=== PATIENT | female | born 1945 | race Caucasian/White ===

== ENCOUNTER → 2017-04-13 10:43 | Day surgery (SDC) | payer MEDICARE, MEDICAID ==
[~2017-04-13 10:43] MED LIST: Buffered Lidocaine 0.9% SYRIN* 5 ML/SYR SYRINGE ONE; Clindamycin 900 MG IVPREMIX(* 900 MG/50 ML SDV IV ONE
== END | disposition home or self-care (01) ==
LOC: OR 10:43 → SP 10:43
PROVIDERS: ATTEND Podiatrist
DX: M20.40 Other hammer toe(s) (acquired), unspecified foot (principal); Z53.9 Procedure and treatment not carried out, unspecified reason

== ENCOUNTER 2017-05-25 12:13 | Day surgery (SDC) | payer MEDICARE, MEDICAID ==
[2017-05-25 12:34] VITALS: BP 155/74
[2017-05-25] MEDS ORDERED: Dexamethasone IV* 4 MG/ML 1 ML (4 MG) ONE (13:45)
[2017-05-25] MEDS ORDERED: Lidocaine 1% INJ* 10 MG/ML 30 ML SDV ONE (13:45)
[2017-05-25] MEDS ORDERED: Bupivacaine 0.25% SDV* 30 ML ONE (13:45)
[2017-05-25] MEDS ORDERED: Acetaminop/Codeine 30 MG TAB* 1 TAB (300 MG/30 MG) ONE (14:49)
--- NOTE | 2017-05-26 16:06 | OP ---
DATE OF OPERATION: 05/25/17 - [facility] DATE OF : 41 SURGEON: Matthew Rosen DPM. ANESTHESIA: Straight local. PRE-OP DIAGNOSIS: Skin neoplasm with unknown behavior. POST-OP DIAGNOSIS: Skin neoplasm with unknown behavior. OPERATIVE PROCEDURE: Excision of skin lesion at the top of the right foot. ESTIMATED BLOOD LOSS: Less than 25 cc. IV FLUIDS: None. DRAINS: None. SPECIMENS: Elliptical wedge excision of skin. DESCRIPTION OF PROCEDURE: The patient was taken to the operating room, was placed in the supine position. Time-out was called and OR team agreed. The right foot was then blocked with 5 cc of 1% lidocaine plain intralesionally and around the lesion. The foot was then prepped and draped in sterile manner. The right foot was exsanguinated with an Esmarch bandage and the cuff was then inflated to 250 mmHg. Attention was then paid to the right foot. There was a nevus like skin lesion that previously had a punch biopsy. It was being benign by the pathologist. The recommendation is to excise the whole lesion. I then made a semi-elliptical incision of the said lesion with deep margins. Distal apex was tagged with nylon suture. Indicated this part is at the 6 o'clock position pointing towards the toes. Once the excision was completed, wound was irrigated and closed with a simple suture pattern. The cuff was then deflated. The foot was then placed in pressure dressing. The patient tolerated the procedure well and was discharged later in stable condition. [id number] #: [id number] MTDD
== END 2017-05-25 16:43 | disposition home or self-care (01) ==
LOC: OR 12:13
PROVIDERS: ATTEND Podiatrist
DX: D22.71 Melanocytic nevi of right lower limb, including hip (principal); E11.9 Type 2 diabetes mellitus without complications; Z79.4 Long term (current) use of insulin; Z79.84 Long term (current) use of oral hypoglycemic drugs; M06.9 Rheumatoid arthritis, unspecified; I10 Essential (primary) hypertension
CPT/HCPCS: 88305; 88341; 88342; A9270-GY; J1100; J2001

== ENCOUNTER 2017-11-10 21:57 | Inpatient (IN) | payer MEDICARE, MEDICAID ==
[2017-11-10] MEDS ORDERED: NS 0.9% 1000 ML* 2,000 ML IV ONE (22:14)
--- OUTSIDE RECORDS SUMMARY | 2017-11-10 22:17 | XMS REPORT ---
:1945 External Reference #:[id number] [facility] Address [address] [place] [address] Phone [phone] Care Team Providers Name Role Phone Lindsey Larsen M.D. Primary Care Physician Unavailable Payers Type Date Identification Numbers Payment Provider Subscriber Medicare Primary Policy Number: [id number] Medicare - NGS Joyce Cheung PayID: [id number] [address] [facility] [place] [address] Medicaid Policy Number: [id number] Medicaid Joyce Cheung PayID: [id number] [address] [place] [address] Problems Date Description Provider Status Onset: Type 2 diabetes mellitus Active Note: 2001 Onset: Hypercholesterolemia Active Onset: Transient cerebral ischemia Active Onset: 12/24/2015 Ptosis of eyelid Calista Arenas O.D. Active Onset: 12/24/2015 Tear film insufficiency Calista Arenas O.D. Active Onset: 12/24/2015 Blepharitis Calista Arenas O.D. 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 Active macular edema, r eye Onset: 10/02/2016 Type 2 diab with mod nonp rtnop Lai Vtiale M.D. 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 Active with macular edema, bi Onset: 05/29/2017 Squamous blepharitis Ashvin Guillory M.D. Active Social History Type Date Description Comments Marital Status Legal Status: Occupation Unemployed ETOH Use Denies alcohol use Smoking Patient has never smoked Recreational Drug Use Denies Drug Use Daily Caffeine Soda RARE Allergies, Adverse Reactions, Alerts Date Description Reaction Status Severity Comments 01/12/2015 Aspirin active 01/12/2015 Penicillin active Medications Medication Date Status Form Strength Qnty SIG Indications Ordering Provider Bacitracin 11/08 Active Ointment 500Unit/G 7gm place in H01.024 Ashvin (Ophthalmic) /2017 M both eyes at [facility], night before M.D. bed for 4 weeks Artificial 11/07 Active Solution 1-0.3% 4 times a Ashvin Tears /2017 day Leia Guillory Celebrex Active Capsules 200mg Lala, / Anisha Dupree Enbrel Active Soln 50mg/ml Unknown Prefill Syringe Metformin HCL Active Tablets ER 1000mg take 1 Unknown ER /0000 24HR tablet 2 X Day Crestor Active Tablets 40mg Lala, / Anisha Dupree Glipizide Active Tablets 5mg Flora-W / atsCharity bowen [employer] Clopidogrel Active Tablets 75mg Lala, Bisulfate / Anisha Dupree Calcium High Active Tablets 600-200mg take 1 Unknown Potency + /0000 -Unit tablet twice Vitamin D a day (600 MG Plus 400 MG Vit D) Metformin HCL Active Tablets 1000mg Lala, / Anisha Dupree Calcium Active Tablets 600-400mg Unknown Carbonate-Vitam /0000 -Unit in D Zofran Active Tablets 4mg 1 every 6 Unknown /0000 hours as needed Voltaren Active Gel 1% Unknown /0000 Robitussin DM Active Syrup 100-10mg/ Unknown Sugar Free /0000 5ML Miralax Active Packet 3350NF Unknown /0000 Acetaminophen Active Capsules 500mg Unknown /0000 Toujeo Solostar Active Solution 300Unit/M Unknown /0000 Pen-Inject L Clarinex Active Tablets 5mg Unknown /0000 Neomycin/Polymy 05/29 Hx Ointment 3.5-31724 7gm apply a thin H01.021 Ashvin arboleda/Dexamethaso /2016 -0.1 strip to the [facility], [place] - right eye at M.D. 06/12 night for weeks, then discontinue Erythromycin 12/28 Hx Ointment 5mg/GM 1Tube apply thin H10.523 Calista Warren /2016 s strip to all [place], - four eyelid O.D. 05/28 margins every night at bedtime x 2 weeks Erythromycin 06/19 Hx Ointment 5mg/GM 1Tube apply thin H10.523 Gregoria Briones strip to all [facility], - four eyelid O.D. 10/01 margins x every night Maxitrol 01/24 Hx Ointment 3.5-26217 3.500 apply 11/08' H01.001 Calista Warren -0.1 gm to all lids [place], - every night O.D. 03/08 at bedtime x 2 weeks Erythromycin 12/24 Hx Ointment 5mg/GM 1Tube Apply to all H01.001 Calista Warren four lids at [place], - bedtime for O.D. 01/23 3 weeks /2015 Humulin 70/30 00/ Hx Suspension (70-30)10 Unknown /0000 0Unit/ML - 12/23 Ofloxacin Hx Solution 0.3% insert 5 Unknown (Otic) /0000 drops into - right ear 12/23 twice a day /2015 Hydrocodone-Bill 00/00 Hx Tablets 5-325mg Unknown taminophen /0000 - 12/23 Calcium 00/ Hx Tablets 600-400mg Unknown Carbonate-Vitam /0000 -Unit in D - 12/23 Ipratropium Hx Solution 0.06% Lala, [place] /0000 Anisha Fu M.D. 12/23 Lantus Hx Solution 100Unit/M Flora-W /0000 L atson, - Charity 12/23 [employer] Mometasone Hx Solution 0.1% Strominge Furoate /0000 Lai newell M.D. 12/23 Loperamide HCL Hx Capsules 2mg Santos-Berli /0000 Lindsey eller M.D. 12/23 Mapap Hx Tablets 500mg 2 tab by Unknown /0000 mouth twice - a day as 06/18 Nitrofurantoin Hx Capsules 100mg Unknown Monohyd Macro / - 12/23 Desloratadine Hx Tablets 5mg Lala, /0000 Anisha Fu M.D. 06/18 Fluzone Hx Cyndee 0.5ml inject 0.5 Unknown High-Dose /0000 milliliter - intramuscula 12/23 Prevnar 13 Hx Suspension inject 0.5 Unknown /0000 milliliter - intramuscula 12/23 Ondansetron Hx Tablets 4mg Santos-Berli /0000 Dispers Lindsey eller M.D. 12/23 Humalog Kwikpen 00 Hx Solution 100Unit/M Use as Unknown /0000 Pen-Inject L Directed Up - To 20 Units 12/23 Glucagon 00 Hx Kit 1mg use as Unknown Emergency /0000 directed if - needed 06/18 Gavilyte-C Hx Solution 240gm [place], /0000 Andrey Fu M.D. 12/23 Polyethylene Hx Powder 3350NF Lala, Glycol 3350 /0000 Anisha Fu M.D. 06/18 Voltaren Hx Gel 1% Lala, /0000 Anisha Fu M.D. 12/23 Levofloxacin 00/00 Hx Tablets 500mg Unknown /0000 - 06/18 Azithromycin 00/ Hx Tablets 250mg Unknown /0000 - 06/18 Mometasone 00 Hx Solution 0.1% Strominge Furoate /0000 Lai newell M.D. 06/18 Loperamide HCL 00/ Hx Capsules 2mg Santos-Berli /0000 Lindsey eller M.D. 06/19 Nitrofurantoin 00 Hx Capsules 100mg Unknown Monohyd Macro /0000 - 06/18 Prevnar 13 Hx Suspension inject 0.5 Unknown /0000 milliliter - intramuscula 06/18 Fluzone Hx Cyndee 0.5ml inject 0.5 Unknown High-Dose /0000 milliliter - intramuscula 06/18 Ondansetron Hx Tablets 4mg Dissolve 1 Unknown /0000 Dispers Tablet On - Tongue Every 06/18 6 Hours Needed Results Description No Information Procedures Date CPT Code Description Status 05/29/2017 04118 Est Patient Intermediate Exam Completed 10/02/2016 77307 Scanning Computerized Opthalmic Diagnostic Posterior Completed Seg Retina 10/02/2016 05924 Est Patient Comprehensive Exam Completed 06/19/2016 66018 Est Patient Intermediate Exam Completed 03/09/2016 13282 Est Patient Intermediate Exam Completed 03/07/2016 93808 Scanning Computerized Opthalmic Diagnostic Posterior Completed Seg Retina 01/25/2016 27107 Scanning Computerized Opthalmic Diagnostic Posterior Completed Seg Retina 01/25/2016 49133 Est Patient Comprehensive Exam Completed 01/12/2015 69580 Est Patient Comprehensive Exam Completed 05/18/2014 53677 Est Patient Intermediate Exam Completed 04/21/2014 64087 Est Patient Intermediate Exam Completed 04/14/2014 64366 Est Patient Intermediate Exam Completed 04/22/2013 60477 Scanning Computerized Opthalmic Diagnostic Posterior Completed Seg Retina 04/22/2013 72847 Est Patient Intermediate Exam Completed 09/20/2012 30156 Est Patient Comprehensive Exam Completed 08/08/2012 29519 Patient No Show For Appt Completed 04/25/2012 96103 Dilation Og Lacrimal Punctum,W/Wo Completed 08/04/2011 71212 Scanning Computerized Opthalmic Diagnostic Posterior Completed Seg Retina 08/04/2011 54952 Est Patient Comprehensive Exam Completed 08/09/2010 96728 Fundus Photography With Interpretation And Report Completed 08/09/2010 66911 Determination Of Refractive State Completed 08/09/2010 86207 Est Patient Comprehensive Exam Completed 10/15/2009 99694 Est Patient Comprehensive Exam Completed 09/10/2008 78762 Fundus Photography With Interpretation And Report Completed 09/10/2008 89530 Determination Of Refractive State Completed 09/10/2008 30537 Est Patient Comprehensive Exam Completed 01/27/2008 34699 Scanning Laser W/Interp And Report Completed 01/27/2008 80992 Est Patient Comprehensive Exam Completed 01/30/2007 63533 Extracapsular Cataract Extraction W/Intraocular Lens Completed 01/22/2007 34916 Ophthalmic Biometry Completed 01/22/2007 34732 Computerized Corneal Topography Completed 08/30/2005 04310 Patient No Show For Appt Completed Encounters Type Date Location Provider CPT E/M Dx Office Visit 12/28/2016 Lai Vitale MD, Calista Arenas O.D. 63934 H10.523 1:45p pc Office Visit 03/07/2016 Lai Vitale MD, Calista Arenas O.D. 75756 E11.321 10:00a pc H02.403 H01.001 H01.004 Office Visit 12/24/2015 9:00a Lai Vitale MD, Calista Arenas O.D. 87594 H02.403 pc H04.123 H01.001 H01.004 Office Visit 09/04/2013 10:30a Lai Vitale MD, Clifford Larsen M.D. 77680 375.15 pc Office Visit 04/25/2012 1:30p Lai Vitale MD, Clifford Larsen M.D. 96639 250.00 pc 375.22 V43.1 374.30 375.15 Office Visit 11/16/2011 1:00p Lai Vitale MD, Clifford Larsen M.D. 42969 375.15 pc Office Visit 01/08/2007 12:30p Lai Vitale MD, Lai Vitale M.D. 34376 250.00 pc Office Visit 08/25/2004 10:15a Lai Vitale MD, Cole Mckeon M.D. 64888 250.00 pc 366.14 Plan of Care 11/08/2017 - Ashvin Guillory M.D.E11.3313 Type 2 diab with moderate nonp rtnop with macular edema, biComments:Smoking can increase the risk of developing or worsening any eye related disease, as well as affect your overall health. If you are a smoker, we strongly recommend that you quit.If you are not a smoker, we strongly recommend that you do not start. I can detect diabetic changes in your eyes. Proper control of your diabetes is important for the health of your eyes. It is important that you keep all of your follow up appointments.Follow up:6MONTHS, DFE, OCT MACH01.024 Squamous blepharitis left upper eyelidNew Medication:Bacitracin (Ophthalmic) 500 Unit/GMComments:Please follow Dr. Guillory's instructions. CONTINUE TO USE THE ARTIFICIAL TEARS 4-6X/ DAY IN BOTH EYESUSE THE ANTIBIOTIC OINTMENT AT NIGH IN BOTH EYES.USE A WARM, WET , WASH CLOTH TO REST OVER THE EYE FOR 3-5MINUTES BEFORE BED TO HELP CLEAN THE EYE LIDSH04.123 Dry eye syndrome of bilateral lacrimal glandsComments:Both of your eyes appear to be dry. Use artificial tears as directed. You can use the tears more often if you are reading a book or are on the computer, as we tend to blink less, making our eyes dry out more.[facility] offers a few items in our optical department to help alleviate dry eye symptoms.
--- OUTSIDE RECORDS SUMMARY | 2017-11-10 22:17 | XMS REPORT ---
:1945 External Reference #:[id number] Author Organization [facility] Address [address] [facility] [address] [place] [address] Phone [phone] Care Team Providers Name Role Phone Lindsey Bermeo MD Primary Care Physician Unavailable Payers Type Date Identification Numbers Payment Provider Subscriber Medicare Primary Policy Number: [id number] Medicare Joyce Cheung PayID: [id number] [address] [place] [address] [facility] Part B Policy Number: [id number] Medicaid Joyce Cheung PayID: [id number] [address] [place] [address] Problems Description No Information Family History Date Family Member(s) Problem(s) Comments General Heart Disease General Diabetes Social History Type Date Description Comments Lives With Alone ETOH Use Denies alcohol use Smoking Patient has never smoked Exercise Type/Frequency Exercises regularly Allergies, Adverse Reactions, Alerts Date Description Reaction Status Severity Comments 04/23/2014 Penicillins active 04/23/2014 Aspirin active 11/06/2017 Potassium Chloride active Medications Medication Date Status Form Strength Qnty SIG Indications Ordering Provider Enbrel Active Soln 50mg/ml inject the Unknown /0000 Prefill contents of one Syringe syringe (50mg) subcutaneously once a week.single-use syringe. refrigerate. Crestor Active Tablets 40mg 1 by mouth Unknown /0000 every day Metformin HCL Active Tablets 1,000mg 1 by mouth Unknown /0000 twice a day Clopidogrel Active Tablets 75mg 1 by mouth Unknown Bisulfate /0000 every day Polyethylene 00 Active Powder 3350-GRX mix one 17gm Unknown Glycol scoop in 8 oz 3350-GRX water and take by mouth daily as needed Lantus 00 Active Solution 100Unit/M Unknown Solostar 0000 Pen-Injec L t Glipizide ER 00 Active Tablets 5mg 1 by mouth Unknown /0000 ER 24HR every day Celebrex Active Capsules 200mg 1 by mouth Unknown /0000 every day Clarinex-D 12 Active Tablets 2.5-120mg by mouth twice Unknown Hour /0000 ER 12HR a day as needed Zofran Active Tablets 4mg 1 tab by mouth Unknown every 6 hours as needed nausea Tylenol Extra Active Tablets 500mg 2 by mouth as Unknown Strength /0000 needed Calcium 600 + Active Tablets 600-600mg 1 by mouth Unknown D 0000 -Unit twice a day Voltaren Active Gel 1% apply 2 grams Unknown twice daily as needed for pain Flexeril 04/04 Hx Tablets 5mg 30tab 1 tab by mouth s twice a day prn Maria, - M.D. 11/11 Keflex 09/14 Hx Capsules 500mg 21cap one by mouth 3 s times daily for Maria, - 7 days M.D. 10/07 [place] 08/30 Hx Tablets 5-325mg 40tab 1-2 po q4h prn s Tank Sifuentes M.DGregory 04/23 Claritin Hx Unknown / - 11/11 Humalog Hx Unknown /0000 - 11/11 Desloratadine Hx Tablets 5mg 1 by mouth Unknown / every day - 03/16 Celecoxib Hx Capsules 200mg once daily - 03/16 Vital Signs Date Vital Result Comment 11/06/2017 Height 61 inches 5'1" Weight 139.00 lb Heart Rate 80 /min BP Systolic Sitting 140 mmHg BP Diastolic Sitting 80 mmHg Respiratory Rate 16 /min Body Temperature 97.9 F Pain Level 5 BMI (Body Mass Index) 26.3 kg/m2 03/17/2016 Height 61 inches 5'1" Weight 142.00 lb Pain Level 1 "feels heavy" BMI (Body Mass Index) 26.8 kg/m2 08/14/2014 Height 61 inches 5'1" Weight 139.00 lb Heart Rate 67 /min BP Systolic 146 mmHg BP Diastolic 81 mmHg BMI (Body Mass Index) 26.3 kg/m2 05/27/2014 Height 62 inches 5'2" Heart Rate 79 /min BP Systolic 127 mmHg BP Diastolic 89 mmHg 05/07/2014 Height 62 inches 5'2" Weight 134.00 lb Heart Rate 70 /min BP Systolic 129 mmHg BP Diastolic 80 mmHg Pain Level 5 BMI (Body Mass Index) 24.5 kg/m2 04/23/2014 Height 65 inches 5'5" Weight 134.00 lb Heart Rate 76 /min BP Systolic 120 mmHg BP Diastolic 73 mmHg BMI (Body Mass Index) 22.3 kg/m2 07/07/2011 Height 62 inches 5'2" Weight 134.00 lb Heart Rate 71 /min BP Systolic 125 mmHg BP Diastolic 76 mmHg BMI (Body Mass Index) 24.5 kg/m2 Results Description No Information Procedures Date CPT Code Description Status 11/14/2014 23170 EKG, Interpretation Only Completed 05/27/2014 35650 Rad Exam; Wrist, Comp, Min 3 Views Completed 05/27/2014 79142 Rad Exam; Wrist, Comp, Min 3 Views Completed 04/23/2014 27614 CLST TRMT Distal Radial FX Completed 04/04/2012 01911 Rad Exam; Clavicle Comp Completed 03/08/2012 28254 Closed TRTMT Clavicular Fracture Completed 12/22/2011 58252 Rad Exam; Ankle Comp Completed 12/22/2011 99230 Short Leg Cast Completed 12/21/2011 34246 Rad Exam; Ankle Comp Completed 11/30/2011 48398 Rad Exam; Ankle Comp Completed 11/30/2011 17030 Short Leg Cast Completed 11/20/2011 20889 ORIF Open TX Bimalleolar Ankle FX Includes Internal Completed Fixation 11/20/2011 79605 ORIF Open TX Bimalleolar Ankle FX Includes Internal Completed Fixation 11/15/2011 08849 Rad Exam; Ankle Comp Completed 09/27/2011 18138 Walking Cast Completed 09/14/2011 49287 Rad Exam; Ankle Comp Completed 09/04/2011 80611 ORIF Trimalleolar Ankle FX Medial And/Or Lateral Completed Malleolus 09/04/2011 52958 ORIF Trimalleolar Ankle FX Medial And/Or Lateral Completed Malleolus 08/30/2011 95659 Rad Exam; Ankle Comp Completed 08/30/2011 92995 Rad Exam; Wrist, Comp, Min 3 Views Completed 07/07/2011 03257 Rad Exam; Fingers Completed 01/04/2009 54801 ECHO Transthorasic Realtime 2D W Doppler & Color Completed Flow Hosp Encounters Type Date Location Provider CPT E/M Dx Office Visit 03/17/2016 [facility], 17732 M19.072 9:50a Man Dupree Office Visit 11/12/2015 [facility] 19702 M19.072 11:30a Man Dupree Office Visit 11/16/2014 [facility] Raysa Brown, 04753 557.9 7:23a [facility] M.DGregory 250.00 401.9 Office Visit 11/15/2014 7:23a [facility] Raysa Brown, 78966 557.9 Hospitalists M.DGregory 250.00 272.4 401.9 Office Visit 11/14/2014 7:22a [facility], Jourdan Gonzalez, 87139 557.9 Hospitalists N.P. 272.4 401.9 250.00 Office Visit 08/14/2014 2:30p [facility] M.D. 49438 715.97 Of Simran.M.Ting Office Visit 05/23/2012 4:00p [facility] [place] 97023 810.00 Of C.MMarlen Murphy Office Visit 04/18/2012 4:15p [facility] Neal Sifuentes M.D. 90042 810.00 Of C.M.Ting Office Visit 04/04/2012 10:15a [facility] Neal Sifuentes M.D. 30914 810.00 Of C.M.AGregory Office Visit 03/21/2012 4:00p [facility] Neal Sifuentes M.D. 01526 810.00 Of C.M.AGregory Office Visit 03/08/2012 11:45a [facility] [place] 21912 810.00 Of Marlen Demarco Office Visit 08/30/2011 11:00a [facility] PALLAVI Boudreaux 01250 824.8 Of Man 824.6 Office Visit 08/23/2011 10:30a [facility] Sifuentes, 24511 824.6 Man Dupree Office Visit 07/07/2011 11:15a [facility] [place] 29122 715.94 Man Cervantes M.D. Plan of Care 11/06/2017 - [facility] M.D.M19.072 Primary osteoarthritis, left ankle and footFollow up:As needed
[2017-11-10 22:32] LABS: ABS Basophils 0.1 10^3/ul (0-0.2); ABS Eosinophils 0 10^3/ul (0-0.6); ABS Lymphocytes 1.4 10^3/ul (1.0-4.8); ABS Monocytes 0.8 10^3/ul (0-0.8); ABS Neutrophils 10.6 10^3/ul (1.5-7.7); ABS Nucleated RBC 0 10^3/ul; Eosinophil % 0 % (0-6); Hematocrit 39 % (35-47); Hemoglobin 12.9 g/dl (12.0-16.0); Lymphocyte % 10.5 % (25-47); Mean Corpuscular HGB Conc 33 g/dl (31-36); Mean Corpuscular Hemoglobin 27 pg (27-31); Mean Corpuscular Volume 82 fL (80-97); Mean Platelet Volume 10 um3 (7.4-10.4); Nucleated Red Blood Cells % 0; Platelet Count 191 10^3/ul (150-450); Red Blood Count 4.79 10^6/ul (4.0-5.4); Red Cell Distribution Width 14 % (10.5-15)
[2017-11-10 22:42] LABS: INR 0.93 (0.77-1.02)
[2017-11-10 22:44] LABS: EGFR Non-African American 41.6 (>60)
[2017-11-10 23:00] LABS: Urine Appearance Cloudy; Urine Blood 2+ (Negative); Urine Color Yellow; Urine Ketones 1+ (Negative); Urine Protein 3+(>=500 mg/dL) (Negative); Urine Specific Gravity 1.026 (1.010-1.030); Urine Urobilinogen Negative (Negative)
[2017-11-10] MEDS ORDERED: Insulin REGULAR(*) 100 UNITS in NS 0.9% 100 ML* 100 ML IVPB ONE (23:21)
[2017-11-10] MEDS ORDERED: Insulin REGULAR(*) 1 UNITS UNIT IV PUSH ONE (23:21)
[2017-11-11] MEDS ORDERED: cefTRIAXone(*) 1 GM in NS 0.9% 50 ML* 50 ML IVPB ONE (00:35)
--- NOTE | 2017-11-11 00:39 | ED ---
Arpan Linares Tecjoon, scribed for Alec Rain MD on 11/10/17 at 2228 . HPI Diabetic - HPI Summary HPI Summary: This patient is a 71 year old female BIBA to [facility] shaking and comatose. Patient s herbarium curator states that the patient was last seen normal yesterday and was found today in this condition. 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 Hx From Patient Unobtainable Due To: Altered Mental Status Onset/Duration: Still Present Severity Currently: Severe Character: Comatose - Allergies/Home Medications Allergies/Adverse Reactions: Allergies Allergy/AdvReac Type Severity Reaction Status Date / Time Aspirin Allergy Hives Verified 11/10/17 23:10 Penicillins Allergy Hives Verified 11/10/17 23:10 peppers, onions Allergy GI Upset Uncoded 11/10/17 23:10 PMH/Surg Hx/FS Hx/Imm Hx Previously Healthy: No - PMHx Limited due to Level 5 Caveat: Altered Mental Status Endocrine/Hematology History: Reports: Hx Diabetes - TYPE II- ORAL MEDICATION AND INSULIN FOR Denies: Hx Thyroid Disease Cardiovascular History: Reports: Hx Hypercholesterolemia Denies: Hx Congestive Heart Failure, Hx Hypertension, Hx Pacemaker/ICD Respiratory History: Reports: Other Respiratory Problems/Disorders - LOSING VOICE ON AND OFF LAST 2 MONTHS Denies: Hx Asthma, Hx Chronic Obstructive Pulmonary Disease (COPD) GI History: Reports: Hx Gastroesophageal Reflux Disease - OCCASIONALLY Denies: Hx Ulcer History: Denies: Hx Renal Disease Musculoskeletal History: Reports: Hx Arthritis - "ALL OVER", Hx Orthopedic Injury - L jacqui fracture and ORIF; L wrist fracture, Hx Tendonitis - SHOULDERS Sensory History: Reports: Hx Contacts or Glasses - GLASSES, Hx Hearing Aid - LEFT EAR Opthamlomology History: Reports: Hx Contacts or Glasses - GLASSES Neurological History: Reports: Hx Migraine - OCCASIONALLY- TREATS WITH TYLENOL AND REST, Other Neuro Impairments/Disorders - diabetic neuropathy - Cancer History Cancer Type, Location and Year: Family Hx - Surgical History Surgery Procedure, Year, and Place: Left ankle repair X 2. Hysterectomy (>30 yrs ago per daughter). RIGHT EAR SURGERY- 50 YEARS AGO Hx Anesthesia Reactions: No Infectious Disease History: Reports: Hx Shingles Denies: Hx Hepatitis, Hx Human Immunodeficiency Virus (HIV), Traveled Outside the [place] in Last 30 Days - Family History Known Family History: Positive: Other - unable to obtain. Family History: FHx Limited due to Level 5 Caveat: Altered Mental Status - Social History Alcohol Use: None Hx Substance Use: No Substance Use Type: Reports: None Hx Tobacco Use: No Smoking Status (MU): Never Smoked Tobacco Review of Systems Positive: Other - patient is shaking Neurological: Other - comatose All Other Systems Reviewed And Are Negative: No - Comments Additional Review of Systems Comments: ROS Limited due to Level 5 Caveat: Altered Mental Status Physical Exam - Summary Physical Exam Summary: ENT: Oral Mucosa dry Respiratory: CTA, breath sounds present. Lungs clear Cardiovascular: Tachycardic Bowel: Hypoactive Bowel Sounds Neurological: Obtunded OSAL MUCOSA DRY Triage Information Reviewed: No Vital Signs On Initial Exam: Initial Vitals Temp Pulse Resp BP Pulse Ox 100.0 F 97 24 125/88 90 11/10/17 22:09 11/10/17 22:09 11/10/17 22:09 11/10/17 22:09 11/10/17 22:09 Vital Signs Reviewed: No Completion Of Physical Exam Limited Due To: Altered Mental Status, Level 5 Diagnostics - Vital Signs Vital Signs Temp Pulse Resp BP Pulse Ox 11/11/17 00:01 104 17 140/82 91 11/11/17 00:00 104 18 91 11/10/17 23:41 104 16 91 11/10/17 23:40 152/89 11/10/17 23:35 107 18 155/72 94 11/10/17 23:20 93 11/10/17 23:00 112 19 96 11/10/17 22:50 113 19 140/82 89 11/10/17 22:20 116 23 129/88 90 11/10/17 22:09 100.0 F 97 24 125/88 90 - Laboratory Lab Results: Lab Results 11/10/17 11/10/17 11/10/17 Range/Units 22:16 22:16 22:16 WBC 13.0 H (3.5-10.8) 10^3/ul RBC 4.79 (4.0-5.4) 10^6/ul Hgb 12.9 (12.0-16.0) g/dl Hct 39 (35-47) % MCV 82 (80-97) fL MCH 27 (27-31) pg MCHC 33 (31-36) g/dl RDW 14 (10.5-15) % Plt Count 191 (150-450) 10^3/ul MPV 10 (7.4-10.4) um3 Neut % (Auto) 81.9 (38-83) % Lymph % (Auto) 10.5 L (25-47) % [place] % (Auto) 6.5 (1-9) % Eos % (Auto) 0 (0-6) % Baso % (Auto) 1.1 (0-2) % Absolute Neuts (auto) 10.6 H (1.5-7.7) 10^3/ul Absolute Lymphs (auto) 1.4 (1.0-4.8) 10^3/ul Absolute Monos (auto) 0.8 (0-0.8) 10^3/ul Absolute Eos (auto) 0 (0-0.6) 10^3/ul Absolute Basos (auto) 0.1 (0-0.2) 10^3/ul Absolute Nucleated RBC 0 10^3/ul Nucleated RBC % 0 INR (Anticoag Therapy) 0.93 (0.77-1.02) APTT 26.6 (26.0-36.3) seconds VBG pH (7.33-7.43) VBG pCO2 (41-51) mmHg VBG pO2 (35-45) mmHg VBG HCO3 (24-28) mmol/L VBG O2 Saturation (70-80) % VBG Base Excess (0-4) Sodium 137 (133-145) mmol/L Potassium TNP Chloride 101 (101-111) mmol/L Carbon Dioxide 22 (22-32) mmol/L Anion Gap 14 H (2-11) mmol/L BUN 36 H (6-24) mg/dL Creatinine 1.26 H (0.51-0.95) mg/dL Est GFR ( Amer) 53.5 (>60) Est GFR (Non-Af Amer) 41.6 (>60) BUN/Creatinine Ratio 28.6 H (8-20) Glucose 506 H* (70-100) mg/dL Lactic Acid (0.5-2.0) mmol/L Calcium 8.3 L (8.6-10.3) mg/dL Magnesium TNP Total Bilirubin 0.70 (0.2-1.0) mg/dL AST TNP ALT 10 (7-52) U/L Alkaline Phosphatase 70 (34-104) U/L Ammonia (16-53) mol/L Total Creatine Kinase 58 (10-223) U/L Troponin I 0.08 H* (<0.04) ng/mL C-Reactive Protein 57.87 H (< 5.00) mg/L Total Protein 5.9 L (6.4-8.9) g/dL Albumin 3.2 (3.2-5.2) g/dL Globulin 2.7 (2-4) g/dL Albumin/Globulin Ratio 1.2 (1-3) Lipase < 10 L (11.0-82.0) U/L Procalcitonin (<0.6) ng/mL Urine Color Urine Appearance Urine pH (5-9) Ur Specific [place] (1.010-1.030) Urine Protein (Negative) Urine Ketones (Negative) Urine Blood (Negative) Urine Nitrate (Negative) Urine Bilirubin (Negative) Urine Urobilinogen (Negative) Ur Leukocyte Esterase (Negative) Urine WBC (Auto) (Absent) Urine RBC (Auto) (Absent) Ur Squamous Epith Cells (Absent) Urine Bacteria (Absent) Urine Glucose (Negative) Salicylates < 2.50 (<30) mg/dL Urine Opiates Screen (None Detect) Acetaminophen < 15 mcg/mL Ur Barbiturates Screen (None Detect) Ur Phencyclidine Scrn (None Detect) Ur Amphetamines Screen (None Detect) U Benzodiazepines Scrn (None Detect) Urine Cocaine Screen (None Detect) U Cannabinoids Screen (None Detect) Serum Alcohol < 10 (<10) mg/dL 11/10/17 11/10/17 11/10/17 Range/Units 22:16 22:25 22:25 WBC (3.5-10.8) 10^3/ul RBC (4.0-5.4) 10^6/ul Hgb (12.0-16.0) g/dl Hct (35-47) % MCV (80-97) fL MCH (27-31) pg MCHC (31-36) g/dl RDW (10.5-15) % Plt Count (150-450) 10^3/ul MPV (7.4-10.4) um3 Neut % (Auto) (38-83) % Lymph % (Auto) (25-47) % [place] % (Auto) (1-9) % Eos % (Auto) (0-6) % Baso % (Auto) (0-2) % Absolute Neuts (auto) (1.5-7.7) 10^3/ul Absolute Lymphs (auto) (1.0-4.8) 10^3/ul Absolute Monos (auto) (0-0.8) 10^3/ul Absolute Eos (auto) (0-0.6) 10^3/ul Absolute Basos (auto) (0-0.2) 10^3/ul Absolute Nucleated RBC 10^3/ul Nucleated RBC % INR (Anticoag Therapy) (0.77-1.02) APTT (26.0-36.3) seconds VBG pH (7.33-7.43) VBG pCO2 (41-51) mmHg VBG pO2 (35-45) mmHg VBG HCO3 (24-28) mmol/L VBG O2 Saturation (70-80) % VBG Base Excess (0-4) Sodium (133-145) mmol/L Potassium 4.4 Chloride (101-111) mmol/L Carbon Dioxide (22-32) mmol/L Anion Gap (2-11) mmol/L BUN (6-24) mg/dL Creatinine (0.51-0.95) mg/dL Est GFR ( Amer) (>60) Est GFR (Non-Af Amer) (>60) BUN/Creatinine Ratio (8-20) Glucose (70-100) mg/dL Lactic Acid 3.1 H* (0.5-2.0) mmol/L Calcium (8.6-10.3) mg/dL Magnesium 1.7 L Total Bilirubin (0.2-1.0) mg/dL AST 9 L ALT (7-52) U/L Alkaline Phosphatase (34-104) U/L Ammonia (16-53) mol/L Total Creatine Kinase (10-223) U/L Troponin I (<0.04) ng/mL C-Reactive Protein (< 5.00) mg/L Total Protein (6.4-8.9) g/dL Albumin (3.2-5.2) g/dL Globulin (2-4) g/dL Albumin/Globulin Ratio (1-3) Lipase (11.0-82.0) U/L Procalcitonin 0.7 H (<0.6) ng/mL Urine Color Urine Appearance Urine pH (5-9) Ur Specific [place] (1.010-1.030) Urine Protein (Negative) Urine Ketones (Negative) Urine Blood (Negative) Urine Nitrate (Negative) Urine Bilirubin (Negative) Urine Urobilinogen (Negative) Ur Leukocyte Esterase (Negative) Urine WBC (Auto) (Absent) Urine RBC (Auto) (Absent) Ur Squamous Epith Cells (Absent) Urine Bacteria (Absent) Urine Glucose (Negative) Salicylates (<30) mg/dL Urine Opiates Screen (None Detect) Acetaminophen mcg/mL Ur Barbiturates Screen (None Detect) Ur Phencyclidine Scrn (None Detect) Ur Amphetamines Screen (None Detect) U Benzodiazepines Scrn (None Detect) Urine Cocaine Screen (None Detect) U Cannabinoids Screen (None Detect) Serum Alcohol (<10) mg/dL 11/10/17 11/10/17 11/10/17 Range/Units 22:25 22:35 22:35 WBC (3.5-10.8) 10^3/ul RBC (4.0-5.4) 10^6/ul Hgb (12.0-16.0) g/dl Hct (35-47) % MCV (80-97) fL MCH (27-31) pg MCHC (31-36) g/dl RDW (10.5-15) % Plt Count (150-450) 10^3/ul MPV (7.4-10.4) um3 Neut % (Auto) (38-83) % Lymph % (Auto) (25-47) % [place] % (Auto) (1-9) % Eos % (Auto) (0-6) % Baso % (Auto) (0-2) % Absolute Neuts (auto) (1.5-7.7) 10^3/ul Absolute Lymphs (auto) (1.0-4.8) 10^3/ul Absolute Monos (auto) (0-0.8) 10^3/ul Absolute Eos (auto) (0-0.6) 10^3/ul Absolute Basos (auto) (0-0.2) 10^3/ul Absolute Nucleated RBC 10^3/ul Nucleated RBC % INR (Anticoag Therapy) (0.77-1.02) APTT (26.0-36.3) seconds VBG pH (7.33-7.43) VBG pCO2 (41-51) mmHg VBG pO2 (35-45) mmHg VBG HCO3 (24-28) mmol/L VBG O2 Saturation (70-80) % VBG Base Excess (0-4) Sodium (133-145) mmol/L Potassium Chloride (101-111) mmol/L Carbon Dioxide (22-32) mmol/L Anion Gap (2-11) mmol/L BUN (6-24) mg/dL Creatinine (0.51-0.95) mg/dL Est GFR ( Amer) (>60) Est GFR (Non-Af Amer) (>60) BUN/Creatinine Ratio (8-20) Glucose (70-100) mg/dL Lactic Acid (0.5-2.0) mmol/L Calcium (8.6-10.3) mg/dL Magnesium Total Bilirubin (0.2-1.0) mg/dL AST ALT (7-52) U/L Alkaline Phosphatase (34-104) U/L Ammonia 33 (16-53) mol/L Total Creatine Kinase (10-223) U/L Troponin I (<0.04) ng/mL C-Reactive Protein (< 5.00) mg/L Total Protein (6.4-8.9) g/dL Albumin (3.2-5.2) g/dL Globulin (2-4) g/dL Albumin/Globulin Ratio (1-3) Lipase (11.0-82.0) U/L Procalcitonin (<0.6) ng/mL Urine Color Yellow Urine Appearance Cloudy Urine pH 5.0 (5-9) Ur Specific [place] 1.026 (1.010-1.030) Urine Protein 3+(>=500 mg/dl) H (Negative) Urine Ketones 1+ H (Negative) Urine Blood 2+ H (Negative) Urine Nitrate Negative (Negative) Urine Bilirubin Negative (Negative) Urine Urobilinogen Negative (Negative) Ur Leukocyte Esterase Negative (Negative) Urine WBC (Auto) Trace(0-5/hpf) (Absent) Urine RBC (Auto) Trace(0-2/hpf) (Absent) Ur Squamous Epith Cells Present H (Absent) Urine Bacteria Absent (Absent) Urine Glucose 3+(>=500 mg/dl) H (Negative) Salicylates (<30) mg/dL Urine Opiates Screen None detected (None Detect) Acetaminophen mcg/mL Ur Barbiturates Screen None detected (None Detect) Ur Phencyclidine Scrn None detected (None Detect) Ur Amphetamines Screen None detected (None Detect) U Benzodiazepines Scrn None detected (None Detect) Urine Cocaine Screen None detected (None Detect) U Cannabinoids Screen None detected (None Detect) Serum Alcohol (<10) mg/dL 11/10/17 Range/Units 23:07 WBC (3.5-10.8) 10^3/ul RBC (4.0-5.4) 10^6/ul Hgb (12.0-16.0) g/dl Hct (35-47) % MCV (80-97) fL MCH (27-31) pg MCHC (31-36) g/dl RDW (10.5-15) % Plt Count (150-450) 10^3/ul MPV (7.4-10.4) um3 Neut % (Auto) (38-83) % Lymph % (Auto) (25-47) % [place] % (Auto) (1-9) % Eos % (Auto) (0-6) % Baso % (Auto) (0-2) % Absolute Neuts (auto) (1.5-7.7) 10^3/ul Absolute Lymphs (auto) (1.0-4.8) 10^3/ul Absolute Monos (auto) (0-0.8) 10^3/ul Absolute Eos (auto) (0-0.6) 10^3/ul Absolute Basos (auto) (0-0.2) 10^3/ul Absolute Nucleated RBC 10^3/ul Nucleated RBC % INR (Anticoag Therapy) (0.77-1.02) APTT (26.0-36.3) seconds VBG pH 7.28 L (7.33-7.43) VBG pCO2 44 (41-51) mmHg VBG pO2 44 (35-45) mmHg VBG HCO3 19.9 L (24-28) mmol/L VBG O2 Saturation 80.9 H (70-80) % VBG Base Excess -5.9 L (0-4) Sodium (133-145) mmol/L Potassium Chloride (101-111) mmol/L Carbon Dioxide (22-32) mmol/L Anion Gap (2-11) mmol/L BUN (6-24) mg/dL Creatinine (0.51-0.95) mg/dL Est GFR ( Amer) (>60) Est GFR (Non-Af Amer) (>60) BUN/Creatinine Ratio (8-20) Glucose (70-100) mg/dL Lactic Acid (0.5-2.0) mmol/L Calcium (8.6-10.3) mg/dL Magnesium Total Bilirubin (0.2-1.0) mg/dL AST ALT (7-52) U/L Alkaline Phosphatase (34-104) U/L Ammonia (16-53) mol/L Total Creatine Kinase (10-223) U/L Troponin I (<0.04) ng/mL C-Reactive Protein (< 5.00) mg/L Total Protein (6.4-8.9) g/dL Albumin (3.2-5.2) g/dL Globulin (2-4) g/dL Albumin/Globulin Ratio (1-3) Lipase (11.0-82.0) U/L Procalcitonin (<0.6) ng/mL Urine Color Urine Appearance Urine pH (5-9) Ur Specific [place] (1.010-1.030) Urine Protein (Negative) Urine Ketones (Negative) Urine Blood (Negative) Urine Nitrate (Negative) Urine Bilirubin (Negative) Urine Urobilinogen (Negative) Ur Leukocyte Esterase (Negative) Urine WBC (Auto) (Absent) Urine RBC (Auto) (Absent) Ur Squamous Epith Cells (Absent) Urine Bacteria (Absent) Urine Glucose (Negative) Salicylates (<30) mg/dL Urine Opiates Screen (None Detect) Acetaminophen mcg/mL Ur Barbiturates Screen (None Detect) Ur Phencyclidine Scrn (None Detect) Ur Amphetamines Screen (None Detect) U Benzodiazepines Scrn (None Detect) Urine Cocaine Screen (None Detect) U Cannabinoids Screen (None Detect) Serum Alcohol (<10) mg/dL Result Diagrams: 11/10/17 22:16 11/10/17 22:25 Lab Statement: Any lab studies that have been ordered have been reviewed, and results considered in the medical decision making process. - Radiology CXR Xray Interpretation: No Acute Changes Radiology Interpretation Completed By: ED Physician - No acute disease process. - CT CT Head CT Interpretation: No Acute Changes - IMPRESSION: NORMAL HEAD. ED physician has reviewed this radiology report. CT Interpretation Completed By: Radiologist CT Neck CT Interpretation: No Acute Changes - IMPRESSION: No cervical spine fracture. ED physician has reviewed this radiology report. CT Interpretation Completed By: Radiologist - EKG 0442 Cardiac Rate: Tachycardia EKG Rhythm: Sinus Tachycardia - 106 BPM EKG Interpretation: Sinus Tachycardia, No Ectopy, Borderline ST depression in lateral leads Diabetic Course/Dx - Course Course Of Treatment: SPINAL TAP PERFORMED IN LEFT LATERAL POSITION. WILLIAM SIGNED CONSENT. BETATINE PREP, 1% LIDOCAINE. FLUID CLEAR. ROCEPHIN STARTED. TOLERATED PROCEEDURE WELL. Assessment/Plan: ADMIT HOSPITALIST. - Diagnoses Provider Diagnoses: DKA (diabetic ketoacidoses), Altered mental state - Critical Care Time Critical Care Time: 30-74 min Discharge - Discharge Plan Condition: Fair Disposition: ADMITTED TO [facility] Referrals: Lindsey Bermeo MD [Primary Care Provider] - The documentation as recorded by the Arpan castaneda Tecjoon accurately reflects the service I personally performed and the decisions made by me, Alec Rain MD.
[2017-11-11] MEDS ORDERED: Acetaminophen SUPP* 650 MG SUPP PR ONE (00:46)
[2017-11-11] MEDS: NS 0.9% 1000 ML* 1,000 ML IV SCH ×3 (02:25→23:39)
[2017-11-11] MEDS ORDERED: Vancomycin(*) 1,000 MG in NS 0.9% 250 ML* 250 ML IVPB ONE (03:00)
[2017-11-11] MEDS ORDERED: Cefepime 2 GM in Dextrose(*) 2 GM/50 ML BAG IV SCH (03:30)
[2017-11-11 03:54] LABS: EGFR Non-African American 48.2 (>60)
[2017-11-11] MEDS ORDERED: Vancomycin per Pharmacy* NOTE FOLLOW UP PRN (03:55)
[2017-11-11] MEDS ORDERED: Magnesium Sulfate 2 GM IV IVPB ONE (05:04)
[2017-11-11] MEDS ORDERED: Acetaminophen SUPP* 650 MG SUPP PR PRN (06:09)
--- NOTE | 2017-11-11 06:36 | HP ---
H&P (Free Text) History and Physical: PCP: Simran Bermeo MD Date/Time: 11/11/2017 0200 CC: unresponsive HPI: Mrs Cheung is a 71YO female HX poorly controlled DM2, TIA, & RA on etanercept & cortisone injections who was last known at her baseline 11/09/2016 around 1300 when she called to check in with her daughter as she does every day. Her daughter states she had refused her etanercept which she does on occasion, but was otherwise normal. Sunday however her daughter hadn't heard from her by 1999 which wasn't atypical as it was bingo night, so she went to check on her. Upon arrival, her mother's door was ajar and she was on the couch unresponsive and shaking having vomited and had bowel incontinence. Her daughter pulled the emergency cord and summoned EMS. Upon my evaluation, Mrs Cheung withdraws to pain, but does not answer questions. ED evaluation is notable PMedHx poorly controlled DM2 RA on etanercept with recent cortisone injections TIA HTN HLD psoriasis Ambulatory Orders Nursing to reconcile. Etanercept [Enbrel] 50 mg SUBCUT SA 02/11/14 Calcium Carbonate-Vitamin D [Calcium 600 + D] 1 tab PO DAILY 05/07/15 Desloratidine (NF) [Clarinex (NF)] 5 mg PO QPM 05/07/15 zzInsulin GLARGINE(*) [Lantus(*)] 50 units SUBCUT BEDTIME 05/07/15 Metformin ER (NF) 1,000 mg PO BID 02/09/16 Rosuvastatin Calcium [Crestor] 40 mg PO BEDTIME 02/09/16 glipiZIDE TAB* [Glucotrol TAB*] 5 mg PO DAILY 02/09/16 Acetaminophen [Acetaminophen Extra Stren] 500 mg PO DAILY PRN 04/06/17 Ciproflox/Dexameth OTIC.SUSP* [Ciprodex OTIC.SUSP*] 4 drop RIGHT EAR BID Insulin GLARGINE(*) [Lantus(*)] 60 units SUBCUT QAM 04/06/17 celeCOXIB CAP* [CeleBREX CAP*] 200 mg PO BID 04/06/17 Allergies Aspirin Allergy (Mild, Verified 11/11/17 01:57) Hives Penicillins Allergy (Mild, Verified 11/11/17 01:57) Hives peppers, onions Adverse Reaction (Mild, Uncoded 11/11/17 01:57) GI Upset PSurgHx cleft palate repair hysterectomy ORIF R ankle R foot surgery SocHx: no tobacco, alcohol, or recreational drugs; [facility], ; full code status FamHx: mother and father passed in their 80s of uncertain cause ROS: as above, otherwise reviewed and all were negative vitals: Vital Signs Temp 38.4 C 11/11/17 02:51 Pulse 92 11/11/17 04:45 Resp 23 11/11/17 04:45 BP 134/62 11/11/17 04:45 Pulse Ox 100 11/11/17 04:45 Intake & Output 11/10/17 11/10/17 11/11/17 11:59 23:59 11:59 Intake Total 1999 535 Balance 1999 535 Weight 54.431 kg 58.2 kg Intake: IV Fluids 1999 190 NS 140 IVPB 345 ABX - CEFEPIME 55 ABX - VANCOMYCIN 290 Constitutional: NAD, normally developed, well-nourished elderly white female HEENM: atraumatic; sclera/conjunctiva: anicteric/clear; PERRLA ;hearing: unable to assess; oropharynx: clear, mucosa tacky Neck: soft tissue: no nuchal rigidity; thyroid: normal Pulmonary: clear to auscultation bilaterally, fair aeration, no accessory muscle use CV: RR/RR, normal S1S2, no carotid bruit, no jugular venous distention, 2+ B DP/ PT, 1+ BLE edema Abdominal: soft, non-distended, non-tender, no rebound/guarding/rigidity, normoactive bowel sounds, no hepatosplenomegaly or masses, no costovertebral angle tenderness Musculoskeletal: general: grossly intact, no tenderness appreciated with palpation Integumental: no open wounds noted Neurologic moves all 4 extremities to noxious stimuli no facial droop Psychiatric orientation: somnolent, disoriented affect: somnolent mood: acquiescent eye contact: absent content: absent responses: withdraws to painful stimuli insight: poor to absent Testing: Lab Results 11/10/17 11/10/17 11/10/17 Range/Units 22:16 22:16 22:16 WBC 13.0 H (3.5-10.8) 10^3/ul RBC 4.79 (4.0-5.4) 10^6/ul Hgb 12.9 (12.0-16.0) g/dl Hct 39 (35-47) % MCV 82 (80-97) fL MCH 27 (27-31) pg MCHC 33 (31-36) g/dl RDW 14 (10.5-15) % Plt Count 191 (150-450) 10^3/ul MPV 10 (7.4-10.4) um3 Neut % (Auto) 81.9 (38-83) % Lymph % (Auto) 10.5 L (25-47) % [place] % (Auto) 6.5 (1-9) % Eos % (Auto) 0 (0-6) % Baso % (Auto) 1.1 (0-2) % Absolute Neuts (auto) 10.6 H (1.5-7.7) 10^3/ul Absolute Lymphs (auto) 1.4 (1.0-4.8) 10^3/ul Absolute Monos (auto) 0.8 (0-0.8) 10^3/ul Absolute Eos (auto) 0 (0-0.6) 10^3/ul Absolute Basos (auto) 0.1 (0-0.2) 10^3/ul Absolute Nucleated RBC 0 10^3/ul Nucleated RBC % 0 INR (Anticoag Therapy) 0.93 (0.77-1.02) APTT 26.6 (26.0-36.3) seconds VBG pH (7.33-7.43) VBG pCO2 (41-51) mmHg VBG pO2 (35-45) mmHg VBG HCO3 (24-28) mmol/L VBG O2 Saturation (70-80) % VBG Base Excess (0-4) Sodium 137 (133-145) mmol/L Potassium TNP Chloride 101 (101-111) mmol/L Carbon Dioxide 22 (22-32) mmol/L Anion Gap 14 H (2-11) mmol/L BUN 36 H (6-24) mg/dL Creatinine 1.26 H (0.51-0.95) mg/dL Est GFR ( Amer) 53.5 (>60) Est GFR (Non-Af Amer) 41.6 (>60) BUN/Creatinine Ratio 28.6 H (8-20) Glucose 506 H* (70-100) mg/dL POC Glucose (mg/dL) (70-100) mg/dL Lactic Acid (0.5-2.0) mmol/L Calcium 8.3 L (8.6-10.3) mg/dL Magnesium TNP Total Bilirubin 0.70 (0.2-1.0) mg/dL AST TNP ALT 10 (7-52) U/L Alkaline Phosphatase 70 (34-104) U/L Ammonia (16-53) mol/L Total Creatine Kinase 58 (10-223) U/L Troponin I 0.08 H* (<0.04) ng/mL C-Reactive Protein 57.87 H (< 5.00) mg/L Total Protein 5.9 L (6.4-8.9) g/dL Albumin 3.2 (3.2-5.2) g/dL Globulin 2.7 (2-4) g/dL Albumin/Globulin Ratio 1.2 (1-3) Lipase < 10 L (11.0-82.0) U/L Procalcitonin (<0.6) ng/mL Urine Color Urine Appearance Urine pH (5-9) Ur Specific [place] (1.010-1.030) Urine Protein (Negative) Urine Ketones (Negative) Urine Blood (Negative) Urine Nitrate (Negative) Urine Bilirubin (Negative) Urine Urobilinogen (Negative) Ur Leukocyte Esterase (Negative) Urine WBC (Auto) (Absent) Urine RBC (Auto) (Absent) Ur Squamous Epith Cells (Absent) Urine Bacteria (Absent) Urine Glucose (Negative) Fluid Source Fluid Volume mL Fluid Color Fluid Appearance Fluid WBC /mcL Fluid RBC /mcL Fluid Tot Cell Count Fluid Neutrophils Fluid Cell Count Rvw By CSF Cell Count Tube # CSF Glucose (40-70) mg/dL CSF Total Protein (15-45) mg/dL Salicylates < 2.50 (<30) mg/dL Urine Opiates Screen (None Detect) Acetaminophen < 15 mcg/mL Ur Barbiturates Screen (None Detect) Ur Phencyclidine Scrn (None Detect) Ur Amphetamines Screen (None Detect) U Benzodiazepines Scrn (None Detect) Urine Cocaine Screen (None Detect) U Cannabinoids Screen (None Detect) Serum Alcohol < 10 (<10) mg/dL 11/10/17 11/10/17 11/10/17 Range/Units 22:16 22:25 22:25 WBC (3.5-10.8) 10^3/ul RBC (4.0-5.4) 10^6/ul Hgb (12.0-16.0) g/dl Hct (35-47) % MCV (80-97) fL MCH (27-31) pg MCHC (31-36) g/dl RDW (10.5-15) % Plt Count (150-450) 10^3/ul MPV (7.4-10.4) um3 Neut % (Auto) (38-83) % Lymph % (Auto) (25-47) % [place] % (Auto) (1-9) % Eos % (Auto) (0-6) % Baso % (Auto) (0-2) % Absolute Neuts (auto) (1.5-7.7) 10^3/ul Absolute Lymphs (auto) (1.0-4.8) 10^3/ul Absolute Monos (auto) (0-0.8) 10^3/ul Absolute Eos (auto) (0-0.6) 10^3/ul Absolute Basos (auto) (0-0.2) 10^3/ul Absolute Nucleated RBC 10^3/ul Nucleated RBC % INR (Anticoag Therapy) (0.77-1.02) APTT (26.0-36.3) seconds VBG pH (7.33-7.43) VBG pCO2 (41-51) mmHg VBG pO2 (35-45) mmHg VBG HCO3 (24-28) mmol/L VBG O2 Saturation (70-80) % VBG Base Excess (0-4) Sodium (133-145) mmol/L Potassium 4.4 Chloride (101-111) mmol/L Carbon Dioxide (22-32) mmol/L Anion Gap (2-11) mmol/L BUN (6-24) mg/dL Creatinine (0.51-0.95) mg/dL Est GFR ( Amer) (>60) Est GFR (Non-Af Amer) (>60) BUN/Creatinine Ratio (8-20) Glucose (70-100) mg/dL POC Glucose (mg/dL) (70-100) mg/dL Lactic Acid 3.1 H* (0.5-2.0) mmol/L Calcium (8.6-10.3) mg/dL Magnesium 1.7 L Total Bilirubin (0.2-1.0) mg/dL AST 9 L ALT (7-52) U/L Alkaline Phosphatase (34-104) U/L Ammonia (16-53) mol/L Total Creatine Kinase (10-223) U/L Troponin I (<0.04) ng/mL C-Reactive Protein (< 5.00) mg/L Total Protein (6.4-8.9) g/dL Albumin (3.2-5.2) g/dL Globulin (2-4) g/dL Albumin/Globulin Ratio (1-3) Lipase (11.0-82.0) U/L Procalcitonin 0.7 H (<0.6) ng/mL Urine Color Urine Appearance Urine pH (5-9) Ur Specific [place] (1.010-1.030) Urine Protein (Negative) Urine Ketones (Negative) Urine Blood (Negative) Urine Nitrate (Negative) Urine Bilirubin (Negative) Urine Urobilinogen (Negative) Ur Leukocyte Esterase (Negative) Urine WBC (Auto) (Absent) Urine RBC (Auto) (Absent) Ur Squamous Epith Cells (Absent) Urine Bacteria (Absent) Urine Glucose (Negative) Fluid Source Fluid Volume mL Fluid Color Fluid Appearance Fluid WBC /mcL Fluid RBC /mcL Fluid Tot Cell Count Fluid Neutrophils Fluid Cell Count Rvw By CSF Cell Count Tube # CSF Glucose (40-70) mg/dL CSF Total Protein (15-45) mg/dL Salicylates (<30) mg/dL Urine Opiates Screen (None Detect) Acetaminophen mcg/mL Ur Barbiturates Screen (None Detect) Ur Phencyclidine Scrn (None Detect) Ur Amphetamines Screen (None Detect) U Benzodiazepines Scrn (None Detect) Urine Cocaine Screen (None Detect) U Cannabinoids Screen (None Detect) Serum Alcohol (<10) mg/dL 11/10/17 11/10/17 11/10/17 Range/Units 22:25 22:35 22:35 WBC (3.5-10.8) 10^3/ul RBC (4.0-5.4) 10^6/ul Hgb (12.0-16.0) g/dl Hct (35-47) % MCV (80-97) fL MCH (27-31) pg MCHC (31-36) g/dl RDW (10.5-15) % Plt Count (150-450) 10^3/ul MPV (7.4-10.4) um3 Neut % (Auto) (38-83) % Lymph % (Auto) (25-47) % [place] % (Auto) (1-9) % Eos % (Auto) (0-6) % Baso % (Auto) (0-2) % Absolute Neuts (auto) (1.5-7.7) 10^3/ul Absolute Lymphs (auto) (1.0-4.8) 10^3/ul Absolute Monos (auto) (0-0.8) 10^3/ul Absolute Eos (auto) (0-0.6) 10^3/ul Absolute Basos (auto) (0-0.2) 10^3/ul Absolute Nucleated RBC 10^3/ul Nucleated RBC % INR (Anticoag Therapy) (0.77-1.02) APTT (26.0-36.3) seconds VBG pH (7.33-7.43) VBG pCO2 (41-51) mmHg VBG pO2 (35-45) mmHg VBG HCO3 (24-28) mmol/L VBG O2 Saturation (70-80) % VBG Base Excess (0-4) Sodium (133-145) mmol/L Potassium Chloride (101-111) mmol/L Carbon Dioxide (22-32) mmol/L Anion Gap (2-11) mmol/L BUN (6-24) mg/dL Creatinine (0.51-0.95) mg/dL Est GFR ( Amer) (>60) Est GFR (Non-Af Amer) (>60) BUN/Creatinine Ratio (8-20) Glucose (70-100) mg/dL POC Glucose (mg/dL) (70-100) mg/dL Lactic Acid (0.5-2.0) mmol/L Calcium (8.6-10.3) mg/dL Magnesium Total Bilirubin (0.2-1.0) mg/dL AST ALT (7-52) U/L Alkaline Phosphatase (34-104) U/L Ammonia 33 (16-53) mol/L Total Creatine Kinase (10-223) U/L Troponin I (<0.04) ng/mL C-Reactive Protein (< 5.00) mg/L Total Protein (6.4-8.9) g/dL Albumin (3.2-5.2) g/dL Globulin (2-4) g/dL Albumin/Globulin Ratio (1-3) Lipase (11.0-82.0) U/L Procalcitonin (<0.6) ng/mL Urine Color Yellow Urine Appearance Cloudy Urine pH 5.0 (5-9) Ur Specific [place] 1.026 (1.010-1.030) Urine Protein 3+(>=500 mg/dl) H (Negative) Urine Ketones 1+ H (Negative) Urine Blood 2+ H (Negative) Urine Nitrate Negative (Negative) Urine Bilirubin Negative (Negative) Urine Urobilinogen Negative (Negative) Ur Leukocyte Esterase Negative (Negative) Urine WBC (Auto) Trace(0-5/hpf) (Absent) Urine RBC (Auto) Trace(0-2/hpf) (Absent) Ur Squamous Epith Cells Present H (Absent) Urine Bacteria Absent (Absent) Urine Glucose 3+(>=500 mg/dl) H (Negative) Fluid Source Fluid Volume mL Fluid Color Fluid Appearance Fluid WBC /mcL Fluid RBC /mcL Fluid Tot Cell Count Fluid Neutrophils Fluid Cell Count Rvw By CSF Cell Count Tube # CSF Glucose (40-70) mg/dL CSF Total Protein (15-45) mg/dL Salicylates (<30) mg/dL Urine Opiates Screen None detected (None Detect) Acetaminophen mcg/mL Ur Barbiturates Screen None detected (None Detect) Ur Phencyclidine Scrn None detected (None Detect) Ur Amphetamines Screen None detected (None Detect) U Benzodiazepines Scrn None detected (None Detect) Urine Cocaine Screen None detected (None Detect) U Cannabinoids Screen None detected (None Detect) Serum Alcohol (<10) mg/dL 11/10/17 11/11/17 11/11/17 Range/Units 23:07 00:10 00:10 WBC (3.5-10.8) 10^3/ul RBC (4.0-5.4) 10^6/ul Hgb (12.0-16.0) g/dl Hct (35-47) % MCV (80-97) fL MCH (27-31) pg MCHC (31-36) g/dl RDW (10.5-15) % Plt Count (150-450) 10^3/ul MPV (7.4-10.4) um3 Neut % (Auto) (38-83) % Lymph % (Auto) (25-47) % [place] % (Auto) (1-9) % Eos % (Auto) (0-6) % Baso % (Auto) (0-2) % Absolute Neuts (auto) (1.5-7.7) 10^3/ul Absolute Lymphs (auto) (1.0-4.8) 10^3/ul Absolute Monos (auto) (0-0.8) 10^3/ul Absolute Eos (auto) (0-0.6) 10^3/ul Absolute Basos (auto) (0-0.2) 10^3/ul Absolute Nucleated RBC 10^3/ul Nucleated RBC % INR (Anticoag Therapy) (0.77-1.02) APTT (26.0-36.3) seconds VBG pH 7.28 L (7.33-7.43) VBG pCO2 44 (41-51) mmHg VBG pO2 44 (35-45) mmHg VBG HCO3 19.9 L (24-28) mmol/L VBG O2 Saturation 80.9 H (70-80) % VBG Base Excess -5.9 L (0-4) Sodium (133-145) mmol/L Potassium Chloride (101-111) mmol/L Carbon Dioxide (22-32) mmol/L Anion Gap (2-11) mmol/L BUN (6-24) mg/dL Creatinine (0.51-0.95) mg/dL Est GFR ( Amer) (>60) Est GFR (Non-Af Amer) (>60) BUN/Creatinine Ratio (8-20) Glucose (70-100) mg/dL POC Glucose (mg/dL) (70-100) mg/dL Lactic Acid (0.5-2.0) mmol/L Calcium (8.6-10.3) mg/dL Magnesium Total Bilirubin (0.2-1.0) mg/dL AST ALT (7-52) U/L Alkaline Phosphatase (34-104) U/L Ammonia (16-53) mol/L Total Creatine Kinase (10-223) U/L Troponin I (<0.04) ng/mL C-Reactive Protein (< 5.00) mg/L Total Protein (6.4-8.9) g/dL Albumin (3.2-5.2) g/dL Globulin (2-4) g/dL Albumin/Globulin Ratio (1-3) Lipase (11.0-82.0) U/L Procalcitonin (<0.6) ng/mL Urine Color Urine Appearance Urine pH (5-9) Ur Specific [place] (1.010-1.030) Urine Protein (Negative) Urine Ketones (Negative) Urine Blood (Negative) Urine Nitrate (Negative) Urine Bilirubin (Negative) Urine Urobilinogen (Negative) Ur Leukocyte Esterase (Negative) Urine WBC (Auto) (Absent) Urine RBC (Auto) (Absent) Ur Squamous Epith Cells (Absent) Urine Bacteria (Absent) Urine Glucose (Negative) Fluid Source Cerebral spinal Fluid Volume 1.0 mL Fluid Color Colorless Fluid Appearance Clear Fluid WBC 1 /mcL Fluid RBC 1 /mcL Fluid Tot Cell Count 0 Fluid Neutrophils Not Reportable Fluid Cell Count Rvw By Pending CSF Cell Count Tube # Tube #4 CSF Glucose 284 H (40-70) mg/dL CSF Total Protein 57 H (15-45) mg/dL Salicylates (<30) mg/dL Urine Opiates Screen (None Detect) Acetaminophen mcg/mL Ur Barbiturates Screen (None Detect) Ur Phencyclidine Scrn (None Detect) Ur Amphetamines Screen (None Detect) U Benzodiazepines Scrn (None Detect) Urine Cocaine Screen (None Detect) U Cannabinoids Screen (None Detect) Serum Alcohol (<10) mg/dL 11/11/17 11/11/17 11/11/17 Range/Units 01:27 02:12 02:12 WBC (3.5-10.8) 10^3/ul RBC (4.0-5.4) 10^6/ul Hgb (12.0-16.0) g/dl Hct (35-47) % MCV (80-97) fL MCH (27-31) pg MCHC (31-36) g/dl RDW (10.5-15) % Plt Count (150-450) 10^3/ul MPV (7.4-10.4) um3 Neut % (Auto) (38-83) % Lymph % (Auto) (25-47) % [place] % (Auto) (1-9) % Eos % (Auto) (0-6) % Baso % (Auto) (0-2) % Absolute Neuts (auto) (1.5-7.7) 10^3/ul Absolute Lymphs (auto) (1.0-4.8) 10^3/ul Absolute Monos (auto) (0-0.8) 10^3/ul Absolute Eos (auto) (0-0.6) 10^3/ul Absolute Basos (auto) (0-0.2) 10^3/ul Absolute Nucleated RBC 10^3/ul Nucleated RBC % INR (Anticoag Therapy) (0.77-1.02) APTT (26.0-36.3) seconds VBG pH (7.33-7.43) VBG pCO2 (41-51) mmHg VBG pO2 (35-45) mmHg VBG HCO3 (24-28) mmol/L VBG O2 Saturation (70-80) % VBG Base Excess (0-4) Sodium 139 (133-145) mmol/L Potassium 3.4 L Chloride 109 (101-111) mmol/L Carbon Dioxide 24 (22-32) mmol/L Anion Gap 6 (2-11) mmol/L BUN 37 H (6-24) mg/dL Creatinine 1.11 H (0.51-0.95) mg/dL Est GFR ( Amer) 62.0 (>60) Est GFR (Non-Af Amer) 48.2 (>60) BUN/Creatinine Ratio 33.3 H (8-20) Glucose 342 H (70-100) mg/dL POC Glucose (mg/dL) 299 H (70-100) mg/dL Lactic Acid 1.6 (0.5-2.0) mmol/L Calcium 7.9 L (8.6-10.3) mg/dL Magnesium Total Bilirubin (0.2-1.0) mg/dL AST ALT (7-52) U/L Alkaline Phosphatase (34-104) U/L Ammonia (16-53) mol/L Total Creatine Kinase (10-223) U/L Troponin I 0.09 H* (<0.04) ng/mL C-Reactive Protein (< 5.00) mg/L Total Protein (6.4-8.9) g/dL Albumin (3.2-5.2) g/dL Globulin (2-4) g/dL Albumin/Globulin Ratio (1-3) Lipase (11.0-82.0) U/L Procalcitonin (<0.6) ng/mL Urine Color Urine Appearance Urine pH (5-9) Ur Specific [place] (1.010-1.030) Urine Protein (Negative) Urine Ketones (Negative) Urine Blood (Negative) Urine Nitrate (Negative) Urine Bilirubin (Negative) Urine Urobilinogen (Negative) Ur Leukocyte Esterase (Negative) Urine WBC (Auto) (Absent) Urine RBC (Auto) (Absent) Ur Squamous Epith Cells (Absent) Urine Bacteria (Absent) Urine Glucose (Negative) Fluid Source Fluid Volume mL Fluid Color Fluid Appearance Fluid WBC /mcL Fluid RBC /mcL Fluid Tot Cell Count Fluid Neutrophils Fluid Cell Count Rvw By CSF Cell Count Tube # CSF Glucose (40-70) mg/dL CSF Total Protein (15-45) mg/dL Salicylates (<30) mg/dL Urine Opiates Screen (None Detect) Acetaminophen mcg/mL Ur Barbiturates Screen (None Detect) Ur Phencyclidine Scrn (None Detect) Ur Amphetamines Screen (None Detect) U Benzodiazepines Scrn (None Detect) Urine Cocaine Screen (None Detect) U Cannabinoids Screen (None Detect) Serum Alcohol (<10) mg/dL ECG, personally reviewed: sinus tachycardia rate 106, no ischemia CXR, personally reviewed: ? blunting L costophrenic angle otherwise no acute finding CT brain WO, personally reviewed: IMPRESSION: normal head CT C-spine WO, personally reviewed: IMPRESSION: No cervical spine fracture Impression: 71F HX poorly controlled DM, RA on etanercept & recent cortisone injections presenting with severe sepsis of uncertain origin DIAGNOSIS & PLAN Primary severe sepsis of unknown source in setting of immunocompromised state 2nd etanercept & recent cortisone injections for RA : ICU monitoring : IVFs : IV vancomycin & cefepime : blood, urine, sputum, & CSF CXs pending : supportive care N/V : NG to LIS Secondary poorly controlled DM2 : update A1c : NPO for now : Q4H glucometry : basal/correctional insulin RA : hold etanercept TIA : review meds once reconciled HTN : review meds once reconciled, hold in setting of severe sepsis HLD : review meds once reconciled psoriasis : review meds once reconciled Admission Rational: inpatient ICU for severe sepsis in critically ill patient; inappropriate for outpatient setting DVTp: heparin SQ & SCDs Code Status: full HCP: daughter
[2017-11-11 06:43] LABS: ABS Basophils 0.1 10^3/ul (0-0.2); ABS Eosinophils 0 10^3/ul (0-0.6); ABS Monocytes 1.3 10^3/ul (0-0.8); ABS Neutrophils 8.1 10^3/ul (1.5-7.7); ABS Nucleated RBC 0 10^3/ul; Eosinophil % 0 % (0-6); Hematocrit 36 % (35-47); Hemoglobin 11.8 g/dl (12.0-16.0); Lymphocyte % 17.4 % (25-47); Mean Corpuscular HGB Conc 33 g/dl (31-36); Mean Corpuscular Hemoglobin 27 pg (27-31); Mean Corpuscular Volume 82 fL (80-97); Mean Platelet Volume 10 um3 (7.4-10.4); Nucleated Red Blood Cells % 0; Platelet Count 148 10^3/ul (150-450); Red Blood Count 4.41 10^6/ul (4.0-5.4); Red Cell Distribution Width 14 % (10.5-15); White Blood Count 11.4 10^3/ul (3.5-10.8)
--- NOTE | 2017-11-11 07:06 | RAD ---
INDICATION: Altered mental status. COMPARISON: Comparison is made with a prior chest x-ray study from September 05, 2016. TECHNIQUE: A portable view of the chest was obtained. FINDINGS: Cardiac and mediastinal contours appear to be within normal limits. The lungs are underinflated and grossly clear. There is a small left pleural effusion present. IMPRESSION: SMALL LEFT PLEURAL EFFUSION.
--- NOTE | 2017-11-11 07:07 | RAD ---
INDICATION: Altered mental status. COMPARISON: Comparison is made with a prior CT brain from April 14, 2014. TECHNIQUE: Contiguous axial sections of the brain were obtained from the skull base to the vertex without contrast. FINDINGS: The ventricles, cisterns and sulci are enlarged consistent with age-related atrophy. No significant focal abnormality or mass effect is seen. There is no evidence for hemorrhage. No significant focal osseous abnormality is seen. The visualized portion of the paranasal sinuses and mastoid air cells appear clear. IMPRESSION: NO EVIDENCE FOR ACUTE INTRACRANIAL ABNORMALITY.
--- NOTE | 2017-11-11 07:18 | RAD ---
INDICATION: Altered mental status found lying down. COMPARISON: There are no prior studies available for comparison. TECHNIQUE: Contiguous axial sections were obtained from the skull base through the T1 vertebra. Images were reconstructed in the sagittal and coronal planes. FINDINGS: The vertebra are in normal alignment. There appears to be a mild chronic compression fracture of the superior endplate of the C7 vertebral body. No prevertebral soft tissue swelling or acute fracture is seen. At the C3-C4 level there is mild posterior uncinate process spurring and hypertrophic changes within the right facet joint. No significant spinal canal narrowing is present. There is mild bilateral neural foraminal narrowing. At the C4-C5 level no significant spinal canal or neural foraminal narrowing is seen. At the C5-C6 level there is mild posterior uncinate process spurring and facet osteoarthritis. No significant spinal canal narrowing is present. There is mild neural foraminal narrowing on the right side and moderate to severe neural foraminal narrowing on the left side. The C6-C7 level no significant spinal canal narrowing is present. There is mild bilateral neural foraminal narrowing. IMPRESSION: 1. MILD CHRONIC COMPRESSION FRACTURE OF THE SUPERIOR ENDPLATE OF THE C7 VERTEBRAL BODY. THERE IS NO EVIDENCE FOR ACUTE FRACTURE. 2. MILD TO MODERATE CERVICAL SPONDYLOSIS.
[2017-11-11] MEDS: KCL premix 10MEQ/50 ML x 2 BAGS IV SCH ×2 (08:20→10:00)
[2017-11-11] MEDS: Insulin GLARGINE(*) 1 UNITS UNIT SUBCUT SCH (09:03)
[2017-11-11] MEDS: Insulin LISPRO* 1 UNITS UNIT SUBCUT SCH ×4 (09:04→19:58)
[2017-11-11] MEDS ORDERED: Acyclovir IV(*) 500 MG in NS 0.9% 100 ML* 100 ML IVPB SCH (11:00)
[2017-11-11] MEDS ORDERED: Insulin GLARGINE(*) 1 UNITS UNIT SUBCUT ONE (12:27)
--- NOTE | 2017-11-11 12:46 | PN ---
Progress Note - Progress Note Date of Service: 11/11/17 Note: CRITICAL CARE MEDICINE Date: 11/11/17 Time: 1000 SUBJECTIVE: Patient seen and examined. PHYSICAL EXAM: Vital Signs: Reviewed. Neurologic: awake, not verbalizing to me; BILLINGS to stimuli. At first eyes gazed up and right and tremor with Right arm. Able to passively extend arm with cessation of tremor and also eyes blink to threat and able to cross midline. Pupils eq and reactive. Started to moan as well. No clonus. HEENT: pupils equal. Sclera anicteric. Trachea midline. Cardiovascular: S1 S2, 3/6 [place] at aortic Respiratory: dec but mainly clear Abdomen: Soft, nt. No r/g/r. Extremities: Warm. chronic skin changes; foot ulcer and old scarring Access: piv LABS: Reviewed. IMAGING: Reviewed. MEDICATIONS: Reviewed. ASSESSMENT: 71 F Acute encephalopathy: multifactorial ddx at this point Potential seizure and post-ictal Possible encephalititis - hsv given immune status high on the list Metabolic Lactic acidosis on admission BUD RA uncontrolled DM PLAN: Neurologic: plan for eeg christina. may benefit from MRI as well but eeg would serve us better first. needs time as well. May need neuro eval Cardiovascular: perfusing. keep IV today although vol status is ok. Demand elevated troponin. underlying DM and risk factor f/u. Respiratory: tolerating on RA. Needs ICU observation for airway. chronic underlying lung disease needs Gastrointestinal: npo currently given ms. sup Renal/Metabolic: LA cleared. lytes, cr improved. keep ivf today. Infectious Disease: on C4 and vanco and can keep for sepsis of unknown origin at present. add acyclovir and check pcr from lp for hsv, [place]. Hematology: stable appearing. hsq Endocrine: f/u dm needs. add lantus. ssi. Musculoskeletal: f/u needs. Psych/Social: daughter updated. Supportive and preventative care as ordered. SUP: H2 VTE prophylaxis: heparin Jarrell catheter given critical illness, monitoring needs for accurate assessment of BUD and KDIGO criteria for critically ill patients and to avoid potential harms of urinary retention, skin breakdown/ulcers. Disposition: ICU Code Status: Full Critical Care Time: 45min FGregory Smalls DO
[2017-11-11] MEDS ORDERED: Famotidine IV * 20 MG in NS 0.9% 100 ML* 100 ML IVPB SCH (13:00)
[2017-11-11] MEDS: levETIRAcetam IV* 500 MG in NS 0.9% 100 ML* 100 ML IVPB SCH (14:09)
[2017-11-11] MEDS: Famotidine IV* 10 MG/ML 2 ML (20 mg) IV SLOW PU SCH (14:09)
[2017-11-11] MEDS: Heparin VIAL(*) 5000 UNITS/ML VIAL (FIVE THOUSAND) SUBCUT SCH ×2 (14:09→21:09)
[2017-11-11] MEDS ORDERED: cefTRIAXone(*) 1 GM in NS 0.9% 50 ML* 50 ML IVPB SCH (14:30)
[2017-11-11] MEDS ORDERED: Vancomycin(*) 500 MG in NS 0.9% 250 ML* 250 ML IVPB SCH (15:00)
[2017-11-11] MEDS: Acyclovir IV(*) 500 MG in NS 0.9% 100 ML* 100 ML IVPB SCH (21:08)
--- NOTE | 2017-11-11 23:45 | CONS ---
NEUROLOGY CONSULTATION: DATE OF CONSULTATION: 11/11/17 REFERRING PHYSICIAN: Dr. Smalls. LOCATION: She is in ICU bed 5. CHIEF COMPLAINT: Unresponsiveness. HISTORY OF PRESENT ILLNESS: Joyce Cheung is a 71-year-old woman who was found I believe by family members late last night after she did not respond to phone calls from her daughter according to Dr. Simmons's initial history and physical. She had apparently talked with her daughter about 1 o'clock in the afternoon yesterday and seemed at her usual state of health. When she did not respond to phone calls at 8 p.m. last night, her daughter went over in some time between 8 p.m. and middle of the night she was found. According to the admission history and physical, she was on a couch, unresponsive, shaking, and had vomited and had incontinence of bowel. She was unresponsive. Ambulance was summoned and she was brought into the emergency room where she had a blood glucose of 506, sinus tachycardia, and intact blood pressure. She was described as moving all 4 extremities to noxious stimuli, but as best I can tell she was otherwise not responsive from reviewing the records. She was given cefepime and vancomycin and admitted to the intensive care unit. She had a CT of the brain, which I reviewed and which looks pretty much normal. There may be some atrophy. She had a lumbar puncture notable for one white blood cell, one red cell, protein 57, spinal fluid glucose 284. CSF gram stain was negative. She had a temperature of 100 degrees temporally, which persisted through the night and was 100.7 rectally early this morning. A urinalysis notable for 1+ ketones, 2+ blood, 3+ glucose, no cells. Chest x-ray late last night interpreted as a small left pleural effusion. Reviewing prior record, she was seen in consultation by Dr. Caren Nur in 2010 when she presented with transient right facial weakness. She had a carotid ultrasound interpreted as showing no significant carotid stenosis and an MRI of the brain revealing chronic ischemic disease only. She had an echocardiogram interpreted as showing a septal knuckle and otherwise unremarkable. PAST MEDICAL HISTORY: Notable for diabetes, which has been historically poorly controlled. Her A1c this morning is 12.8%. She has a history of peripheral vascular disease, diabetic neuropathy, rheumatoid arthritis on etanercept, hypertension, hyperlipidemia, psoriasis. MEDICATIONS: At home consist of: 1. Enbrel 50 mg subcutaneous q. week. 2. Insulin 50 units subcutaneous at bedtime. 3. Metformin 1000 mg p.o. b.i.d. 4. Crestor 40 mg p.o. q.h.s. 5. Glipizide 5 mg p.o. daily. 6. Insulin 60 units subcutaneous q.a.m. 7. Celebrex 200 mg p.o. b.i.d. ALLERGIES: She is said to be allergic to ASPIRIN, which caused hives. Also to PENICILLIN also causing hives. REVIEW OF SYSTEMS: from the patient is nonproductive. She repeats I have a headache when I ask her but it sounds more like she is just repeating me. According to hospital record, she lives in [facility], does not smoke, and does not drink alcohol. PHYSICAL EXAMINATION: She is a thin elderly woman initially unresponsive in her hospital bed. She has oxygen by mask. Most recent temperature 98.3 temporally, blood pressure 140/70, heart rate in the 90s and sinus on the monitor. Respiratory rate is 12 and oxygen saturation is 94% on 3 L per minute mask. Heart is in a regular rate and rhythm with a grade 1/6 early systolic murmur right upper sternal border. Carotid pulses are present. I do not hear any cervical bruits. Oral mucosa is dry and I do not see any oral trauma. There is no head trauma either. She has significant chronic venous changes in her legs and high arches and pes cavus deformities. She has onychia in the toes and very dry scaly skin in the feet. Neurologically, pupils react equally from 3 to 2 mm. She has a right gaze preference both initially and subsequently when I was able to arouse her later in the examination. Funduscopic exam reveals sharp discs bilaterally. Facial musculature appears fairly symmetric, although she has post surgical scars in the right nares. She has a nasal tickle response weakly on the left than that on the right, but again there are surgical changes. Her tongue protrudes weakly. Speech is dysarthric when I am able to get her to talk, but perfectly understandable. Motor exam reveals decreased tone and decreased use of the left upper extremity. She moves both legs vigorously to plantar stimulation. She abuses her right arm purposely when she stimulated and awake. Plantar responses are flexor bilaterally. Ankle reflexes and knee reflexes are absent. I was able to arouse her late in the visit. She responded to her name and when asked where she was, she said she was at home. When I told her she was in the hospital, she repeated several times "I am in the hospital, I am in the hospital." When asked if she has a headache, she said that "I have a headache." Then she would drift off again. She would squeeze with her right hand to command, but not with her left but she would move it weakly and semi-purposely. LABORATORY DATA: Other laboratory data notable for sodium 139, potassium 3.4, BUN 37, creatinine 1.1 this morning. It was 1.26 when she came in and her BUN was about the same at 36. Glucose this morning is down to 342. Troponin is elevated at 0.09 last night and again this morning. CRP was elevated yesterday at 57.8. She had an EEG, which the final interpretation is pending. There is suppression of background activity diffusely in the right hemisphere. There is some sharp activity in the left parasagittal area, which might be vertex sharp waves but at times looked to be more epileptiform in configuration. IMPRESSION AND PLAN: Right hemispheric ischemic event. 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 There is some sharp activity from the left hemisphere but when I was able to arouse her and get her to answer questions and repeat herself, the right gaze preference did not go away and her left upper extremity remained weak. She is allergic to aspirin according to computer records, so I would recommend giving her Plavix when we are able to get something in her orally either via NG tube or if she wakes up enough. Recommend treating with Keppra for now, although there is no convincing evidence that she has had any seizures. An MRI of the brain is pending for tomorrow and recommend a carotid ultrasound as well. Her blood glucose has been brought under control. I would recommend discontinuing cefepime because of its propensity to induce seizures and because of the possibility that the patient has had a seizure. IF her MRI confirms a stroke, she should have an echocardiogram as well. Fasting lipid profile should be checked and meanwhile she will continue on Crestor. I will follow her along. [id number]/[facility] #: [id number] MCKAYLA
[2017-11-12] MEDS: Insulin LISPRO* 1 UNITS UNIT SUBCUT SCH ×3 (01:05→09:05)
[2017-11-12] MEDS: levETIRAcetam IV* 500 MG in NS 0.9% 100 ML* 100 ML IVPB SCH ×2 (01:11→15:44)
[2017-11-12] MEDS: Acyclovir IV(*) 500 MG in NS 0.9% 100 ML* 100 ML IVPB SCH ×4 (04:50→22:25)
[2017-11-12 06:04] LABS: ABS Basophils 0 10^3/ul (0-0.2); ABS Eosinophils 0 10^3/ul (0-0.6); ABS Lymphocytes 1.3 10^3/ul (1.0-4.8); ABS Monocytes 0.4 10^3/ul (0-0.8); ABS Neutrophils 5.4 10^3/ul (1.5-7.7); ABS Nucleated RBC 0 10^3/ul; Eosinophil % 0.2 % (0-6); Hematocrit 36 % (35-47); Mean Corpuscular HGB Conc 33 g/dl (31-36); Mean Corpuscular Hemoglobin 27 pg (27-31); Mean Corpuscular Volume 82 fL (80-97); Mean Platelet Volume 10 um3 (7.4-10.4); Nucleated Red Blood Cells % 0.1; Platelet Count 131 10^3/ul (150-450); Red Blood Count 4.39 10^6/ul (4.0-5.4); Red Cell Distribution Width 14 % (10.5-15); White Blood Count 7.2 10^3/ul (3.5-10.8)
[2017-11-12] MEDS: Heparin VIAL(*) 5000 UNITS/ML VIAL (FIVE THOUSAND) SUBCUT SCH ×3 (06:10→22:04)
[2017-11-12] MEDS: NS 0.9% 1000 ML* 1,000 ML IV SCH (09:07)
--- NOTE | 2017-11-12 09:45 | RAD ---
INDICATION: Cerebrovascular accident COMPARISON: There are no prior studies available for comparison. TECHNIQUE: Multiple grayscale, color and Doppler tracings of the common, internal and external carotid and vertebral arteries were obtained. Stenosis estimations reflect velocity criteria that it been correlated to angiographic stenosis calculations based on the distal internal carotid diameter. RIGHT CAROTID: There is mild hyperechoic plaque within the right carotid bulb and proximal internal carotid artery. The peak systolic velocity in the proximal right internal carotid artery is 117 cm/s and the maximum end-diastolic velocity is 39 cm/s. The peak systolic velocity in the distal right common carotid artery is 136 cm/s and the maximum end-diastolic velocity is 44 cm/s. The internal to common carotid artery ratio is 0.9. This would be consistent with a less than 50% stenosis. LEFT CAROTID: There is no plaque within the left carotid artery. The peak systolic velocity in the proximal left internal carotid artery is 102 cm/s and the maximum end-diastolic velocity is 32 cm/s. The peak systolic velocity in the distal left common carotid artery is 122 cm/s and the maximum end-diastolic velocity is 19 cm/s. The internal to common carotid artery ratio is 0.8. This would be consistent with close to a 0% stenosis. VERTEBRALS: There is normal flow direction in the left vertebral artery. The right vertebral artery was not visualized likely due to patient motion. IMPRESSION: MILD PLAQUE WITHIN THE RIGHT PROXIMAL INTERNAL CAROTID ARTERY, NO EVIDENCE FOR HEMODYNAMICALLY SIGNIFICANT STENOSIS. CPT II Codes: 3100F
[2017-11-12] MEDS: Famotidine IV* 10 MG/ML 2 ML (20 mg) IV SLOW PU SCH (09:48)
[2017-11-12] MEDS: Insulin GLARGINE(*) 1 UNITS UNIT SUBCUT SCH (09:48)
[2017-11-12] MEDS ORDERED: LORazepam INJ* 2 MG/ML 1 ML VIAL IV PUSH PRN (10:29)
--- NOTE | 2017-11-12 10:55 | PN ---
Progress Note - Progress Note Date of Service: 11/12/17 Note: CRITICAL CARE MEDICINE Date: 11/11/17 Time: 900 SUBJECTIVE: Patient seen and examined. thirsty/hungry PHYSICAL EXAM: Vital Signs: Reviewed. Neurologic: awake, and verbalizing. oriented to self and place. feels ok she states. better strength bl HEENT: pupils equal. Sclera anicteric. Trachea midline. Cardiovascular: S1 S2, 3/6 [place] at aortic Respiratory: dec but clear Abdomen: Soft, nt. No r/g/r. Extremities: Warm. chronic skin changes; foot ulcer and old scarring Access: piv LABS: Reviewed. IMAGING: Reviewed. MEDICATIONS: Reviewed. ASSESSMENT: 71 F Acute encephalopathy: multifactorial ddx at this point Tx for potential seizure and post-ictal state fitting Reason for seizure- mri today; question new vs chronic ischemic disease Possible encephalititis - hsv given immune status for now pending pcr Metabolic - better Lactic acidosis on admission - resolved GARY - improved RA uncontrolled DM hyperlipidemia PLAN: Neurologic: mri today. appreciate neuro eval. keep keppra. see what direction mri can point us. time. Cardiovascular: perfusing. off ivf today. plavix currently for atherosclerosis with allergy to asa. on crestor outpt. lipids poor Respiratory: tolerating on RA. chronic underlying lung disease stable Gastrointestinal:bedside swallow eval and advance diet. sup Renal/Metabolic: improved post gary. sanches out later Infectious Disease: on C3; acyclovir for now. pcr pending Hematology: stable. hsq Endocrine: adjust lantus needs ssi. A1c poor Musculoskeletal: f/u with pt later today Psych/Social: will look to update daughter. Supportive and preventative care as ordered. SUP: H2 VTE prophylaxis: heparin Sanches catheter given critical illness, monitoring needs for accurate assessment of GARY and KDIGO criteria for critically ill patients and to avoid potential harms of urinary retention, skin breakdown/ulcers. Disposition: ICU Code Status: Full Critical Care Time: 30min Onelia Smalls DO
[2017-11-12] MEDS ORDERED: Potassium Phosphate IV* 30 MMOLE in NS 0.9% 250 ML* 250 ML IVPB ONE (11:00)
[2017-11-12] MEDS ORDERED: Insulin LISPRO* 1 UNITS UNIT SUBCUT SCH (11:30)
[2017-11-12] MEDS: Clopidogrel TAB* 75 MG PO SCH (12:06)
[2017-11-12] MEDS ORDERED: Vancomycin Trough Check NOTE FOLLOW UP ONE (15:00)
--- NOTE | 2017-11-12 15:28 | PN ---
Progress Note - Progress Note Date of Service: 11/12/17 Note: CRITICAL CARE MEDICINE Date: 11/12/17 Time: 1500 Pt not wanting to comply with MRI. D/w Neuro. will try again tomorrow if she continues to improve and may be more willing. Check eeg today. Strength was better but still potential post cva. utilize plavix in the meantime for antiplt given asa allergy. Risk factor modification. Needs better medical adherence. BP up and start lisinopril. Disposition: ICU today and likely floor tomorrow, plus minus timing of Mri Code Status: Full Critical Care Time: 10min Onelia Smalls DO
[2017-11-12] MEDS ORDERED: Haloperidol INJ IV/IM* 5 MG/ML AMP ONE (15:35)
[2017-11-12] MEDS: Haloperidol INJ IV/IM* 5 MG/ML AMP IV SLOW PU PRN (15:36)
--- NOTE | 2017-11-12 15:40 | ECHO ---
Patient: LA WILSON [facility] Rec#: [id number] : 1945 Date: 11/12/2017 Age: 71y Height: 160.02 cm / 63.0 in Weight: 60.33 kg / 133.0 lbs Sex: F BSA: 1.63 Room#: ICU 5 Admit Date#: 11/11/2017 Type: Inpatient Referring: Jason Mora MD Reading: Yonny Elliott MD [employer] Instructor: Caren Swift,MAVIS,RDMS CC: [place]ansthor[facility] Echocardiogram Indication: CVA BP: 174/83 HR: 83 Rhythm: NSR Findings History: DM, PVD, HLD, Technical Comments: The study quality is fair. The study was incomplete due to the patient's refusal to continue the exam. Left Ventricle: Moderate concentric left ventricular hypertrophy is observed. Basal interventricular septum shows moderate thickening. Global left ventricular wall motion and contractility are within normal limits. There is normal left ventricular systolic function. The estimated ejection fraction is 55-60%. There is an E to A reversal in the mitral valve flow pattern suggestive of diastolic dysfunction. Left Atrium: The left atrial chamber size is normal. Right Ventricle: The right ventricular chamber size and systolic function are within normal limits. The right ventricle wall thickness is mildly increased. Right Atrium: The right atrial cavity size is normal. Aortic Valve: The aortic valve is trileaflet. Systolic excursion of the aortic valve is normal. There is a trace of aortic regurgitation. There is no evidence of aortic stenosis. Mitral Valve: The mitral valve leaflets appear normal. There is no evidence of mitral regurgitation. There is no evidence of mitral stenosis. Tricuspid Valve: The tricuspid valve leaflets are normal. There is trace tricuspid regurgitation. There is evidence of mild pulmonary hypertension. Pulmonic Valve: The pulmonic valve appears normal. There is trace to mild pulmonic regurgitation. Pericardium: There is no significant pericardial effusion. Aorta: The aortic root appears normal. There is no dilatation of the aortic arch. Pulmonary Artery: The main pulmonary artery is not well visualized. Venous: The inferior vena cava appears normal in size. Summary: There was not any prior study for comparison. Conclusions Basal interventricular septum shows moderate thickening. Global left ventricular wall motion and contractility are within normal limits. There is normal left ventricular systolic function. The estimated ejection fraction is 55-60%. The right ventricular chamber size and systolic function are within normal limits. Systolic excursion of the aortic valve is normal. There is a trace of aortic regurgitation. There is no evidence of mitral regurgitation. There is trace tricuspid regurgitation. There is evidence of mild pulmonary hypertension. There is no significant pericardial effusion. Measurements Name Value Normal Range RVIDd (AP) 2D 2.2 cm (0.9 - 2.6) RVDdMajor (2D) 2.6 cm (2.2 - 4.4) RAd ISD 4CH 3.4 cm (3.4 - 4.9) RA (A4C)W 4.4 cm (2.9 - 4.6) IVSd (2D) 1.9 cm (0.6 - 1) LVPWd (2D) 1.5 cm (0.6 - 1) LVIDd (2D) 3.2 cm (3.6 - 5.4) LVIDs (2D) 1.9 cm - LV FS (2D) 41 % (25 - 45) Aortic Annulus 2.1 cm (1.4 - 2.6) Ao root diameter (2D) 3.3 cm (2.1 - 3.5) Ascending Ao 3 cm (2.1 - 3.4) Aortic arch 2.6 cm (1.8 - 3.4) LA dimension (AP) 2D 3.4 cm (2.3 - 3.8) LAd ISD 4CH 5.1 cm (2.9 - 5.3) LA ISD 4CH W 4.3 cm (2.5 - 4.5) Name Value Normal Range LA ESV SP 4CH (A/L) 48.78 ml - LA ESV SP 4CH (MOD) 44 ml - Name Value Normal Range MV E-wave Vmax 0.7 m/sec - MV deceleration time 190 msec - MV A-wave Vmax 1.1 m/sec - MV E:A ratio 0.6 ratio - LV septal e' Vmax 0.05 m/sec - LV lateral e' Vmax 0.05 m/sec - LV E:e' septal ratio 14 ratio - LV E:e' lateral ratio 14 ratio - Name Value Normal Range AV Vmax 1.3 m/sec - AV VTI 28.8 cm - AV peak gradient 7 mmHg - AV mean gradient 4 mmHg - LVOT Vmax 1.1 m/sec - LVOT VTI 25.4 cm - LVOT peak gradient 5 mmHg - LVOT mean gradient 2.5 mmHg - NADYA Vmax 0.7 m/sec - Name Value Normal Range MV Vmax 1.2 m/sec - MV VTI 23 cm - MV peak gradient 6.01 mmHg - MV mean gradient 2.1 mmHg - MV PHT 59 msec - MVA (PHT) 3.7 cm2 - Name Value Normal Range TR Vmax 2.9 m/sec - TR peak gradient 34 mmHg - RAP 3 mmHg - RVSP 37 mmHg - IVC diameter 2 cm - Name Value Normal Range PV Vmax 0.8 m/sec - PV peak gradient 2.6 mmHg -
[2017-11-12] MEDS: Lisinopril TAB* 5 MG PO SCH (15:45)
[2017-11-12] MEDS ORDERED: cefTRIAXone(*) 1 GM in NS 0.9% 50 ML* 50 ML IVPB SCH (16:30)
[2017-11-12] MEDS: Atorvastatin* 40 MG TAB PO SCH (17:45)
--- NOTE | 2017-11-12 20:40 | CONS ---
NEUROLOGY CONSULTATION FOLLOWUP NOTE: DATE OF CONSULT: 11/12/17 LOCATION: She is in ICU bed 5. ANODE REBUILDER: Dr. Smalls. CHIEF COMPLAINT: Diminished responsiveness, gaze deviation. INTERVAL HISTORY: Since yesterday, Mrs. Cheung is more alert. I spoke with Dr. Smalls and before she got some Ativan en route to getting an MRI scan, she was thirsty and hungry and fairly communicative. She was moving her limbs well. She received 0.5 mg of Ativan in preparation for an MRI scan, which she did not tolerate and so images were not obtained. Currently when I examine her , she is lethargic, but wakes up and asks questions such as when can she go home and that she is hungry. She denies a headache. When asked about her vision, she is fairly non-committal and says "not so good." She does not have any other complaints. MEDICATIONS: Medications are reviewed and she is currently on: 1. Sliding scale insulin. 2. Acyclovir 500 mg IV q.8 hours. 3. Atorvastatin 40 mg p.o. daily. 4. Ceftriaxone 1 g IV q.24 hours. 5. Plavix 75 mg p.o. daily. 6. Heparin subcutaneous 5000 units q.8 hours. 7. Levetiracetam 500 mg IV q.12 hours. PHYSICAL EXAMINATION: She has been afebrile with most recent temperature 98.2 by temporal scan. Blood pressures running typically in the 160s to 170s systolic over 70 to 80 diastolic. Heart rates in the 80s and sinus on the monitor, respiratory rate is 12, and oxygen saturation is 93%. Oral mucosa is moist. Heart is in a regular rhythm and I do not hear any murmurs. Neck is supple. Neurologically, pupils react weakly from about 2 to 2.5 down to 1.5 mm to 2 mm. She continues to have a right gaze preference, but I am able to get her to look over to the left briefly. She performs finger counting with perhaps some deficit on the left, but it is not clear and she is inconsistent. Facial musculature reveals flattening of the right corner of the mouth. Facial sensation to light touch is reported as symmetric. Tongue protrudes weakly in the midline. She has a [id number] dysarthria. On motor exam, she is stronger in the left arm than she was yesterday. She is able to hold both arms up in front of her with a mild left drift. She has pretty good seed tester strength in both hands. She moves both legs vigorously and symmetrically. Plantars remain flexor. She has no reflexes in her legs. She is oriented to person and the hospital. She asks when she can go home. She seems to have fluent language. She has very diminished attention and concentration and drifts often when not stimulated. LABORATORY DATA: Includes chemistries today notable for potassium down to 3.3, BUN and creatinine are stable. Calcium is low at 7.6 with an albumin down to 2.6. Magnesium is up to 2.1. Cholesterol this morning is 286 with an LDL of 198. CBC is notable for platelet count down to 131,000, white blood cell count stable at 7.2. Microbiology reveals no new findings other than MRSA negative nasal screen. Spinal fluid cultures are negative after 1 day and blood cultures are all negative. IMAGING: Carotid ultrasound revealed some arthrosclerotic disease, but no carotid stenosis of note. IMPRESSION: Probable right hemisphere cerebrovascular event, although it is possible she has bihemispheric cerebrovascular events given her initail unresponsiveness. Seizures remain in the differential, although her EEG yesterday revealed mainly just suppression of background activity from the left hemisphere. She is now on Keppra and is improving clinically. Unfortunately, she is not able to tolerate an MRI of the brain today. I would recommend repeating her EEG today just to make sure there are no significant changes. She no longer has suppression of background activity in the left that would suggest that perhaps it was a postictal finding. She should have at least a CT scan of the brain tomorrow if she cannot tolerate an MRI of the brain, but an MRI would be preferable. I put in an order for a transthoracic echocardiogram as well. Her blood sugar has been brought under control. She is currently receiving her statin medication and given her history of noncompliance to diabetes, one would have to question whether she had been compliant with her statin as well. I will continue to follow her along with you. [id number]/[facility] #: [id number] MCKAYLA
[2017-11-13] MEDS: Haloperidol INJ IV/IM* 5 MG/ML AMP IV SLOW PU PRN (03:23)
[2017-11-13] MEDS: levETIRAcetam IV* 500 MG in NS 0.9% 100 ML* 100 ML IVPB SCH ×3 (03:38→18:30)
[2017-11-13] MEDS: Heparin VIAL(*) 5000 UNITS/ML VIAL (FIVE THOUSAND) SUBCUT SCH ×3 (05:45→21:17)
[2017-11-13 06:07] LABS: ABS Basophils 0 10^3/ul (0-0.2); ABS Eosinophils 0 10^3/ul (0-0.6); ABS Monocytes 0.3 10^3/ul (0-0.8); ABS Neutrophils 2.9 10^3/ul (1.5-7.7); ABS Nucleated RBC 0 10^3/ul; Eosinophil % 0.8 % (0-6); Hematocrit 31 % (35-47); Hemoglobin 10.3 g/dl (12.0-16.0); Lymphocyte % 23.9 % (25-47); Mean Corpuscular HGB Conc 33 g/dl (31-36); Mean Corpuscular Hemoglobin 27 pg (27-31); Mean Corpuscular Volume 81 fL (80-97); Mean Platelet Volume 9 um3 (7.4-10.4); Nucleated Red Blood Cells % 0; Platelet Count 124 10^3/ul (150-450); Red Cell Distribution Width 14 % (10.5-15); White Blood Count 4.3 10^3/ul (3.5-10.8)
[2017-11-13] MEDS: Acyclovir IV(*) 500 MG in NS 0.9% 100 ML* 100 ML IVPB SCH ×5 (06:25→21:26)
[2017-11-13 06:27] LABS: EGFR Non-African American 113.1 (>60)
[2017-11-13] MEDS: Lisinopril TAB* 5 MG PO SCH (08:20)
[2017-11-13] MEDS: Clopidogrel TAB* 75 MG PO SCH (08:20)
[2017-11-13] MEDS ORDERED: cefTRIAXone(*) 1 GM in D5W 50 ML BAG* 50 ML IVPB SCH (09:04)
--- NOTE | 2017-11-13 10:04 | PN ---
Progress Note - Progress Note Date of Service: 11/13/17 Note: Progress Note Critical Care 24 hour events/significant events: -no events overnight; in bed, no distress, answers questions, moves all ext, Tele: nsr Vitals: Vital Signs Temp 97.9 F 11/13/17 07:53 Pulse 86 11/13/17 08:30 Resp 8 11/13/17 08:30 BP 158/70 11/13/17 08:30 Pulse Ox 94 11/13/17 08:30 Intake & Output 11/12/17 11/13/17 11/13/17 18:59 06:59 18:59 Intake Total 721 507 Output Total 375 650 Balance 346 -143 Weight 133 lb 13.129 oz 137 lb 2.04 oz Intake: IV Fluids 120 76 NS 120 76 IVPB 501 66 NS 501 66 Medicated IV 365 Levetiracetam 105 Potassium 260 Oral 100 Output: Jarrell 375 650 O2/Vent: NC Infusions: heplock NS Medications: Acetaminophen (Tylenol Supp*) [address] Q6H PRN PRN Reason: FEVER/PAIN Atorvastatin Calcium (Lipitor*) 40 mg PO 1700 [facility] Last Admin: 11/12/17 17:45 Dose: 40 mg Clopidogrel Bisulfate (Plavix Tab*) 75 mg PO DAILY [facility] Last Admin: 11/13/17 08:20 Dose: 75 mg Haloperidol Lactate (Haldol Inj Iv/Im*) 2 mg IV SLOW PU Q4H PRN PRN Reason: AGITATION Last Admin: 11/13/17 03:23 Dose: 2 mg Heparin Sodium (Porcine) (Heparin Vial(*)) 5,000 units SUBCUT Q8HR [facility] Last Admin: 11/13/17 05:45 Dose: 5,000 units Heparin Sodium (Porcine) (Heparin Flush Picc/Ml/Cvc(*)) 1 - 3 ml FLUSH 0600, 1800 [facility] PRN Reason: Protocol Last Admin: 11/13/17 06:26 Dose: Not Given Acyclovir Sodium 500 mg/ (Sodium Chloride) 110 mls @ 110 mls/hr IVPB Q8HR@0630, 1430,2230 [facility] PRN Reason: As Directed Last Admin: 11/13/17 06:25 Dose: 110 mls/hr Levetiracetam 500 mg/ Sodium (Chloride) 105 mls @ 420 mls/hr IVPB Q12HR@0330, 1530 [facility] Last Admin: 11/13/17 03:38 Dose: 420 mls/hr Ceftriaxone Sodium 1 gm/ (Dextrose) 50 mls @ 200 mls/hr IVPB Q24HR@1630 [facility] Lisinopril (Prinivil Tab*) 5 mg PO DAILY [facility] Last Admin: 11/13/17 08:20 Dose: 5 mg Lorazepam (Ativan Inj*) 0.5 mg IV PUSH ONCE PRN PRN Reason: ANXIETY Last Admin: 11/12/17 11:16 Dose: 0.5 mg Metformin HCl (Glucophage*) 1,000 mg PO 0800,1700 [facility] Potassium Chloride (Klor-Con Liquid*) 40 meq PO Q12HR [facility] Stop: 11/14/17 09:01 Physical Exam: General: awake, alert, no distress, no diaphoresis Head: normocephalic, atraumatic HEENT: no pallor, no icterus, moist mucous membranes Neck: soft, supple, no jvd, no stridor CVS: normal rate, normal rhythm, no murmur Resp: bilateral air entry, no rhales, no wheeze, no rhonchi, no acc muscle use Abdomen: soft, nontender, nondistended, bowel sounds present Ext: pulses+, warm, no edema Skin: intact, no breakdown, no dryness Neuro: awake, alert, orientedx3, moving all extremities, no gross focal deficit Labs: Laboratory Results - last 24 hr 11/11/17 11/13/17 11/13/17 00:10 05:56 05:56 WBC 4.3 RBC 3.80 L Hgb 10.3 L Hct 31 L MCV 81 MCH 27 MCHC 33 RDW 14 Plt Count 124 L MPV 9 Neut % (Auto) 67.8 Lymph % (Auto) 23.9 L Mitchell % (Auto) 6.9 Eos % (Auto) 0.8 Baso % (Auto) 0.6 Absolute Neuts (auto) 2.9 Absolute Lymphs (auto) 1.0 Absolute Monos (auto) 0.3 Absolute Eos (auto) 0 Absolute Basos (auto) 0 Absolute Nucleated RBC 0 Nucleated RBC % 0 Sodium 145 Potassium 3.0 L Chloride 114 H Carbon Dioxide 27 Anion Gap 4 BUN 17 Creatinine 0.53 Est GFR ( Amer) 145.4 Est GFR (Non-Af Amer) 113.1 BUN/Creatinine Ratio 32.1 H Glucose 64 L Calcium 7.8 L Phosphorus 2.8 Magnesium 1.9 Fluid Cell Count Rvw By Imaging: Reviewed previous CT brain negative. Carotid duplex negative TTE 11/12 normal LV function, no vegetations identified Assessment: 71y M w/pmhx of DM, HLD, GERD, RA on etanercept and cortisone injections; admitted 11/09 for encephalopathy. Found to have incontinence of bowel, unresponsiveness at home. LP performed in ER, started on empiric sepsis tx for possible meningitis. -Encephelopathy, seizure/post-ictal vs infectious/meningitis/encephalitis vs metabolic -BUD -DM -RA Plan: Neuro- intact now it seems, moves all ext. nonfocal. Improving as per previous documentation. Not clear if post ictal, no seizure activity noted otherwise. EEG negative? Cont keppra 500mg q12h for now. Awaiting HSV PCR from LP. Cont acyclovir/ceftriaxone iv. Neurochecks q4h now. Cont Plavix/statin, asa allergy? CVS- hemodyn stable, cont Lisinopril. Po intake encouraged. Resp- on NC, wean to RA. No acute resp distress. ID- afebrile now. Wbc normalized. Awaiting PCR of LP, though clinically improved. Cont Acyclovir/ceftriaxone. Noted LP findings of mild protein elevation only, glucose normal, counts normal. GI- tolerating Po intake, thickened. Encourage free water intake. Renal- BUD improved. Hypokalemia, replete with PO. Heme- hg drop noted, no bleeding, re-eval tomorrow. Plt slow downtrend, monitor for now. Endo- BS check, restart metformin 1000mg bid. Musculsk- oob to chair, pt/ot Wounds- none Nutrition- thickened, advance as tolerated. DVT prophylaxis: low risk, more mobile now, can d/c, use SCDs GI prophylaxis: none Central Line: no Arterial Line: no Jarrell Cathetor: no Disposition: for MRI brain; hemodyn/resp status stable, neurologically improved now; can transfer to medical floor. Will transfer care, CC to sign off. Code Status: full code Benny Montes MD Provider Relations Specialist (Electronically Signed)
--- NOTE | 2017-11-13 14:39 | EEG ---
ELECTROENCEPHALOGRAPHY: DATE OF STUDY: 11/12/17 REFERRING PROVIDER: Dr. Smalls. LOCATION: Inpatient, ICU bed 5. CLINICAL PROBLEM: Unresponsiveness, right gaze deviation, the patient has improved clinically today. MEDICATIONS: Include acyclovir, levetiracetam 500 mg q. 12 hours, ceftriaxone 1 g q. 24 hours, atorv astatin 40 mg p.o. daily, Plavix 75 mg p.o. daily, lorazepam 0.5 mg given couple of hours prior to th is recording, sliding scale insulin, vancomycin. REPORT: This 16-channel EEG is remarkable for background rhythms at the onset of tracing consisting of posterior alpha rhythm on the left of low abundance at about 8 to 9 cycles per second. There is l ower amplitude rhythms with a few alpha waves in the 8 cycle per second on the right that is mainly s uppressed. Otherwise, there is abundant beta rhythms, little more higher voltage in the left hemisph ere than the right. There is some occipital and central low amplitude delta slowing, more in the rig ht hemisphere than the left. The patient is awake and talking. Movement artifact is seen occasional ly. Eye movement artifact is noted occasionally. A little later in the tracing, all 4 rhythms are b deepali formed from the left occipital derivation, but remained of low abundance and poorly formed on t he right. There is vertex slowing periodically to the recordings suggestive of sleep stages, but stag e 2 sleep is not clearly achieved. CLINICAL IMPRESSION: Abnormal EEG due to slow activity, diffusely from the left hemisphere, consiste nt with diffuse left hemispheric dysfunction. There are no epileptiform discharges seen from either hemisphere. [id number]/[facility] #: [id number]
[2017-11-13] MEDS: Atorvastatin* 40 MG TAB PO SCH (17:04)
[2017-11-13] MEDS: metFORMIN* 1,000 MG TAB PO SCH (17:04)
[2017-11-13] MEDS: levETIRAcetam 500 MG IVPREMIX* 500 MG/100 ML BAG IV SCH (17:47)
[2017-11-13] MEDS: Potassium Chloride LIQUID* 20 MEQ PACKET PO SCH (21:16)
[2017-11-13] MEDS: Acetaminophen TAB* 325 MG PO PRN (21:16)
--- NOTE | 2017-11-13 22:14 | PN ---
NEUROLOGY FOLLOWUP NOTE: DATE OF FOLLOWUP: 11/13/17 LOCATION: She is an inpatient in [facility]. HOSPITALIST: Dr. Montes. CHIEF COMPLAINT: Unresponsiveness, gaze preference. INTERVAL HISTORY: Since yesterday, Joyce was discharged from the intensive care unit, is now on the medical floor. She states she feels "better." She denies headache. She denies visual problems. She still has not had her MRI scan yet, which she was not able to tolerate when she was still encephalopathic. MEDICATIONS: 1. Ceftriaxone 1 g q.24 hours. 2. Atorvastatin 40 mg p.o. daily. 3. Acyclovir dosed by weight IV q.8 hours. 4. Plavix 75 mg p.o. daily. 5. Heparin 5000 units subcutaneous q.8 hours. 6. Levetiracetam 500 mg p.o. b.i.d. 7. Lisinopril 5 mg p.o. daily. 8. Metformin 1000 mg p.o. daily. PHYSICAL EXAMINATION: On examination, she is afebrile, temperature 98.0 orally , blood pressure 140/60, heart rate running in the 90s and regular, respiratory rate is 14, and oxygen saturation is 90%. Lungs are clear. Neck is supple. Neurologically, she still has a right gaze preference, but cannot full track to the left, but tends to deviate back to center. Visual chandler are full to confrontation bilaterally. Facial musculature is notable for weakness of the right lower facial musculature. She has a mild pronator drift in the right arm , but good strength in the arms otherwise. She is oriented to person and place and asked when she can go home. DIAGNOSTIC STUDIES/LAB DATA: Today is notable for a potassium of 3.0 for which she is getting oral replacement, glucose was down to 64 early today. Calcium is 7.8 and albumin yesterday was low at 2.6. Spinal fluid cultures are negative after day 2. Antiviral studies are not yet back on spinal fluid. CBC is notable for white blood cell count normalized to 4.3, hemoglobin is down a bit to 10.3, and platelets down to 124,000. IMPRESSION: Possible stroke versus seizure. She is on Keppra, Plavix and she is still on acyclovir and antibiotics. Once we get her MRI and hopefully her spinal fluid studies come back, we will discontinue acyclovir unless there is evidence that she actually has herpes simplex encephalitis. If there is evidence of a stroke, then Plavix will be continued. Her transthoracic echocardiogram did not reveal cardioembolic source and she has been in sinus rhythm. Likewise, carotid Doppler study did not show significant carotid disease. [id number]/[facility] #: [id number] [facility]
[2017-11-14] MEDS: Haloperidol INJ IV/IM* 5 MG/ML AMP IV SLOW PU PRN ×2 (00:22→10:10)
[2017-11-14] MEDS: levETIRAcetam 500 MG IVPREMIX* 500 MG/100 ML BAG IV SCH (04:22)
[2017-11-14] MEDS: Acyclovir IV(*) 500 MG in NS 0.9% 100 ML* 100 ML IVPB SCH (05:00)
[2017-11-14] MEDS: Heparin VIAL(*) 5000 UNITS/ML VIAL (FIVE THOUSAND) SUBCUT SCH ×3 (05:00→22:32)
[2017-11-14] MEDS: Lisinopril TAB* 5 MG PO SCH (08:48)
[2017-11-14] MEDS: Potassium Chloride LIQUID* 20 MEQ PACKET PO SCH (08:48)
[2017-11-14] MEDS: Clopidogrel TAB* 75 MG PO SCH (08:49)
[2017-11-14] MEDS: metFORMIN* 1,000 MG TAB PO SCH (08:49)
[2017-11-14] MEDS: Acetaminophen TAB* 325 MG PO PRN (08:57)
--- NOTE | 2017-11-14 12:02 | RAD ---
Indication: Severe sepsis. Question source. Potential encephalopathy or CVA. Poorly controlled diabetes. Comparison: November 10, 2017 CT. Technique: [place] 1.5 [place] [id number] with GEM suite. MRI brain without contrast. Report: Diffusion series is negative for acute or subacute ischemia. Susceptibility series is negative for stigmata of hemosiderin deposition to indicate previous hemorrhage. Mild prominence of the cerebral sulci and moderate prominence of the cerebellar fissures reflecting atrophy. Normal variant persistent cavum septum pellucidum. Negative for ventriculomegaly. Unremarkable basal cisterns. Small burden of increased FLAIR/T2 signal within the periventricular and subcortical white matter of the frontal lobes without significant interval change consistent with chronic small vessel ischemic disease. Patterns of signal intensity throughout the cerebrum and posterior fossa are otherwise normal. No intra or extra-axial fluid collection evident. Preserved major intracranial flow-voids. As on the 2011 exam the LEFT internal carotid and M1 middle to artery segments are diminutive compared with the RIGHT. Unremarkable orbital contents. Chronic bilateral mastoid effusions. Small fluid levels within the sphenoid sinuses new compared with the prior exam. No suspicious calvarial or skull base lesion evident. Unremarkable scalp. IMPRESSION: 1. Mild cerebral and moderate cerebellar involution and stigmata of chronic small vessel ischemic disease. 2. No evidence for acute or subacute cerebral ischemia. 3. No intra or extra-axial fluid collection evident. 4. No compelling stigmata of extra-axial or intra-axial acute inflammation however a contrast enhanced exam would be more sensitive. 5. Fluid levels in the sphenoid sinuses; correlate for potential acute sinusitis. Chronic bilateral mastoid effusions.
--- NOTE | 2017-11-14 14:07 | PN ---
Subjective Date of Service: 11/14/17 Interval History: No c/o. Objective Active Medications: Acetaminophen (Tylenol Tab*) 650 mg PO Q4H PRN PRN Reason: PAIN Last Admin: 11/14/17 08:57 Dose: 650 mg Atorvastatin Calcium (Lipitor*) 40 mg PO 1700 [facility] Last Admin: 11/13/17 17:04 Dose: 40 mg Haloperidol Lactate (Haldol Inj Iv/Im*) 2 mg IV SLOW PU Q4H PRN PRN Reason: AGITATION Last Admin: 11/14/17 10:10 Dose: 2 mg Heparin Sodium (Porcine) (Heparin Vial(*)) 5,000 units SUBCUT Q8HR [facility] Last Admin: 11/14/17 05:00 Dose: 5,000 units Heparin Sodium (Porcine) (Heparin Flush Picc/Ml/Cvc(*)) 1 - 3 ml FLUSH 0600, 1800 [facility] PRN Reason: Protocol Last Admin: 11/14/17 06:07 Dose: 1 ml Levetiracetam (Keppra Iv Premix*) 500 mg in 100 mls @ 400 mls/hr IV Q12H [facility] Last Admin: 11/14/17 04:22 Dose: 400 mls/hr Lisinopril (Prinivil Tab*) 5 mg PO DAILY [facility] Last Admin: 11/14/17 08:48 Dose: 5 mg Lorazepam (Ativan Inj*) 0.5 mg IV PUSH ONCE PRN PRN Reason: ANXIETY Last Admin: 11/12/17 11:16 Dose: 0.5 mg Metformin HCl (Glucophage*) 500 mg PO 0800,1700 [facility] Vital Signs - 8 hr 11/14/17 11/14/17 11/14/17 07:14 08:00 08:24 Pulse Rate 93 Respiratory 16 18 Rate Blood Pressure 180/79 (mmHg) O2 Sat by Pulse 95 97 97 Oximetry 11/14/17 09:27 Pulse Rate Respiratory Rate Blood Pressure 172/67 (mmHg) O2 Sat by Pulse Oximetry Oxygen Devices in Use Now: Nasal Cannula Appearance: Alert, sitting up in bed. Neutral affect. Looks comfortable. Eyes: No Scleral Icterus Respiratory: Symmetrical Chest Expansion and Respiratory Effort, Clear to Auscultation, Clear to Percussion Cardiovascular: NL Sounds; No Murmurs; No JVD, RRR, No Edema, - Skin: No Rash or Ulcers, No Nodules or Sclerosis, - Neurological: Alert and Oriented x 3, NL Sensation Result Diagrams: 11/13/17 05:56 11/13/17 05:56 Additional Lab and Data: Lab Results 11/10/17 11/10/17 11/10/17 Range/Units 22:16 22:16 22:16 WBC 13.0 H (3.5-10.8) 10^3/ul RBC 4.79 (4.0-5.4) 10^6/ul Hgb 12.9 (12.0-16.0) g/dl Hct 39 (35-47) % MCV 82 (80-97) fL MCH 27 (27-31) pg MCHC 33 (31-36) g/dl RDW 14 (10.5-15) % Plt Count 191 (150-450) 10^3/ul MPV 10 (7.4-10.4) um3 Neut % (Auto) 81.9 (38-83) % Lymph % (Auto) 10.5 L (25-47) % [place]berry % (Auto) 6.5 (1-9) % Eos % (Auto) 0 (0-6) % Baso % (Auto) 1.1 (0-2) % Absolute Neuts (auto) 10.6 H (1.5-7.7) 10^3/ul Absolute Lymphs (auto) 1.4 (1.0-4.8) 10^3/ul Absolute Monos (auto) 0.8 (0-0.8) 10^3/ul Absolute Eos (auto) 0 (0-0.6) 10^3/ul Absolute Basos (auto) 0.1 (0-0.2) 10^3/ul Absolute Nucleated RBC 0 10^3/ul Nucleated RBC % 0 INR (Anticoag Therapy) 0.93 (0.77-1.02) APTT 26.6 (26.0-36.3) seconds VBG pH (7.33-7.43) VBG pCO2 (41-51) mmHg VBG pO2 (35-45) mmHg VBG HCO3 (24-28) mmol/L VBG O2 Saturation (70-80) % VBG Base Excess (0-4) Sodium 137 (133-145) mmol/L Potassium TNP Chloride 101 (101-111) mmol/L Carbon Dioxide 22 (22-32) mmol/L Anion Gap 14 H (2-11) mmol/L BUN 36 H (6-24) mg/dL Creatinine 1.26 H (0.51-0.95) mg/dL Est GFR ( Amer) 53.5 (>60) Est GFR (Non-Af Amer) 41.6 (>60) BUN/Creatinine Ratio 28.6 H (8-20) Glucose 506 H* (70-100) mg/dL Lactic Acid (0.5-2.0) mmol/L Calcium 8.3 L (8.6-10.3) mg/dL Magnesium TNP Total Bilirubin 0.70 (0.2-1.0) mg/dL AST TNP ALT 10 (7-52) U/L Alkaline Phosphatase 70 (34-104) U/L Ammonia (16-53) mol/L Total Creatine Kinase 58 (10-223) U/L Troponin I 0.08 H* (<0.04) ng/mL C-Reactive Protein 57.87 H (< 5.00) mg/L Total Protein 5.9 L (6.4-8.9) g/dL Albumin 3.2 (3.2-5.2) g/dL Globulin 2.7 (2-4) g/dL Albumin/Globulin Ratio 1.2 (1-3) Lipase < 10 L (11.0-82.0) U/L Procalcitonin (<0.6) ng/mL Urine Color Urine Appearance Urine pH (5-9) Ur Specific [place] (1.010-1.030) Urine Protein (Negative) Urine Ketones (Negative) Urine Blood (Negative) Urine Nitrate (Negative) Urine Bilirubin (Negative) Urine Urobilinogen (Negative) Ur Leukocyte Esterase (Negative) Urine WBC (Auto) (Absent) Urine RBC (Auto) (Absent) Ur Squamous Epith Cells (Absent) Urine Bacteria (Absent) Urine Glucose (Negative) Salicylates < 2.50 (<30) mg/dL Urine Opiates Screen (None Detect) Acetaminophen < 15 mcg/mL Ur Barbiturates Screen (None Detect) Ur Phencyclidine Scrn (None Detect) Ur Amphetamines Screen (None Detect) U Benzodiazepines Scrn (None Detect) Urine Cocaine Screen (None Detect) U Cannabinoids Screen (None Detect) Serum Alcohol < 10 (<10) mg/dL 11/10/17 11/10/17 11/10/17 Range/Units 22:16 22:25 22:25 WBC (3.5-10.8) 10^3/ul RBC (4.0-5.4) 10^6/ul Hgb (12.0-16.0) g/dl Hct (35-47) % MCV (80-97) fL MCH (27-31) pg MCHC (31-36) g/dl RDW (10.5-15) % Plt Count (150-450) 10^3/ul MPV (7.4-10.4) um3 Neut % (Auto) (38-83) % Lymph % (Auto) (25-47) % Newberry % (Auto) (1-9) % Eos % (Auto) (0-6) % Baso % (Auto) (0-2) % Absolute Neuts (auto) (1.5-7.7) 10^3/ul Absolute Lymphs (auto) (1.0-4.8) 10^3/ul Absolute Monos (auto) (0-0.8) 10^3/ul Absolute Eos (auto) (0-0.6) 10^3/ul Absolute Basos (auto) (0-0.2) 10^3/ul Absolute Nucleated RBC 10^3/ul Nucleated RBC % INR (Anticoag Therapy) (0.77-1.02) APTT (26.0-36.3) seconds VBG pH (7.33-7.43) VBG pCO2 (41-51) mmHg VBG pO2 (35-45) mmHg VBG HCO3 (24-28) mmol/L VBG O2 Saturation (70-80) % VBG Base Excess (0-4) Sodium (133-145) mmol/L Potassium 4.4 Chloride (101-111) mmol/L Carbon Dioxide (22-32) mmol/L Anion Gap (2-11) mmol/L BUN (6-24) mg/dL Creatinine (0.51-0.95) mg/dL Est GFR ( Amer) (>60) Est GFR (Non-Af Amer) (>60) BUN/Creatinine Ratio (8-20) Glucose (70-100) mg/dL Lactic Acid 3.1 H* (0.5-2.0) mmol/L Calcium (8.6-10.3) mg/dL Magnesium 1.7 L Total Bilirubin (0.2-1.0) mg/dL AST 9 L ALT (7-52) U/L Alkaline Phosphatase (34-104) U/L Ammonia (16-53) mol/L Total Creatine Kinase (10-223) U/L Troponin I (<0.04) ng/mL C-Reactive Protein (< 5.00) mg/L Total Protein (6.4-8.9) g/dL Albumin (3.2-5.2) g/dL Globulin (2-4) g/dL Albumin/Globulin Ratio (1-3) Lipase (11.0-82.0) U/L Procalcitonin 0.7 H (<0.6) ng/mL Urine Color Urine Appearance Urine pH (5-9) Ur Specific [place] (1.010-1.030) Urine Protein (Negative) Urine Ketones (Negative) Urine Blood (Negative) Urine Nitrate (Negative) Urine Bilirubin (Negative) Urine Urobilinogen (Negative) Ur Leukocyte Esterase (Negative) Urine WBC (Auto) (Absent) Urine RBC (Auto) (Absent) Ur Squamous Epith Cells (Absent) Urine Bacteria (Absent) Urine Glucose (Negative) Salicylates (<30) mg/dL Urine Opiates Screen (None Detect) Acetaminophen mcg/mL Ur Barbiturates Screen (None Detect) Ur Phencyclidine Scrn (None Detect) Ur Amphetamines Screen (None Detect) U Benzodiazepines Scrn (None Detect) Urine Cocaine Screen (None Detect) U Cannabinoids Screen (None Detect) Serum Alcohol (<10) mg/dL 11/10/17 11/10/17 11/10/17 Range/Units 22:25 22:35 22:35 WBC (3.5-10.8) 10^3/ul RBC (4.0-5.4) 10^6/ul Hgb (12.0-16.0) g/dl Hct (35-47) % MCV (80-97) fL MCH (27-31) pg MCHC (31-36) g/dl RDW (10.5-15) % Plt Count (150-450) 10^3/ul MPV (7.4-10.4) um3 Neut % (Auto) (38-83) % Lymph % (Auto) (25-47) % Newberry % (Auto) (1-9) % Eos % (Auto) (0-6) % Baso % (Auto) (0-2) % Absolute Neuts (auto) (1.5-7.7) 10^3/ul Absolute Lymphs (auto) (1.0-4.8) 10^3/ul Absolute Monos (auto) (0-0.8) 10^3/ul Absolute Eos (auto) (0-0.6) 10^3/ul Absolute Basos (auto) (0-0.2) 10^3/ul Absolute Nucleated RBC 10^3/ul Nucleated RBC % INR (Anticoag Therapy) (0.77-1.02) APTT (26.0-36.3) seconds VBG pH (7.33-7.43) VBG pCO2 (41-51) mmHg VBG pO2 (35-45) mmHg VBG HCO3 (24-28) mmol/L VBG O2 Saturation (70-80) % VBG Base Excess (0-4) Sodium (133-145) mmol/L Potassium Chloride (101-111) mmol/L Carbon Dioxide (22-32) mmol/L Anion Gap (2-11) mmol/L BUN (6-24) mg/dL Creatinine (0.51-0.95) mg/dL Est GFR ( Amer) (>60) Est GFR (Non-Af Amer) (>60) BUN/Creatinine Ratio (8-20) Glucose (70-100) mg/dL Lactic Acid (0.5-2.0) mmol/L Calcium (8.6-10.3) mg/dL Magnesium Total Bilirubin (0.2-1.0) mg/dL AST ALT (7-52) U/L Alkaline Phosphatase (34-104) U/L Ammonia 33 (16-53) mol/L Total Creatine Kinase (10-223) U/L Troponin I (<0.04) ng/mL C-Reactive Protein (< 5.00) mg/L Total Protein (6.4-8.9) g/dL Albumin (3.2-5.2) g/dL Globulin (2-4) g/dL Albumin/Globulin Ratio (1-3) Lipase (11.0-82.0) U/L Procalcitonin (<0.6) ng/mL Urine Color Yellow Urine Appearance Cloudy Urine pH 5.0 (5-9) Ur Specific [place] 1.026 (1.010-1.030) Urine Protein 3+(>=500 mg/dl) H (Negative) Urine Ketones 1+ H (Negative) Urine Blood 2+ H (Negative) Urine Nitrate Negative (Negative) Urine Bilirubin Negative (Negative) Urine Urobilinogen Negative (Negative) Ur Leukocyte Esterase Negative (Negative) Urine WBC (Auto) Trace(0-5/hpf) (Absent) Urine RBC (Auto) Trace(0-2/hpf) (Absent) Ur Squamous Epith Cells Present H (Absent) Urine Bacteria Absent (Absent) Urine Glucose 3+(>=500 mg/dl) H (Negative) Salicylates (<30) mg/dL Urine Opiates Screen None detected (None Detect) Acetaminophen mcg/mL Ur Barbiturates Screen None detected (None Detect) Ur Phencyclidine Scrn None detected (None Detect) Ur Amphetamines Screen None detected (None Detect) U Benzodiazepines Scrn None detected (None Detect) Urine Cocaine Screen None detected (None Detect) U Cannabinoids Screen None detected (None Detect) Serum Alcohol (<10) mg/dL 11/10/17 Range/Units 23:07 WBC (3.5-10.8) 10^3/ul RBC (4.0-5.4) 10^6/ul Hgb (12.0-16.0) g/dl Hct (35-47) % MCV (80-97) fL MCH (27-31) pg MCHC (31-36) g/dl RDW (10.5-15) % Plt Count (150-450) 10^3/ul MPV (7.4-10.4) um3 Neut % (Auto) (38-83) % Lymph % (Auto) (25-47) % [place]berry % (Auto) (1-9) % Eos % (Auto) (0-6) % Baso % (Auto) (0-2) % Absolute Neuts (auto) (1.5-7.7) 10^3/ul Absolute Lymphs (auto) (1.0-4.8) 10^3/ul Absolute Monos (auto) (0-0.8) 10^3/ul Absolute Eos (auto) (0-0.6) 10^3/ul Absolute Basos (auto) (0-0.2) 10^3/ul Absolute Nucleated RBC 10^3/ul Nucleated RBC % INR (Anticoag Therapy) (0.77-1.02) APTT (26.0-36.3) seconds VBG pH 7.28 L (7.33-7.43) VBG pCO2 44 (41-51) mmHg VBG pO2 44 (35-45) mmHg VBG HCO3 19.9 L (24-28) mmol/L VBG O2 Saturation 80.9 H (70-80) % VBG Base Excess -5.9 L (0-4) Sodium (133-145) mmol/L Potassium Chloride (101-111) mmol/L Carbon Dioxide (22-32) mmol/L Anion Gap (2-11) mmol/L BUN (6-24) mg/dL Creatinine (0.51-0.95) mg/dL Est GFR ( Amer) (>60) Est GFR (Non-Af Amer) (>60) BUN/Creatinine Ratio (8-20) Glucose (70-100) mg/dL Lactic Acid (0.5-2.0) mmol/L Calcium (8.6-10.3) mg/dL Magnesium Total Bilirubin (0.2-1.0) mg/dL AST ALT (7-52) U/L Alkaline Phosphatase (34-104) U/L Ammonia (16-53) mol/L Total Creatine Kinase (10-223) U/L Troponin I (<0.04) ng/mL C-Reactive Protein (< 5.00) mg/L Total Protein (6.4-8.9) g/dL Albumin (3.2-5.2) g/dL Globulin (2-4) g/dL Albumin/Globulin Ratio (1-3) Lipase (11.0-82.0) U/L Procalcitonin (<0.6) ng/mL Urine Color Urine Appearance Urine pH (5-9) Ur Specific [place] (1.010-1.030) Urine Protein (Negative) Urine Ketones (Negative) Urine Blood (Negative) Urine Nitrate (Negative) Urine Bilirubin (Negative) Urine Urobilinogen (Negative) Ur Leukocyte Esterase (Negative) Urine WBC (Auto) (Absent) Urine RBC (Auto) (Absent) Ur Squamous Epith Cells (Absent) Urine Bacteria (Absent) Urine Glucose (Negative) Salicylates (<30) mg/dL Urine Opiates Screen (None Detect) Acetaminophen mcg/mL Ur Barbiturates Screen (None Detect) Ur Phencyclidine Scrn (None Detect) Ur Amphetamines Screen (None Detect) U Benzodiazepines Scrn (None Detect) Urine Cocaine Screen (None Detect) U Cannabinoids Screen (None Detect) Serum Alcohol (<10) mg/dL Microbiology and Other Data: Microbiology 11/11/17 06:19 Influenza Types A,B Antigen (JI) - Final Nasal Specimen received for Influenza A/B Molecular testing 11/11/17 03:30 Nasal Screen MRSA (PCR)(JI) - Final Nasal Mrsa Negative Assess/Plan/Problems-Billing Assessment: - Patient Problems (1) Encephalopathy Current Visit: Yes Status: Acute Code(s): G93.40 - ENCEPHALOPATHY, UNSPECIFIED SNOMED Code(s): 62322816 Comment: LP non-diagnositic. West Nile virus PCR pending. Stop ceftriaxone. (2) Seizure Current Visit: Yes Status: Acute Code(s): R56.9 - UNSPECIFIED CONVULSIONS SNOMED Code(s): 05619113 Comment: Possible seizure with post-ictal state. EEG abnl but no epileptiform discharges. Dr. Mora recommended levetiracetam. Change to PO. (3) Rheumatoid arthritis Current Visit: Yes Status: Acute Code(s): M06.9 - RHEUMATOID ARTHRITIS, UNSPECIFIED SNOMED Code(s): 31142852 Comment: Hold entanercept. Not clear if she is dependent on it. She states she hasn't seen Dr. Song in a long time. (4) HTN (hypertension) Current Visit: Yes Status: Acute Code(s): I10 - ESSENTIAL (PRIMARY) HYPERTENSION SNOMED Code(s): 25428935 Comment: Continue lisinopril. (5) Hyperlipidemia Current Visit: Yes Status: Acute Code(s): E78.5 - HYPERLIPIDEMIA, UNSPECIFIED SNOMED Code(s): 64281408 Comment: Atorvastatin 40 is double her home rosuvastatin. LDL 198 but her med compliance is in question. Needs outpt fup.
[2017-11-14] MEDS: Atorvastatin* 40 MG TAB PO SCH (17:47)
[2017-11-14] MEDS: metFORMIN* 500 MG TAB PO SCH (17:47)
--- NOTE | 2017-11-14 20:06 | PN ---
NEUROLOGY FOLLOWUP NOTE: DATE OF FOLLOWUP: 11/14/17 LOCATION: She is an inpatient in room 403. HOSPITALIST: Dr. Nicole. CHIEF COMPLAINT: Possible seizure, diminished responsiveness. INTERVAL HISTORY: Since yesterday, Joyce has not had any episodes of unresponsiveness or other new complaints. She was able to get her MRI today and I reviewed the images and it is essentially normal. There are very few punctate areas of white matter changes consistent with chronic ischemic disease. There is no evidence of an acute infarction. MEDICATIONS: Reviewed and she remains on: 1. Keppra 500 mg p.o. b.i.d. 2. Metformin 500 mg p.o. b.i.d. 3. Lorazepam 0.5 mg prior to MRI. 4. Lisinopril 5 mg p.o. daily. 5. Heparin subcutaneous 5000 units q.8 hours. 6. Lipitor 40 mg p.o. daily. PHYSICAL EXAMINATION: On examination, she is lethargic, I think she received some lorazepam earlier for the MRI. Blood pressures running anywhere from 160 to 180 systolic over 60 to 80 diastolic. Heart rates in the 80s and seems regular. Respiratory rate is 16 and oxygen saturations 97% on 2 L by nasal cannula. On neurological exam, eye movements are full today. She still has some mild weakness of the right lower facial musculature. Speech is dysarthric, but she is lethargic. She has symmetrical strength in the arms with hard to keep her attention. DIAGNOSTIC STUDIES/LAB DATA: Laboratory studies are reviewed and her influenza A and B were negative. Spinal fluid PCR for herpes simplex 1 and herpes simplex 2 were both negative. West Nile RNA study was negative as well. Spinal fluid cultures are no growth day 3 and blood cultures have all been negative. She has not had any CBCs or chemistries today. IMPRESSION: Is that of possible seizures versus hyperglycemic coma with focal neurological deficits. I think Keppra should be continued. Clearly, she needs to follow through on her diabetes care. There is no evidence that she had a cerebrovascular event and so continued risk factor control is the main emphasis otherwise. I will be happy to see her in followup in my office and she should not drive for 6 months from her event and we will need to notify the DMV if she does have a licence and wishes to drive. [id number]/[facility] #: [id number] [facility]ITAL[facility]yatt
[2017-11-14] MEDS: levETIRAcetam TAB* 500 MG PO SCH (22:33)
[2017-11-15] MEDS: Heparin VIAL(*) 5000 UNITS/ML VIAL (FIVE THOUSAND) SUBCUT SCH ×3 (05:41→21:37)
[2017-11-15] MEDS: metFORMIN* 500 MG TAB PO SCH ×2 (08:38→16:57)
[2017-11-15] MEDS: levETIRAcetam TAB* 500 MG PO SCH ×2 (08:38→21:36)
[2017-11-15] MEDS: Lisinopril TAB* 5 MG PO SCH (08:38)
[2017-11-15] MEDS: hydrALAZINE IV* 20 MG/ML VIAL IV SLOW PU PRN (12:39)
[2017-11-15] MEDS: Atorvastatin* 40 MG TAB PO SCH (16:57)
--- NOTE | 2017-11-15 19:26 | PN ---
Subjective Date of Service: 11/15/17 Interval History: pt has mildly slurred speech, but able to communicate. Objective Active Medications: Acetaminophen (Tylenol Tab*) 650 mg PO Q4H PRN PRN Reason: PAIN Last Admin: 11/14/17 08:57 Dose: 650 mg Atorvastatin Calcium (Lipitor*) 40 mg PO 1700 [facility] Last Admin: 11/15/17 16:57 Dose: 40 mg Haloperidol Lactate (Haldol Inj Iv/Im*) 2 mg IV SLOW PU Q4H PRN PRN Reason: AGITATION Last Admin: 11/14/17 10:10 Dose: 2 mg Heparin Sodium (Porcine) (Heparin Vial(*)) 5,000 units SUBCUT Q8HR [facility] Last Admin: 11/15/17 14:04 Dose: 5,000 units Heparin Sodium (Porcine) (Heparin Flush Picc/Ml/Cvc(*)) 1 - 3 ml FLUSH 0600, 1800 [facility] PRN Reason: Protocol Last Admin: 11/15/17 16:56 Dose: 1 ml Hydralazine HCl (Apresoline Iv*) 5 mg IV SLOW PU Q6H PRN PRN Reason: BLOOD PRESSURE Last Admin: 11/15/17 12:39 Dose: 5 mg Levetiracetam (Keppra Tab*) 500 mg PO BID [facility] Last Admin: 11/15/17 08:38 Dose: 500 mg Lisinopril (Prinivil Tab*) 5 mg PO DAILY [facility] Last Admin: 11/15/17 08:38 Dose: 5 mg Lorazepam (Ativan Inj*) 0.5 mg IV PUSH ONCE PRN PRN Reason: ANXIETY Last Admin: 11/12/17 11:16 Dose: 0.5 mg Metformin HCl (Glucophage*) 500 mg PO 0800,1700 [facility] Last Admin: 11/15/17 16:57 Dose: 500 mg Vital Signs - 8 hr 11/15/17 11/15/17 11/15/17 12:02 12:34 16:07 Temperature 98.2 F 98.4 F 97.9 F Pulse Rate 84 91 91 Respiratory 18 18 18 Rate Blood Pressure 148/78 174/83 161/82 (mmHg) O2 Sat by Pulse 96 98 94 Oximetry 11/15/17 16:15 Temperature Pulse Rate Respiratory Rate Blood Pressure 148/66 (mmHg) O2 Sat by Pulse Oximetry Oxygen Devices in Use Now: OxyMask Appearance: 71 yo f in nAD, AAOx2 Eyes: No Scleral Icterus, PERRLA Ears/Nose/Mouth/Throat: NL Teeth, Lips, Gums, Mucous Membranes Moist Neck: NL Appearance and Movements; NL JVP, Trachea Midline Respiratory: Symmetrical Chest Expansion and Respiratory Effort, Clear to Auscultation Cardiovascular: NL Sounds; No Murmurs; No JVD, RRR Abdominal: NL Sounds; No Tenderness; No Distention Lymphatic: No Cervical Adenopathy Extremities: No Edema, No Clubbing, Cyanosis Skin: No Rash or Ulcers, No Nodules or Sclerosis Neurological: NL Muscle Strength and Tone, - - slurred speech, flattening of r nasolabial fold Result Diagrams: 11/13/17 05:56 11/13/17 05:56 Additional Lab and Data: Lab Results 11/10/17 11/10/17 11/10/17 Range/Units 22:16 22:16 22:16 WBC 13.0 H (3.5-10.8) 10^3/ul RBC 4.79 (4.0-5.4) 10^6/ul Hgb 12.9 (12.0-16.0) g/dl Hct 39 (35-47) % MCV 82 (80-97) fL MCH 27 (27-31) pg MCHC 33 (31-36) g/dl RDW 14 (10.5-15) % Plt Count 191 (150-450) 10^3/ul MPV 10 (7.4-10.4) um3 Neut % (Auto) 81.9 (38-83) % Lymph % (Auto) 10.5 L (25-47) % [place] % (Auto) 6.5 (1-9) % Eos % (Auto) 0 (0-6) % Baso % (Auto) 1.1 (0-2) % Absolute Neuts (auto) 10.6 H (1.5-7.7) 10^3/ul Absolute Lymphs (auto) 1.4 (1.0-4.8) 10^3/ul Absolute Monos (auto) 0.8 (0-0.8) 10^3/ul Absolute Eos (auto) 0 (0-0.6) 10^3/ul Absolute Basos (auto) 0.1 (0-0.2) 10^3/ul Absolute Nucleated RBC 0 10^3/ul Nucleated RBC % 0 INR (Anticoag Therapy) 0.93 (0.77-1.02) APTT 26.6 (26.0-36.3) seconds VBG pH (7.33-7.43) VBG pCO2 (41-51) mmHg VBG pO2 (35-45) mmHg VBG HCO3 (24-28) mmol/L VBG O2 Saturation (70-80) % VBG Base Excess (0-4) Sodium 137 (133-145) mmol/L Potassium TNP Chloride 101 (101-111) mmol/L Carbon Dioxide 22 (22-32) mmol/L Anion Gap 14 H (2-11) mmol/L BUN 36 H (6-24) mg/dL Creatinine 1.26 H (0.51-0.95) mg/dL Est GFR ( Amer) 53.5 (>60) Est GFR (Non-Af Amer) 41.6 (>60) BUN/Creatinine Ratio 28.6 H (8-20) Glucose 506 H* (70-100) mg/dL Lactic Acid (0.5-2.0) mmol/L Calcium 8.3 L (8.6-10.3) mg/dL Magnesium TNP Total Bilirubin 0.70 (0.2-1.0) mg/dL AST TNP ALT 10 (7-52) U/L Alkaline Phosphatase 70 (34-104) U/L Ammonia (16-53) mol/L Total Creatine Kinase 58 (10-223) U/L Troponin I 0.08 H* (<0.04) ng/mL C-Reactive Protein 57.87 H (< 5.00) mg/L Total Protein 5.9 L (6.4-8.9) g/dL Albumin 3.2 (3.2-5.2) g/dL Globulin 2.7 (2-4) g/dL Albumin/Globulin Ratio 1.2 (1-3) Lipase < 10 L (11.0-82.0) U/L Procalcitonin (<0.6) ng/mL Urine Color Urine Appearance Urine pH (5-9) Ur Specific Rex (1.010-1.030) Urine Protein (Negative) Urine Ketones (Negative) Urine Blood (Negative) Urine Nitrate (Negative) Urine Bilirubin (Negative) Urine Urobilinogen (Negative) Ur Leukocyte Esterase (Negative) Urine WBC (Auto) (Absent) Urine RBC (Auto) (Absent) Ur Squamous Epith Cells (Absent) Urine Bacteria (Absent) Urine Glucose (Negative) Salicylates < 2.50 (<30) mg/dL Urine Opiates Screen (None Detect) Acetaminophen < 15 mcg/mL Ur Barbiturates Screen (None Detect) Ur Phencyclidine Scrn (None Detect) Ur Amphetamines Screen (None Detect) U Benzodiazepines Scrn (None Detect) Urine Cocaine Screen (None Detect) U Cannabinoids Screen (None Detect) Serum Alcohol < 10 (<10) mg/dL 11/10/17 11/10/17 11/10/17 Range/Units 22:16 22:25 22:25 WBC (3.5-10.8) 10^3/ul RBC (4.0-5.4) 10^6/ul Hgb (12.0-16.0) g/dl Hct (35-47) % MCV (80-97) fL MCH (27-31) pg MCHC (31-36) g/dl RDW (10.5-15) % Plt Count (150-450) 10^3/ul MPV (7.4-10.4) um3 Neut % (Auto) (38-83) % Lymph % (Auto) (25-47) % [place] % (Auto) (1-9) % Eos % (Auto) (0-6) % Baso % (Auto) (0-2) % Absolute Neuts (auto) (1.5-7.7) 10^3/ul Absolute Lymphs (auto) (1.0-4.8) 10^3/ul Absolute Monos (auto) (0-0.8) 10^3/ul Absolute Eos (auto) (0-0.6) 10^3/ul Absolute Basos (auto) (0-0.2) 10^3/ul Absolute Nucleated RBC 10^3/ul Nucleated RBC % INR (Anticoag Therapy) (0.77-1.02) APTT (26.0-36.3) seconds VBG pH (7.33-7.43) VBG pCO2 (41-51) mmHg VBG pO2 (35-45) mmHg VBG HCO3 (24-28) mmol/L VBG O2 Saturation (70-80) % VBG Base Excess (0-4) Sodium (133-145) mmol/L Potassium 4.4 Chloride (101-111) mmol/L Carbon Dioxide (22-32) mmol/L Anion Gap (2-11) mmol/L BUN (6-24) mg/dL Creatinine (0.51-0.95) mg/dL Est GFR ( Amer) (>60) Est GFR (Non-Af Amer) (>60) BUN/Creatinine Ratio (8-20) Glucose (70-100) mg/dL Lactic Acid 3.1 H* (0.5-2.0) mmol/L Calcium (8.6-10.3) mg/dL Magnesium 1.7 L Total Bilirubin (0.2-1.0) mg/dL AST 9 L ALT (7-52) U/L Alkaline Phosphatase (34-104) U/L Ammonia (16-53) mol/L Total Creatine Kinase (10-223) U/L Troponin I (<0.04) ng/mL C-Reactive Protein (< 5.00) mg/L Total Protein (6.4-8.9) g/dL Albumin (3.2-5.2) g/dL Globulin (2-4) g/dL Albumin/Globulin Ratio (1-3) Lipase (11.0-82.0) U/L Procalcitonin 0.7 H (<0.6) ng/mL Urine Color Urine Appearance Urine pH (5-9) Ur Specific Rex (1.010-1.030) Urine Protein (Negative) Urine Ketones (Negative) Urine Blood (Negative) Urine Nitrate (Negative) Urine Bilirubin (Negative) Urine Urobilinogen (Negative) Ur Leukocyte Esterase (Negative) Urine WBC (Auto) (Absent) Urine RBC (Auto) (Absent) Ur Squamous Epith Cells (Absent) Urine Bacteria (Absent) Urine Glucose (Negative) Salicylates (<30) mg/dL Urine Opiates Screen (None Detect) Acetaminophen mcg/mL Ur Barbiturates Screen (None Detect) Ur Phencyclidine Scrn (None Detect) Ur Amphetamines Screen (None Detect) U Benzodiazepines Scrn (None Detect) Urine Cocaine Screen (None Detect) U Cannabinoids Screen (None Detect) Serum Alcohol (<10) mg/dL 11/10/17 11/10/17 11/10/17 Range/Units 22:25 22:35 22:35 WBC (3.5-10.8) 10^3/ul RBC (4.0-5.4) 10^6/ul Hgb (12.0-16.0) g/dl Hct (35-47) % MCV (80-97) fL MCH (27-31) pg MCHC (31-36) g/dl RDW (10.5-15) % Plt Count (150-450) 10^3/ul MPV (7.4-10.4) um3 Neut % (Auto) (38-83) % Lymph % (Auto) (25-47) % [place] % (Auto) (1-9) % Eos % (Auto) (0-6) % Baso % (Auto) (0-2) % Absolute Neuts (auto) (1.5-7.7) 10^3/ul Absolute Lymphs (auto) (1.0-4.8) 10^3/ul Absolute Monos (auto) (0-0.8) 10^3/ul Absolute Eos (auto) (0-0.6) 10^3/ul Absolute Basos (auto) (0-0.2) 10^3/ul Absolute Nucleated RBC 10^3/ul Nucleated RBC % INR (Anticoag Therapy) (0.77-1.02) APTT (26.0-36.3) seconds VBG pH (7.33-7.43) VBG pCO2 (41-51) mmHg VBG pO2 (35-45) mmHg VBG HCO3 (24-28) mmol/L VBG O2 Saturation (70-80) % VBG Base Excess (0-4) Sodium (133-145) mmol/L Potassium Chloride (101-111) mmol/L Carbon Dioxide (22-32) mmol/L Anion Gap (2-11) mmol/L BUN (6-24) mg/dL Creatinine (0.51-0.95) mg/dL Est GFR ( Amer) (>60) Est GFR (Non-Af Amer) (>60) BUN/Creatinine Ratio (8-20) Glucose (70-100) mg/dL Lactic Acid (0.5-2.0) mmol/L Calcium (8.6-10.3) mg/dL Magnesium Total Bilirubin (0.2-1.0) mg/dL AST ALT (7-52) U/L Alkaline Phosphatase (34-104) U/L Ammonia 33 (16-53) mol/L Total Creatine Kinase (10-223) U/L Troponin I (<0.04) ng/mL C-Reactive Protein (< 5.00) mg/L Total Protein (6.4-8.9) g/dL Albumin (3.2-5.2) g/dL Globulin (2-4) g/dL Albumin/Globulin Ratio (1-3) Lipase (11.0-82.0) U/L Procalcitonin (<0.6) ng/mL Urine Color Yellow Urine Appearance Cloudy Urine pH 5.0 (5-9) Ur Specific Rex 1.026 (1.010-1.030) Urine Protein 3+(>=500 mg/dl) H (Negative) Urine Ketones 1+ H (Negative) Urine Blood 2+ H (Negative) Urine Nitrate Negative (Negative) Urine Bilirubin Negative (Negative) Urine Urobilinogen Negative (Negative) Ur Leukocyte Esterase Negative (Negative) Urine WBC (Auto) Trace(0-5/hpf) (Absent) Urine RBC (Auto) Trace(0-2/hpf) (Absent) Ur Squamous Epith Cells Present H (Absent) Urine Bacteria Absent (Absent) Urine Glucose 3+(>=500 mg/dl) H (Negative) Salicylates (<30) mg/dL Urine Opiates Screen None detected (None Detect) Acetaminophen mcg/mL Ur Barbiturates Screen None detected (None Detect) Ur Phencyclidine Scrn None detected (None Detect) Ur Amphetamines Screen None detected (None Detect) U Benzodiazepines Scrn None detected (None Detect) Urine Cocaine Screen None detected (None Detect) U Cannabinoids Screen None detected (None Detect) Serum Alcohol (<10) mg/dL 11/10/17 Range/Units 23:07 WBC (3.5-10.8) 10^3/ul RBC (4.0-5.4) 10^6/ul Hgb (12.0-16.0) g/dl Hct (35-47) % MCV (80-97) fL MCH (27-31) pg MCHC (31-36) g/dl RDW (10.5-15) % Plt Count (150-450) 10^3/ul MPV (7.4-10.4) um3 Neut % (Auto) (38-83) % Lymph % (Auto) (25-47) % [place] % (Auto) (1-9) % Eos % (Auto) (0-6) % Baso % (Auto) (0-2) % Absolute Neuts (auto) (1.5-7.7) 10^3/ul Absolute Lymphs (auto) (1.0-4.8) 10^3/ul Absolute Monos (auto) (0-0.8) 10^3/ul Absolute Eos (auto) (0-0.6) 10^3/ul Absolute Basos (auto) (0-0.2) 10^3/ul Absolute Nucleated RBC 10^3/ul Nucleated RBC % INR (Anticoag Therapy) (0.77-1.02) APTT (26.0-36.3) seconds VBG pH 7.28 L (7.33-7.43) VBG pCO2 44 (41-51) mmHg VBG pO2 44 (35-45) mmHg VBG HCO3 19.9 L (24-28) mmol/L VBG O2 Saturation 80.9 H (70-80) % VBG Base Excess -5.9 L (0-4) Sodium (133-145) mmol/L Potassium Chloride (101-111) mmol/L Carbon Dioxide (22-32) mmol/L Anion Gap (2-11) mmol/L BUN (6-24) mg/dL Creatinine (0.51-0.95) mg/dL Est GFR ( Amer) (>60) Est GFR (Non-Af Amer) (>60) BUN/Creatinine Ratio (8-20) Glucose (70-100) mg/dL Lactic Acid (0.5-2.0) mmol/L Calcium (8.6-10.3) mg/dL Magnesium Total Bilirubin (0.2-1.0) mg/dL AST ALT (7-52) U/L Alkaline Phosphatase (34-104) U/L Ammonia (16-53) mol/L Total Creatine Kinase (10-223) U/L Troponin I (<0.04) ng/mL C-Reactive Protein (< 5.00) mg/L Total Protein (6.4-8.9) g/dL Albumin (3.2-5.2) g/dL Globulin (2-4) g/dL Albumin/Globulin Ratio (1-3) Lipase (11.0-82.0) U/L Procalcitonin (<0.6) ng/mL Urine Color Urine Appearance Urine pH (5-9) Ur Specific Rex (1.010-1.030) Urine Protein (Negative) Urine Ketones (Negative) Urine Blood (Negative) Urine Nitrate (Negative) Urine Bilirubin (Negative) Urine Urobilinogen (Negative) Ur Leukocyte Esterase (Negative) Urine WBC (Auto) (Absent) Urine RBC (Auto) (Absent) Ur Squamous Epith Cells (Absent) Urine Bacteria (Absent) Urine Glucose (Negative) Salicylates (<30) mg/dL Urine Opiates Screen (None Detect) Acetaminophen mcg/mL Ur Barbiturates Screen (None Detect) Ur Phencyclidine Scrn (None Detect) Ur Amphetamines Screen (None Detect) U Benzodiazepines Scrn (None Detect) Urine Cocaine Screen (None Detect) U Cannabinoids Screen (None Detect) Serum Alcohol (<10) mg/dL Microbiology and Other Data: Microbiology 11/11/17 06:19 Influenza Types A,B Antigen (JI) - Final Nasal Specimen received for Influenza A/B Molecular testing 11/11/17 03:30 Nasal Screen MRSA (PCR)(JI) - Final Nasal Mrsa Negative Assess/Plan/Problems-Billing Assessment: 71 yo F with h/o DM, presented with BG of >500 and unresponsiveness - Patient Problems (1) Encephalopathy Comment: LP non-diagnositic. West Nile virus PCR pending. MRI neg for gross abn D/w DR. Mora (2) HTN (hypertension) Comment: Continue lisinopril. will increase the dose (3) Hyperlipidemia Comment: Atorvastatin 40 is double her home rosuvastatin. LDL 198 but her med compliance is in question. Needs outpt fup. (4) Rheumatoid arthritis Comment: Hold entanercept. Not clear if she is dependent on it. She states she hasn't seen Dr. Song in a long time. (5) Seizure Comment: Possible seizure with post-ictal state. EEG abnl but no epileptiform discharges. Dr. Mora recommended levetiracetam. cont PO (6) DM2 (diabetes mellitus, type 2) Comment: cont ISS, mmetformin, starting Lantus HbA1C 12.8 (7) DVT prophylaxis Comment: HSQ Status and Disposition: inpatient, needs STR, refuses. will d/c daughter PT/OT pending
[2017-11-15] MEDS ORDERED: Dextrose 50% Syringe 50 ML* 25 GM/50 ML SYRINGE IV PUSH PRN (19:27)
[2017-11-15] MEDS: Insulin LISPRO* 1 UNITS UNIT SUBCUT SCH (21:35)
[2017-11-15] MEDS: Insulin GLARGINE(*) 1 UNITS UNIT SUBCUT SCH (21:36)
[2017-11-16] MEDS: Heparin VIAL(*) 5000 UNITS/ML VIAL (FIVE THOUSAND) SUBCUT SCH ×3 (06:28→21:52)
[2017-11-16 07:56] LABS: ABS Basophils 0 10^3/ul (0-0.2); ABS Eosinophils 0.2 10^3/ul (0-0.6); ABS Lymphocytes 1.4 10^3/ul (1.0-4.8); ABS Monocytes 0.4 10^3/ul (0-0.8); ABS Neutrophils 3.9 10^3/ul (1.5-7.7); ABS Nucleated RBC 0 10^3/ul; Eosinophil % 3.4 % (0-6); Hematocrit 32 % (35-47); Hemoglobin 10.6 g/dl (12.0-16.0); Lymphocyte % 24.3 % (25-47); Mean Corpuscular HGB Conc 33 g/dl (31-36); Mean Corpuscular Hemoglobin 27 pg (27-31); Mean Corpuscular Volume 82 fL (80-97); Mean Platelet Volume 10 um3 (7.4-10.4); Nucleated Red Blood Cells % 0.1; Platelet Count 126 10^3/ul (150-450); Red Blood Count 3.88 10^6/ul (4.0-5.4); Red Cell Distribution Width 14 % (10.5-15); White Blood Count 5.9 10^3/ul (3.5-10.8)
[2017-11-16 08:15] LABS: EGFR Non-African American 66.5 (>60)
[2017-11-16] MEDS ORDERED: KCL 20 MEQ/100 ML IVPREMIX* 20 MEQ/100 ML BAG IV ONE (08:31)
[2017-11-16] MEDS: Insulin LISPRO* 1 UNITS UNIT SUBCUT SCH ×4 (08:48→21:52)
[2017-11-16] MEDS: metFORMIN* 500 MG TAB PO SCH ×2 (08:48→17:58)
[2017-11-16] MEDS: Lisinopril TAB* 5 MG PO SCH (08:48)
[2017-11-16] MEDS: levETIRAcetam TAB* 500 MG PO SCH ×2 (08:48→21:52)
[2017-11-16] MEDS ORDERED: Potassium Chloride LIQUID* 20 MEQ PACKET PO ONE (10:00)
[2017-11-16] MEDS: KCL premix 10MEQ/50 ML x 2 BAGS IV SCH ×2 (10:57→12:14)
--- NOTE | 2017-11-16 15:30 | PN ---
Subjective Date of Service: 11/16/17 Interval History: Pt feels well. continues to refuse to go to STR. spoke with daughter who wants pt to go to STR. Daughter confirmed that the dysarthia is chronic Objective Active Medications: Acetaminophen (Tylenol Tab*) 650 mg PO Q4H PRN PRN Reason: PAIN Last Admin: 11/14/17 08:57 Dose: 650 mg Atorvastatin Calcium (Lipitor*) 40 mg PO 1700 [facility] Last Admin: 11/15/17 16:57 Dose: 40 mg Dextrose (D50w Syringe 50 Ml*) 12.5 gm IV PUSH .FOR FS < 60 - SS PRN PRN Reason: FS < 60 Haloperidol Lactate (Haldol Inj Iv/Im*) 2 mg IV SLOW PU Q4H PRN PRN Reason: AGITATION Last Admin: 11/14/17 10:10 Dose: 2 mg Heparin Sodium (Porcine) (Heparin Vial(*)) 5,000 units SUBCUT Q8HR [facility] Last Admin: 11/16/17 14:12 Dose: 5,000 units Heparin Sodium (Porcine) (Heparin Flush Picc/Ml/Cvc(*)) 1 - 3 ml FLUSH 0600, 1800 [facility] PRN Reason: Protocol Last Admin: 11/16/17 06:27 Dose: 1 ml Hydralazine HCl (Apresoline Iv*) 5 mg IV SLOW PU Q6H PRN PRN Reason: BLOOD PRESSURE Last Admin: 11/15/17 12:39 Dose: 5 mg Insulin Glargine (Lantus(*)) 5 units SUBCUT Q24H [facility] Last Admin: 11/15/17 21:36 Dose: 5 units Insulin Human Lispro (Humalog*) 0 units SUBCUT ACHS [facility] PRN Reason: Protocol Last Admin: 11/16/17 12:14 Dose: 2 units Levetiracetam (Keppra Tab*) 500 mg PO BID [facility] Last Admin: 11/16/17 08:48 Dose: 500 mg Lisinopril (Prinivil Tab*) 10 mg PO DAILY [facility] Last Admin: 11/16/17 08:48 Dose: 10 mg Lorazepam (Ativan Inj*) 0.5 mg IV PUSH ONCE PRN PRN Reason: ANXIETY Last Admin: 11/12/17 11:16 Dose: 0.5 mg Metformin HCl (Glucophage*) 500 mg PO 0800,1700 [facility] Last Admin: 11/16/17 08:48 Dose: 500 mg Vital Signs - 8 hr 11/16/17 08:00 Respiratory 18 Rate O2 Sat by Pulse 93 Oximetry Oxygen Devices in Use Now: Nasal Cannula Appearance: 71 yo f in nAD, aAOx3, significant chronic dysarthia, difficult to understand speech Eyes: No Scleral Icterus, PERRLA Ears/Nose/Mouth/Throat: NL Teeth, Lips, Gums, Mucous Membranes Moist Neck: NL Appearance and Movements; NL JVP, Trachea Midline Respiratory: Symmetrical Chest Expansion and Respiratory Effort, Clear to Auscultation Cardiovascular: NL Sounds; No Murmurs; No JVD, RRR Abdominal: NL Sounds; No Tenderness; No Distention, No Hepatosplenomegaly Lymphatic: No Cervical Adenopathy Extremities: No Edema, No Clubbing, Cyanosis Skin: No Rash or Ulcers, No Nodules or Sclerosis Neurological: Alert and Oriented x 3, - - slurred speech -chronic, no facial assymetry noted Result Diagrams: 11/16/17 07:33 11/16/17 07:32 Additional Lab and Data: Lab Results 11/10/17 11/10/17 11/10/17 Range/Units 22:16 22:16 22:16 WBC 13.0 H (3.5-10.8) 10^3/ul RBC 4.79 (4.0-5.4) 10^6/ul Hgb 12.9 (12.0-16.0) g/dl Hct 39 (35-47) % MCV 82 (80-97) fL MCH 27 (27-31) pg MCHC 33 (31-36) g/dl RDW 14 (10.5-15) % Plt Count 191 (150-450) 10^3/ul MPV 10 (7.4-10.4) um3 Neut % (Auto) 81.9 (38-83) % Lymph % (Auto) 10.5 L (25-47) % Henry % (Auto) 6.5 (1-9) % Eos % (Auto) 0 (0-6) % Baso % (Auto) 1.1 (0-2) % Absolute Neuts (auto) 10.6 H (1.5-7.7) 10^3/ul Absolute Lymphs (auto) 1.4 (1.0-4.8) 10^3/ul Absolute Monos (auto) 0.8 (0-0.8) 10^3/ul Absolute Eos (auto) 0 (0-0.6) 10^3/ul Absolute Basos (auto) 0.1 (0-0.2) 10^3/ul Absolute Nucleated RBC 0 10^3/ul Nucleated RBC % 0 INR (Anticoag Therapy) 0.93 (0.77-1.02) APTT 26.6 (26.0-36.3) seconds VBG pH (7.33-7.43) VBG pCO2 (41-51) mmHg VBG pO2 (35-45) mmHg VBG HCO3 (24-28) mmol/L VBG O2 Saturation (70-80) % VBG Base Excess (0-4) Sodium 137 (133-145) mmol/L Potassium TNP Chloride 101 (101-111) mmol/L Carbon Dioxide 22 (22-32) mmol/L Anion Gap 14 H (2-11) mmol/L BUN 36 H (6-24) mg/dL Creatinine 1.26 H (0.51-0.95) mg/dL Est GFR ( Amer) 53.5 (>60) Est GFR (Non-Af Amer) 41.6 (>60) BUN/Creatinine Ratio 28.6 H (8-20) Glucose 506 H* (70-100) mg/dL Lactic Acid (0.5-2.0) mmol/L Calcium 8.3 L (8.6-10.3) mg/dL Magnesium TNP Total Bilirubin 0.70 (0.2-1.0) mg/dL AST TNP ALT 10 (7-52) U/L Alkaline Phosphatase 70 (34-104) U/L Ammonia (16-53) mol/L Total Creatine Kinase 58 (10-223) U/L Troponin I 0.08 H* (<0.04) ng/mL C-Reactive Protein 57.87 H (< 5.00) mg/L Total Protein 5.9 L (6.4-8.9) g/dL Albumin 3.2 (3.2-5.2) g/dL Globulin 2.7 (2-4) g/dL Albumin/Globulin Ratio 1.2 (1-3) Lipase < 10 L (11.0-82.0) U/L Procalcitonin (<0.6) ng/mL Urine Color Urine Appearance Urine pH (5-9) Ur Specific [place] (1.010-1.030) Urine Protein (Negative) Urine Ketones (Negative) Urine Blood (Negative) Urine Nitrate (Negative) Urine Bilirubin (Negative) Urine Urobilinogen (Negative) Ur Leukocyte Esterase (Negative) Urine WBC (Auto) (Absent) Urine RBC (Auto) (Absent) Ur Squamous Epith Cells (Absent) Urine Bacteria (Absent) Urine Glucose (Negative) Salicylates < 2.50 (<30) mg/dL Urine Opiates Screen (None Detect) Acetaminophen < 15 mcg/mL Ur Barbiturates Screen (None Detect) Ur Phencyclidine Scrn (None Detect) Ur Amphetamines Screen (None Detect) U Benzodiazepines Scrn (None Detect) Urine Cocaine Screen (None Detect) U Cannabinoids Screen (None Detect) Serum Alcohol < 10 (<10) mg/dL 11/10/17 11/10/17 11/10/17 Range/Units 22:16 22:25 22:25 WBC (3.5-10.8) 10^3/ul RBC (4.0-5.4) 10^6/ul Hgb (12.0-16.0) g/dl Hct (35-47) % MCV (80-97) fL MCH (27-31) pg MCHC (31-36) g/dl RDW (10.5-15) % Plt Count (150-450) 10^3/ul MPV (7.4-10.4) um3 Neut % (Auto) (38-83) % Lymph % (Auto) (25-47) % Henry % (Auto) (1-9) % Eos % (Auto) (0-6) % Baso % (Auto) (0-2) % Absolute Neuts (auto) (1.5-7.7) 10^3/ul Absolute Lymphs (auto) (1.0-4.8) 10^3/ul Absolute Monos (auto) (0-0.8) 10^3/ul Absolute Eos (auto) (0-0.6) 10^3/ul Absolute Basos (auto) (0-0.2) 10^3/ul Absolute Nucleated RBC 10^3/ul Nucleated RBC % INR (Anticoag Therapy) (0.77-1.02) APTT (26.0-36.3) seconds VBG pH (7.33-7.43) VBG pCO2 (41-51) mmHg VBG pO2 (35-45) mmHg VBG HCO3 (24-28) mmol/L VBG O2 Saturation (70-80) % VBG Base Excess (0-4) Sodium (133-145) mmol/L Potassium 4.4 Chloride (101-111) mmol/L Carbon Dioxide (22-32) mmol/L Anion Gap (2-11) mmol/L BUN (6-24) mg/dL Creatinine (0.51-0.95) mg/dL Est GFR ( Amer) (>60) Est GFR (Non-Af Amer) (>60) BUN/Creatinine Ratio (8-20) Glucose (70-100) mg/dL Lactic Acid 3.1 H* (0.5-2.0) mmol/L Calcium (8.6-10.3) mg/dL Magnesium 1.7 L Total Bilirubin (0.2-1.0) mg/dL AST 9 L ALT (7-52) U/L Alkaline Phosphatase (34-104) U/L Ammonia (16-53) mol/L Total Creatine Kinase (10-223) U/L Troponin I (<0.04) ng/mL C-Reactive Protein (< 5.00) mg/L Total Protein (6.4-8.9) g/dL Albumin (3.2-5.2) g/dL Globulin (2-4) g/dL Albumin/Globulin Ratio (1-3) Lipase (11.0-82.0) U/L Procalcitonin 0.7 H (<0.6) ng/mL Urine Color Urine Appearance Urine pH (5-9) Ur Specific [place] (1.010-1.030) Urine Protein (Negative) Urine Ketones (Negative) Urine Blood (Negative) Urine Nitrate (Negative) Urine Bilirubin (Negative) Urine Urobilinogen (Negative) Ur Leukocyte Esterase (Negative) Urine WBC (Auto) (Absent) Urine RBC (Auto) (Absent) Ur Squamous Epith Cells (Absent) Urine Bacteria (Absent) Urine Glucose (Negative) Salicylates (<30) mg/dL Urine Opiates Screen (None Detect) Acetaminophen mcg/mL Ur Barbiturates Screen (None Detect) Ur Phencyclidine Scrn (None Detect) Ur Amphetamines Screen (None Detect) U Benzodiazepines Scrn (None Detect) Urine Cocaine Screen (None Detect) U Cannabinoids Screen (None Detect) Serum Alcohol (<10) mg/dL 11/10/17 11/10/17 11/10/17 Range/Units 22:25 22:35 22:35 WBC (3.5-10.8) 10^3/ul RBC (4.0-5.4) 10^6/ul Hgb (12.0-16.0) g/dl Hct (35-47) % MCV (80-97) fL MCH (27-31) pg MCHC (31-36) g/dl RDW (10.5-15) % Plt Count (150-450) 10^3/ul MPV (7.4-10.4) um3 Neut % (Auto) (38-83) % Lymph % (Auto) (25-47) % Henry % (Auto) (1-9) % Eos % (Auto) (0-6) % Baso % (Auto) (0-2) % Absolute Neuts (auto) (1.5-7.7) 10^3/ul Absolute Lymphs (auto) (1.0-4.8) 10^3/ul Absolute Monos (auto) (0-0.8) 10^3/ul Absolute Eos (auto) (0-0.6) 10^3/ul Absolute Basos (auto) (0-0.2) 10^3/ul Absolute Nucleated RBC 10^3/ul Nucleated RBC % INR (Anticoag Therapy) (0.77-1.02) APTT (26.0-36.3) seconds VBG pH (7.33-7.43) VBG pCO2 (41-51) mmHg VBG pO2 (35-45) mmHg VBG HCO3 (24-28) mmol/L VBG O2 Saturation (70-80) % VBG Base Excess (0-4) Sodium (133-145) mmol/L Potassium Chloride (101-111) mmol/L Carbon Dioxide (22-32) mmol/L Anion Gap (2-11) mmol/L BUN (6-24) mg/dL Creatinine (0.51-0.95) mg/dL Est GFR ( Amer) (>60) Est GFR (Non-Af Amer) (>60) BUN/Creatinine Ratio (8-20) Glucose (70-100) mg/dL Lactic Acid (0.5-2.0) mmol/L Calcium (8.6-10.3) mg/dL Magnesium Total Bilirubin (0.2-1.0) mg/dL AST ALT (7-52) U/L Alkaline Phosphatase (34-104) U/L Ammonia 33 (16-53) mol/L Total Creatine Kinase (10-223) U/L Troponin I (<0.04) ng/mL C-Reactive Protein (< 5.00) mg/L Total Protein (6.4-8.9) g/dL Albumin (3.2-5.2) g/dL Globulin (2-4) g/dL Albumin/Globulin Ratio (1-3) Lipase (11.0-82.0) U/L Procalcitonin (<0.6) ng/mL Urine Color Yellow Urine Appearance Cloudy Urine pH 5.0 (5-9) Ur Specific [place] 1.026 (1.010-1.030) Urine Protein 3+(>=500 mg/dl) H (Negative) Urine Ketones 1+ H (Negative) Urine Blood 2+ H (Negative) Urine Nitrate Negative (Negative) Urine Bilirubin Negative (Negative) Urine Urobilinogen Negative (Negative) Ur Leukocyte Esterase Negative (Negative) Urine WBC (Auto) Trace(0-5/hpf) (Absent) Urine RBC (Auto) Trace(0-2/hpf) (Absent) Ur Squamous Epith Cells Present H (Absent) Urine Bacteria Absent (Absent) Urine Glucose 3+(>=500 mg/dl) H (Negative) Salicylates (<30) mg/dL Urine Opiates Screen None detected (None Detect) Acetaminophen mcg/mL Ur Barbiturates Screen None detected (None Detect) Ur Phencyclidine Scrn None detected (None Detect) Ur Amphetamines Screen None detected (None Detect) U Benzodiazepines Scrn None detected (None Detect) Urine Cocaine Screen None detected (None Detect) U Cannabinoids Screen None detected (None Detect) Serum Alcohol (<10) mg/dL 11/10/17 Range/Units 23:07 WBC (3.5-10.8) 10^3/ul RBC (4.0-5.4) 10^6/ul Hgb (12.0-16.0) g/dl Hct (35-47) % MCV (80-97) fL MCH (27-31) pg MCHC (31-36) g/dl RDW (10.5-15) % Plt Count (150-450) 10^3/ul MPV (7.4-10.4) um3 Neut % (Auto) (38-83) % Lymph % (Auto) (25-47) % Henry % (Auto) (1-9) % Eos % (Auto) (0-6) % Baso % (Auto) (0-2) % Absolute Neuts (auto) (1.5-7.7) 10^3/ul Absolute Lymphs (auto) (1.0-4.8) 10^3/ul Absolute Monos (auto) (0-0.8) 10^3/ul Absolute Eos (auto) (0-0.6) 10^3/ul Absolute Basos (auto) (0-0.2) 10^3/ul Absolute Nucleated RBC 10^3/ul Nucleated RBC % INR (Anticoag Therapy) (0.77-1.02) APTT (26.0-36.3) seconds VBG pH 7.28 L (7.33-7.43) VBG pCO2 44 (41-51) mmHg VBG pO2 44 (35-45) mmHg VBG HCO3 19.9 L (24-28) mmol/L VBG O2 Saturation 80.9 H (70-80) % VBG Base Excess -5.9 L (0-4) Sodium (133-145) mmol/L Potassium Chloride (101-111) mmol/L Carbon Dioxide (22-32) mmol/L Anion Gap (2-11) mmol/L BUN (6-24) mg/dL Creatinine (0.51-0.95) mg/dL Est GFR ( Amer) (>60) Est GFR (Non-Af Amer) (>60) BUN/Creatinine Ratio (8-20) Glucose (70-100) mg/dL Lactic Acid (0.5-2.0) mmol/L Calcium (8.6-10.3) mg/dL Magnesium Total Bilirubin (0.2-1.0) mg/dL AST ALT (7-52) U/L Alkaline Phosphatase (34-104) U/L Ammonia (16-53) mol/L Total Creatine Kinase (10-223) U/L Troponin I (<0.04) ng/mL C-Reactive Protein (< 5.00) mg/L Total Protein (6.4-8.9) g/dL Albumin (3.2-5.2) g/dL Globulin (2-4) g/dL Albumin/Globulin Ratio (1-3) Lipase (11.0-82.0) U/L Procalcitonin (<0.6) ng/mL Urine Color Urine Appearance Urine pH (5-9) Ur Specific [place] (1.010-1.030) Urine Protein (Negative) Urine Ketones (Negative) Urine Blood (Negative) Urine Nitrate (Negative) Urine Bilirubin (Negative) Urine Urobilinogen (Negative) Ur Leukocyte Esterase (Negative) Urine WBC (Auto) (Absent) Urine RBC (Auto) (Absent) Ur Squamous Epith Cells (Absent) Urine Bacteria (Absent) Urine Glucose (Negative) Salicylates (<30) mg/dL Urine Opiates Screen (None Detect) Acetaminophen mcg/mL Ur Barbiturates Screen (None Detect) Ur Phencyclidine Scrn (None Detect) Ur Amphetamines Screen (None Detect) U Benzodiazepines Scrn (None Detect) Urine Cocaine Screen (None Detect) U Cannabinoids Screen (None Detect) Serum Alcohol (<10) mg/dL Microbiology and Other Data: Microbiology 11/11/17 06:19 Influenza Types A,B Antigen (JI) - Final Nasal Specimen received for Influenza A/B Molecular testing 11/11/17 03:30 Nasal Screen MRSA (PCR)(JI) - Final Nasal Mrsa Negative Assess/Plan/Problems-Billing Assessment: 71 yo F with h/o DM, presented with BG of >500 and unresponsiveness - Patient Problems (1) Encephalopathy Comment: appears to have resolved. 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 MRI neg for gross abn D/w DR. Mora (2) HTN (hypertension) Comment: Continue lisinopril. controled (3) Hyperlipidemia Comment: Atorvastatin 40 is double her home rosuvastatin. LDL 198 but her med compliance is in question. (4) Rheumatoid arthritis Comment: Hold entanercept. Not clear if she is dependent on it. She states she hasn't seen Dr. Song in a long time. Plan to d/w with pt's PCP, Dr. Bermeo on Sunday, not in office today (5) Seizure Comment: Possible seizure with post-ictal state. EEG abnl but no epileptiform discharges. Dr. Mora recommended levetiracetam. cont PO (6) DM2 (diabetes mellitus, type 2) Comment: cont ISS, metformin, Lantus HbA1C 12.8 (7) DVT prophylaxis Comment: HSQ Status and Disposition: inpatient, needs STR, refuses. PT/OT ongoing
[2017-11-16] MEDS: Atorvastatin* 40 MG TAB PO SCH (17:58)
[2017-11-16] MEDS: Insulin GLARGINE(*) 1 UNITS UNIT SUBCUT SCH (21:52)
--- NOTE | 2017-11-16 23:07 | PN ---
Hospitalist Progress Note Date of Service: 11/16/17 Received page from NSG that Pt has not urinated since urinary catheter was removed earlier today. Bladder scan with 736. Will replace urinary catheter for acute urinary retention.
[2017-11-17] MEDS: Heparin VIAL(*) 5000 UNITS/ML VIAL (FIVE THOUSAND) SUBCUT SCH ×3 (05:20→21:05)
[2017-11-17 07:09] LABS: EGFR Non-African American 70.3 (>60)
[2017-11-17] MEDS: Insulin LISPRO* 1 UNITS UNIT SUBCUT SCH ×4 (08:33→21:05)
[2017-11-17] MEDS: metFORMIN* 500 MG TAB PO SCH ×2 (08:33→17:55)
[2017-11-17] MEDS: Lisinopril TAB* 5 MG PO SCH (08:33)
[2017-11-17] MEDS: levETIRAcetam TAB* 500 MG PO SCH ×2 (08:33→21:03)
[2017-11-17] MEDS: glipiZIDE TAB* 5 MG PO SCH (09:38)
[2017-11-17] MEDS ORDERED: Lisinopril TAB* 10 MG PO SCH (12:04)
--- NOTE | 2017-11-17 13:12 | PN ---
Subjective Date of Service: 11/17/17 Interval History: Pt feels tired, no new complaints. noted to be confused last night, now back to baseline Objective Active Medications: Acetaminophen (Tylenol Tab*) 650 mg PO Q4H PRN PRN Reason: PAIN Last Admin: 11/14/17 08:57 Dose: 650 mg Atorvastatin Calcium (Lipitor*) 40 mg PO 1700 [facility] Last Admin: 11/16/17 17:58 Dose: 40 mg Dextrose (D50w Syringe 50 Ml*) 12.5 gm IV PUSH .FOR FS < 60 - SS PRN PRN Reason: FS < 60 Glipizide (Glucotrol Tab*) 5 mg PO DAILY [facility] Last Admin: 11/17/17 09:38 Dose: 5 mg Haloperidol Lactate (Haldol Inj Iv/Im*) 2 mg IV SLOW PU Q4H PRN PRN Reason: AGITATION Last Admin: 11/14/17 10:10 Dose: 2 mg Heparin Sodium (Porcine) (Heparin Vial(*)) 5,000 units SUBCUT Q8HR [facility] Last Admin: 11/17/17 05:20 Dose: 5,000 units Heparin Sodium (Porcine) (Heparin Flush Picc/Ml/Cvc(*)) 1 - 3 ml FLUSH 0600, 1800 [facility] PRN Reason: Protocol Last Admin: 11/17/17 05:21 Dose: 1 ml Hydralazine HCl (Apresoline Iv*) 5 mg IV SLOW PU Q6H PRN PRN Reason: BLOOD PRESSURE Last Admin: 11/15/17 12:39 Dose: 5 mg Insulin Human Lispro (Humalog*) 0 units SUBCUT ACHS [facility] PRN Reason: Protocol Last Admin: 11/17/17 08:33 Dose: 2 units Levetiracetam (Keppra Tab*) 500 mg PO BID [facility] Last Admin: 11/17/17 08:33 Dose: 500 mg Lisinopril (Prinivil Tab*) 20 mg PO DAILY [facility] Lorazepam (Ativan Inj*) 0.5 mg IV PUSH ONCE PRN PRN Reason: ANXIETY Last Admin: 11/12/17 11:16 Dose: 0.5 mg Metformin HCl (Glucophage*) 500 mg PO 0800,1700 [facility] Last Admin: 11/17/17 08:33 Dose: 500 mg Vital Signs - 8 hr 11/17/17 11/17/17 08:00 08:31 Temperature 98.2 F Pulse Rate 89 Respiratory 20 20 Rate Blood Pressure 153/68 (mmHg) O2 Sat by Pulse 90 90 Oximetry Oxygen Devices in Use Now: Nasal Cannula Appearance: 71 yo F in nAD, aAOx3 Eyes: No Scleral Icterus, PERRLA Ears/Nose/Mouth/Throat: NL Teeth, Lips, Gums, Mucous Membranes Moist Neck: NL Appearance and Movements; NL JVP, Trachea Midline Respiratory: Symmetrical Chest Expansion and Respiratory Effort, Clear to Auscultation Cardiovascular: NL Sounds; No Murmurs; No JVD, No Edema Abdominal: NL Sounds; No Tenderness; No Distention, No Hepatosplenomegaly Lymphatic: No Cervical Adenopathy Extremities: No Edema, No Clubbing, Cyanosis Skin: No Rash or Ulcers, No Nodules or Sclerosis Neurological: Alert and Oriented x 3, - - slurred speech-chronic Result Diagrams: 11/16/17 07:33 11/17/17 06:42 Additional Lab and Data: Lab Results 11/10/17 11/10/17 11/10/17 Range/Units 22:16 22:16 22:16 WBC 13.0 H (3.5-10.8) 10^3/ul RBC 4.79 (4.0-5.4) 10^6/ul Hgb 12.9 (12.0-16.0) g/dl Hct 39 (35-47) % MCV 82 (80-97) fL MCH 27 (27-31) pg MCHC 33 (31-36) g/dl RDW 14 (10.5-15) % Plt Count 191 (150-450) 10^3/ul MPV 10 (7.4-10.4) um3 Neut % (Auto) 81.9 (38-83) % Lymph % (Auto) 10.5 L (25-47) % Dewitt % (Auto) 6.5 (1-9) % Eos % (Auto) 0 (0-6) % Baso % (Auto) 1.1 (0-2) % Absolute Neuts (auto) 10.6 H (1.5-7.7) 10^3/ul Absolute Lymphs (auto) 1.4 (1.0-4.8) 10^3/ul Absolute Monos (auto) 0.8 (0-0.8) 10^3/ul Absolute Eos (auto) 0 (0-0.6) 10^3/ul Absolute Basos (auto) 0.1 (0-0.2) 10^3/ul Absolute Nucleated RBC 0 10^3/ul Nucleated RBC % 0 INR (Anticoag Therapy) 0.93 (0.77-1.02) APTT 26.6 (26.0-36.3) seconds VBG pH (7.33-7.43) VBG pCO2 (41-51) mmHg VBG pO2 (35-45) mmHg VBG HCO3 (24-28) mmol/L VBG O2 Saturation (70-80) % VBG Base Excess (0-4) Sodium 137 (133-145) mmol/L Potassium TNP Chloride 101 (101-111) mmol/L Carbon Dioxide 22 (22-32) mmol/L Anion Gap 14 H (2-11) mmol/L BUN 36 H (6-24) mg/dL Creatinine 1.26 H (0.51-0.95) mg/dL Est GFR ( Amer) 53.5 (>60) Est GFR (Non-Af Amer) 41.6 (>60) BUN/Creatinine Ratio 28.6 H (8-20) Glucose 506 H* (70-100) mg/dL Lactic Acid (0.5-2.0) mmol/L Calcium 8.3 L (8.6-10.3) mg/dL Magnesium TNP Total Bilirubin 0.70 (0.2-1.0) mg/dL AST TNP ALT 10 (7-52) U/L Alkaline Phosphatase 70 (34-104) U/L Ammonia (16-53) mol/L Total Creatine Kinase 58 (10-223) U/L Troponin I 0.08 H* (<0.04) ng/mL C-Reactive Protein 57.87 H (< 5.00) mg/L Total Protein 5.9 L (6.4-8.9) g/dL Albumin 3.2 (3.2-5.2) g/dL Globulin 2.7 (2-4) g/dL Albumin/Globulin Ratio 1.2 (1-3) Lipase < 10 L (11.0-82.0) U/L Procalcitonin (<0.6) ng/mL Urine Color Urine Appearance Urine pH (5-9) Ur Specific Millis (1.010-1.030) Urine Protein (Negative) Urine Ketones (Negative) Urine Blood (Negative) Urine Nitrate (Negative) Urine Bilirubin (Negative) Urine Urobilinogen (Negative) Ur Leukocyte Esterase (Negative) Urine WBC (Auto) (Absent) Urine RBC (Auto) (Absent) Ur Squamous Epith Cells (Absent) Urine Bacteria (Absent) Urine Glucose (Negative) Salicylates < 2.50 (<30) mg/dL Urine Opiates Screen (None Detect) Acetaminophen < 15 mcg/mL Ur Barbiturates Screen (None Detect) Ur Phencyclidine Scrn (None Detect) Ur Amphetamines Screen (None Detect) U Benzodiazepines Scrn (None Detect) Urine Cocaine Screen (None Detect) U Cannabinoids Screen (None Detect) Serum Alcohol < 10 (<10) mg/dL 11/10/17 11/10/17 11/10/17 Range/Units 22:16 22:25 22:25 WBC (3.5-10.8) 10^3/ul RBC (4.0-5.4) 10^6/ul Hgb (12.0-16.0) g/dl Hct (35-47) % MCV (80-97) fL MCH (27-31) pg MCHC (31-36) g/dl RDW (10.5-15) % Plt Count (150-450) 10^3/ul MPV (7.4-10.4) um3 Neut % (Auto) (38-83) % Lymph % (Auto) (25-47) % Dewitt % (Auto) (1-9) % Eos % (Auto) (0-6) % Baso % (Auto) (0-2) % Absolute Neuts (auto) (1.5-7.7) 10^3/ul Absolute Lymphs (auto) (1.0-4.8) 10^3/ul Absolute Monos (auto) (0-0.8) 10^3/ul Absolute Eos (auto) (0-0.6) 10^3/ul Absolute Basos (auto) (0-0.2) 10^3/ul Absolute Nucleated RBC 10^3/ul Nucleated RBC % INR (Anticoag Therapy) (0.77-1.02) APTT (26.0-36.3) seconds VBG pH (7.33-7.43) VBG pCO2 (41-51) mmHg VBG pO2 (35-45) mmHg VBG HCO3 (24-28) mmol/L VBG O2 Saturation (70-80) % VBG Base Excess (0-4) Sodium (133-145) mmol/L Potassium 4.4 Chloride (101-111) mmol/L Carbon Dioxide (22-32) mmol/L Anion Gap (2-11) mmol/L BUN (6-24) mg/dL Creatinine (0.51-0.95) mg/dL Est GFR ( Amer) (>60) Est GFR (Non-Af Amer) (>60) BUN/Creatinine Ratio (8-20) Glucose (70-100) mg/dL Lactic Acid 3.1 H* (0.5-2.0) mmol/L Calcium (8.6-10.3) mg/dL Magnesium 1.7 L Total Bilirubin (0.2-1.0) mg/dL AST 9 L ALT (7-52) U/L Alkaline Phosphatase (34-104) U/L Ammonia (16-53) mol/L Total Creatine Kinase (10-223) U/L Troponin I (<0.04) ng/mL C-Reactive Protein (< 5.00) mg/L Total Protein (6.4-8.9) g/dL Albumin (3.2-5.2) g/dL Globulin (2-4) g/dL Albumin/Globulin Ratio (1-3) Lipase (11.0-82.0) U/L Procalcitonin 0.7 H (<0.6) ng/mL Urine Color Urine Appearance Urine pH (5-9) Ur Specific Millis (1.010-1.030) Urine Protein (Negative) Urine Ketones (Negative) Urine Blood (Negative) Urine Nitrate (Negative) Urine Bilirubin (Negative) Urine Urobilinogen (Negative) Ur Leukocyte Esterase (Negative) Urine WBC (Auto) (Absent) Urine RBC (Auto) (Absent) Ur Squamous Epith Cells (Absent) Urine Bacteria (Absent) Urine Glucose (Negative) Salicylates (<30) mg/dL Urine Opiates Screen (None Detect) Acetaminophen mcg/mL Ur Barbiturates Screen (None Detect) Ur Phencyclidine Scrn (None Detect) Ur Amphetamines Screen (None Detect) U Benzodiazepines Scrn (None Detect) Urine Cocaine Screen (None Detect) U Cannabinoids Screen (None Detect) Serum Alcohol (<10) mg/dL 11/10/17 11/10/17 11/10/17 Range/Units 22:25 22:35 22:35 WBC (3.5-10.8) 10^3/ul RBC (4.0-5.4) 10^6/ul Hgb (12.0-16.0) g/dl Hct (35-47) % MCV (80-97) fL MCH (27-31) pg MCHC (31-36) g/dl RDW (10.5-15) % Plt Count (150-450) 10^3/ul MPV (7.4-10.4) um3 Neut % (Auto) (38-83) % Lymph % (Auto) (25-47) % Dewitt % (Auto) (1-9) % Eos % (Auto) (0-6) % Baso % (Auto) (0-2) % Absolute Neuts (auto) (1.5-7.7) 10^3/ul Absolute Lymphs (auto) (1.0-4.8) 10^3/ul Absolute Monos (auto) (0-0.8) 10^3/ul Absolute Eos (auto) (0-0.6) 10^3/ul Absolute Basos (auto) (0-0.2) 10^3/ul Absolute Nucleated RBC 10^3/ul Nucleated RBC % INR (Anticoag Therapy) (0.77-1.02) APTT (26.0-36.3) seconds VBG pH (7.33-7.43) VBG pCO2 (41-51) mmHg VBG pO2 (35-45) mmHg VBG HCO3 (24-28) mmol/L VBG O2 Saturation (70-80) % VBG Base Excess (0-4) Sodium (133-145) mmol/L Potassium Chloride (101-111) mmol/L Carbon Dioxide (22-32) mmol/L Anion Gap (2-11) mmol/L BUN (6-24) mg/dL Creatinine (0.51-0.95) mg/dL Est GFR ( Amer) (>60) Est GFR (Non-Af Amer) (>60) BUN/Creatinine Ratio (8-20) Glucose (70-100) mg/dL Lactic Acid (0.5-2.0) mmol/L Calcium (8.6-10.3) mg/dL Magnesium Total Bilirubin (0.2-1.0) mg/dL AST ALT (7-52) U/L Alkaline Phosphatase (34-104) U/L Ammonia 33 (16-53) mol/L Total Creatine Kinase (10-223) U/L Troponin I (<0.04) ng/mL C-Reactive Protein (< 5.00) mg/L Total Protein (6.4-8.9) g/dL Albumin (3.2-5.2) g/dL Globulin (2-4) g/dL Albumin/Globulin Ratio (1-3) Lipase (11.0-82.0) U/L Procalcitonin (<0.6) ng/mL Urine Color Yellow Urine Appearance Cloudy Urine pH 5.0 (5-9) Ur Specific Millis 1.026 (1.010-1.030) Urine Protein 3+(>=500 mg/dl) H (Negative) Urine Ketones 1+ H (Negative) Urine Blood 2+ H (Negative) Urine Nitrate Negative (Negative) Urine Bilirubin Negative (Negative) Urine Urobilinogen Negative (Negative) Ur Leukocyte Esterase Negative (Negative) Urine WBC (Auto) Trace(0-5/hpf) (Absent) Urine RBC (Auto) Trace(0-2/hpf) (Absent) Ur Squamous Epith Cells Present H (Absent) Urine Bacteria Absent (Absent) Urine Glucose 3+(>=500 mg/dl) H (Negative) Salicylates (<30) mg/dL Urine Opiates Screen None detected (None Detect) Acetaminophen mcg/mL Ur Barbiturates Screen None detected (None Detect) Ur Phencyclidine Scrn None detected (None Detect) Ur Amphetamines Screen None detected (None Detect) U Benzodiazepines Scrn None detected (None Detect) Urine Cocaine Screen None detected (None Detect) U Cannabinoids Screen None detected (None Detect) Serum Alcohol (<10) mg/dL 11/10/17 Range/Units 23:07 WBC (3.5-10.8) 10^3/ul RBC (4.0-5.4) 10^6/ul Hgb (12.0-16.0) g/dl Hct (35-47) % MCV (80-97) fL MCH (27-31) pg MCHC (31-36) g/dl RDW (10.5-15) % Plt Count (150-450) 10^3/ul MPV (7.4-10.4) um3 Neut % (Auto) (38-83) % Lymph % (Auto) (25-47) % Dewitt % (Auto) (1-9) % Eos % (Auto) (0-6) % Baso % (Auto) (0-2) % Absolute Neuts (auto) (1.5-7.7) 10^3/ul Absolute Lymphs (auto) (1.0-4.8) 10^3/ul Absolute Monos (auto) (0-0.8) 10^3/ul Absolute Eos (auto) (0-0.6) 10^3/ul Absolute Basos (auto) (0-0.2) 10^3/ul Absolute Nucleated RBC 10^3/ul Nucleated RBC % INR (Anticoag Therapy) (0.77-1.02) APTT (26.0-36.3) seconds VBG pH 7.28 L (7.33-7.43) VBG pCO2 44 (41-51) mmHg VBG pO2 44 (35-45) mmHg VBG HCO3 19.9 L (24-28) mmol/L VBG O2 Saturation 80.9 H (70-80) % VBG Base Excess -5.9 L (0-4) Sodium (133-145) mmol/L Potassium Chloride (101-111) mmol/L Carbon Dioxide (22-32) mmol/L Anion Gap (2-11) mmol/L BUN (6-24) mg/dL Creatinine (0.51-0.95) mg/dL Est GFR ( Amer) (>60) Est GFR (Non-Af Amer) (>60) BUN/Creatinine Ratio (8-20) Glucose (70-100) mg/dL Lactic Acid (0.5-2.0) mmol/L Calcium (8.6-10.3) mg/dL Magnesium Total Bilirubin (0.2-1.0) mg/dL AST ALT (7-52) U/L Alkaline Phosphatase (34-104) U/L Ammonia (16-53) mol/L Total Creatine Kinase (10-223) U/L Troponin I (<0.04) ng/mL C-Reactive Protein (< 5.00) mg/L Total Protein (6.4-8.9) g/dL Albumin (3.2-5.2) g/dL Globulin (2-4) g/dL Albumin/Globulin Ratio (1-3) Lipase (11.0-82.0) U/L Procalcitonin (<0.6) ng/mL Urine Color Urine Appearance Urine pH (5-9) Ur Specific Millis (1.010-1.030) Urine Protein (Negative) Urine Ketones (Negative) Urine Blood (Negative) Urine Nitrate (Negative) Urine Bilirubin (Negative) Urine Urobilinogen (Negative) Ur Leukocyte Esterase (Negative) Urine WBC (Auto) (Absent) Urine RBC (Auto) (Absent) Ur Squamous Epith Cells (Absent) Urine Bacteria (Absent) Urine Glucose (Negative) Salicylates (<30) mg/dL Urine Opiates Screen (None Detect) Acetaminophen mcg/mL Ur Barbiturates Screen (None Detect) Ur Phencyclidine Scrn (None Detect) Ur Amphetamines Screen (None Detect) U Benzodiazepines Scrn (None Detect) Urine Cocaine Screen (None Detect) U Cannabinoids Screen (None Detect) Serum Alcohol (<10) mg/dL Microbiology and Other Data: Microbiology 11/11/17 06:19 Influenza Types A,B Antigen (JI) - Final Nasal Specimen received for Influenza A/B Molecular testing 11/11/17 03:30 Nasal Screen MRSA (PCR)(JI) - Final Nasal Mrsa Negative Assess/Plan/Problems-Billing Assessment: 71 yo F with h/o DM, presented with BG of >500 and unresponsiveness - Patient Problems (1) Encephalopathy Comment: appears to have resolved. 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 MRI neg for gross abn D/w DR. Mora (2) HTN (hypertension) Comment: uncontroled, increase lisinopril to 20 mg today (3) Hyperlipidemia Comment: Atorvastatin 40 is double her home rosuvastatin. LDL 198 but her med compliance is in question. (4) Rheumatoid arthritis Comment: Entanercept held. Pt cannot go to STR when taking it due to the cost of the med. I don't believe she should be on a potential immunosupressant when she in a [facility] recuperating. She will not be on it when at STR. (5) Seizure Comment: Possible seizure with post-ictal state. EEG abnl but no epileptiform discharges. Dr. Mora recommended levetiracetam. cont PO (6) DM2 (diabetes mellitus, type 2) Comment: cont ISS, metformin, Lantus. glipizide restarted 11/17/17 HbA1C 12.8 (7) DVT prophylaxis Comment: HSQ Status and Disposition: inpatient, awaiting STR PT/OT ongoing
[2017-11-17] MEDS: Atorvastatin* 40 MG TAB PO SCH (18:05)
[2017-11-18] MEDS: hydrALAZINE IV* 20 MG/ML VIAL IV SLOW PU PRN (03:36)
[2017-11-18] MEDS: Heparin VIAL(*) 5000 UNITS/ML VIAL (FIVE THOUSAND) SUBCUT SCH ×3 (04:13→21:55)
[2017-11-18] MEDS: Insulin LISPRO* 1 UNITS UNIT SUBCUT SCH ×4 (08:07→21:53)
[2017-11-18] MEDS: metFORMIN* 500 MG TAB PO SCH ×2 (08:15→17:32)
[2017-11-18] MEDS: levETIRAcetam TAB* 500 MG PO SCH ×2 (08:15→21:52)
[2017-11-18] MEDS: glipiZIDE TAB* 5 MG PO SCH ×2 (08:15→08:31)
--- NOTE | 2017-11-18 13:44 | PN ---
Subjective Date of Service: 11/18/17 Interval History: pt continues to say that despite her daughter's insistence to go to [facility] for 2 weeks, she wants to go home. Feels back to baseline Objective Active Medications: Acetaminophen (Tylenol Tab*) 650 mg PO Q4H PRN PRN Reason: PAIN Last Admin: 11/14/17 08:57 Dose: 650 mg Atorvastatin Calcium (Lipitor*) 40 mg PO 1700 [facility] Last Admin: 11/17/17 18:05 Dose: 40 mg Dextrose (D50w Syringe 50 Ml*) 12.5 gm IV PUSH .FOR FS < 60 - SS PRN PRN Reason: FS < 60 Glipizide (Glucotrol Tab*) 2.5 mg PO DAILY [facility] Last Admin: 11/18/17 08:31 Dose: Not Given Haloperidol Lactate (Haldol Inj Iv/Im*) 2 mg IV SLOW PU Q4H PRN PRN Reason: AGITATION Last Admin: 11/14/17 10:10 Dose: 2 mg Heparin Sodium (Porcine) (Heparin Vial(*)) 5,000 units SUBCUT Q8HR [facility] Last Admin: 11/18/17 12:18 Dose: 5,000 units Heparin Sodium (Porcine) (Heparin Flush Picc/Ml/Cvc(*)) 1 - 3 ml FLUSH 0600, 1800 [facility] PRN Reason: Protocol Last Admin: 11/18/17 04:13 Dose: Not Given Hydralazine HCl (Apresoline Iv*) 5 mg IV SLOW PU Q6H PRN PRN Reason: BLOOD PRESSURE Last Admin: 11/18/17 03:36 Dose: 5 mg Insulin Human Lispro (Humalog*) 0 units SUBCUT ACHS [facility] PRN Reason: Protocol Last Admin: 11/18/17 12:18 Dose: 1 units Levetiracetam (Keppra Tab*) 500 mg PO BID [facility] Last Admin: 11/18/17 08:15 Dose: 500 mg Lisinopril (Prinivil Tab*) 20 mg PO QAM [facility] Lorazepam (Ativan Inj*) 0.5 mg IV PUSH ONCE PRN PRN Reason: ANXIETY Last Admin: 11/12/17 11:16 Dose: 0.5 mg Metformin HCl (Glucophage*) 500 mg PO 0800,1700 [facility] Last Admin: 11/18/17 08:15 Dose: 500 mg Vital Signs - 8 hr 11/18/17 11/18/17 11/18/17 05:53 07:20 08:00 Temperature 98.9 F Pulse Rate 87 88 Respiratory 18 18 Rate Blood Pressure 167/71 156/59 (mmHg) O2 Sat by Pulse 95 95 Oximetry Oxygen Devices in Use Now: None Appearance: 71 yo f in nAD, aAOx3 Eyes: No Scleral Icterus, PERRLA Ears/Nose/Mouth/Throat: NL Teeth, Lips, Gums, Mucous Membranes Moist Neck: NL Appearance and Movements; NL JVP, Trachea Midline Respiratory: Symmetrical Chest Expansion and Respiratory Effort, Clear to Auscultation Cardiovascular: NL Sounds; No Murmurs; No JVD, RRR Abdominal: NL Sounds; No Tenderness; No Distention Lymphatic: No Cervical Adenopathy Extremities: No Edema, No Clubbing, Cyanosis Skin: No Rash or Ulcers, No Nodules or Sclerosis Neurological: - - chronic slurred speech, motor intact Result Diagrams: 11/16/17 07:33 11/17/17 06:42 Additional Lab and Data: Lab Results 11/10/17 11/10/17 11/10/17 Range/Units 22:16 22:16 22:16 WBC 13.0 H (3.5-10.8) 10^3/ul RBC 4.79 (4.0-5.4) 10^6/ul Hgb 12.9 (12.0-16.0) g/dl Hct 39 (35-47) % MCV 82 (80-97) fL MCH 27 (27-31) pg MCHC 33 (31-36) g/dl RDW 14 (10.5-15) % Plt Count 191 (150-450) 10^3/ul MPV 10 (7.4-10.4) um3 Neut % (Auto) 81.9 (38-83) % Lymph % (Auto) 10.5 L (25-47) % [place] % (Auto) 6.5 (1-9) % Eos % (Auto) 0 (0-6) % Baso % (Auto) 1.1 (0-2) % Absolute Neuts (auto) 10.6 H (1.5-7.7) 10^3/ul Absolute Lymphs (auto) 1.4 (1.0-4.8) 10^3/ul Absolute Monos (auto) 0.8 (0-0.8) 10^3/ul Absolute Eos (auto) 0 (0-0.6) 10^3/ul Absolute Basos (auto) 0.1 (0-0.2) 10^3/ul Absolute Nucleated RBC 0 10^3/ul Nucleated RBC % 0 INR (Anticoag Therapy) 0.93 (0.77-1.02) APTT 26.6 (26.0-36.3) seconds VBG pH (7.33-7.43) VBG pCO2 (41-51) mmHg VBG pO2 (35-45) mmHg VBG HCO3 (24-28) mmol/L VBG O2 Saturation (70-80) % VBG Base Excess (0-4) Sodium 137 (133-145) mmol/L Potassium TNP Chloride 101 (101-111) mmol/L Carbon Dioxide 22 (22-32) mmol/L Anion Gap 14 H (2-11) mmol/L BUN 36 H (6-24) mg/dL Creatinine 1.26 H (0.51-0.95) mg/dL Est GFR ( Amer) 53.5 (>60) Est GFR (Non-Af Amer) 41.6 (>60) BUN/Creatinine Ratio 28.6 H (8-20) Glucose 506 H* (70-100) mg/dL Lactic Acid (0.5-2.0) mmol/L Calcium 8.3 L (8.6-10.3) mg/dL Magnesium TNP Total Bilirubin 0.70 (0.2-1.0) mg/dL AST TNP ALT 10 (7-52) U/L Alkaline Phosphatase 70 (34-104) U/L Ammonia (16-53) mol/L Total Creatine Kinase 58 (10-223) U/L Troponin I 0.08 H* (<0.04) ng/mL C-Reactive Protein 57.87 H (< 5.00) mg/L Total Protein 5.9 L (6.4-8.9) g/dL Albumin 3.2 (3.2-5.2) g/dL Globulin 2.7 (2-4) g/dL Albumin/Globulin Ratio 1.2 (1-3) Lipase < 10 L (11.0-82.0) U/L Procalcitonin (<0.6) ng/mL Urine Color Urine Appearance Urine pH (5-9) Ur Specific [place] (1.010-1.030) Urine Protein (Negative) Urine Ketones (Negative) Urine Blood (Negative) Urine Nitrate (Negative) Urine Bilirubin (Negative) Urine Urobilinogen (Negative) Ur Leukocyte Esterase (Negative) Urine WBC (Auto) (Absent) Urine RBC (Auto) (Absent) Ur Squamous Epith Cells (Absent) Urine Bacteria (Absent) Urine Glucose (Negative) Salicylates < 2.50 (<30) mg/dL Urine Opiates Screen (None Detect) Acetaminophen < 15 mcg/mL Ur Barbiturates Screen (None Detect) Ur Phencyclidine Scrn (None Detect) Ur Amphetamines Screen (None Detect) U Benzodiazepines Scrn (None Detect) Urine Cocaine Screen (None Detect) U Cannabinoids Screen (None Detect) Serum Alcohol < 10 (<10) mg/dL 11/10/17 11/10/17 11/10/17 Range/Units 22:16 22:25 22:25 WBC (3.5-10.8) 10^3/ul RBC (4.0-5.4) 10^6/ul Hgb (12.0-16.0) g/dl Hct (35-47) % MCV (80-97) fL MCH (27-31) pg MCHC (31-36) g/dl RDW (10.5-15) % Plt Count (150-450) 10^3/ul MPV (7.4-10.4) um3 Neut % (Auto) (38-83) % Lymph % (Auto) (25-47) % [place] % (Auto) (1-9) % Eos % (Auto) (0-6) % Baso % (Auto) (0-2) % Absolute Neuts (auto) (1.5-7.7) 10^3/ul Absolute Lymphs (auto) (1.0-4.8) 10^3/ul Absolute Monos (auto) (0-0.8) 10^3/ul Absolute Eos (auto) (0-0.6) 10^3/ul Absolute Basos (auto) (0-0.2) 10^3/ul Absolute Nucleated RBC 10^3/ul Nucleated RBC % INR (Anticoag Therapy) (0.77-1.02) APTT (26.0-36.3) seconds VBG pH (7.33-7.43) VBG pCO2 (41-51) mmHg VBG pO2 (35-45) mmHg VBG HCO3 (24-28) mmol/L VBG O2 Saturation (70-80) % VBG Base Excess (0-4) Sodium (133-145) mmol/L Potassium 4.4 Chloride (101-111) mmol/L Carbon Dioxide (22-32) mmol/L Anion Gap (2-11) mmol/L BUN (6-24) mg/dL Creatinine (0.51-0.95) mg/dL Est GFR ( Amer) (>60) Est GFR (Non-Af Amer) (>60) BUN/Creatinine Ratio (8-20) Glucose (70-100) mg/dL Lactic Acid 3.1 H* (0.5-2.0) mmol/L Calcium (8.6-10.3) mg/dL Magnesium 1.7 L Total Bilirubin (0.2-1.0) mg/dL AST 9 L ALT (7-52) U/L Alkaline Phosphatase (34-104) U/L Ammonia (16-53) mol/L Total Creatine Kinase (10-223) U/L Troponin I (<0.04) ng/mL C-Reactive Protein (< 5.00) mg/L Total Protein (6.4-8.9) g/dL Albumin (3.2-5.2) g/dL Globulin (2-4) g/dL Albumin/Globulin Ratio (1-3) Lipase (11.0-82.0) U/L Procalcitonin 0.7 H (<0.6) ng/mL Urine Color Urine Appearance Urine pH (5-9) Ur Specific [place] (1.010-1.030) Urine Protein (Negative) Urine Ketones (Negative) Urine Blood (Negative) Urine Nitrate (Negative) Urine Bilirubin (Negative) Urine Urobilinogen (Negative) Ur Leukocyte Esterase (Negative) Urine WBC (Auto) (Absent) Urine RBC (Auto) (Absent) Ur Squamous Epith Cells (Absent) Urine Bacteria (Absent) Urine Glucose (Negative) Salicylates (<30) mg/dL Urine Opiates Screen (None Detect) Acetaminophen mcg/mL Ur Barbiturates Screen (None Detect) Ur Phencyclidine Scrn (None Detect) Ur Amphetamines Screen (None Detect) U Benzodiazepines Scrn (None Detect) Urine Cocaine Screen (None Detect) U Cannabinoids Screen (None Detect) Serum Alcohol (<10) mg/dL 11/10/17 11/10/17 11/10/17 Range/Units 22:25 22:35 22:35 WBC (3.5-10.8) 10^3/ul RBC (4.0-5.4) 10^6/ul Hgb (12.0-16.0) g/dl Hct (35-47) % MCV (80-97) fL MCH (27-31) pg MCHC (31-36) g/dl RDW (10.5-15) % Plt Count (150-450) 10^3/ul MPV (7.4-10.4) um3 Neut % (Auto) (38-83) % Lymph % (Auto) (25-47) % [place] % (Auto) (1-9) % Eos % (Auto) (0-6) % Baso % (Auto) (0-2) % Absolute Neuts (auto) (1.5-7.7) 10^3/ul Absolute Lymphs (auto) (1.0-4.8) 10^3/ul Absolute Monos (auto) (0-0.8) 10^3/ul Absolute Eos (auto) (0-0.6) 10^3/ul Absolute Basos (auto) (0-0.2) 10^3/ul Absolute Nucleated RBC 10^3/ul Nucleated RBC % INR (Anticoag Therapy) (0.77-1.02) APTT (26.0-36.3) seconds VBG pH (7.33-7.43) VBG pCO2 (41-51) mmHg VBG pO2 (35-45) mmHg VBG HCO3 (24-28) mmol/L VBG O2 Saturation (70-80) % VBG Base Excess (0-4) Sodium (133-145) mmol/L Potassium Chloride (101-111) mmol/L Carbon Dioxide (22-32) mmol/L Anion Gap (2-11) mmol/L BUN (6-24) mg/dL Creatinine (0.51-0.95) mg/dL Est GFR ( Amer) (>60) Est GFR (Non-Af Amer) (>60) BUN/Creatinine Ratio (8-20) Glucose (70-100) mg/dL Lactic Acid (0.5-2.0) mmol/L Calcium (8.6-10.3) mg/dL Magnesium Total Bilirubin (0.2-1.0) mg/dL AST ALT (7-52) U/L Alkaline Phosphatase (34-104) U/L Ammonia 33 (16-53) mol/L Total Creatine Kinase (10-223) U/L Troponin I (<0.04) ng/mL C-Reactive Protein (< 5.00) mg/L Total Protein (6.4-8.9) g/dL Albumin (3.2-5.2) g/dL Globulin (2-4) g/dL Albumin/Globulin Ratio (1-3) Lipase (11.0-82.0) U/L Procalcitonin (<0.6) ng/mL Urine Color Yellow Urine Appearance Cloudy Urine pH 5.0 (5-9) Ur Specific [place] 1.026 (1.010-1.030) Urine Protein 3+(>=500 mg/dl) H (Negative) Urine Ketones 1+ H (Negative) Urine Blood 2+ H (Negative) Urine Nitrate Negative (Negative) Urine Bilirubin Negative (Negative) Urine Urobilinogen Negative (Negative) Ur Leukocyte Esterase Negative (Negative) Urine WBC (Auto) Trace(0-5/hpf) (Absent) Urine RBC (Auto) Trace(0-2/hpf) (Absent) Ur Squamous Epith Cells Present H (Absent) Urine Bacteria Absent (Absent) Urine Glucose 3+(>=500 mg/dl) H (Negative) Salicylates (<30) mg/dL Urine Opiates Screen None detected (None Detect) Acetaminophen mcg/mL Ur Barbiturates Screen None detected (None Detect) Ur Phencyclidine Scrn None detected (None Detect) Ur Amphetamines Screen None detected (None Detect) U Benzodiazepines Scrn None detected (None Detect) Urine Cocaine Screen None detected (None Detect) U Cannabinoids Screen None detected (None Detect) Serum Alcohol (<10) mg/dL 11/10/17 Range/Units 23:07 WBC (3.5-10.8) 10^3/ul RBC (4.0-5.4) 10^6/ul Hgb (12.0-16.0) g/dl Hct (35-47) % MCV (80-97) fL MCH (27-31) pg MCHC (31-36) g/dl RDW (10.5-15) % Plt Count (150-450) 10^3/ul MPV (7.4-10.4) um3 Neut % (Auto) (38-83) % Lymph % (Auto) (25-47) % [place] % (Auto) (1-9) % Eos % (Auto) (0-6) % Baso % (Auto) (0-2) % Absolute Neuts (auto) (1.5-7.7) 10^3/ul Absolute Lymphs (auto) (1.0-4.8) 10^3/ul Absolute Monos (auto) (0-0.8) 10^3/ul Absolute Eos (auto) (0-0.6) 10^3/ul Absolute Basos (auto) (0-0.2) 10^3/ul Absolute Nucleated RBC 10^3/ul Nucleated RBC % INR (Anticoag Therapy) (0.77-1.02) APTT (26.0-36.3) seconds VBG pH 7.28 L (7.33-7.43) VBG pCO2 44 (41-51) mmHg VBG pO2 44 (35-45) mmHg VBG HCO3 19.9 L (24-28) mmol/L VBG O2 Saturation 80.9 H (70-80) % VBG Base Excess -5.9 L (0-4) Sodium (133-145) mmol/L Potassium Chloride (101-111) mmol/L Carbon Dioxide (22-32) mmol/L Anion Gap (2-11) mmol/L BUN (6-24) mg/dL Creatinine (0.51-0.95) mg/dL Est GFR ( Amer) (>60) Est GFR (Non-Af Amer) (>60) BUN/Creatinine Ratio (8-20) Glucose (70-100) mg/dL Lactic Acid (0.5-2.0) mmol/L Calcium (8.6-10.3) mg/dL Magnesium Total Bilirubin (0.2-1.0) mg/dL AST ALT (7-52) U/L Alkaline Phosphatase (34-104) U/L Ammonia (16-53) mol/L Total Creatine Kinase (10-223) U/L Troponin I (<0.04) ng/mL C-Reactive Protein (< 5.00) mg/L Total Protein (6.4-8.9) g/dL Albumin (3.2-5.2) g/dL Globulin (2-4) g/dL Albumin/Globulin Ratio (1-3) Lipase (11.0-82.0) U/L Procalcitonin (<0.6) ng/mL Urine Color Urine Appearance Urine pH (5-9) Ur Specific [place] (1.010-1.030) Urine Protein (Negative) Urine Ketones (Negative) Urine Blood (Negative) Urine Nitrate (Negative) Urine Bilirubin (Negative) Urine Urobilinogen (Negative) Ur Leukocyte Esterase (Negative) Urine WBC (Auto) (Absent) Urine RBC (Auto) (Absent) Ur Squamous Epith Cells (Absent) Urine Bacteria (Absent) Urine Glucose (Negative) Salicylates (<30) mg/dL Urine Opiates Screen (None Detect) Acetaminophen mcg/mL Ur Barbiturates Screen (None Detect) Ur Phencyclidine Scrn (None Detect) Ur Amphetamines Screen (None Detect) U Benzodiazepines Scrn (None Detect) Urine Cocaine Screen (None Detect) U Cannabinoids Screen (None Detect) Serum Alcohol (<10) mg/dL Microbiology and Other Data: Microbiology 11/11/17 06:19 Influenza Types A,B Antigen (JI) - Final Nasal Specimen received for Influenza A/B Molecular testing 11/11/17 03:30 Nasal Screen MRSA (PCR)(JI) - Final Nasal Mrsa Negative Assess/Plan/Problems-Billing Assessment: 71 yo F with h/o DM, presented with BG of >500 and unresponsiveness - Patient Problems (1) Encephalopathy Comment: appears to have resolved. 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 MRI neg for gross abn D/w DR. Mora (2) HTN (hypertension) Comment: uncontroled, increased lisinopril to 20 mg on 11/17/17, norvasc started omn 11/18/17 (3) Hyperlipidemia Comment: Atorvastatin 40 is double her home rosuvastatin. LDL 198 but her med compliance is in question. (4) Rheumatoid arthritis Comment: Entanercept held. Pt cannot go to STR when taking it due to the cost of the med. I don't believe she should be on a potential immunosupressant when she in a detention recuperating. She will not be on it when at STR. (5) Seizure Comment: Possible seizure with post-ictal state. EEG abnl but no epileptiform discharges. Dr. Mora recommended levetiracetam. cont PO (6) DM2 (diabetes mellitus, type 2) Comment: cont ISS, metformin, Lantus. glipizide restarted 11/17/17 HbA1C 12.8 (7) DVT prophylaxis Comment: HSQ Status and Disposition: inpatient, awaiting STR PT/OT ongoing
[2017-11-18] MEDS: amLODIPine TAB* 5 MG PO SCH (17:32)
[2017-11-18] MEDS: Atorvastatin* 40 MG TAB PO SCH (17:32)
[2017-11-19] MEDS: Heparin VIAL(*) 5000 UNITS/ML VIAL (FIVE THOUSAND) SUBCUT SCH ×3 (04:38→21:10)
[2017-11-19] MEDS: Insulin LISPRO* 1 UNITS UNIT SUBCUT SCH ×4 (08:38→21:10)
[2017-11-19] MEDS: Lisinopril TAB* 10 MG PO SCH (08:38)
[2017-11-19] MEDS: glipiZIDE TAB* 5 MG PO SCH (08:38)
[2017-11-19] MEDS: metFORMIN* 500 MG TAB PO SCH ×2 (08:38→17:36)
[2017-11-19] MEDS: levETIRAcetam TAB* 500 MG PO SCH ×2 (08:38→21:10)
[2017-11-19] MEDS: amLODIPine TAB* 5 MG PO SCH (08:38)
--- NOTE | 2017-11-19 12:06 | PN ---
Subjective Date of Service: 11/19/17 Interval History: Pt feels well, wants to go home. Objective Active Medications: Acetaminophen (Tylenol Tab*) 650 mg PO Q4H PRN PRN Reason: PAIN Last Admin: 11/14/17 08:57 Dose: 650 mg Amlodipine Besylate (Norvasc Tab*) 5 mg PO DAILY [facility] Last Admin: 11/19/17 08:38 Dose: 5 mg Atorvastatin Calcium (Lipitor*) 40 mg PO 1700 [facility] Last Admin: 11/18/17 17:32 Dose: 40 mg Dextrose (D50w Syringe 50 Ml*) 12.5 gm IV PUSH .FOR FS < 60 - SS PRN PRN Reason: FS < 60 Glipizide (Glucotrol Tab*) 2.5 mg PO DAILY [facility] Last Admin: 11/19/17 08:38 Dose: 2.5 mg Heparin Sodium (Porcine) (Heparin Vial(*)) 5,000 units SUBCUT Q8HR [facility] Last Admin: 11/19/17 04:38 Dose: 5,000 units Heparin Sodium (Porcine) (Heparin Flush Picc/Ml/Cvc(*)) 1 - 3 ml FLUSH 0600, 1800 [facility] PRN Reason: Protocol Last Admin: 11/19/17 04:38 Dose: 1 ml Hydralazine HCl (Apresoline Iv*) 5 mg IV SLOW PU Q6H PRN PRN Reason: BLOOD PRESSURE Last Admin: 11/18/17 03:36 Dose: 5 mg Insulin Human Lispro (Humalog*) 0 units SUBCUT ACHS [facility] PRN Reason: Protocol Last Admin: 11/19/17 08:38 Dose: 1 units Levetiracetam (Keppra Tab*) 500 mg PO BID [facility] Last Admin: 11/19/17 08:38 Dose: 500 mg Lisinopril (Prinivil Tab*) 20 mg PO QAM [facility] Last Admin: 11/19/17 08:38 Dose: 20 mg Metformin HCl (Glucophage*) 500 mg PO 0800,1700 [facility] Last Admin: 11/19/17 08:38 Dose: 500 mg Vital Signs - 8 hr 11/19/17 11/19/17 11/19/17 07:18 07:40 07:45 Temperature 97.7 F Pulse Rate 86 Respiratory 16 16 Rate Blood Pressure 143/64 (mmHg) O2 Sat by Pulse 93 93 93 Oximetry 11/19/17 11:32 Temperature 97.9 F Pulse Rate 87 Respiratory 16 Rate Blood Pressure 148/62 (mmHg) O2 Sat by Pulse 91 Oximetry Oxygen Devices in Use Now: None Appearance: 71 yo F in nAD, AAOx3 Eyes: No Scleral Icterus, PERRLA Ears/Nose/Mouth/Throat: NL Teeth, Lips, Gums, Mucous Membranes Moist Neck: NL Appearance and Movements; NL JVP, Trachea Midline Respiratory: Symmetrical Chest Expansion and Respiratory Effort, Clear to Auscultation Cardiovascular: NL Sounds; No Murmurs; No JVD, RRR Abdominal: NL Sounds; No Tenderness; No Distention Lymphatic: No Cervical Adenopathy Extremities: No Edema, No Clubbing, Cyanosis Skin: No Rash or Ulcers, No Nodules or Sclerosis Neurological: Alert and Oriented x 3, NL Muscle Strength and Tone, - - slurred speech -chronic Result Diagrams: 11/16/17 07:33 11/17/17 06:42 Additional Lab and Data: Lab Results 11/10/17 11/10/17 11/10/17 Range/Units 22:16 22:16 22:16 WBC 13.0 H (3.5-10.8) 10^3/ul RBC 4.79 (4.0-5.4) 10^6/ul Hgb 12.9 (12.0-16.0) g/dl Hct 39 (35-47) % MCV 82 (80-97) fL MCH 27 (27-31) pg MCHC 33 (31-36) g/dl RDW 14 (10.5-15) % Plt Count 191 (150-450) 10^3/ul MPV 10 (7.4-10.4) um3 Neut % (Auto) 81.9 (38-83) % Lymph % (Auto) 10.5 L (25-47) % Sandoval % (Auto) 6.5 (1-9) % Eos % (Auto) 0 (0-6) % Baso % (Auto) 1.1 (0-2) % Absolute Neuts (auto) 10.6 H (1.5-7.7) 10^3/ul Absolute Lymphs (auto) 1.4 (1.0-4.8) 10^3/ul Absolute Monos (auto) 0.8 (0-0.8) 10^3/ul Absolute Eos (auto) 0 (0-0.6) 10^3/ul Absolute Basos (auto) 0.1 (0-0.2) 10^3/ul Absolute Nucleated RBC 0 10^3/ul Nucleated RBC % 0 INR (Anticoag Therapy) 0.93 (0.77-1.02) APTT 26.6 (26.0-36.3) seconds VBG pH (7.33-7.43) VBG pCO2 (41-51) mmHg VBG pO2 (35-45) mmHg VBG HCO3 (24-28) mmol/L VBG O2 Saturation (70-80) % VBG Base Excess (0-4) Sodium 137 (133-145) mmol/L Potassium TNP Chloride 101 (101-111) mmol/L Carbon Dioxide 22 (22-32) mmol/L Anion Gap 14 H (2-11) mmol/L BUN 36 H (6-24) mg/dL Creatinine 1.26 H (0.51-0.95) mg/dL Est GFR ( Amer) 53.5 (>60) Est GFR (Non-Af Amer) 41.6 (>60) BUN/Creatinine Ratio 28.6 H (8-20) Glucose 506 H* (70-100) mg/dL Lactic Acid (0.5-2.0) mmol/L Calcium 8.3 L (8.6-10.3) mg/dL Magnesium TNP Total Bilirubin 0.70 (0.2-1.0) mg/dL AST TNP ALT 10 (7-52) U/L Alkaline Phosphatase 70 (34-104) U/L Ammonia (16-53) mol/L Total Creatine Kinase 58 (10-223) U/L Troponin I 0.08 H* (<0.04) ng/mL C-Reactive Protein 57.87 H (< 5.00) mg/L Total Protein 5.9 L (6.4-8.9) g/dL Albumin 3.2 (3.2-5.2) g/dL Globulin 2.7 (2-4) g/dL Albumin/Globulin Ratio 1.2 (1-3) Lipase < 10 L (11.0-82.0) U/L Procalcitonin (<0.6) ng/mL Urine Color Urine Appearance Urine pH (5-9) Ur Specific [place] (1.010-1.030) Urine Protein (Negative) Urine Ketones (Negative) Urine Blood (Negative) Urine Nitrate (Negative) Urine Bilirubin (Negative) Urine Urobilinogen (Negative) Ur Leukocyte Esterase (Negative) Urine WBC (Auto) (Absent) Urine RBC (Auto) (Absent) Ur Squamous Epith Cells (Absent) Urine Bacteria (Absent) Urine Glucose (Negative) Salicylates < 2.50 (<30) mg/dL Urine Opiates Screen (None Detect) Acetaminophen < 15 mcg/mL Ur Barbiturates Screen (None Detect) Ur Phencyclidine Scrn (None Detect) Ur Amphetamines Screen (None Detect) U Benzodiazepines Scrn (None Detect) Urine Cocaine Screen (None Detect) U Cannabinoids Screen (None Detect) Serum Alcohol < 10 (<10) mg/dL 11/10/17 11/10/17 11/10/17 Range/Units 22:16 22:25 22:25 WBC (3.5-10.8) 10^3/ul RBC (4.0-5.4) 10^6/ul Hgb (12.0-16.0) g/dl Hct (35-47) % MCV (80-97) fL MCH (27-31) pg MCHC (31-36) g/dl RDW (10.5-15) % Plt Count (150-450) 10^3/ul MPV (7.4-10.4) um3 Neut % (Auto) (38-83) % Lymph % (Auto) (25-47) % Sandoval % (Auto) (1-9) % Eos % (Auto) (0-6) % Baso % (Auto) (0-2) % Absolute Neuts (auto) (1.5-7.7) 10^3/ul Absolute Lymphs (auto) (1.0-4.8) 10^3/ul Absolute Monos (auto) (0-0.8) 10^3/ul Absolute Eos (auto) (0-0.6) 10^3/ul Absolute Basos (auto) (0-0.2) 10^3/ul Absolute Nucleated RBC 10^3/ul Nucleated RBC % INR (Anticoag Therapy) (0.77-1.02) APTT (26.0-36.3) seconds VBG pH (7.33-7.43) VBG pCO2 (41-51) mmHg VBG pO2 (35-45) mmHg VBG HCO3 (24-28) mmol/L VBG O2 Saturation (70-80) % VBG Base Excess (0-4) Sodium (133-145) mmol/L Potassium 4.4 Chloride (101-111) mmol/L Carbon Dioxide (22-32) mmol/L Anion Gap (2-11) mmol/L BUN (6-24) mg/dL Creatinine (0.51-0.95) mg/dL Est GFR ( Amer) (>60) Est GFR (Non-Af Amer) (>60) BUN/Creatinine Ratio (8-20) Glucose (70-100) mg/dL Lactic Acid 3.1 H* (0.5-2.0) mmol/L Calcium (8.6-10.3) mg/dL Magnesium 1.7 L Total Bilirubin (0.2-1.0) mg/dL AST 9 L ALT (7-52) U/L Alkaline Phosphatase (34-104) U/L Ammonia (16-53) mol/L Total Creatine Kinase (10-223) U/L Troponin I (<0.04) ng/mL C-Reactive Protein (< 5.00) mg/L Total Protein (6.4-8.9) g/dL Albumin (3.2-5.2) g/dL Globulin (2-4) g/dL Albumin/Globulin Ratio (1-3) Lipase (11.0-82.0) U/L Procalcitonin 0.7 H (<0.6) ng/mL Urine Color Urine Appearance Urine pH (5-9) Ur Specific [place] (1.010-1.030) Urine Protein (Negative) Urine Ketones (Negative) Urine Blood (Negative) Urine Nitrate (Negative) Urine Bilirubin (Negative) Urine Urobilinogen (Negative) Ur Leukocyte Esterase (Negative) Urine WBC (Auto) (Absent) Urine RBC (Auto) (Absent) Ur Squamous Epith Cells (Absent) Urine Bacteria (Absent) Urine Glucose (Negative) Salicylates (<30) mg/dL Urine Opiates Screen (None Detect) Acetaminophen mcg/mL Ur Barbiturates Screen (None Detect) Ur Phencyclidine Scrn (None Detect) Ur Amphetamines Screen (None Detect) U Benzodiazepines Scrn (None Detect) Urine Cocaine Screen (None Detect) U Cannabinoids Screen (None Detect) Serum Alcohol (<10) mg/dL 11/10/17 11/10/17 11/10/17 Range/Units 22:25 22:35 22:35 WBC (3.5-10.8) 10^3/ul RBC (4.0-5.4) 10^6/ul Hgb (12.0-16.0) g/dl Hct (35-47) % MCV (80-97) fL MCH (27-31) pg MCHC (31-36) g/dl RDW (10.5-15) % Plt Count (150-450) 10^3/ul MPV (7.4-10.4) um3 Neut % (Auto) (38-83) % Lymph % (Auto) (25-47) % Sandoval % (Auto) (1-9) % Eos % (Auto) (0-6) % Baso % (Auto) (0-2) % Absolute Neuts (auto) (1.5-7.7) 10^3/ul Absolute Lymphs (auto) (1.0-4.8) 10^3/ul Absolute Monos (auto) (0-0.8) 10^3/ul Absolute Eos (auto) (0-0.6) 10^3/ul Absolute Basos (auto) (0-0.2) 10^3/ul Absolute Nucleated RBC 10^3/ul Nucleated RBC % INR (Anticoag Therapy) (0.77-1.02) APTT (26.0-36.3) seconds VBG pH (7.33-7.43) VBG pCO2 (41-51) mmHg VBG pO2 (35-45) mmHg VBG HCO3 (24-28) mmol/L VBG O2 Saturation (70-80) % VBG Base Excess (0-4) Sodium (133-145) mmol/L Potassium Chloride (101-111) mmol/L Carbon Dioxide (22-32) mmol/L Anion Gap (2-11) mmol/L BUN (6-24) mg/dL Creatinine (0.51-0.95) mg/dL Est GFR ( Amer) (>60) Est GFR (Non-Af Amer) (>60) BUN/Creatinine Ratio (8-20) Glucose (70-100) mg/dL Lactic Acid (0.5-2.0) mmol/L Calcium (8.6-10.3) mg/dL Magnesium Total Bilirubin (0.2-1.0) mg/dL AST ALT (7-52) U/L Alkaline Phosphatase (34-104) U/L Ammonia 33 (16-53) mol/L Total Creatine Kinase (10-223) U/L Troponin I (<0.04) ng/mL C-Reactive Protein (< 5.00) mg/L Total Protein (6.4-8.9) g/dL Albumin (3.2-5.2) g/dL Globulin (2-4) g/dL Albumin/Globulin Ratio (1-3) Lipase (11.0-82.0) U/L Procalcitonin (<0.6) ng/mL Urine Color Yellow Urine Appearance Cloudy Urine pH 5.0 (5-9) Ur Specific [place] 1.026 (1.010-1.030) Urine Protein 3+(>=500 mg/dl) H (Negative) Urine Ketones 1+ H (Negative) Urine Blood 2+ H (Negative) Urine Nitrate Negative (Negative) Urine Bilirubin Negative (Negative) Urine Urobilinogen Negative (Negative) Ur Leukocyte Esterase Negative (Negative) Urine WBC (Auto) Trace(0-5/hpf) (Absent) Urine RBC (Auto) Trace(0-2/hpf) (Absent) Ur Squamous Epith Cells Present H (Absent) Urine Bacteria Absent (Absent) Urine Glucose 3+(>=500 mg/dl) H (Negative) Salicylates (<30) mg/dL Urine Opiates Screen None detected (None Detect) Acetaminophen mcg/mL Ur Barbiturates Screen None detected (None Detect) Ur Phencyclidine Scrn None detected (None Detect) Ur Amphetamines Screen None detected (None Detect) U Benzodiazepines Scrn None detected (None Detect) Urine Cocaine Screen None detected (None Detect) U Cannabinoids Screen None detected (None Detect) Serum Alcohol (<10) mg/dL 11/10/17 Range/Units 23:07 WBC (3.5-10.8) 10^3/ul RBC (4.0-5.4) 10^6/ul Hgb (12.0-16.0) g/dl Hct (35-47) % MCV (80-97) fL MCH (27-31) pg MCHC (31-36) g/dl RDW (10.5-15) % Plt Count (150-450) 10^3/ul MPV (7.4-10.4) um3 Neut % (Auto) (38-83) % Lymph % (Auto) (25-47) % Sandoval % (Auto) (1-9) % Eos % (Auto) (0-6) % Baso % (Auto) (0-2) % Absolute Neuts (auto) (1.5-7.7) 10^3/ul Absolute Lymphs (auto) (1.0-4.8) 10^3/ul Absolute Monos (auto) (0-0.8) 10^3/ul Absolute Eos (auto) (0-0.6) 10^3/ul Absolute Basos (auto) (0-0.2) 10^3/ul Absolute Nucleated RBC 10^3/ul Nucleated RBC % INR (Anticoag Therapy) (0.77-1.02) APTT (26.0-36.3) seconds VBG pH 7.28 L (7.33-7.43) VBG pCO2 44 (41-51) mmHg VBG pO2 44 (35-45) mmHg VBG HCO3 19.9 L (24-28) mmol/L VBG O2 Saturation 80.9 H (70-80) % VBG Base Excess -5.9 L (0-4) Sodium (133-145) mmol/L Potassium Chloride (101-111) mmol/L Carbon Dioxide (22-32) mmol/L Anion Gap (2-11) mmol/L BUN (6-24) mg/dL Creatinine (0.51-0.95) mg/dL Est GFR ( Amer) (>60) Est GFR (Non-Af Amer) (>60) BUN/Creatinine Ratio (8-20) Glucose (70-100) mg/dL Lactic Acid (0.5-2.0) mmol/L Calcium (8.6-10.3) mg/dL Magnesium Total Bilirubin (0.2-1.0) mg/dL AST ALT (7-52) U/L Alkaline Phosphatase (34-104) U/L Ammonia (16-53) mol/L Total Creatine Kinase (10-223) U/L Troponin I (<0.04) ng/mL C-Reactive Protein (< 5.00) mg/L Total Protein (6.4-8.9) g/dL Albumin (3.2-5.2) g/dL Globulin (2-4) g/dL Albumin/Globulin Ratio (1-3) Lipase (11.0-82.0) U/L Procalcitonin (<0.6) ng/mL Urine Color Urine Appearance Urine pH (5-9) Ur Specific [place] (1.010-1.030) Urine Protein (Negative) Urine Ketones (Negative) Urine Blood (Negative) Urine Nitrate (Negative) Urine Bilirubin (Negative) Urine Urobilinogen (Negative) Ur Leukocyte Esterase (Negative) Urine WBC (Auto) (Absent) Urine RBC (Auto) (Absent) Ur Squamous Epith Cells (Absent) Urine Bacteria (Absent) Urine Glucose (Negative) Salicylates (<30) mg/dL Urine Opiates Screen (None Detect) Acetaminophen mcg/mL Ur Barbiturates Screen (None Detect) Ur Phencyclidine Scrn (None Detect) Ur Amphetamines Screen (None Detect) U Benzodiazepines Scrn (None Detect) Urine Cocaine Screen (None Detect) U Cannabinoids Screen (None Detect) Serum Alcohol (<10) mg/dL Microbiology and Other Data: Microbiology 11/11/17 06:19 Influenza Types A,B Antigen (JI) - Final Nasal Specimen received for Influenza A/B Molecular testing 11/11/17 03:30 Nasal Screen MRSA (PCR)(JI) - Final Nasal Mrsa Negative Assess/Plan/Problems-Billing Assessment: 71 yo F with h/o DM, presented with BG of >500 and unresponsiveness - Patient Problems (1) Encephalopathy Comment: appears to have resolved. 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 LDL 198 but her med compliance is in question. (4) Rheumatoid arthritis Comment: Entanercept held. Pt cannot go to [facility] when taking it due to the cost of the med. I don't believe she should be on a potential immunosupressant when she in a [place] [facility] rec[place]. She will not be on it when at [facility]. (5) Seizure Comment: Possible seizure with post-ictal state. EEG abnl but no epileptiform discharges. Dr. Mora recommended levetiracetam. cont PO (6) DM2 (diabetes mellitus, type 2) Comment: cont ISS, metformin, Lantus. glipizide restarted 11/17/17 HbA1C 12.8 (7) DVT prophylaxis Comment: HSQ Status and Disposition: inpatient, pt requests to go home. Repeat PT/OT eval pending
[2017-11-19] MEDS: Atorvastatin* 40 MG TAB PO SCH (17:36)
[2017-11-20] MEDS: Heparin VIAL(*) 5000 UNITS/ML VIAL (FIVE THOUSAND) SUBCUT SCH ×2 (06:16→14:54)
[2017-11-20] MEDS ORDERED: amLODIPine TAB* 5 MG PO SCH (08:45)
[2017-11-20] MEDS: amLODIPine TAB* 5 MG PO SCH (08:46)
[2017-11-20] MEDS: levETIRAcetam TAB* 500 MG PO SCH (08:46)
[2017-11-20] MEDS: Lisinopril TAB* 10 MG PO SCH (08:47)
[2017-11-20] MEDS: metFORMIN* 500 MG TAB PO SCH (08:47)
[2017-11-20] MEDS: glipiZIDE TAB* 5 MG PO SCH (08:47)
[2017-11-20] MEDS: Insulin LISPRO* 1 UNITS UNIT SUBCUT SCH ×2 (08:50→12:49)
[2017-11-20 16:37] VITALS: BP 140/63
--- NOTE | 2017-11-21 04:58 | DS ---
CC: Dr. Lindsey Bermeo; Dr. Mora * DISCHARGE SUMMARY: DATE OF ADMISSION: 11/11/17 DATE OF DISCHARGE: 11/20/17 PRIMARY CARE PROVIDERS: Dr. Lindsey Bermeo. DISCHARGE DIAGNOSES: 1. The patient was found unresponsive with encephalopathy and lethargy with questionable underlying seizure or postictal event. 2. Possible seizure disorder. 3. Uncontrolled diabetes. 4. History of chronic dysarthria and dysphagia due to status post cleft palate repair in remote past. SECONDARY DIAGNOSES: 1. Hypertension. 2. Hyperlipidemia. 3. History of rheumatoid arthritis 4. Diabetes type 2. 5. History of psoriasis. MEDICATIONS AT DISCHARGE: Include: 1. Acetaminophen on a p.r.n. basis. 2. Calcium carbonate with vitamin D 1 tablet daily. 3. Celebrex 200 mg b.i.d. p.r.n. 4. Clarinex 5 mg daily. 5. Enbrel 50 mg subcutaneously weekly as previously ordered. 6. Glipizide ER 2.5 mg daily. 7. Keppra 500 mg b.i.d. 8. Metformin 500 mg b.i.d. 9. Crestor 40 mg at bedtime. LABORATORY DATA AND STUDIES PERFORMED DURING THE HOSPITAL STAY: Include: On sodium of 142, potassium 3.5, chloride 106, carbon dioxide 32, BUN 13, creatinine 0.8. Hemoglobin A1c was noted to be 12.8 on 11/11/17. On 11/16/17, white blood cell count of 5.9, hemoglobin 10.6, hematocrit 32, and platelets of 126. The patient's liver function tests were noted on 11/12/17, they were unremarkable. The patient's cholesterol profile shows triglycerides of 216 and cholesterol total of 286, LDL of 198 and HDL of 44. Blood cultures were negative. CSF studies obtained on 11/11/17 showed no culture on day #4. The patient's rapid flu test was negative. The patient's CSF glucose was 284 and total protein of 57. Herpes DNA, with virus RNA and HSV PCR were negative on cerebrospinal fluid. ABG obtained on 11/10/17 showed pH of 7.28, pCO2 of 44, pO2 of 44. Brain MRI obtained on 11/17/17, Impression: "Mild cerebral and moderate cerebral involution and stigmata of chronic small vessel ischemic changes. No evidence of acute or subacute cerebral ischemia. No intra or extra-axial fluid collection evident. No compelling stigmata of extra-axial and intra-axial acute inflammation; however, a contrast-enhanced exam would be more sensitive. Fluid levels in the sphenoid sinuses. Correlate for potential acute sinusitis. Chronic bilateral mastoid effusions." Carotid Doppler study obtained on 11/12/17, impression: "Mild plaque within the right proximal internal carotid artery. No evidence of hemodynamically significant stenosis." Brain CT at admission, impression: "No evidence of acute intracranial abnormality." C-spine CT at admission, impression: "Mild chronic compression fracture of the superior endplate of C7 vertebral body. There was no evidence of acute fracture. [id number] cervical spondylosis." Chest x-ray obtained at admission, impression: "Small left-sided pleural effusion." CONSULTATIONS DURING THE HOSPITAL STAY: Included Dr. Mora from Neurology. HOSPITALIZATION COURSE: Joyce Cheung is a 71-year-old female with history of chronically slurred speech due to cleft palate repair in remote past who presented to the hospital basically unresponsive on 11/10/17. The patient was found markedly hyperglycemic with a glucose level of 506. She was noted to be in sinus tachycardia and hemodynamically stable. She was noted to have initially right gaze preference and decreased use of the left upper extremity. Dr. Mora saw patient in consultation. The patient had EEG obtained on 11/12/17, which showed abnormal EEG due to slow activity diffusely from the left hemisphere consistent with diffuse left hemispheric dysfunction. There were no epileptiform discharges. It was questionable that the patient may be in postictal state and the patient was placed on Keppra, her seizure medication. The patient gradually became more responsive and she was noted to have no one-sided weakness as noted on 11/12/17. She was transferred from intensive care unit and throughout her remaining hospital stay, she was noted to have dysarthria and mild dysphagia and to be preferable to be on mechanical ground diet, but otherwise her slurred speech was her baseline and she had no focal deficits. From her remaining neuro workup, the patient had lumbar puncture performed with studies obtained and resulted as above. There was no evidence of infection. Initially, it was thought that the patient may have been unresponsive due to postictal state or marked hyperglycemia or even hypoglycemia would resultant reactive hyperglycemia. It was noted that during the patient's stay, the patient did not need all the medications that she had been prescribed for home including Lantus insulin, metformin 1000 mg b.i.d. and glipizide 5 mg b.i.d. It is possible that patient had medical noncompliance since she had been on rosuvastatin, but her fasting lipid profile did not indicate that she was on a statin. It is possible that her medications were adjusted as outpatient and the patient was simply not taking them. Due to that, the patient could have developed hyperglycemia and presented to the hospital after an episode of unresponsiveness and regained responsiveness once her glucose was better controlled then she was treated supportively. At discharge, the patient's glipizide dose was halved as the same as metformin. She no longer needed Lantus and she was in a fairly good diabetic control with sugars ranging between 85 to 119 in the past couple of days. Throughout her hospital stay, it became evident that the patient may benefit from short-term rehabilitation. Extensive physical therapy/occupational therapy evaluation was carried on. Initially, the patient was a good candidate for short- term rehabilitation, but later on she got upset that she needed to go to rehab and require Haldol for sedation 1 night. Therefore, the long term that was evaluating patient for possibility of admission was not comfortable with patient to be admitted to the facility. Wait another couple of days to resolve that and during that time, the patient actually was functioning back to her baseline. She was ambulating with her walker without support. She was able to take care of her activities of daily living. She was noted to have dysarthria, which is chronic and her speech eval just prior to her discharge was noted for the patient to be safe on mechanical ground diet and thin liquids. The patient is going to be set with visiting nurse association at discharge. At discharge, the patient is recommended to follow up with her primary care provider in approximately 4 to [address] Mora in approximately 1 to 2 weeks. PHYSICAL EXAM: At the time of discharge, blood pressure of 141/74, heart rate of 87 and regular, respiratory rate 17, oxygen saturation 97% on room air, temperature 97.8. General: The patient is a very pleasant 71-year-old female who is in no acute distress. Alert, awake, and oriented x3. HEENT: Head: Atraumatic, normocephalic. Eyes: Pupils are equal, reactive to light and accommodation. Oropharynx is clear. Mucosa moist. Neck: Supple. No JVD. No bruits bilaterally. Cardiovascular: Regular rate and rhythm. No murmur. Respiratory: Clear to auscultation bilaterally. Abdomen: Soft, nontender. Bowel sounds are present in all 4 quadrants. Extremities: There is no edema. Pulses are +2 bilaterally. No clubbing or cyanosis. Neuro Evaluation: The patient has slurred speech, which is chronic. Cranial Nerves II through XII grossly intact. Motor strength is 5/5 bilaterally. Please note that this is a short summary of the patient's hospitalization. Please refer to further medical records for details. TIME SPENT: Approximately 45 minutes were spent on the patient's discharge. [id number]/CPS #: [id number] MCKAYLA
== END 2017-11-20 17:05 | disposition home health service (06) | DRG 71 ==
LOC: ED 21:57 → ICU 11-11 02:02 → MED 11-13 13:20
PROVIDERS: ADMIT Hospitalist; ATTEND Internal Medicine
PROC: 0T9B70Z Drainage of Bladder with Drainage Device, Via Natural or Artificial Opening (ICD-10-PCS; principal; 2017-11-09)
PROC: 009U3ZX Drainage of Spinal Canal, Percutaneous Approach, Diagnostic (ICD-10-PCS; 2017-11-11)
PROC: 4A00X4Z Measurement of Central Nervous Electrical Activity, External Approach (ICD-10-PCS; 2017-11-12)
PROC: 02HV33Z Insertion of Infusion Device into Superior Vena Cava, Percutaneous Approach (ICD-10-PCS; 2017-11-12)
DX: G93.40 Encephalopathy, unspecified (principal); M48.52XA Collapsed vertebra, not elsewhere classified, cervical region, initial encounter for fracture; N17.9 Acute kidney failure, unspecified; E87.2 Acidosis; J90 Pleural effusion, not elsewhere classified; E11.40 Type 2 diabetes mellitus with diabetic neuropathy, unspecified; E11.65 Type 2 diabetes mellitus with hyperglycemia; R13.10 Dysphagia, unspecified; M06.9 Rheumatoid arthritis, unspecified; R53.83 Other fatigue; G40.909 Epilepsy, unspecified, not intractable, without status epilepticus; R47.1 Dysarthria and anarthria; I10 Essential (primary) hypertension; E78.5 Hyperlipidemia, unspecified; L40.9 Psoriasis, unspecified; I65.21 Occlusion and stenosis of right carotid artery; M47.9 Spondylosis, unspecified; R11.2 Nausea with vomiting, unspecified; K21.9 Gastro-esophageal reflux disease without esophagitis; M19.90 Unspecified osteoarthritis, unspecified site; G43.909 Migraine, unspecified, not intractable, without status migrainosus; R33.9 Retention of urine, unspecified; R15.9 Full incontinence of feces; E87.6 Hypokalemia; Z86.73 Personal history of transient ischemic attack (TIA), and cerebral infarction without residual deficits; Z91.14 Patient's other noncompliance with medication regimen; Z88.8 Allergy status to other drugs, medicaments and biological substances; Z79.84 Long term (current) use of oral hypoglycemic drugs; Z88.0 Allergy status to penicillin; Z91.018 Allergy to other foods; Z90.710 Acquired absence of both cervix and uterus
CPT/HCPCS: 36415; 62270; 70450; 70551; 71045; 72125; 80048; 80053; 80061; 80307; 80320; 80329; 81003; 81015; 82140; 82550; 82803; 82945; 83036; 83605; 83690; 83735; 83930; 84100; 84145; 84157; 84484; 85025; 85610; 85730; 86140; 87040; 87070; 87205; 87502; 87529; 87641; 87798; 89051; 93005; 93306; 93880; 94760; 95819; 96360; 99285; A9270-GY; G0480; J0133; J0360; J0692; J0696; J1630; J1644; J1815; J2060; J3370; J3475; J3480

== ENCOUNTER 2017-12-09 07:10 | Inpatient (IN) | payer MEDICARE, MEDICAID ==
[2017-12-09] MEDS ORDERED: NS 0.9% 1000 ML* 1,000 ML IV ONE (07:32)
[2017-12-09] MEDS ORDERED: Ondansetron INJ* 2 MG/ML VIAL IV ONE ×2 (07:32→13:01)
[2017-12-09 08:03] LABS: ABS Basophils 0 10^3/ul (0-0.2); ABS Eosinophils 0 10^3/ul (0-0.6); ABS Lymphocytes 0.7 10^3/ul (1.0-4.8); ABS Monocytes 0.6 10^3/ul (0-0.8); ABS Neutrophils 6.1 10^3/ul (1.5-7.7); ABS Nucleated RBC 0 10^3/ul; Eosinophil % 0.1 % (0-6); Hematocrit 37 % (35-47); Hemoglobin 12.2 g/dl (12.0-16.0); Lymphocyte % 9.7 % (25-47); Mean Corpuscular HGB Conc 34 g/dl (31-36); Mean Corpuscular Hemoglobin 27 pg (27-31); Mean Corpuscular Volume 81 fL (80-97); Mean Platelet Volume 8 um3 (7.4-10.4); Nucleated Red Blood Cells % 0; Platelet Count 153 10^3/ul (150-450); Red Blood Count 4.49 10^6/ul (4.0-5.4); Red Cell Distribution Width 14 % (10.5-15); White Blood Count 7.5 10^3/ul (3.5-10.8)
[2017-12-09 08:22] LABS: EGFR Non-African American 75.7 (>60)
--- NOTE | 2017-12-09 08:28 | RAD ---
INDICATION: Cough COMPARISON: Most recent comparison chest x-ray November 10, 2017 TECHNIQUE: Single AP portable view of the chest was obtained. FINDINGS: Image quality is compromised due to the relative inferiority of a portable chest x-ray. The heart and mediastinum exhibit normal size and contour. There is faint atherosclerotic calcification overlying the arch of the aorta. The lungs are grossly clear. There is no evidence of a large pleural effusion. Visualized bones are normal for the patient's age. IMPRESSION: No radiographic evidence for acute cardiopulmonary abnormality on this portable chest x-ray.
[2017-12-09 09:51] LABS: Urine Appearance Clear; Urine Blood 1+ (Negative); Urine Color Yellow; Urine Ketones 1+ (Negative); Urine Protein 3+(>=500 mg/dL) (Negative); Urine Specific Gravity 1.012 (1.010-1.030); Urine Urobilinogen Negative (Negative)
[2017-12-09] MEDS ORDERED: Magnesium Sulfate 2 GM IV* 2 GM/50 ML BAG IVPB ONE (15:43)
[2017-12-09] MEDS ORDERED: NS 0.9% 1000 ML* 1,000 ML IV SCH (15:45)
[2017-12-09] MEDS ORDERED: Dextrose 50% Syringe 50 ML* 25 GM/50 ML SYRINGE IV PUSH PRN (15:45)
[2017-12-09] MEDS ORDERED: Iodixanol* (CONTRAST) 320 MG/ML 100 ML SDV IV ONE (16:09)
[2017-12-09] MEDS ORDERED: cefTRIAXone(*) 1 GM in NS 0.9% 50 ML* 50 ML IVPB SCH (16:30)
--- NOTE | 2017-12-09 16:45 | RAD ---
INDICATION: Weakness COMPARISON: Most recent CT of the brain is dated November 10, 2017 TECHNIQUE: Contiguous axial sections of the brain were obtained from the skull base to the vertex without contrast. FINDINGS: The ventricles, cisterns and sulci are within normal limits. Incidentally noted is a cavum septum pellucidum. The hernández-white matter differentiation is adequately maintained and there is no sulcal effacement. No significant focal abnormality or mass effect is present. There is no evidence for intracranial hemorrhage. No significant focal osseous abnormality is present. There is mild mucosal thickening of the right maxillary sinus. The remaining visualized paranasal sinuses are clear. Similar to the prior CT examination, the mastoid air cells are hypoplastic. There is trace mastoid air cell effusion in the lower left mastoid air cells similar in appearance to the previous CT examination. IMPRESSION: 1. No acute intracranial abnormality. 2. Mild paranasal sinus mucosal thickening involving the right maxillary sinus. 3. Trace dependent left mastoid air cell effusion similar to the previous CT the brain.
--- NOTE | 2017-12-09 17:11 | RAD ---
CLINICAL HISTORY: Emesis. Relevant surgical history includes hysterectomy. COMPARISON: Most recent CT of the abdomen and pelvis dated August 04, 2015 TECHNIQUE: Contrast enhanced CT examination of the abdomen and pelvis from the lung bases through the initial tuberosities. The patient received 80 mL Visipaque 320 intravenously prior to imaging.The patient received oral contrast as well prior to imaging. FINDINGS: VISUALIZED LUNG BASES: The visualized lung bases are grossly clear. There is no pleural effusion. ABDOMEN AND PELVIS: The liver, spleen, pancreas and adrenal glands are grossly normal in appearance. The gallbladder is normal. The kidneys are normal in appearance without focal mass, calcification or signs of hydronephrosis. The urinary bladder measures 8.8 x 9.6 cm in the axial plane and 15.1 cm in greatest cephalocaudal dimension. This yields an approximate volume of 1033 mL. Evaluation of the gastrointestinal tract is limited without oral contrast. The small and large bowel are not distended. Depicted best on the sagittal plane images is the patient's 4 mm appendix (image 45). The gas and stool-filled colon is mostly unremarkable. There is infiltration of the perirectal fat with trace ascites in the dependent portion of the perirectal fat. There is no gross retroperitoneal or mesenteric lymphadenopathy. The uterus is surgically absent. The abdominal aorta and iliac arteries are normal in course and diameter. Degenerative changes include multilevel loss of intervertebral disc height involving the lower thoracic and lumbar spine.There are no sinister bone lesions. IMPRESSION: 1. Although there is no definite wall thickening, there is infiltration of the perirectal fat with presacral fluid in the dependent pelvis. Please correlate to signs or symptoms of proctitis. Particularly if the patient has never had a colonoscopy direct visualization after the patient's acute symptoms have resolved is advised to evaluate for neoplasm. 2. The urinary bladder yields an approximate volume of 1 L. Please correlate to signs or symptoms of bladder outlet obstruction or neurogenic bladder. 3. Additional chronic, degenerative and iatrogenic findings described in the body the report.
[2017-12-09] MEDS: hydrALAZINE IV* 20 MG/ML VIAL IV SLOW PU PRN (17:26)
[2017-12-09] MEDS: amLODIPine TAB* 5 MG PO SCH (17:27)
[2017-12-09] MEDS: Insulin LISPRO* 1 UNITS UNIT SUBCUT SCH (17:56)
[2017-12-09] MEDS: Ondansetron INJ* 2 MG/ML VIAL IV PRN (17:57)
[2017-12-09] MEDS: PROCHLORPERAZINE INJ 5 MG/ML 2 ML VIAL IV PRN (20:08)
[2017-12-09] MEDS: metroNIDAZOLE IV 500 MG/100ML* 500 MG/100 ML BAG IVPB SCH (20:13)
[2017-12-09] MEDS: levETIRAcetam TAB* 500 MG PO SCH (20:17)
[2017-12-09] MEDS: CMC:Rosuvastatin (NF) 20 MG TAB PO SCH (20:18)
[2017-12-09] MEDS ORDERED: levETIRAcetam 500 MG IVPREMIX* 500 MG/100 ML BAG IV ONE (20:50)
--- NOTE | 2017-12-09 21:02 | HP ---
CC: Dr. Lindsey Bermeo * HISTORY AND PHYSICAL: DATE OF ADMISSION: 12/09/17 PRIMARY CARE PROVIDER: Dr. Lindsey Bermeo. ATTENDING PHYSICIAN WHILE IN THE HOSPITAL: Raysa Brown MD * (report dictated by Waldo Avalos NP) CHIEF COMPLAINT: 1. Vomiting. 2. Weakness. 3. Not feeling well. HISTORY OF PRESENT ILLNESS: Mrs. Cheung is a 71-year-old female patient with a question of medication noncompliance who was just here discharged on 11/20/17 , was found to be encephalopathic. There was concern initially for sepsis when she was here. Then, ultimately it was felt that she may have had a seizure as she does have a history of this. She comes in today stating that she just has not been feeling well over the last 3 days. She has been having cough, sore throat. She states in addition to this also just has been feeling tired, weak, and she has been having issues with vomiting, but no diarrhea. She does admit to just feeling nauseated and having some lower abdominal discomfort, but no dysuria, no chest pain, no shortness of breath. She states subjectively she has been having chills, but no documented fever. She was concerned because she was vomiting and she came in to the ED today to be evaluated. She was evaluated in the ED. She continued to vomit. She just was not feeling well. It was noted that her blood pressure was elevated. There was concern that she may not have been taking her medications appropriately, concern again that she may have had a seizure and we were asked to evaluate for admission. PAST MEDICAL HISTORY: Significant for: 1. Diabetes. 2. TIA. 3. Rheumatoid arthritis. 4. Hypertension. 5. Hyperlipidemia. 6. Psoriasis. 7. History of seizures. 8. History of CVA. PAST SURGICAL HISTORY: 1. She has had a cleft palate repair. 2. Hysterectomy. 3. ORIF of the right ankle. 4. Left foot surgery. MEDICATIONS: Her home meds include: 1. Enbrel 50 mg subcu weekly. 2. Tylenol 500 mg every day as needed. 3. Calcium with vitamin D 1 tablet daily. 4. Crestor 40 mg daily. 5. Celebrex 200 mg p.o. b.i.d. 6. Clarinex 5 mg daily. 7. Glipizide 2.5 mg daily. 8. Aspirin 81 mg daily. 9. Metformin 1000 mg p.o. b.i.d. ALLERGIES TO MEDICATIONS: Include ASPIRIN, PENICILLIN. FAMILY HISTORY: Unknown according to the patient. SOCIAL HISTORY: She does not smoke. She does not drink. Surrogate decision maker is her daughter. REVIEW OF SYSTEMS: There is no documented fever. She did admit to subjectively having chills. She denied having any double vision. No ear discharge. She does admit to having sore throat, rhinorrhea. No thyroid enlargement. Denied having any chest pain. There is no orthopnea. Denies having any nocturnal dyspnea. She did admit to having a cough, but no shortness of breath. No abdominal pain. No nausea. No vomiting. No dysuria. No frequency. No seizure. No loss of consciousness. No pruritus. No skin ulcerations. Review of 14 systems completed, all others negative. PHYSICAL EXAMINATION GENERAL: At this time, Mrs. Cheung is a 71-year-old female patient. She appears to be older than stated age. She is chronically ill appearing. She does not appear to be in any acute distress. VITAL SIGNS: Blood pressure 200/84, pulse 90, respirations 17, O2 sat 97%, temperature 98.4. HEENT: Head: Atraumatic, normocephalic. Eyes: EOMs are intact. Sclerae are anicteric, not pale. Throat: Oral mucosa appears to be dry. No oropharyngeal erythema. NECK: Supple. LUNGS: Clear to auscultation bilaterally. There were no wheezes, rales, or rhonchi. HEART: Sounds S1, S2. Regular rate and rhythm. No murmurs, rubs, or gallops. ABDOMEN: Soft. It was flat, nontender. Bowel sounds were present. EXTREMITIES: Pulses were 2+ throughout. She is moving all 4 extremities. NEUROLOGIC: She does have a slight facial droop on the right side, but I did speak to her discharging provider from the last time and this is her baseline. She also had some slurred speech, but again, this is her baseline. No focal weaknesses to the upper and lower extremities. No other gross focal deficits. SKIN: Intact. LABORATORY DATA/DIAGNOSTIC STUDIES: WBC 7.5, RBC of 4.49, hemoglobin 12.2, hematocrit 37, platelet count of 153,000. Sodium was 134, potassium of 4.0, chloride of 99, bicarb 27, BUN 14, creatinine of 0.75, glucose of 329. Lactate 1.5. Calcium 9.1. Mag 1.6. Total bili 0.6, AST 11, ALT 10, alk phos 106. Troponin 0.01. Albumin of 3.3. TSH of 3.34. Urine showed 3+ protein, 1+ ketones, 1+ blood, trace leukocyte esterase, 1+ wbc, 3+ rbc, 3+ urine glucose. Serology was negative for flu. She had a chest x-ray obtained today. It showed no radiographic evidence for acute cardiopulmonary abnormality on this portable x-ray. EKG obtained shows a sinus rhythm, rate of [address] elevations or T-wave inversions. It is reviewed to a previous EKG, appears to be similar. Old medical records were reviewed. ASSESSMENT AND PLAN: Mrs. Cheung is a 71-year-old female patient coming in to the ED today with complaints of weakness, cough, question fever, nausea, and vomiting and she is complaining of some central abdominal pain. Because of this , we were asked to evaluate for admission. She will be admitted under inpatient status for: 1. Weakness. Etiology is unclear. Question if there is a viral illness going on. Also, her urine could be infected. She does have some white cells in there. In someone who has immunocompromise of low threshold, my plan will be to go ahead and treat her with antibiotics. She is having no nausea, no vomiting and again because of the immunocompromised state, I think we should get a CT of the abdomen and pelvis to make sure there is not anything more pressing causing the symptoms. I will hydrate her. We will keep her on clear liquid diet. We will get a CT of abdomen and pelvis and we will continue to follow her closely. I did order PT/OT evaluations and I will add on a lipase as well. 2. Hypertension and hypertensive urgency. This could be causing some hypertensive encephalopathy. I will do a CT of the brain. Given the fact that her blood pressures have been in 200s, I have ordered hydralazine and Norvasc. The goal blood pressure would be to get the systolics between 140 and 160. 3. Diabetes mellitus. She will be on lispro sliding scale. 4. History of transient ischemic attack and cerebrovascular accident. Continue with secondary prevention. 5. History of seizures. She may have certainly had another seizure again. There is question if she is compliant with her medications, so I will go ahead and get her on Keppra. We will go ahead and continue her seizure precautions. 6. Rheumatoid arthritis. In the setting of a possible acute illness, we will hold her Enbrel. We will restart it when she recovers from acute illness. 7. Psoriasis. Follow with the primary. 8. Hyperlipidemia. Continue statin therapy. 9. DVT prophylaxis. I will go ahead and place her on heparin subcu. 10. Code status. Full code. 11. Fluids, electrolytes, and nutrition. Clear liquid diet after the CT abdomen and pelvis. 12. Social issues. Again, I question if the patient can safely care for herself at home. We may need to consider getting social work involved to evaluate her home situation. She may need a short-term rehab stay. TIME SPENT: On admission was 60 minutes, greater than half the time was spent face- to-face with the patient obtaining my history and physical, other half time was spent going over the plan of care with the patient and implementing plan of care. I did discuss the plan of care with my attending, Dr. Brown; she is in agreement. WALDO AVALOS NP [id number]/[facility] #: [id number] MCKAYLA
[2017-12-09] MEDS: Heparin VIAL(*) 5000 UNITS/ML VIAL (FIVE THOUSAND) SUBCUT SCH (22:46)
[2017-12-10] MEDS: hydrALAZINE IV* 20 MG/ML VIAL IV SLOW PU PRN ×2 (00:37→11:56)
[2017-12-10] MEDS: Ondansetron INJ* 2 MG/ML VIAL IV PRN ×3 (02:44→19:19)
[2017-12-10] MEDS: metroNIDAZOLE IV 500 MG/100ML* 500 MG/100 ML BAG IVPB SCH ×3 (02:55→18:05)
[2017-12-10] MEDS: Heparin VIAL(*) 5000 UNITS/ML VIAL (FIVE THOUSAND) SUBCUT SCH ×3 (05:38→21:54)
[2017-12-10 05:40] LABS: ABS Basophils 0 10^3/ul (0-0.2); ABS Eosinophils 0.1 10^3/ul (0-0.6); ABS Monocytes 0.6 10^3/ul (0-0.8); ABS Neutrophils 5.1 10^3/ul (1.5-7.7); ABS Nucleated RBC 0 10^3/ul; Eosinophil % 1.4 % (0-6); Hematocrit 37 % (35-47); Hemoglobin 12.8 g/dl (12.0-16.0); Lymphocyte % 25.7 % (25-47); Mean Corpuscular HGB Conc 35 g/dl (31-36); Mean Corpuscular Hemoglobin 29 pg (27-31); Mean Corpuscular Volume 84 fL (80-97); Mean Platelet Volume 9 um3 (7.4-10.4); Nucleated Red Blood Cells % 0; Platelet Count 196 10^3/ul (150-450); Red Blood Count 4.36 10^6/ul (4.0-5.4); Red Cell Distribution Width 13 % (10.5-15); White Blood Count 7.9 10^3/ul (3.5-10.8)
[2017-12-10 05:53] LABS: EGFR Non-African American 79.2 (>60)
[2017-12-10] MEDS: PROCHLORPERAZINE INJ 5 MG/ML 2 ML VIAL IV PRN (07:26)
[2017-12-10] MEDS ORDERED: cefTRIAXone(*) 1 GM in D5W 50 ML BAG* 50 ML IVPB SCH (08:37)
[2017-12-10] MEDS ORDERED: D5W 1/2 NS KCl 20 Meq 1000 ML* 1,000 ML IV SCH (09:00)
[2017-12-10] MEDS: Insulin LISPRO* 1 UNITS UNIT SUBCUT SCH ×3 (10:07→18:05)
[2017-12-10] MEDS: levETIRAcetam TAB* 500 MG PO SCH ×2 (10:07→21:54)
[2017-12-10] MEDS: amLODIPine TAB* 5 MG PO SCH (10:07)
[2017-12-10] MEDS: Aspirin EC Low Dose* 81 MG TAB.EC PO SCH (10:07)
--- NOTE | 2017-12-10 10:28 | ED ---
Johny Linares Julia, scribed for Rome Craft MD on 12/09/17 at 0750 . Complex/Multi-Sys Presentation - HPI Summary HPI Summary: This patient is a 71 year old [facility] to [facility] accompanied by her daughter with a chief complaint of flu-like symptoms and decreased PO intake since 12/05/2017. Daughter reports vomiting, no fluid intake, no BM for a week , rhinorrhea, and recent headache. Patient reports nausea and clear productive cough. Patient denies pain. Patient is diabetic. Her daughter states she has not been taking her medications; a nurse visits twice a week to organize medications. Her blood glucose is typically between 400-500. She was discharged from [facility] a couple weeks ago. - History Of Current Complaint Chief Complaint: EDFluSymptoms Time Seen by Provider: 12/09/17 07:13 Hx Obtained From: Patient Onset/Duration: Lasting Weeks Timing: Constant Location: Negative Related History: Recent Hospitalization - vomiting, no fluid intake, no BM for a week , rhinorrhea, recent headache, nausea and clear productive cough - Allergies/Home Medications Allergies/Adverse Reactions: Allergies Allergy/AdvReac Type Severity Reaction Status Date / Time aspirin Allergy Hives Verified 12/09/17 15:52 penicillin G Allergy Hives Verified 12/09/17 15:52 Penicillins Allergy Hives Verified 12/09/17 15:53 onion AdvReac GI Upset Verified 12/09/17 15:53 pepper AdvReac GI Upset Verified 12/09/17 15:53 Home Medications: Home Medications Acetaminophen [Acetaminophen Extra Strength] 500 mg PO DAILY PRN 12/09/17 [ History Confirmed 12/09/17] Aspirin EC Low Dose* [Ecotrin EC Low Dose 81 MG*] 81 mg PO DAILY 12/09/17 [ History Confirmed 12/09/17] Calcium Carbonate/Vitamin D3 [Calcium 600 + Vit D Tablet] 1 each PO DAILY [History Confirmed 12/09/17] Etanercept SYR (NF) [Enbrel (NF)] 50 mg SUBCUT SA 12/09/17 [History Confirmed ] Rosuvastatin (NF) [Crestor (NF)] 40 mg PO BEDTIME 12/09/17 [History Confirmed ] glipiZIDE TAB.XL* [Glucotrol XL*] 2.5 mg PO DAILY 12/09/17 [History Confirmed ] metFORMIN* [Glucophage 1000 MG TAB *] 1,000 mg PO BID 12/09/17 [History Confirmed 12/09/17] PMH/Surg Hx/FS Hx/Imm Hx Endocrine/Hematology History: Reports: Hx Diabetes, Hx Anemia Denies: Hx Thyroid Disease Cardiovascular History: Reports: Hx Hypercholesterolemia, Hx Hypertension Denies: Hx Congestive Heart Failure, Hx Pacemaker/ICD Respiratory History: Denies: Hx Asthma, Hx Chronic Obstructive Pulmonary Disease (COPD), Other Respiratory Problems/Disorders GI History: Reports: Hx Gastroesophageal Reflux Disease - OCCASIONALLY Denies: Hx Ulcer History: Denies: Hx Renal Disease Musculoskeletal History: Reports: Hx Arthritis - "ALL OVER", Hx Orthopedic Injury - L jacqui fracture and ORIF; L wrist fracture, Hx Tendonitis - SHOULDERS Sensory History: Reports: Hx Hearing Aid Denies: Hx Contacts or Glasses Opthamlomology History: Denies: Hx Contacts or Glasses Neurological History: Reports: Hx Dementia - Senile dementia, Hx Migraine - OCCASIONALLY- TREATS WITH TYLENOL AND REST, Hx Transient Ischemic Attacks (TIA) , Other Neuro Impairments/Disorders - diabetic neuropathy Psychiatric History: Denies: Hx Panic Disorder - Cancer History Cancer Type, Location and Year: Family Hx - Surgical History Surgery Procedure, Year, and Place: Left ankle repair X 2. Hysterectomy. Right ear surgery- 50 years ago. Cleft palate repair Hx Anesthesia Reactions: No Infectious Disease History: Yes Infectious Disease History: Reports: Hx Shingles Denies: Hx Hepatitis, Hx Human Immunodeficiency Virus (HIV), Traveled Outside the [place] in Last 30 Days - Family History Known Family History: Positive: Other - colon CA - Social History Alcohol Use: None Hx Substance Use: No Substance Use Type: Reports: None Hx Tobacco Use: No Smoking Status (MU): Never Smoked Tobacco Review of Systems Positive: Nasal Discharge Positive: Cough Positive: Vomiting, Nausea, Other - decreased PO intake, constipation Negative: Myalgia Positive: Headache All Other Systems Reviewed And Are Negative: Yes Physical Exam - Summary Physical Exam Summary: Appearance: The patient is well-nourished in no acute distress and in no acute pain. Patients speech is dysarthritic Skin: The skin is warm and dry and skin color reflects adequate perfusion. HEENT: The head is normocephalic and atraumatic. The pupils are equal and reactive. The conjunctivae are clear and without drainage. Nares are patent and without drainage. Mouth reveals dry mucous membranes and the throat is without erythema and exudate. The external ears are intact. The ear canals are patent and without drainage. The tympanic membranes are intact. Neck: the neck is supple with full range of motion and non-tender. There are no carotid bruits. There is no neck vein distension. Respiratory: Chest is non-tender. Lungs are clear to auscultation and breath sounds are symmetrical and equal. Cardiovascular: Heart is regular rate and rhythm. There is no murmur or rub auscultated. There is no peripheral edema and pulses are symmetrical and equal. Abdomen: The abdomen is soft and non-tender. There are normal bowel sounds heard in all four quadrants and there is no organomegaly palpated. Musculoskeletal: There is no back tenderness noted. Extremities are non-tender with full range of motion. There is good capillary refill. There is no peripheral edema or calf tenderness elicited. Neurological: Patient is alert and oriented to person, place and time. The patient has symmetrical motor strength in all four extremities. Cranial nerves are grossly intact. Deep tendon reflexes are symmetrical and equal in all four extremities. Psychiatric: The patient has an appropriate affect and does not exhibit any anxiety or depression. Triage Information Reviewed: Yes Vital Signs On Initial Exam: Initial Vitals BP 142/66 12/09/17 07:23 Vital Signs Reviewed: Yes Diagnostics - Vital Signs Vital Signs Temp Pulse Resp BP Pulse Ox 12/09/17 07:25 98.4 F 94 16 142/66 92 12/09/17 07:24 92 91 12/09/17 07:23 142/66 - Laboratory Lab Results: Lab Results 12/09/17 12/09/17 12/09/17 Range/Units 07:45 07:45 07:45 WBC 7.5 (3.5-10.8) 10^3/ul RBC 4.49 (4.0-5.4) 10^6/ul Hgb 12.2 (12.0-16.0) g/dl Hct 37 (35-47) % MCV 81 (80-97) fL MCH 27 (27-31) pg MCHC 34 (31-36) g/dl RDW 14 (10.5-15) % Plt Count 153 (150-450) 10^3/ul MPV 8 (7.4-10.4) um3 Neut % (Auto) 82.3 (38-83) % Lymph % (Auto) 9.7 L (25-47) % Grundy % (Auto) 7.5 (1-9) % Eos % (Auto) 0.1 (0-6) % Baso % (Auto) 0.4 (0-2) % Absolute Neuts (auto) 6.1 (1.5-7.7) 10^3/ul Absolute Lymphs (auto) 0.7 L (1.0-4.8) 10^3/ul Absolute Monos (auto) 0.6 (0-0.8) 10^3/ul Absolute Eos (auto) 0 (0-0.6) 10^3/ul Absolute Basos (auto) 0 (0-0.2) 10^3/ul Absolute Nucleated RBC 0 10^3/ul Nucleated RBC % 0 Sodium 134 (133-145) mmol/L Potassium 4.0 (3.5-5.0) mmol/L Chloride 99 L (101-111) mmol/L Carbon Dioxide 27 (22-32) mmol/L Anion Gap 8 (2-11) mmol/L BUN 14 (6-24) mg/dL Creatinine 0.75 (0.51-0.95) mg/dL Est GFR ( Amer) 97.4 (>60) Est GFR (Non-Af Amer) 75.7 (>60) BUN/Creatinine Ratio 18.7 (8-20) Glucose 329 H (70-100) mg/dL Lactic Acid 1.5 (0.5-2.0) mmol/L Calcium 9.1 (8.6-10.3) mg/dL Magnesium 1.6 L (1.9-2.7) mg/dL Total Bilirubin 0.60 (0.2-1.0) mg/dL AST 11 L (13-39) U/L ALT 10 (7-52) U/L Alkaline Phosphatase 106 H (34-104) U/L Troponin I 0.01 (<0.04) ng/mL C-Reactive Protein 85.20 H (< 5.00) mg/L Total Protein 6.0 L (6.4-8.9) g/dL Albumin 3.3 (3.2-5.2) g/dL Globulin 2.7 (2-4) g/dL Albumin/Globulin Ratio 1.2 (1-3) Lipase < 10 L (11.0-82.0) U/L TSH 3.34 (0.34-5.60) mcIU/mL Urine Color Urine Appearance Urine pH (5-9) Ur Specific [place] (1.010-1.030) Urine Protein (Negative) Urine Ketones (Negative) Urine Blood (Negative) Urine Nitrate (Negative) Urine Bilirubin (Negative) Urine Urobilinogen (Negative) Ur Leukocyte Esterase (Negative) Urine WBC (Auto) (Absent) Urine RBC (Auto) (Absent) Ur Squamous Epith Cells (Absent) Urine Bacteria (Absent) Hyaline Casts (Absent) Urine Glucose (Negative) Influenza A (Rapid) (Negative) Influenza B (Rapid) (Negative) 12/09/17 12/09/17 Range/Units 08:05 09:40 WBC (3.5-10.8) 10^3/ul RBC (4.0-5.4) 10^6/ul Hgb (12.0-16.0) g/dl Hct (35-47) % MCV (80-97) fL MCH (27-31) pg MCHC (31-36) g/dl RDW (10.5-15) % Plt Count (150-450) 10^3/ul MPV (7.4-10.4) um3 Neut % (Auto) (38-83) % Lymph % (Auto) (25-47) % Grundy % (Auto) (1-9) % Eos % (Auto) (0-6) % Baso % (Auto) (0-2) % Absolute Neuts (auto) (1.5-7.7) 10^3/ul Absolute Lymphs (auto) (1.0-4.8) 10^3/ul Absolute Monos (auto) (0-0.8) 10^3/ul Absolute Eos (auto) (0-0.6) 10^3/ul Absolute Basos (auto) (0-0.2) 10^3/ul Absolute Nucleated RBC 10^3/ul Nucleated RBC % Sodium (133-145) mmol/L Potassium (3.5-5.0) mmol/L Chloride (101-111) mmol/L Carbon Dioxide (22-32) mmol/L Anion Gap (2-11) mmol/L BUN (6-24) mg/dL Creatinine (0.51-0.95) mg/dL Est GFR ( Amer) (>60) Est GFR (Non-Af Amer) (>60) BUN/Creatinine Ratio (8-20) Glucose (70-100) mg/dL Lactic Acid (0.5-2.0) mmol/L Calcium (8.6-10.3) mg/dL Magnesium (1.9-2.7) mg/dL Total Bilirubin (0.2-1.0) mg/dL AST (13-39) U/L ALT (7-52) U/L Alkaline Phosphatase (34-104) U/L Troponin I (<0.04) ng/mL C-Reactive Protein (< 5.00) mg/L Total Protein (6.4-8.9) g/dL Albumin (3.2-5.2) g/dL Globulin (2-4) g/dL Albumin/Globulin Ratio (1-3) Lipase (11.0-82.0) U/L TSH (0.34-5.60) mcIU/mL Urine Color Yellow Urine Appearance Clear Urine pH 7.0 (5-9) Ur Specific [place] 1.012 (1.010-1.030) Urine Protein 3+(>=500 mg/dl) H (Negative) Urine Ketones 1+ H (Negative) Urine Blood 1+ H (Negative) Urine Nitrate Negative (Negative) Urine Bilirubin Negative (Negative) Urine Urobilinogen Negative (Negative) Ur Leukocyte Esterase Trace H (Negative) Urine WBC (Auto) 1+(6-10/hpf) H (Absent) Urine RBC (Auto) 3+(>10/hpf) H (Absent) Ur Squamous Epith Cells Present H (Absent) Urine Bacteria Absent (Absent) Hyaline Casts Present H (Absent) Urine Glucose 3+(>=500 mg/dl) H (Negative) Influenza A (Rapid) Negative (Negative) Influenza B (Rapid) Negative (Negative) Result Diagrams: 12/10/17 04:51 12/10/17 04:51 Lab Statement: Any lab studies that have been ordered have been reviewed, and results considered in the medical decision making process. - Radiology CXR Radiology Interpretation Completed By: Radiologist - No radiographic evidence for acute cardiopulmonary abnormality on this portable chest x-ray. ED Physician has reviewed this report. - CT Brain CT Interpretation Completed By: Radiologist - 1. No acute intracranial abnormality. 2. Mild paranasal sinus mucosal thickening involving the right maxillary sinus. 3. Trace dependent left mastoid air cell effusion similar to the previous CT the brain. ED Physician has reviewed this report. A/P CT Interpretation Completed By: Radiologist - 1. Although there is no definite wall thickening, there is infiltration of the perirectal fat with presacral fluid in the dependent pelvis. Please correlate to signs or symptoms of proctitis. Particularly if the patient has never had a colonoscopy direct visualization after the patient's acute symptoms have resolved is advised to evaluate for neoplasm. 2. The urinary bladder yields an approximate volume of 1 L. Please correlate to signs or symptoms of bladder outlet obstruction or neurogenic bladder. 3. Additional chronic, degenerative and iatrogenic findings described in the body the report. ED Physician has reviewed this report. - EKG 0733 Cardiac Rate: NL - at 86 EKG Rhythm: Sinus Rhythm EKG Interpretation: non specific lateral changes Complex Multi-Symp Course/Dx Course Of Treatment: Ms. Cheung was brought back to the ED by her daughter who is concerned that she is ill and not safe at home. The patient was encouraged to be temporarily placed in a NH after a recent admission for AMS which was thought to be either seizures or hyperglycemia due to noncompliance with her meds. She was sent home with VNS on Tuesdays and . Her daughter thinks she is still not taking her medications. She has continued vomiting here in the ED in spite of medications and I have asked the hospitalist service to see her as I agree that she is an unsafe D/C. - Diagnoses Provider Diagnoses: Intractable vomiting - Physician Notifications Discussed Care Of Patient With: Eleazar Nicole Time Discussed With Above Provider: 12:40 Instructed by Provider To: Other - recommends social work is called to evaluate living situation. Dr. Nicole also agrees to admit this patient. Discharge - Discharge Plan Condition: Stable Disposition: ADMITTED TO [facility] documentation as recorded by the Johny castaneda Julia accurately reflects the service I personally performed and the decisions made by me, Rome Craft MD.
[2017-12-10] MEDS ORDERED: amLODIPine TAB* 5 MG PO ONE (13:16)
[2017-12-10] MEDS: KCL premix 10 MEQ/50 ML IVPREMIX x 4 RUNS IV SCH ×4 (14:47→21:54)
[2017-12-10] MEDS: NS 0.9% 1000 ML* 1,000 ML IV SCH (14:48)
--- NOTE | 2017-12-10 15:03 | PN ---
Subjective Date of Service: 12/10/17 Interval History: Pt examined today at the bedside she states she is feeling weak. Denies chest pain and denies sob. She admits to vomiting and nausea. Denies lightheadedness. Denies loc. ROS-denies fever, denies chills, denies chest pain, denies sob, denies lightheadedness, denies loc, admits to vomiting, admits to nausea, denies abdominal pain, review of 11 systems completed all others negative, Objective Active Medications: Acetaminophen (Tylenol Tab*) 650 mg PO Q4H PRN PRN Reason: FEVER/PAIN Amlodipine Besylate (Norvasc Tab*) 10 mg PO DAILY [facility] Aspirin (Aspirin Ec Low Dose*) 81 mg PO DAILY [facility] Last Admin: 12/10/17 10:07 Dose: 81 mg Dextrose (D50w Syringe 50 Ml*) 12.5 gm IV PUSH .FOR FS < 60 - SS PRN PRN Reason: FS < 60 Heparin Sodium (Porcine) (Heparin Vial(*)) 5,000 units SUBCUT Q8HR [facility] Last Admin: 12/10/17 14:47 Dose: 5,000 units Hydralazine HCl (Apresoline Iv*) 5 mg IV SLOW PU Q6H PRN PRN Reason: BLOOD PRESSURE Last Admin: 12/10/17 11:56 Dose: 5 mg Metronidazole/Sodium Chloride (Flagyl 500 Mg Ivpb*) 500 mg in 100 mls @ 100 mls /hr IVPB Q8H [facility] Last Admin: 12/10/17 10:07 Dose: 100 mls/hr Ceftriaxone Sodium 1 gm/ (Dextrose) 50 mls @ 200 mls/hr IVPB 1630 [facility] Sodium Chloride (Ns 0.9% 1000 Ml*) 1,000 mls @ 100 mls/hr IV PER RATE [facility] Last Admin: 12/10/17 14:48 Dose: 100 mls/hr Potassium Chloride (Potassium Chloride 10 Meq/50 Ml Ivpremix*) 10 meq in 50 mls @ 50 mls/hr IV Q1H [facility] Stop: 12/10/17 17:59 Last Admin: 12/10/17 14:47 Dose: 50 mls/hr Insulin Human Lispro (Humalog*) 0 units SUBCUT AC [facility] PRN Reason: Protocol Last Admin: 12/10/17 11:56 Dose: 3 units Levetiracetam (Keppra Tab*) 500 mg PO BID [facility] Last Admin: 12/10/17 10:07 Dose: 500 mg Ondansetron HCl (Zofran Inj*) 4 mg IV Q6H PRN PRN Reason: NAUSEA Last Admin: 12/10/17 10:07 Dose: 4 mg Prochlorperazine Edisylate (Compazine Inj*) 5 mg IV Q6H PRN PRN Reason: NAUSEA/VOMITING Last Admin: 12/10/17 07:26 Dose: 5 mg Rosuvastatin Calcium (Crestor (Nf)) 40 mg PO BEDTIME [facility] Last Admin: 12/09/17 20:18 Dose: 40 mg Vital Signs - 8 hr 12/10/17 12/10/17 12/10/17 07:19 07:52 11:30 Temperature 98.1 F 98.0 F Pulse Rate 97 102 Respiratory 20 20 18 Rate Blood Pressure 166/72 182/88 (mmHg) O2 Sat by Pulse 95 98 Oximetry Oxygen Devices in Use Now: Nasal Cannula Appearance: 72 y/o female patient, chronically ill appearing, sitting bed NAD, Eyes: No Scleral Icterus, PERRLA Ears/Nose/Mouth/Throat: NL Teeth, Lips, Gums Neck: NL Appearance and Movements; NL JVP Respiratory: Symmetrical Chest Expansion and Respiratory Effort, Clear to Auscultation Cardiovascular: NL Sounds; No Murmurs; No JVD Abdominal: NL Sounds; No Tenderness; No Distention Extremities: No Edema Skin: No Rash or Ulcers Neurological: Alert and Oriented x 3 Lines/Tubes/Other Access: Clean, Dry and Intact Peripheral IV Result Diagrams: 12/10/17 04:51 12/10/17 04:51 Additional Lab and Data: Lab Results 12/09/17 12/09/17 12/09/17 Range/Units 07:45 07:45 07:45 WBC 7.5 (3.5-10.8) 10^3/ul RBC 4.49 (4.0-5.4) 10^6/ul Hgb 12.2 (12.0-16.0) g/dl Hct 37 (35-47) % MCV 81 (80-97) fL MCH 27 (27-31) pg MCHC 34 (31-36) g/dl RDW 14 (10.5-15) % Plt Count 153 (150-450) 10^3/ul MPV 8 (7.4-10.4) um3 Neut % (Auto) 82.3 (38-83) % Lymph % (Auto) 9.7 L (25-47) % [place] % (Auto) 7.5 (1-9) % Eos % (Auto) 0.1 (0-6) % Baso % (Auto) 0.4 (0-2) % Absolute Neuts (auto) 6.1 (1.5-7.7) 10^3/ul Absolute Lymphs (auto) 0.7 L (1.0-4.8) 10^3/ul Absolute Monos (auto) 0.6 (0-0.8) 10^3/ul Absolute Eos (auto) 0 (0-0.6) 10^3/ul Absolute Basos (auto) 0 (0-0.2) 10^3/ul Absolute Nucleated RBC 0 10^3/ul Nucleated RBC % 0 Sodium 134 (133-145) mmol/L Potassium 4.0 (3.5-5.0) mmol/L Chloride 99 L (101-111) mmol/L Carbon Dioxide 27 (22-32) mmol/L Anion Gap 8 (2-11) mmol/L BUN 14 (6-24) mg/dL Creatinine 0.75 (0.51-0.95) mg/dL Est GFR ( Amer) 97.4 (>60) Est GFR (Non-Af Amer) 75.7 (>60) BUN/Creatinine Ratio 18.7 (8-20) Glucose 329 H (70-100) mg/dL Lactic Acid 1.5 (0.5-2.0) mmol/L Calcium 9.1 (8.6-10.3) mg/dL Magnesium 1.6 L (1.9-2.7) mg/dL Total Bilirubin 0.60 (0.2-1.0) mg/dL AST 11 L (13-39) U/L ALT 10 (7-52) U/L Alkaline Phosphatase 106 H (34-104) U/L Troponin I 0.01 (<0.04) ng/mL C-Reactive Protein 85.20 H (< 5.00) mg/L Total Protein 6.0 L (6.4-8.9) g/dL Albumin 3.3 (3.2-5.2) g/dL Globulin 2.7 (2-4) g/dL Albumin/Globulin Ratio 1.2 (1-3) Lipase < 10 L (11.0-82.0) U/L TSH 3.34 (0.34-5.60) mcIU/mL Urine Color Urine Appearance Urine pH (5-9) Ur Specific [place] (1.010-1.030) Urine Protein (Negative) Urine Ketones (Negative) Urine Blood (Negative) Urine Nitrate (Negative) Urine Bilirubin (Negative) Urine Urobilinogen (Negative) Ur Leukocyte Esterase (Negative) Urine WBC (Auto) (Absent) Urine RBC (Auto) (Absent) Ur Squamous Epith Cells (Absent) Urine Bacteria (Absent) Hyaline Casts (Absent) Urine Glucose (Negative) Influenza A (Rapid) (Negative) Influenza B (Rapid) (Negative) 12/09/17 12/09/17 Range/Units 08:05 09:40 WBC (3.5-10.8) 10^3/ul RBC (4.0-5.4) 10^6/ul Hgb (12.0-16.0) g/dl Hct (35-47) % MCV (80-97) fL MCH (27-31) pg MCHC (31-36) g/dl RDW (10.5-15) % Plt Count (150-450) 10^3/ul MPV (7.4-10.4) um3 Neut % (Auto) (38-83) % Lymph % (Auto) (25-47) % [place] % (Auto) (1-9) % Eos % (Auto) (0-6) % Baso % (Auto) (0-2) % Absolute Neuts (auto) (1.5-7.7) 10^3/ul Absolute Lymphs (auto) (1.0-4.8) 10^3/ul Absolute Monos (auto) (0-0.8) 10^3/ul Absolute Eos (auto) (0-0.6) 10^3/ul Absolute Basos (auto) (0-0.2) 10^3/ul Absolute Nucleated RBC 10^3/ul Nucleated RBC % Sodium (133-145) mmol/L Potassium (3.5-5.0) mmol/L Chloride (101-111) mmol/L Carbon Dioxide (22-32) mmol/L Anion Gap (2-11) mmol/L BUN (6-24) mg/dL Creatinine (0.51-0.95) mg/dL Est GFR ( Amer) (>60) Est GFR (Non-Af Amer) (>60) BUN/Creatinine Ratio (8-20) Glucose (70-100) mg/dL Lactic Acid (0.5-2.0) mmol/L Calcium (8.6-10.3) mg/dL Magnesium (1.9-2.7) mg/dL Total Bilirubin (0.2-1.0) mg/dL AST (13-39) U/L ALT (7-52) U/L Alkaline Phosphatase (34-104) U/L Troponin I (<0.04) ng/mL C-Reactive Protein (< 5.00) mg/L Total Protein (6.4-8.9) g/dL Albumin (3.2-5.2) g/dL Globulin (2-4) g/dL Albumin/Globulin Ratio (1-3) Lipase (11.0-82.0) U/L TSH (0.34-5.60) mcIU/mL Urine Color Yellow Urine Appearance Clear Urine pH 7.0 (5-9) Ur Specific [place] 1.012 (1.010-1.030) Urine Protein 3+(>=500 mg/dl) H (Negative) Urine Ketones 1+ H (Negative) Urine Blood 1+ H (Negative) Urine Nitrate Negative (Negative) Urine Bilirubin Negative (Negative) Urine Urobilinogen Negative (Negative) Ur Leukocyte Esterase Trace H (Negative) Urine WBC (Auto) 1+(6-10/hpf) H (Absent) Urine RBC (Auto) 3+(>10/hpf) H (Absent) Ur Squamous Epith Cells Present H (Absent) Urine Bacteria Absent (Absent) Hyaline Casts Present H (Absent) Urine Glucose 3+(>=500 mg/dl) H (Negative) Influenza A (Rapid) Negative (Negative) Influenza B (Rapid) Negative (Negative) Assess/Plan/Problems-Billing Assessment: 72 y/o female patient presenting to [facility] [place] with complaints of weakness, not feeling well for the last weak and nausea and vomiting, - Patient Problems (1) Nausea & vomiting Current Visit: Yes Status: Acute Priority: High Comment: No obstruction on CT etiology unclear may be r/t underlying vrial illness pt abd soft falt nontender, Discussed with Gi if persists for next 24 hrs would consider further work-up with scope for now conitnue with supportive care and zofran, compazine (2) Proctitis Current Visit: Yes Status: Acute Priority: High Comment: Dicussed with Gi no diarrhea and no typical symptoms of this has had c-scope 2 years ago that shows micro coloitis only, continue abx for now if develops new signs symptoms, GI will see, (3) UTI (urinary tract infection) Current Visit: Yes Status: Acute Priority: High Comment: continue abx, (4) DM2 (diabetes mellitus, type 2) Current Visit: Yes Status: Acute Priority: High Comment: Slding scale, blood sugars elevated, 220-300 was on D5 stopped this for now, (5) DVT prophylaxis Current Visit: Yes Status: Acute Priority: High Comment: heparin sub-q (6) Encephalopathy Current Visit: Yes Status: Acute Priority: High Comment: pt drowsy but awakens to name oriented to place time and self, ? if r/t underlying uti, hydrating continue with supprotive care, no neck pain or headache, if doesnt clear consider neuro consult (7) HTN (hypertension) Current Visit: Yes Status: Acute Priority: High Comment: bp 170-180 will increase norvasc, prn hydralazine, follow, (8) Hyperlipidemia Current Visit: Yes Status: Acute Priority: High Comment: Crestor (9) Rheumatoid arthritis Current Visit: Yes Status: Acute Priority: High Comment: Entanercept held. in setting of acute illness, (10) Seizure Current Visit: Yes Status: Acute Priority: High Comment: Mic hawk Status and Disposition: home with services when stable, patient family requesting home services,
[2017-12-10 15:53] LABS: EGFR Non-African American 68.1 (>60)
[2017-12-10] MEDS: cefTRIAXone(*) 1 GM in D5W 50 ML BAG* 50 ML IVPB SCH (17:49)
[2017-12-10] MEDS: CMC:Rosuvastatin (NF) 20 MG TAB PO SCH (21:50)
[2017-12-11] MEDS: metroNIDAZOLE IV 500 MG/100ML* 500 MG/100 ML BAG IVPB SCH ×2 (01:47→08:45)
[2017-12-11] MEDS: NS 0.9% 1000 ML* 1,000 ML IV SCH ×2 (04:23→18:30)
[2017-12-11 06:04] LABS: Hematocrit 35 % (35-47); Hemoglobin 11.7 g/dl (12.0-16.0); Mean Corpuscular HGB Conc 34 g/dl (31-36); Mean Corpuscular Hemoglobin 28 pg (27-31); Mean Corpuscular Volume 82 fL (80-97); Mean Platelet Volume 9 um3 (7.4-10.4); Platelet Count 186 10^3/ul (150-450); Red Blood Count 4.23 10^6/ul (4.0-5.4); Red Cell Distribution Width 15 % (10.5-15); White Blood Count 8.7 10^3/ul (3.5-10.8)
[2017-12-11] MEDS: Heparin VIAL(*) 5000 UNITS/ML VIAL (FIVE THOUSAND) SUBCUT SCH ×3 (06:13→21:34)
[2017-12-11 06:21] LABS: EGFR Non-African American 74.4 (>60)
[2017-12-11 06:30] LABS: ABS Basophils 0 10^3/ul (0-0.2); ABS Eosinophils 0 10^3/ul (0-0.6); ABS Lymphocytes 0.9 10^3/ul (1.0-4.8); ABS Monocytes 0.4 10^3/ul (0-0.8); ABS Neutrophils 7.5 10^3/ul (1.5-7.7); ABS Nucleated RBC 0 10^3/ul; Eosinophil % 0 % (0-6); Lymphocyte % 9.9 % (25-47); Nucleated Red Blood Cells % 0
[2017-12-11] MEDS: levETIRAcetam TAB* 500 MG PO SCH ×2 (08:46→21:34)
[2017-12-11] MEDS: amLODIPine TAB* 5 MG PO SCH (08:46)
[2017-12-11] MEDS: Insulin LISPRO* 1 UNITS UNIT SUBCUT SCH ×4 (08:46→17:29)
[2017-12-11] MEDS: Aspirin EC Low Dose* 81 MG TAB.EC PO SCH (08:46)
[2017-12-11] MEDS: Ondansetron INJ* 2 MG/ML VIAL IV PRN (08:53)
[2017-12-11] MEDS ORDERED: Insulin GLARGINE(*) 1 UNITS UNIT SUBCUT ONE (11:11)
--- NOTE | 2017-12-11 11:12 | PN ---
Subjective Date of Service: 12/11/17 Interval History: Ms. Cheung remains lethargic but will open eyes to voice, follow all commands and answer questions appropriately. She complains of nausea and dizziness at times but not consistently. She denies chest pain, SOB, or abdominal pain. Objective Active Medications: Acetaminophen (Tylenol Tab*) 650 mg PO Q4H PRN Amlodipine Besylate (Norvasc Tab*) 10 mg PO DAILY [facility] Aspirin (Aspirin Ec Low Dose*) 81 mg PO DAILY [facility] Dextrose (D50w Syringe 50 Ml*) 12.5 gm IV PUSH .FOR FS < 60 - SS PRN Heparin Sodium (Porcine) (Heparin Vial(*)) 5,000 units SUBCUT Q8HR [facility] Hydralazine HCl (Apresoline Iv*) 5 mg IV SLOW PU Q6H PRN Metronidazole/Sodium Chloride (Flagyl 500 Mg Ivpb*) 500 mg in 100 mls @ 100 mls /hr IVPB Q8H [facility] Ceftriaxone Sodium 1 gm/ (Dextrose) 50 mls @ 200 mls/hr IVPB 1630 [facility] Sodium Chloride (Ns 0.9% 1000 Ml*) 1,000 mls @ 100 mls/hr IV PER RATE [facility] Insulin Human Lispro (Humalog*) 0 units SUBCUT AC [facility] Levetiracetam (Keppra Tab*) 500 mg PO BID [facility] Ondansetron HCl (Zofran Inj*) 4 mg IV Q6H PRN Prochlorperazine Edisylate (Compazine Inj*) 5 mg IV Q6H PRN Rosuvastatin Calcium (Crestor (Nf)) 40 mg PO BEDTIME [facility] Vital Signs: Temp Pulse Resp BP Pulse Ox 97.8 F 98 16 162/65 95 12/11/17 07:39 12/11/17 07:39 12/11/17 08:00 12/11/17 07:39 12/11/17 07:39 Oxygen Devices in Use Now: Nasal Cannula Appearance: Female lying in bed in NAD Eyes: No Scleral Icterus Ears/Nose/Mouth/Throat: Mucous Membranes Moist Neck: Trachea Midline Respiratory: Symmetrical Chest Expansion and Respiratory Effort, Clear to Auscultation Cardiovascular: NL Sounds; No Murmurs; No JVD, No Edema Abdominal: NL Sounds; No Tenderness; No Distention Lymphatic: No Cervical Adenopathy Extremities: No Edema Skin: No Rash or Ulcers Neurological: NL Muscle Strength and Tone, - - Lethargic but awakens to voice and responds to questions slowly though appropriately Nutrition: Taking PO's Result Diagrams: 12/11/17 05:41 12/11/17 05:41 Additional Lab and Data: . Assess/Plan/Problems-Billing Assessment: Ms. Cheung is a 72 yo female with PMH of DM, HTN, HLD last discharged on after being treated for encephalopathy suspected secondary to medications and /or seizure activity who was admitted on 12/09/17 with weakness and nausea/ vomiting and remains lethargic. - Patient Problems (1) Altered mental status Comment: - Patient seems to be improving. - ? if related to UTI. - Recent admission for same felt to be secondary to medications or perhaps post- ictal state. Workup included negative MRI brain, EEG showing slowing only, LP negative for infection. (2) Proctitis Comment: - Case discussed with GI. As patient has no diarrhea or other symptoms typical prostatitis and had colonoscopy 2 years ago that showed micro colitis only, no indication for colonoscopy at this point. - CRP 85, afebrile, no leukocytosis. - Plan to continue continue ceftiaxone and metronidazole for now and if develops diarrhea, GI will see. (3) Nausea & vomiting Comment: - Etiology unclear, ? if related to dizziness. - No obstruction on CT, may be r/t underlying viral illness or UTI. - If persistent, will consult GI. - Plan to start scopolamine and meclizine. (4) UTI (urinary tract infection) Comment: - Urine culture with klebsiella, now with enterococcus as well, will switch to nitrofurantoin (allergic to pcn). - Urinary retention on arrival, requiring sanches placement. (5) DM2 (diabetes mellitus, type 2) Comment: - BGs 300s. - Start lantus 10 units now and continue lispro SSI coverage with meals. - Hold glipizide and metformin. (6) HTN (hypertension) Comment: - SBP 150-160s. - Improved since increase amlodipine. (7) Hyperlipidemia Comment: - Continue rosuvastatin. (8) Rheumatoid arthritis Comment: - Entanercept held in setting of acute illness. (9) Seizure Comment: - No clear evidence of seizure activity but will add EEG given AMS. - Continue keppra. (10) DVT prophylaxis Comment: - Heparin sub-q. Status and Disposition: Inpatient.
[2017-12-11] MEDS ORDERED: Meclizine TAB* 12.5 MG PO PRN (16:02)
[2017-12-11] MEDS ORDERED: Scopolamine 1.5 mg* PATCH TRANSDERM SCH (17:00)
[2017-12-11] MEDS: cefTRIAXone(*) 1 GM in D5W 50 ML BAG* 50 ML IVPB SCH (17:27)
[2017-12-11] MEDS: CMC:Rosuvastatin (NF) 20 MG TAB PO SCH (21:34)
[2017-12-11] MEDS: Nitrofurantoin Macrocrystals* 100 MG CAP PO SCH (21:34)
[2017-12-12] MEDS: NS 0.9% 1000 ML* 1,000 ML IV SCH ×2 (04:37→15:01)
[2017-12-12] MEDS: Heparin VIAL(*) 5000 UNITS/ML VIAL (FIVE THOUSAND) SUBCUT SCH ×3 (05:33→21:51)
[2017-12-12 06:23] LABS: ABS Basophils 0 10^3/ul (0-0.2); ABS Eosinophils 0 10^3/ul (0-0.6); ABS Lymphocytes 1.2 10^3/ul (1.0-4.8); ABS Monocytes 0.6 10^3/ul (0-0.8); ABS Neutrophils 6.1 10^3/ul (1.5-7.7); ABS Nucleated RBC 0 10^3/ul; Eosinophil % 0.5 % (0-6); Hematocrit 35 % (35-47); Hemoglobin 12.1 g/dl (12.0-16.0); Lymphocyte % 15.1 % (25-47); Mean Corpuscular HGB Conc 34 g/dl (31-36); Mean Corpuscular Hemoglobin 28 pg (27-31); Mean Corpuscular Volume 81 fL (80-97); Mean Platelet Volume 8 um3 (7.4-10.4); Nucleated Red Blood Cells % 0.1; Platelet Count 197 10^3/ul (150-450); Red Blood Count 4.33 10^6/ul (4.0-5.4); Red Cell Distribution Width 14 % (10.5-15)
[2017-12-12] MEDS: amLODIPine TAB* 5 MG PO SCH (08:00)
[2017-12-12] MEDS: Insulin GLARGINE(*) 1 UNITS UNIT SUBCUT SCH (08:00)
[2017-12-12] MEDS: Aspirin EC Low Dose* 81 MG TAB.EC PO SCH (08:00)
[2017-12-12] MEDS: Insulin LISPRO* 1 UNITS UNIT SUBCUT SCH ×3 (08:00→17:14)
[2017-12-12] MEDS: levETIRAcetam TAB* 500 MG PO SCH ×2 (08:00→21:52)
[2017-12-12] MEDS: Nitrofurantoin Macrocrystals* 100 MG CAP PO SCH ×2 (08:00→21:51)
[2017-12-12] MEDS: hydrALAZINE IV* 20 MG/ML VIAL IV SLOW PU PRN (09:05)
[2017-12-12] MEDS: cefTRIAXone(*) 1 GM in D5W 50 ML BAG* 50 ML IVPB SCH (17:14)
--- NOTE | 2017-12-12 18:55 | PN ---
Subjective Date of Service: 12/12/17 Interval History: Patient continues to be lethargic but responds to name and verbal stimuli and is able to answer orientation questions when awakened but returns to sleep quickly. Patient improved and was able to stay awake for a longer period of time when examined later in the day. Patient denies F/C, abdominal pain, Vomiting, Diarrhea, constipation, tenesmus, CP, SOB, or other pain. Patient's most recent nausea was in the early AM. Patient had 1 episode of SVT to the 180s while sleeping. Family History: Unchanged from Admission Social History: Unchanged from Admission Past Medical History: Unchanged from Admission Objective Active Medications: Acetaminophen (Tylenol Tab*) 650 mg PO Q4H PRN PRN Reason: FEVER/PAIN Amlodipine Besylate (Norvasc Tab*) 10 mg PO DAILY [facility] Last Admin: 12/12/17 08:00 Dose: 10 mg Aspirin (Aspirin Ec Low Dose*) 81 mg PO DAILY [facility] Last Admin: 12/12/17 08:00 Dose: 81 mg Dextrose (D50w Syringe 50 Ml*) 12.5 gm IV PUSH .FOR FS < 60 - SS PRN PRN Reason: FS < 60 Heparin Sodium (Porcine) (Heparin Vial(*)) 5,000 units SUBCUT Q8HR [facility] Last Admin: 12/12/17 13:28 Dose: 5,000 units Hydralazine HCl (Apresoline Iv*) 5 mg IV SLOW PU Q6H PRN PRN Reason: BLOOD PRESSURE Last Admin: 12/12/17 09:05 Dose: 5 mg Ceftriaxone Sodium 1 gm/ (Dextrose) 50 mls @ 200 mls/hr IVPB 1630 [facility] Last Admin: 12/12/17 17:14 Dose: 200 mls/hr Sodium Chloride (Ns 0.9% 1000 Ml*) 1,000 mls @ 100 mls/hr IV PER RATE [facility] Last Admin: 12/12/17 15:01 Dose: 100 mls/hr Insulin Glargine (Lantus(*)) 10 units SUBCUT QAM [facility] Last Admin: 12/12/17 08:00 Dose: 10 unit Insulin Human Lispro (Humalog*) 0 units SUBCUT AC [facility] PRN Reason: Protocol Last Admin: 12/12/17 17:14 Dose: 1 units Levetiracetam (Keppra Tab*) 500 mg PO BID [facility] Last Admin: 12/12/17 08:00 Dose: 500 mg Meclizine HCl (Antivert Tab*) 12.5 mg PO Q8HR PRN PRN Reason: DIZZINESS Last Admin: 12/11/17 17:22 Dose: 12.5 mg Nitrofurantoin Macrocrystals (Macrodantin*) 100 mg PO BID [facility] Last Admin: 12/12/17 08:00 Dose: 100 mg Ondansetron HCl (Zofran Inj*) 4 mg IV Q6H PRN PRN Reason: NAUSEA Last Admin: 12/11/17 08:53 Dose: 4 mg Pharmacy Profile Note (Scopolamine Patch Remove*) 1 note PATCH OFF Q72H [facility] Prochlorperazine Edisylate (Compazine Inj*) 5 mg IV Q6H PRN PRN Reason: NAUSEA/VOMITING Last Admin: 12/10/17 07:26 Dose: 5 mg Rosuvastatin Calcium (Crestor (Nf)) 40 mg PO BEDTIME [facility] Last Admin: 12/11/17 21:34 Dose: 40 mg Scopolamine (Transderm-Scop 1.5 Mg Patch*) 1 patch TRANSDERM Q72H [facility] Last Admin: 12/11/17 17:24 Dose: 1 patch Vital Signs - 8 hr 12/12/17 12/12/17 11:15 15:00 Temperature 98.5 F Pulse Rate 97 97 Respiratory 20 20 Rate Blood Pressure 146/57 149/58 (mmHg) O2 Sat by Pulse 95 95 Oximetry Oxygen Devices in Use Now: Nasal Cannula Appearance: Patient is a 72yo female who appears stated age and is sitting in the bed with her eyes closed. Eyes: No Scleral Icterus, PERRLA Ears/Nose/Mouth/Throat: NL Teeth, Lips, Gums, Clear Oropharnyx, Mucous Membranes Moist Neck: NL Appearance and Movements; NL JVP, Trachea Midline Respiratory: Symmetrical Chest Expansion and Respiratory Effort, Clear to Auscultation Cardiovascular: NL Sounds; No Murmurs; No JVD, RRR, No Edema Abdominal: NL Sounds; No Tenderness; No Distention, No Hepatosplenomegaly Lymphatic: No Cervical Adenopathy Extremities: No Edema, No Clubbing, Cyanosis Skin: No Rash or Ulcers, No Nodules or Sclerosis Neurological: Alert and Oriented x 3, NL Sensation, NL Muscle Strength and Tone , - - CN II-XII intact. Reflexes unremarkable. Result Diagrams: 12/12/17 05:47 12/11/17 05:41 Additional Lab and Data: . Assess/Plan/Problems-Billing Assessment: Ms. Cheung is a 72 yo female with PMH of DM, HTN, HLD last discharged on after being treated for encephalopathy suspected secondary to medications and /or seizure activity who was admitted on 12/09/17 with weakness and nausea/ vomiting and remains lethargic. - Patient Problems (1) UTI (urinary tract infection) Current Visit: Yes Status: Acute Priority: High Comment: Urine culture with klebsiella, now with enterococcus as well, will switch to nitrofurantoin to which it has intermediate sensitivity (allergic to pcn). No signs of Pyelonephritis. Urinary retention on arrival, requiring sanches placement. Will attempt void trial tomorrow. Likely cause of metabolic encephalopathy. Improving with Nitrofurantoin treatment today. (2) Encephalopathy Current Visit: Yes Status: Acute Priority: High Code(s): G93.40 - ENCEPHALOPATHY, UNSPECIFIED SNOMED Code(s): 97709038 Comment: Pt drowsy but awakens to name oriented to place time and self, Possibly related to underlying uti, Continue with supprotive care, no neck pain or headache, if doesnt clear consider neuro consult (3) DM2 (diabetes mellitus, type 2) Current Visit: Yes Status: Acute Priority: High Comment: BGs Moderately well controlled Lantus 10 units now and continue lispro SSI coverage with meals. Hold glipizide and metformin. (4) HTN (hypertension) Current Visit: Yes Status: Acute Priority: High Code(s): I10 - ESSENTIAL ( PRIMARY) HYPERTENSION SNOMED Code(s): 59964208 Comment: SBP 150-170s. Improved during the day. Continue PRN hydralazine (5) Hyperlipidemia Current Visit: Yes Status: Acute Priority: High Code(s): E78.5 - HYPERLIPIDEMIA, UNSPECIFIED SNOMED Code(s): 90998265 Comment: Continue rosuvastatin. (6) Nausea & vomiting Current Visit: Yes Status: Acute Priority: High Code(s): R11.2 - NAUSEA WITH VOMITING, UNSPECIFIED SNOMED Code(s): 95938038 Comment: Etiology unclear, ? if related to dizziness. No obstruction on CT, may be r/t underlying viral illness or UTI. Scopolamine and meclizine. Improved today (7) Proctitis Current Visit: Yes Status: Acute Priority: High Code(s): K62.89 - OTHER SPECIFIED DISEASES OF ANUS AND RECTUM SNOMED Code(s): 6237294 Comment: Case discussed with GI. As patient has no diarrhea or other symptoms typical proctitis and had colonoscopy 2 years ago that showed micro colitis only, no indication for colonoscopy at this point. CRP 85, afebrile, no leukocytosis. Plan to continue continue ceftiaxone and metronidazole for now and if develops diarrhea, GI will see. (8) Rheumatoid arthritis Current Visit: Yes Status: Acute Priority: High Code(s): M06.9 - RHEUMATOID ARTHRITIS, UNSPECIFIED SNOMED Code(s): 49724354 Comment: Entanercept held in setting of acute illness. (9) Seizure Current Visit: Yes Status: Acute Priority: High Code(s): R56.9 - UNSPECIFIED CONVULSIONS SNOMED Code(s): 85966905 Comment: No clear evidence of seizure activity. EEG showed diffuse slowing and no epileptiform discharges. Continue keppra. Level Therapeutic (10) SVT (supraventricular tachycardia) Current Visit: Yes Status: Acute Code(s): I47.1 - SUPRAVENTRICULAR TACHYCARDIA SNOMED Code(s): 6491192 Comment: SVT in the 180s for approximately 10 seconds. Appears to be NSVT. Patient sleeping. Will discontinue anticholinergics if it recurs. (11) DVT prophylaxis Current Visit: Yes Status: Acute Priority: High Code(s): FMD6312 - SNOMED Code(s): 691524058 Comment: - Heparin sub-q. Status and Disposition: Inpatient.
[2017-12-12] MEDS: CMC:Rosuvastatin (NF) 20 MG TAB PO SCH (21:51)
[2017-12-13] MEDS: hydrALAZINE IV* 20 MG/ML VIAL IV SLOW PU PRN (03:49)
[2017-12-13] MEDS: Heparin VIAL(*) 5000 UNITS/ML VIAL (FIVE THOUSAND) SUBCUT SCH ×3 (05:28→20:36)
[2017-12-13 06:12] LABS: ABS Basophils 0 10^3/ul (0-0.2); ABS Eosinophils 0.1 10^3/ul (0-0.6); ABS Lymphocytes 1.4 10^3/ul (1.0-4.8); ABS Monocytes 0.6 10^3/ul (0-0.8); ABS Neutrophils 5.2 10^3/ul (1.5-7.7); ABS Nucleated RBC 0 10^3/ul; Eosinophil % 1.6 % (0-6); Hematocrit 36 % (35-47); Hemoglobin 12.3 g/dl (12.0-16.0); Lymphocyte % 19.5 % (25-47); Mean Corpuscular HGB Conc 34 g/dl (31-36); Mean Corpuscular Hemoglobin 27 pg (27-31); Mean Corpuscular Volume 80 fL (80-97); Mean Platelet Volume 8 um3 (7.4-10.4); Nucleated Red Blood Cells % 0; Platelet Count 193 10^3/ul (150-450); Red Blood Count 4.53 10^6/ul (4.0-5.4); Red Cell Distribution Width 14 % (10.5-15); White Blood Count 7.4 10^3/ul (3.5-10.8)
[2017-12-13 06:29] LABS: EGFR Non-African American 103.7 (>60)
[2017-12-13] MEDS ORDERED: Magnesium Sulfate IV* 3 GM in NS 0.9% 100 ML* 100 ML IVPB ONE (07:03)
[2017-12-13] MEDS: Insulin LISPRO* 1 UNITS UNIT SUBCUT SCH ×3 (07:37→16:55)
[2017-12-13] MEDS ORDERED: Magnesium Sulfate 2 GM IV IVPB ONE (08:00)
[2017-12-13] MEDS: levETIRAcetam TAB* 500 MG PO SCH ×2 (08:35→20:36)
[2017-12-13] MEDS: Aspirin EC Low Dose* 81 MG TAB.EC PO SCH (08:35)
[2017-12-13] MEDS: Nitrofurantoin Macrocrystals* 100 MG CAP PO SCH ×2 (08:35→20:36)
[2017-12-13] MEDS: Insulin GLARGINE(*) 1 UNITS UNIT SUBCUT SCH (08:35)
[2017-12-13] MEDS: amLODIPine TAB* 5 MG PO SCH (08:35)
[2017-12-13] MEDS ORDERED: Potassium Chloride LIQUID* 20 MEQ PACKET PO ONE (09:00)
[2017-12-13] MEDS ORDERED: Magnesium Sulfate 1 GM IV* 1 GM/100 ML BAG IV ONE (09:00)
--- NOTE | 2017-12-13 10:19 | EEG ---
ELECTROENCEPHALOGRAM REPORT: DATE OF STUDY: 12/11/17 REFERRING PROVIDER: Garcie Moran NP LOCATION: She is an inpatient in [address] [place] [address]. CLINICAL HISTORY: A diminished responsiveness in the patient with epilepsy. Rule out seizure activi ty. MEDICATIONS: Include: 1. Keppra. 2. Prochlorperazine. 3. Hydralazine. 4. Ceftriaxone. 5. Insulin. 6. Amlodipine. 7. Rosuvastatin. REPORT: This 16-channel EEG is remarkable for background rhythms consisting of central slowing as we ll as bitemporal slowing. Interspersed are low voltage beta rhythms bifrontally and what appear to b e sleep spindles parasagittally. The patient is clinically asleep. The patient drowses and seems to be asleep through the majority of the tracing. Later in the tracing, the patient attempts to talk a nd central slowing dissipates. There may be a poorly formed alpha rhythm in the posterior derivation s at about 9 cycles per second when the patient is aroused. The patient drowsed and drifts off to sle ep again subsequently. INTERPRETATION: Generally normal EEG consistent with sleep but there may be some slowing as well. T here are no epileptiform features to this recording. [id number]/[facility] #: [id number]
--- NOTE | 2017-12-13 18:24 | PN ---
Subjective Date of Service: 12/13/17 Interval History: Patient much more communicative today. Able to stay awake and maintain eye contact through whole interaction. Patient states she has been getting lightheaded on standing. Patient states that she had a small amount of nausea in the AM but no vomiting. Patient denies CP, Palpitations, abdominal pain diarrhea, constipation, F/C, or other pain. Family History: Unchanged from Admission Social History: Unchanged from Admission Past Medical History: Unchanged from Admission Objective Active Medications: Acetaminophen (Tylenol Tab*) 650 mg PO Q4H PRN PRN Reason: FEVER/PAIN Amlodipine Besylate (Norvasc Tab*) 5 mg PO DAILY [facility] Aspirin (Aspirin Ec Low Dose*) 81 mg PO DAILY [facility] Last Admin: 12/13/17 08:35 Dose: 81 mg Dextrose (D50w Syringe 50 Ml*) 12.5 gm IV PUSH .FOR FS < 60 - SS PRN PRN Reason: FS < 60 Heparin Sodium (Porcine) (Heparin Vial(*)) 5,000 units SUBCUT Q8HR [facility] Last Admin: 12/13/17 14:17 Dose: 5,000 units Lactated Ringer's (Lactated Ringers 1000 Ml Bag*) 1,000 mls @ 100 mls/hr IV ONCE ONE Stop: 12/13/17 22:11 Last Admin: 12/13/17 14:17 Dose: 100 mls/hr Insulin Glargine (Lantus(*)) 10 units SUBCUT QAM [facility] Last Admin: 12/13/17 08:35 Dose: 10 unit Insulin Human Lispro (Humalog*) 0 units SUBCUT AC [facility] PRN Reason: Protocol Last Admin: 12/13/17 16:55 Dose: Not Given Levetiracetam (Keppra Tab*) 500 mg PO BID [facility] Last Admin: 12/13/17 08:35 Dose: 500 mg Meclizine HCl (Antivert Tab*) 12.5 mg PO Q8HR PRN PRN Reason: DIZZINESS Last Admin: 12/11/17 17:22 Dose: 12.5 mg Nitrofurantoin Macrocrystals (Macrodantin*) 100 mg PO BID [facility] Last Admin: 12/13/17 08:35 Dose: 100 mg Ondansetron HCl (Zofran Inj*) 4 mg IV Q6H PRN PRN Reason: NAUSEA Last Admin: 12/11/17 08:53 Dose: 4 mg Pharmacy Profile Note (Scopolamine Patch Remove*) 1 note PATCH OFF Q72H [facility] Prochlorperazine Edisylate (Compazine Inj*) 5 mg IV Q6H PRN PRN Reason: NAUSEA/VOMITING Last Admin: 12/10/17 07:26 Dose: 5 mg Rosuvastatin Calcium (Crestor (Nf)) 40 mg PO BEDTIME [facility] Last Admin: 12/12/17 21:51 Dose: 40 mg Scopolamine (Transderm-Scop 1.5 Mg Patch*) 1 patch TRANSDERM Q72H [facility] Last Admin: 12/11/17 17:24 Dose: 1 patch Vital Signs - 8 hr 12/13/17 12/13/17 12/13/17 11:22 12:34 15:17 Temperature 98.3 F 98.6 F Pulse Rate 90 91 86 Respiratory 16 18 Rate Blood Pressure 104/54 86/46 128/54 (mmHg) O2 Sat by Pulse 96 93 Oximetry Oxygen Devices in Use Now: None Appearance: Patient is a 72yo female who appears stated age and is sitting in the bed in NAD. Eyes: No Scleral Icterus, PERRLA Ears/Nose/Mouth/Throat: NL Teeth, Lips, Gums, Clear Oropharnyx, Mucous Membranes Moist Neck: NL Appearance and Movements; NL JVP, Trachea Midline Respiratory: Symmetrical Chest Expansion and Respiratory Effort, Clear to Auscultation Cardiovascular: NL Sounds; No Murmurs; No JVD, RRR, No Edema Abdominal: NL Sounds; No Tenderness; No Distention, No Hepatosplenomegaly Lymphatic: No Cervical Adenopathy Extremities: No Edema, No Clubbing, Cyanosis Skin: No Rash or Ulcers, No Nodules or Sclerosis Neurological: Alert and Oriented x 3, NL Sensation, NL Muscle Strength and Tone , - - CN II-XII intact except for known slurring of speech and right sided facial droop. Result Diagrams: 12/13/17 05:34 12/13/17 05:34 Additional Lab and Data: . Assess/Plan/Problems-Billing Assessment: Ms. Cheung is a 72 yo female with PMH of DM, HTN, HLD last discharged on after being treated for encephalopathy suspected secondary to medications and /or seizure activity who was admitted on 12/09/17 with weakness and nausea/ vomiting and remains lethargic. - Patient Problems (1) UTI (urinary tract infection) Current Visit: Yes Status: Acute Priority: High Comment: Urine culture with klebsiella, now with enterococcus as well, will switch to nitrofurantoin to which it has intermediate sensitivity (allergic to pcn). No signs of Pyelonephritis. Urinary retention on arrival, requiring sanches placement. Will attempt void trial in 10 days from sanches insertion. Likely cause of metabolic encephalopathy. Improving greatly with Nitrofurantoin treatment today. (2) Encephalopathy Current Visit: Yes Status: Acute Priority: High Code(s): G93.40 - ENCEPHALOPATHY, UNSPECIFIED SNOMED Code(s): 43164199 Comment: Much mor alert today. Still sleeping for much of the day. Possibly related to underlying uti, Continue with supportive care, no neck pain or headache. (3) DM2 (diabetes mellitus, type 2) Current Visit: Yes Status: Acute Priority: High Comment: BGs Moderately well controlled Lantus 10 units now and continue lispro SSI coverage with meals. Hold glipizide and metformin. (4) HTN (hypertension) Current Visit: Yes Status: Acute Priority: High Code(s): I10 - ESSENTIAL ( PRIMARY) HYPERTENSION SNOMED Code(s): 56714202 Comment: SBP actually decreased and orthostatic with dizziness. Patient got hydralazine in the early AM. Decrease amlodipine dose to 5mg daily. Stop hydralazine. Bolus of LR and Maintenence fluids at 100ml/hr for 1 bag. (5) Hyperlipidemia Current Visit: Yes Status: Acute Priority: High Code(s): E78.5 - HYPERLIPIDEMIA, UNSPECIFIED SNOMED Code(s): 56457215 Comment: Continue rosuvastatin. (6) Nausea & vomiting Current Visit: Yes Status: Acute Priority: High Code(s): R11.2 - NAUSEA WITH VOMITING, UNSPECIFIED SNOMED Code(s): 40869877 Comment: Etiology unclear, ? if related to dizziness. No obstruction on CT, may be r/t underlying viral illness or UTI. Scopolamine Improved today but has mild continued nausea without vomiting. (7) Proctitis Current Visit: Yes Status: Acute Priority: High Code(s): K62.89 - OTHER SPECIFIED DISEASES OF ANUS AND RECTUM SNOMED Code(s): 1062928 Comment: No wall thickening but other signs of proctitis on CT. Case discussed with GI. As patient has no diarrhea or other symptoms typical proctitis and had colonoscopy 2 years ago that showed micro colitis only, no indication for colonoscopy at this point. CRP 85, afebrile, no leukocytosis. Has small stools but no diarrhea. No abdominal pain. CRP decreasing. Stop ceftriaxone and flagyl and monitor. (8) Rheumatoid arthritis Current Visit: Yes Status: Acute Priority: High Code(s): M06.9 - RHEUMATOID ARTHRITIS, UNSPECIFIED SNOMED Code(s): 47401247 Comment: Entanercept held in setting of acute illness. (9) Seizure Current Visit: Yes Status: Acute Priority: High Code(s): R56.9 - UNSPECIFIED CONVULSIONS SNOMED Code(s): 39665860 Comment: No clear evidence of seizure activity. EEG showed diffuse slowing and no epileptiform discharges. Continue keppra. Level Therapeutic (10) SVT (supraventricular tachycardia) Current Visit: Yes Status: Acute Code(s): I47.1 - SUPRAVENTRICULAR TACHYCARDIA SNOMED Code(s): 1086397 Comment: SVT in the 180s for approximately 10 seconds with 1 recurrence. 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 Patient sleeping both times. Stop PRN meclizine. (11) DVT prophylaxis Current Visit: Yes Status: Acute Priority: High Code(s): HBB2885 - SNOMED Code(s): 339291152 Comment: - Heparin sub-q. Status and Disposition: Inpatient. Probable D/C to STR.
[2017-12-13] MEDS: CMC:Rosuvastatin (NF) 20 MG TAB PO SCH (20:36)
[2017-12-14] MEDS: Heparin VIAL(*) 5000 UNITS/ML VIAL (FIVE THOUSAND) SUBCUT SCH ×3 (05:37→21:08)
[2017-12-14 06:29] LABS: ABS Basophils 0 10^3/ul (0-0.2); ABS Eosinophils 0.2 10^3/ul (0-0.6); ABS Lymphocytes 1.8 10^3/ul (1.0-4.8); ABS Monocytes 0.6 10^3/ul (0-0.8); ABS Neutrophils 4.6 10^3/ul (1.5-7.7); ABS Nucleated RBC 0 10^3/ul; Eosinophil % 2.6 % (0-6); Hematocrit 33 % (35-47); Hemoglobin 11.3 g/dl (12.0-16.0); Lymphocyte % 24.5 % (25-47); Mean Corpuscular HGB Conc 34 g/dl (31-36); Mean Corpuscular Hemoglobin 28 pg (27-31); Mean Corpuscular Volume 81 fL (80-97); Nucleated Red Blood Cells % 0.1; Red Blood Count 4.09 10^6/ul (4.0-5.4); Red Cell Distribution Width 14 % (10.5-15); White Blood Count 7.2 10^3/ul (3.5-10.8)
[2017-12-14 07:44] LABS: Mean Platelet Volume 9 um3 (7.4-10.4); Platelet Count 167 10^3/ul (150-450)
[2017-12-14] MEDS: Insulin LISPRO* 1 UNITS UNIT SUBCUT SCH ×3 (07:51→16:48)
[2017-12-14] MEDS ORDERED: Potassium Chloride LIQUID* 20 MEQ PACKET PO ONE (08:18)
[2017-12-14] MEDS: levETIRAcetam TAB* 500 MG PO SCH ×2 (09:08→21:08)
[2017-12-14] MEDS: Aspirin EC Low Dose* 81 MG TAB.EC PO SCH (09:08)
[2017-12-14] MEDS: Insulin GLARGINE(*) 1 UNITS UNIT SUBCUT SCH (09:08)
[2017-12-14] MEDS: amLODIPine TAB* 5 MG PO SCH (09:08)
[2017-12-14] MEDS: Nitrofurantoin Macrocrystals* 100 MG CAP PO SCH ×2 (09:11→21:08)
[2017-12-14] MEDS ORDERED: Scopolamine PATCH Remove* 1 NOTE MISC PATCH OFF SCH (17:00)
--- NOTE | 2017-12-14 17:13 | RAD ---
HISTORY: Hypoxia COMPARISONS: December 09, 2017 VIEWS: 1: frontal portable view of the chest at 4:40 PM FINDINGS: LINES AND TUBES: None. CARDIOMEDIASTINAL SILHOUETTE: The cardiomediastinal silhouette is stable. PLEURA: There are small to moderate bilateral pleural effusions. LUNG PARENCHYMA: There is a diffuse reticular pattern with indistinct pulmonary vessels. ABDOMEN: The upper abdomen is clear. There is no subphrenic gas. BONES AND SOFT TISSUES: No bone or soft tissue abnormalities are noted. IMPRESSION: PULMONARY INTERSTITIAL EDEMA WITH BILATERAL PLEURAL EFFUSIONS.
[2017-12-14] MEDS ORDERED: Furosemide IV* 10 MG/ML 2 ML VIAL (20 MG) IV SLOW PU ONE (17:25)
--- NOTE | 2017-12-14 21:00 | PN ---
Subjective Date of Service: 12/14/17 Interval History: Patient's mental status continues to improve. Patient denies any pain, SOB, N/V , Diarrhea, Constipation, ABdominal or rectal pain, CP, or other abnormality. Patient has slight dizziness on standing. Not orthostatic. Patient became hypoxic in the AM without increased WOB or wheezing. CXR showed pulmonary edema. Denies LE swelling. Family History: Unchanged from Admission Social History: Unchanged from Admission Past Medical History: Unchanged from Admission Objective Active Medications: Acetaminophen (Tylenol Tab*) 650 mg PO Q4H PRN PRN Reason: FEVER/PAIN Amlodipine Besylate (Norvasc Tab*) 5 mg PO DAILY COUNTS INCLUDE 234 BEDS AT THE [facility] Last Admin: 12/14/17 09:08 Dose: 5 mg Aspirin (Aspirin Ec Low Dose*) 81 mg PO DAILY COUNTS INCLUDE 234 BEDS AT THE [facility] Last Admin: 12/14/17 09:08 Dose: 81 mg Dextrose (D50w Syringe 50 Ml*) 12.5 gm IV PUSH .FOR FS < 60 - SS PRN PRN Reason: FS < 60 Heparin Sodium (Porcine) (Heparin Vial(*)) 5,000 units SUBCUT Q8HR COUNTS INCLUDE 234 BEDS AT THE [facility] Last Admin: 12/14/17 15:06 Dose: 5,000 units Insulin Glargine (Lantus(*)) 5 units SUBCUT QAM COUNTS INCLUDE 234 BEDS AT THE [facility] Last Admin: 12/14/17 09:08 Dose: 5 unit Insulin Human Lispro (Humalog*) 0 units SUBCUT AC COUNTS INCLUDE 234 BEDS AT THE [facility] PRN Reason: Protocol Last Admin: 12/14/17 16:48 Dose: 2 units Levetiracetam (Keppra Tab*) 500 mg PO BID COUNTS INCLUDE 234 BEDS AT THE [facility] Last Admin: 12/14/17 09:08 Dose: 500 mg Meclizine HCl (Antivert Tab*) 12.5 mg PO Q8HR PRN PRN Reason: DIZZINESS Last Admin: 12/11/17 17:22 Dose: 12.5 mg Nitrofurantoin Macrocrystals (Macrodantin*) 100 mg PO BID COUNTS INCLUDE 234 BEDS AT THE [facility] Last Admin: 12/14/17 09:11 Dose: 100 mg Ondansetron HCl (Zofran Inj*) 4 mg IV Q6H PRN PRN Reason: NAUSEA Last Admin: 12/11/17 08:53 Dose: 4 mg Prochlorperazine Edisylate (Compazine Inj*) 5 mg IV Q6H PRN PRN Reason: NAUSEA/VOMITING Last Admin: 12/10/17 07:26 Dose: 5 mg Rosuvastatin Calcium (Crestor (Nf)) 40 mg PO BEDTIME [facility] Last Admin: 12/13/17 20:36 Dose: 40 mg Vital Signs - 8 hr 12/14/17 12/14/17 12/14/17 15:38 15:41 15:44 Temperature 98.0 F Pulse Rate 92 96 102 Respiratory 16 Rate Blood Pressure 120/47 117/61 117/53 (mmHg) O2 Sat by Pulse 85 94 Oximetry Oxygen Devices in Use Now: None Appearance: Patient is a 72yo female with obvious facial droop who is sitting in the chair in NAD. Eyes: No Scleral Icterus, PERRLA Ears/Nose/Mouth/Throat: NL Teeth, Lips, Gums, Clear Oropharnyx, Mucous Membranes Moist Neck: NL Appearance and Movements; NL JVP, Trachea Midline, No Thyroid Enlargement, Masses Respiratory: Symmetrical Chest Expansion and Respiratory Effort, Clear to Auscultation, - - No Crackles. Cardiovascular: NL Sounds; No Murmurs; No JVD, RRR, No Edema Abdominal: NL Sounds; No Tenderness; No Distention, No Hepatosplenomegaly Lymphatic: No Cervical Adenopathy Extremities: No Edema, No Clubbing, Cyanosis Skin: No Rash or Ulcers, No Nodules or Sclerosis Neurological: Alert and Oriented x 3, NL Sensation, NL Gait, NL Muscle Strength and Tone, - - Facial droop, slurred speech, consistent with previous exam. Result Diagrams: 12/14/17 05:22 12/14/17 06:52 Additional Lab and Data: . Assess/Plan/Problems-Billing Assessment: Ms. Cheung is a 72 yo female with PMH of DM, HTN, HLD last discharged on after being treated for encephalopathy suspected secondary to medications and /or seizure activity who was admitted on 12/09/17 with weakness and nausea/ vomiting. Is improving greatly. - Patient Problems (1) UTI (urinary tract infection) Current Visit: Yes Status: Acute Priority: High Comment: Urine culture with klebsiella, now with enterococcus as well, will switch to nitrofurantoin to which it has intermediate sensitivity (allergic to pcn). No signs of Pyelonephritis. Urinary retention on arrival, requiring sanches placement. Sanches removed today. No void yet, Bladder scan pending. Likely cause of metabolic encephalopathy. Improving greatly with Nitrofurantoin treatment today. (2) Encephalopathy Current Visit: Yes Status: Acute Priority: High Code(s): G93.40 - ENCEPHALOPATHY, UNSPECIFIED SNOMED Code(s): 56640626 Comment: Much more alert today Probably related to underlying uti, Continue with supportive care, no neck pain or headache. Extensive workup 1 month ago was negative at that time. Improving and will not repeat. (3) DM2 (diabetes mellitus, type 2) Current Visit: Yes Status: Acute Priority: High Comment: BGs Moderately well controlled Lantus 5 units now and continue lispro SSI coverage with meals. Hold glipizide and metformin. 1 BG of 74 in AM. (4) HTN (hypertension) Current Visit: Yes Status: Acute Priority: High Code(s): I10 - ESSENTIAL ( PRIMARY) HYPERTENSION SNOMED Code(s): 07061881 Comment: Normotensive. Not orthostatic. Amlodipine dose of 5mg daily. (5) Hyperlipidemia Current Visit: Yes Status: Acute Priority: High Code(s): E78.5 - HYPERLIPIDEMIA, UNSPECIFIED SNOMED Code(s): 68086117 Comment: Continue rosuvastatin. (6) Nausea & vomiting Current Visit: Yes Status: Acute Priority: High Code(s): R11.2 - NAUSEA WITH VOMITING, UNSPECIFIED SNOMED Code(s): 21507573 Comment: Resolved. Meclizine PRN. Good appetite. (7) Proctitis Current Visit: Yes Status: Acute Priority: High Code(s): K62.89 - OTHER SPECIFIED DISEASES OF ANUS AND RECTUM SNOMED Code(s): 7546560 Comment: No wall thickening but other signs of proctitis on CT. Case discussed with GI. As patient has no diarrhea or other symptoms typical proctitis and had colonoscopy 2 years ago that showed micro colitis only, no indication for colonoscopy at this point. CRP 85, afebrile, no leukocytosis. Has small stools but no diarrhea. No abdominal pain. CRP decreasing. Stop ceftriaxone and flagyl and monitor. Likely purely radiographic phenomenon due to lack of associated pain or likely cause. (8) Rheumatoid arthritis Current Visit: Yes Status: Acute Priority: High Code(s): M06.9 - RHEUMATOID ARTHRITIS, UNSPECIFIED SNOMED Code(s): 88497371 Comment: Entanercept held in setting of acute illness. Patient is unable to go to [facility] due to cost of med. Consider holding if sending to [facility]. (9) Seizure Current Visit: Yes Status: Acute Priority: High Code(s): R56.9 - UNSPECIFIED CONVULSIONS SNOMED Code(s): 05811038 Comment: No clear evidence of seizure activity. EEG showed diffuse slowing and no epileptiform discharges. Continue keppra. Level Therapeutic (10) SVT (supraventricular tachycardia) Current Visit: Yes Status: Acute Code(s): I47.1 - SUPRAVENTRICULAR TACHYCARDIA SNOMED Code(s): 9956345 Comment: SVT in the 180s for approximately 10 seconds with 1 recurrence. 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 Patient sleeping both times. Stop Scopalamine. No recurrance in 2 days. (11) DVT prophylaxis Current Visit: Yes Status: Acute Priority: High Code(s): HPB4953 - SNOMED Code(s): 499958368 Comment: - Heparin sub-q. Status and Disposition: Inpatient. Probable D/C to [facility] for deconditioning
[2017-12-14] MEDS: CMC:Rosuvastatin (NF) 20 MG TAB PO SCH (21:08)
[2017-12-15 05:49] LABS: ABS Basophils 0 10^3/ul (0-0.2); ABS Eosinophils 0.1 10^3/ul (0-0.6); ABS Lymphocytes 1.2 10^3/ul (1.0-4.8); ABS Monocytes 0.5 10^3/ul (0-0.8); ABS Neutrophils 4.8 10^3/ul (1.5-7.7); ABS Nucleated RBC 0 10^3/ul; Eosinophil % 1.9 % (0-6); Hematocrit 32 % (35-47); Hemoglobin 10.8 g/dl (12.0-16.0); Lymphocyte % 18.7 % (25-47); Mean Corpuscular HGB Conc 34 g/dl (31-36); Mean Corpuscular Hemoglobin 28 pg (27-31); Mean Corpuscular Volume 81 fL (80-97); Mean Platelet Volume 8 um3 (7.4-10.4); Nucleated Red Blood Cells % 0; Platelet Count 145 10^3/ul (150-450); Red Blood Count 3.91 10^6/ul (4.0-5.4); Red Cell Distribution Width 15 % (10.5-15); White Blood Count 6.7 10^3/ul (3.5-10.8)
[2017-12-15] MEDS: Heparin VIAL(*) 5000 UNITS/ML VIAL (FIVE THOUSAND) SUBCUT SCH ×3 (06:03→21:49)
[2017-12-15 06:05] LABS: EGFR Non-African American 74.4 (>60)
[2017-12-15] MEDS: Insulin LISPRO* 1 UNITS UNIT SUBCUT SCH ×3 (08:48→18:04)
[2017-12-15] MEDS: levETIRAcetam TAB* 500 MG PO SCH ×2 (08:48→20:23)
[2017-12-15] MEDS: Nitrofurantoin Macrocrystals* 100 MG CAP PO SCH ×2 (08:48→20:23)
[2017-12-15] MEDS: Aspirin EC Low Dose* 81 MG TAB.EC PO SCH (08:48)
[2017-12-15] MEDS: Insulin GLARGINE(*) 1 UNITS UNIT SUBCUT SCH (08:48)
[2017-12-15] MEDS: amLODIPine TAB* 5 MG PO SCH (08:48)
[2017-12-15] MEDS: Acetaminophen TAB* 325 MG PO PRN (12:05)
[2017-12-15] MEDS: KCL 10 MEQ/50 ML IVPREMIX* 10 MEQ/50 ML BAG IV SCH ×2 (13:12→14:59)
[2017-12-15] MEDS ORDERED: Potassium Chloride LIQUID* 20 MEQ PACKET PO ONE (13:50)
--- NOTE | 2017-12-15 18:13 | PN ---
Subjective Date of Service: 12/15/17 Interval History: Patient seen and examined. Per RN, had continued incontinence after sanches was removed. Ordered bladder scan, patient is retaining >900cc urine. Sanches was replaced. PAtient states abdomen was sore, but no overt pain. Mentation appears appropriate. No further complaints of fever, chills or cough, no chest pain and no SOB. Tolerating PO diet. Family History: Unchanged from Admission Social History: Unchanged from Admission Past Medical History: Unchanged from Admission Objective Active Medications: Acetaminophen (Tylenol Tab*) 650 mg PO Q4H PRN PRN Reason: FEVER/PAIN Last Admin: 12/15/17 12:05 Dose: 650 mg Amlodipine Besylate (Norvasc Tab*) 5 mg PO DAILY [facility] Last Admin: 12/15/17 08:48 Dose: 5 mg Aspirin (Aspirin Ec Low Dose*) 81 mg PO DAILY [facility] Last Admin: 12/15/17 08:48 Dose: 81 mg Dextrose (D50w Syringe 50 Ml*) 12.5 gm IV PUSH .FOR FS < 60 - SS PRN PRN Reason: FS < 60 Heparin Sodium (Porcine) (Heparin Vial(*)) 5,000 units SUBCUT Q8HR [facility] Last Admin: 12/15/17 14:00 Dose: 5,000 units Insulin Glargine (Lantus(*)) 5 units SUBCUT QAM [facility] Last Admin: 12/15/17 08:48 Dose: 5 unit Insulin Human Lispro (Humalog*) 0 units SUBCUT AC [facility] PRN Reason: Protocol Last Admin: 12/15/17 18:04 Dose: 1 units Levetiracetam (Keppra Tab*) 500 mg PO BID [facility] Last Admin: 12/15/17 08:48 Dose: 500 mg Meclizine HCl (Antivert Tab*) 12.5 mg PO Q8HR PRN PRN Reason: DIZZINESS Last Admin: 12/11/17 17:22 Dose: 12.5 mg Nitrofurantoin Macrocrystals (Macrodantin*) 100 mg PO BID [facility] Last Admin: 12/15/17 08:48 Dose: 100 mg Ondansetron HCl (Zofran Inj*) 4 mg IV Q6H PRN PRN Reason: NAUSEA Last Admin: 12/11/17 08:53 Dose: 4 mg Potassium Chloride (Klor-Con Liquid*) 40 meq PO ONCE ONE Stop: 12/16/17 13:49 Prochlorperazine Edisylate (Compazine Inj*) 5 mg IV Q6H PRN PRN Reason: NAUSEA/VOMITING Last Admin: 12/10/17 07:26 Dose: 5 mg Rosuvastatin Calcium (Crestor (Nf)) 40 mg PO BEDTIME [facility] Last Admin: 12/14/17 21:08 Dose: 40 mg Vital Signs - 8 hr 12/15/17 12/15/17 12:00 15:25 Temperature 99.1 F 97.5 F Pulse Rate 92 88 Respiratory 16 16 Rate Blood Pressure 149/60 139/71 (mmHg) O2 Sat by Pulse 94 100 Oximetry Oxygen Devices in Use Now: None Appearance: Disheveled, alert, NAD Ears/Nose/Mouth/Throat: - - edentulous Neck: Trachea Midline Respiratory: Symmetrical Chest Expansion and Respiratory Effort, Clear to Auscultation Cardiovascular: NL Sounds; No Murmurs; No JVD, RRR Abdominal: NL Sounds; No Tenderness; No Distention Extremities: No Edema Neurological: - - alert and oriented x2 Nutrition: Taking PO's, - - puree diet Result Diagrams: 12/15/17 05:20 12/15/17 05:20 Additional Lab and Data: . Diagnostic Imaging: Patient Name: LA CHEUNG Medical Record#: [id number] Ordering Physician: Waldo Gonzalez ENGINE ROOM HELPER Acct.#: [id number] : 1945 Age: 71 Sex: F Location: [address] [place] [address] MEDICAL/TELEMETRY Exam Date: 12/09/171553 ADM Status: ADM IN Order Information: CT BRAIN WO Accession Number: [id number] CPT: 91253 INDICATION: Weakness COMPARISON: Most recent CT of the brain is dated November 10, 2017 TECHNIQUE: Contiguous axial sections of the brain were obtained from the skull base to the vertex without contrast. FINDINGS: The ventricles, cisterns and sulci are within normal limits. Incidentally noted is a cavum septum pellucidum. The hernández-white matter differentiation is adequately maintained and there is no sulcal effacement. No significant focal abnormality or mass effect is present. There is no evidence for intracranial hemorrhage. No significant focal osseous abnormality is present. There is mild mucosal thickening of the right maxillary sinus. The remaining visualized paranasal sinuses are clear. Similar to the prior CT examination, the mastoid air cells are hypoplastic. There is trace mastoid air cell effusion in the lower left mastoid air cells similar in appearance to the previous CT examination. IMPRESSION: 1. No acute intracranial abnormality. 2. Mild paranasal sinus mucosal thickening involving the right maxillary sinus. 3. Trace dependent left mastoid air cell effusion similar to the previous CT the brain. <Electronically signed by Paresh Irving MD in [facility]> 12/09/171641 Dictated By: Paresh Irving MD Dictated Date/Time: 12/09/171641 Transcribed Date/Time: 12/09/17 1639 Copy to: Patient Name: LA CHEUNG Medical Record#: [id number] Ordering Physician: Waldo Gonzalez ENGINE ROOM HELPER Acct.#: [id number] : 1945 Age: 71 Sex: F Location: [address] [place] [address]/TELEMETRY Exam Date: 12/09/17 1557 ADM Status: ADM IN Order Information: CT ABD/PEL W Accession Number: [id number] CPT: 64300 CLINICAL HISTORY: Emesis. Relevant surgical history includes hysterectomy. COMPARISON: Most recent CT of the abdomen and pelvis dated August 04, 2015 TECHNIQUE: Contrast enhanced CT examination of the abdomen and pelvis from the lung bases through the initial tuberosities. The patient received 80 mL Visipaque 320 intravenously prior to imaging.The patient received oral contrast as well prior to imaging. FINDINGS: VISUALIZED LUNG BASES: The visualized lung bases are grossly clear. There is no pleural effusion. ABDOMEN AND PELVIS: The liver, spleen, pancreas and adrenal glands are grossly normal in appearance. The gallbladder is normal. The kidneys are normal in appearance without focal mass, calcification or signs of hydronephrosis. The urinary bladder measures 8.8 x 9.6 cm in the axial plane and 15.1 cm in greatest cephalocaudal dimension. This yields an approximate volume of 1033 mL. Evaluation of the gastrointestinal tract is limited without oral contrast. The small and large bowel are not distended. Depicted best on the sagittal plane images is the patient's 4 mm appendix (image 45). The gas and stool-filled colon is mostly unremarkable. There is infiltration of the perirectal fat with trace ascites in the dependent portion of the perirectal fat. There is no gross retroperitoneal or mesenteric lymphadenopathy. The uterus is surgically absent. The abdominal aorta and iliac arteries are normal in course and diameter. Degenerative changes include multilevel loss of intervertebral disc height involving the lower thoracic and lumbar spine.There are no sinister bone lesions. IMPRESSION: 1. Although there is no definite wall thickening, there is infiltration of the perirectal fat with presacral fluid in the dependent pelvis. Please correlate to signs or symptoms of proctitis. Particularly if the patient has never had a colonoscopy direct visualization after the patient's acute symptoms have resolved is advised to evaluate for neoplasm. 2. The urinary bladder yields an approximate volume of 1 L. Please correlate to signs or symptoms of bladder outlet obstruction or neurogenic bladder. 3. Additional chronic, degenerative and iatrogenic findings described in the body the report. <Electronically signed by Paresh Irving MD in [facility]> 12/09/17 1695 Dictated By: Paresh Irving MD 1 of 2 Assess/Plan/Problems-Billing Assessment: Ms. Cheung is a 72 yo female with PMH of DM, HTN, HLD last discharged on after being treated for encephalopathy suspected secondary to medications and /or seizure activity who was admitted on 12/09/17 with weakness and nausea/ vomiting, currently improving but now with urinary retention. - Patient Problems (1) Encephalopathy Code(s): G93.40 - ENCEPHALOPATHY, UNSPECIFIED SNOMED Code(s): 66145744 Comment: - Mentation intact - Likely related to underlying UTI and retention - Extensive workup 1 month ago was negative at that time - Supportive care (2) Nausea & vomiting Code(s): R11.2 - NAUSEA WITH VOMITING, UNSPECIFIED SNOMED Code(s): 81804018 Comment: - Resolved. CT negative for acute patho, likely viral etiology - Meclizine PRN. Tolerating PO (3) Proctitis Code(s): K62.89 - OTHER SPECIFIED DISEASES OF ANUS AND RECTUM SNOMED Code(s): 1667997 Comment: - No wall thickening but other signs of proctitis on CT - Per record, Case discussed with GI. As patient has no diarrhea or other symptoms typical proctitis and had colonoscopy 2 years ago that showed micro colitis only, no indication for colonoscopy at this point CRP 85, afebrile, no leukocytosis. Has small stools but no diarrhea. No abdominal pain. CRP decreasing. Stop ceftriaxone and flagyl and monitor. Likely purely radiographic phenomenon due to lack of associated pain or likely cause. (4) DM2 (diabetes mellitus, type 2) Comment: - BGs Moderately well controlled - Lantus and continue lispro SSI coverage with meals. (5) HTN (hypertension) Code(s): I10 - ESSENTIAL (PRIMARY) HYPERTENSION SNOMED Code(s): 41569107 Comment: - Stable on Amlodipine dose of 5mg daily. (6) Hyperlipidemia Code(s): E78.5 - HYPERLIPIDEMIA, UNSPECIFIED SNOMED Code(s): 67279585 Comment: - Cont statin (7) UTI (urinary tract infection) Comment: - Urine culture with klebsiella/enterococcus - Nitrofurantoin to which it has intermediate sensitivity (PCN allergy) per JI - No signs of Pyelonephritis - Persistent retention, sanches reinserted today - Likely etiology for TME Status and Disposition: Improving, remain inpatient, likely DC to STR.
[2017-12-15] MEDS: CMC:Rosuvastatin (NF) 20 MG TAB PO SCH (20:23)
[2017-12-15] MEDS ORDERED: Senna TAB PO PRN (22:00)
[2017-12-15] MEDS ORDERED: Docusate CAP* 100 MG PO PRN (22:00)
[2017-12-16] MEDS: Heparin VIAL(*) 5000 UNITS/ML VIAL (FIVE THOUSAND) SUBCUT SCH (06:01)
[2017-12-16] MEDS: Insulin GLARGINE(*) 1 UNITS UNIT SUBCUT SCH (08:58)
[2017-12-16] MEDS: Insulin LISPRO* 1 UNITS UNIT SUBCUT SCH ×3 (08:58→17:28)
[2017-12-16] MEDS: Nitrofurantoin Macrocrystals* 100 MG CAP PO SCH ×2 (08:58→20:56)
[2017-12-16] MEDS: amLODIPine TAB* 5 MG PO SCH (08:58)
[2017-12-16] MEDS: levETIRAcetam TAB* 500 MG PO SCH ×2 (08:59→20:56)
[2017-12-16] MEDS: Aspirin EC Low Dose* 81 MG TAB.EC PO SCH (08:59)
[2017-12-16 10:13] LABS: EGFR Non-African American 72.2 (>60)
[2017-12-16 10:15] LABS: Hematocrit 31 % (35-47); Hemoglobin 10.4 g/dl (12.0-16.0)
--- NOTE | 2017-12-16 10:57 | PN ---
Subjective Date of Service: 12/16/17 Interval History: Patient seen and examined. Quiet today, does not want to answer questions, states she wants to go home. Appears frustrated and closes eyes during exam and does not wish to be examined today. Per RN, she was complaining of rectal pain/ pressure earlier with no other complaints. Family History: Unchanged from Admission Social History: Unchanged from Admission Past Medical History: Unchanged from Admission Objective Active Medications: Acetaminophen (Tylenol Tab*) 650 mg PO Q4H PRN PRN Reason: FEVER/PAIN Last Admin: 12/15/17 12:05 Dose: 650 mg Amlodipine Besylate (Norvasc Tab*) 5 mg PO DAILY [facility] Last Admin: 12/16/17 08:58 Dose: 5 mg Aspirin (Aspirin Ec Low Dose*) 81 mg PO DAILY [facility] Last Admin: 12/16/17 08:59 Dose: 81 mg Dextrose (D50w Syringe 50 Ml*) 12.5 gm IV PUSH .FOR FS < 60 - SS PRN PRN Reason: FS < 60 Docusate Sodium (Colace Cap*) 100 mg PO BID PRN PRN Reason: CONSTIPATION Heparin Sodium (Porcine) (Heparin Vial(*)) 5,000 units SUBCUT Q8HR [facility] Last Admin: 12/16/17 06:01 Dose: 5,000 units Magnesium Sulfate/Dextrose (Magnesium Sulfate 1 Gm Iv*) 1 gm in 100 mls @ 200 mls/hr IV ONCE ONE Stop: 12/16/17 11:16 Potassium Chloride (Potassium Chloride 10 Meq/50 Ml Ivpremix*) 10 meq in 50 mls @ 50 mls/hr IV Q2H [facility] Stop: 12/16/17 13:59 Insulin Glargine (Lantus(*)) 5 units SUBCUT QAM [facility] Last Admin: 12/16/17 08:58 Dose: 5 unit Insulin Human Lispro (Humalog*) 0 units SUBCUT AC [facility] PRN Reason: Protocol Last Admin: 12/16/17 08:58 Dose: 2 units Levetiracetam (Keppra Tab*) 500 mg PO BID [facility] Last Admin: 12/16/17 08:59 Dose: 500 mg Meclizine HCl (Antivert Tab*) 12.5 mg PO Q8HR PRN PRN Reason: DIZZINESS Last Admin: 12/11/17 17:22 Dose: 12.5 mg Nitrofurantoin Macrocrystals (Macrodantin*) 100 mg PO BID [facility] Last Admin: 12/16/17 08:58 Dose: 100 mg Ondansetron HCl (Zofran Inj*) 4 mg IV Q6H PRN PRN Reason: NAUSEA Last Admin: 12/11/17 08:53 Dose: 4 mg Potassium Chloride (Klor-Con Liquid*) 40 meq PO ONCE ONE Stop: 12/16/17 13:49 Prochlorperazine Edisylate (Compazine Inj*) 5 mg IV Q6H PRN PRN Reason: NAUSEA/VOMITING Last Admin: 12/10/17 07:26 Dose: 5 mg Rosuvastatin Calcium (Crestor (Nf)) 40 mg PO BEDTIME [facility] Last Admin: 12/15/17 20:23 Dose: 40 mg Senna (Senokot Tab*) 2 tab PO BEDTIME PRN PRN Reason: CONSTIPATION Vital Signs - 8 hr 12/16/17 12/16/17 12/16/17 03:39 07:17 07:33 Temperature 99.4 F 98.3 F Pulse Rate 89 87 Respiratory 18 16 16 Rate Blood Pressure 143/60 137/53 (mmHg) O2 Sat by Pulse 91 92 Oximetry Oxygen Devices in Use Now: Nasal Cannula Appearance: Sleepy, disheveled Eyes: PERRLA Ears/Nose/Mouth/Throat: Mucous Membranes Moist, - - edentulous Neck: Trachea Midline Respiratory: Symmetrical Chest Expansion and Respiratory Effort, Clear to Auscultation Cardiovascular: NL Sounds; No Murmurs; No JVD, RRR Neurological: - - Uncooperative today Nutrition: - - poor PO intake per RN Result Diagrams: 12/16/17 09:50 12/16/17 09:53 Additional Lab and Data: . Microbiology and Other Data: Microbiology 12/15/17 21:35 Stool Occult Blood (JI) - Final Stool Diagnostic Imaging: Patient Name: LA CHEUNG Medical Record#: [id number] Ordering Physician: Waldo Gonzalez CLINICAL MATERIAL HANDLER Acct.#: [id number] : 1945 Age: 71 Sex: F Location: [address] [place] [address] MEDICAL/TELEMETRY Exam Date: 12/09/17 155 ADM Status: ADM IN Order Information: CT BRAIN WO Accession Number: [id number] CPT: 32437 INDICATION: Weakness COMPARISON: Most recent CT of the brain is dated November 10, 2017 TECHNIQUE: Contiguous axial sections of the brain were obtained from the skull base to the vertex without contrast. FINDINGS: The ventricles, cisterns and sulci are within normal limits. Incidentally noted is a cavum septum pellucidum. The hernández-white matter differentiation is adequately maintained and there is no sulcal effacement. No significant focal abnormality or mass effect is present. There is no evidence for intracranial hemorrhage. No significant focal osseous abnormality is present. There is mild mucosal thickening of the right maxillary sinus. The remaining visualized paranasal sinuses are clear. Similar to the prior CT examination, the mastoid air cells are hypoplastic. There is trace mastoid air cell effusion in the lower left mastoid air cells similar in appearance to the previous CT examination. IMPRESSION: 1. No acute intracranial abnormality. 2. Mild paranasal sinus mucosal thickening involving the right maxillary sinus. 3. Trace dependent left mastoid air cell effusion similar to the previous CT the brain. <Electronically signed by Paresh Irving MD in [facility]> 12/09/171641 Dictated By: Paresh Irving MD Dictated Date/Time: 12/09/17 164 Transcribed Date/Time: 12/09/17 1639 Copy to: Patient Name: LA CHEUNG Medical Record#: [id number] Ordering Physician: Waldo Gonzalez CLINICAL MATERIAL HANDLER Acct.#: [id number] : 1945 Age: 71 Sex: F Location: [address] [place] [address]/TELEMETRY Exam Date: 12/09/17 1557 ADM Status: ADM IN Order Information: CT ABD/PEL W Accession Number: [id number] CPT: 05491 CLINICAL HISTORY: Emesis. Relevant surgical history includes hysterectomy. COMPARISON: Most recent CT of the abdomen and pelvis dated August 04, 2015 TECHNIQUE: Contrast enhanced CT examination of the abdomen and pelvis from the lung bases through the initial tuberosities. The patient received 80 mL Visipaque 320 intravenously prior to imaging.The patient received oral contrast as well prior to imaging. FINDINGS: VISUALIZED LUNG BASES: The visualized lung bases are grossly clear. There is no pleural effusion. ABDOMEN AND PELVIS: The liver, spleen, pancreas and adrenal glands are grossly normal in appearance. The gallbladder is normal. The kidneys are normal in appearance without focal mass, calcification or signs of hydronephrosis. The urinary bladder measures 8.8 x 9.6 cm in the axial plane and 15.1 cm in greatest cephalocaudal dimension. This yields an approximate volume of 1033 mL. Evaluation of the gastrointestinal tract is limited without oral contrast. The small and large bowel are not distended. Depicted best on the sagittal plane images is the patient's 4 mm appendix (image 45). The gas and stool-filled colon is mostly unremarkable. There is infiltration of the perirectal fat with trace ascites in the dependent portion of the perirectal fat. There is no gross retroperitoneal or mesenteric lymphadenopathy. The uterus is surgically absent. The abdominal aorta and iliac arteries are normal in course and diameter. Degenerative changes include multilevel loss of intervertebral disc height involving the lower thoracic and lumbar spine.There are no sinister bone lesions. IMPRESSION: 1. Although there is no definite wall thickening, there is infiltration of the perirectal fat with presacral fluid in the dependent pelvis. Please correlate to signs or symptoms of proctitis. Particularly if the patient has never had a colonoscopy direct visualization after the patient's acute symptoms have resolved is advised to evaluate for neoplasm. 2. The urinary bladder yields an approximate volume of 1 L. Please correlate to signs or symptoms of bladder outlet obstruction or neurogenic bladder. 3. Additional chronic, degenerative and iatrogenic findings described in the body the report. <Electronically signed by Paresh Irving MD in [facility]> 12/09/17 5582 Dictated By: Paresh Irving MD 1 of 2 Assess/Plan/Problems-Billing Assessment: Ms. Cheung is a 72 yo female with PMH of DM, HTN, HLD last discharged on after being treated for encephalopathy suspected secondary to medications and /or seizure activity who was admitted on 12/09/17 with weakness and nausea/ vomiting, acute urinary retention and proctitis on CT with heme positive stool. - Patient Problems (1) Encephalopathy Code(s): G93.40 - ENCEPHALOPATHY, UNSPECIFIED SNOMED Code(s): 62665892 Comment: - Mentation labile today, uncooperative - Likely multifactorial, underlying UTI, retention, medications, extensive neuro workup 1 month ago was negative, concern for underlying behavioral disorder vs dementia contributing - EEG with no new focalities - Supportive care (2) Nausea & vomiting Code(s): R11.2 - NAUSEA WITH VOMITING, UNSPECIFIED SNOMED Code(s): 66861889 Comment: - Resolved. CT negative for acute patho, likely viral etiology - Meclizine PRN. Tolerating PO (3) Proctitis Code(s): K62.89 - OTHER SPECIFIED DISEASES OF ANUS AND RECTUM SNOMED Code(s): 9713003 Comment: - No wall thickening but other signs of proctitis on CT - Per record, Case discussed with GI. As patient has no diarrhea or other symptoms typical proctitis and had colonoscopy 2 years ago that showed micro colitis only, no indication for colonoscopy at this point - However, patient is guaic positive now and has been complaining of rectal pain. - Discussed with Dr. Carmichael who will see the patient tomorrow. (4) DM2 (diabetes mellitus, type 2) Comment: - BGs Moderately well controlled - Lantus and continue lispro SSI coverage with meals. (5) HTN (hypertension) Code(s): I10 - ESSENTIAL (PRIMARY) HYPERTENSION SNOMED Code(s): 85100837 Comment: - Stable on Amlodipine dose of 5mg daily. (6) Hyperlipidemia Code(s): E78.5 - HYPERLIPIDEMIA, UNSPECIFIED SNOMED Code(s): 41780800 Comment: - Cont statin (7) UTI (urinary tract infection) Comment: - Urine culture with klebsiella/enterococcus - Nitrofurantoin to which it has intermediate sensitivity (PCN allergy) per JI - No signs of Pyelonephritis - Persistent retention, sanches reinserted today - Likely etiology for TME (8) Hx of seizure disorder Code(s): Z86.69 - PERSONAL HISTORY OF DIS OF THE NERVOUS SYS AND SENSE ORGANS SNOMED Code(s): 056596321 Comment: - EEG negative for epileptiform changes - Continue keppra at current dose (9) Occult blood positive stool Comment: - In presence of slowly decreasing Hgb - Recheck H&H today - GI consulted - Hold ASA and heparin Status and Disposition: Remain inpatien, DC planning to STR when clear. Counseling and/or Coordination of Care Minutes: coordinated with RN and Dr. Carmichael
[2017-12-16] MEDS ORDERED: Magnesium Sulfate 1 GM IV* 1 GM/100 ML BAG IV ONE (11:00)
[2017-12-16] MEDS: KCL 10 MEQ/50 ML IVPREMIX* 10 MEQ/50 ML BAG IV SCH ×2 (11:19→12:40)
[2017-12-16] MEDS: Acetaminophen TAB* 325 MG PO PRN ×2 (11:36→20:57)
[2017-12-16] MEDS ORDERED: Potassium Chloride LIQUID* 20 MEQ PACKET PO ONE ×2 (12:20→13:48)
[2017-12-16] MEDS ORDERED: Al Hydrox/Mg Hydrox/Simet LIQ* 30 ML UDC PO PRN (20:31)
[2017-12-16] MEDS: CMC:Rosuvastatin (NF) 20 MG TAB PO SCH (20:56)
[2017-12-17] MEDS: Insulin GLARGINE(*) 1 UNITS UNIT SUBCUT SCH ×2 (10:12→21:09)
[2017-12-17] MEDS: amLODIPine TAB* 5 MG PO SCH (10:12)
[2017-12-17] MEDS: levETIRAcetam TAB* 500 MG PO SCH ×2 (10:12→21:11)
[2017-12-17] MEDS: Nitrofurantoin Macrocrystals* 100 MG CAP PO SCH ×2 (10:12→21:12)
[2017-12-17] MEDS: Insulin LISPRO* 1 UNITS UNIT SUBCUT SCH ×3 (10:13→17:12)
[2017-12-17] MEDS ORDERED: Dextrose 50% Syringe 50 ML* 25 GM/50 ML SYRINGE IV PUSH PRN (12:43)
[2017-12-17] MEDS ORDERED: Insulin LISPRO* 1 UNITS UNIT SUBCUT ONE (12:43)
--- NOTE | 2017-12-17 16:42 | PN ---
Subjective Date of Service: 12/17/17 Interval History: Patient seen and examined. States she is feeling better today. Abdominal pain improved, still with rectal pain, denies fever, fatigue, headache or chills. Was able to ambulate with PT today. States she wants to go home, does not want to go to rehab and her daughter can help her at discharge. Per RN, BG was high ( 420), but patient had no complaints at that time. Family History: Unchanged from Admission Social History: Unchanged from Admission Past Medical History: Unchanged from Admission Objective Active Medications: Acetaminophen (Tylenol Tab*) 650 mg PO Q4H PRN PRN Reason: FEVER/PAIN Last Admin: 12/16/17 20:57 Dose: 650 mg Al Hydrox/Mg Hydrox/Simethicone (Maalox Plus*) 30 ml PO Q4H PRN PRN Reason: INDIGESTION Last Admin: 12/16/17 21:20 Dose: 30 ml Amlodipine Besylate (Norvasc Tab*) 5 mg PO DAILY [facility] Last Admin: 12/17/17 10:12 Dose: 5 mg Dextrose (D50w Syringe 50 Ml*) 12.5 gm IV PUSH .FOR FS < 60 - SS PRN PRN Reason: FS < 60 Docusate Sodium (Colace Cap*) 100 mg PO BID PRN PRN Reason: CONSTIPATION Insulin Glargine (Lantus(*)) 10 units SUBCUT BID [facility] Insulin Human Lispro (Humalog*) 0 units SUBCUT AC [facility] PRN Reason: Protocol Last Admin: 12/17/17 13:24 Dose: Not Given Levetiracetam (Keppra Tab*) 500 mg PO BID [facility] Last Admin: 12/17/17 10:12 Dose: 500 mg Meclizine HCl (Antivert Tab*) 12.5 mg PO Q8HR PRN PRN Reason: DIZZINESS Last Admin: 12/11/17 17:22 Dose: 12.5 mg Nitrofurantoin Macrocrystals (Macrodantin*) 100 mg PO BID [facility] Last Admin: 12/17/17 10:12 Dose: 100 mg Ondansetron HCl (Zofran Inj*) 4 mg IV Q6H PRN PRN Reason: NAUSEA Last Admin: 12/11/17 08:53 Dose: 4 mg Prochlorperazine Edisylate (Compazine Inj*) 5 mg IV Q6H PRN PRN Reason: NAUSEA/VOMITING Last Admin: 12/10/17 07:26 Dose: 5 mg Rosuvastatin Calcium (Crestor (Nf)) 40 mg PO BEDTIME MEREDITH Last Admin: 12/16/17 20:56 Dose: 40 mg Senna (Senokot Tab*) 2 tab PO BEDTIME PRN PRN Reason: CONSTIPATION Last Admin: 12/16/17 21:19 Dose: 2 tab Vital Signs - 8 hr 12/17/17 15:07 Temperature 98.4 F Pulse Rate 93 Respiratory 22 Rate Blood Pressure 126/48 (mmHg) O2 Sat by Pulse 94 Oximetry Oxygen Devices in Use Now: None Appearance: Alert, NAD Eyes: PERRLA Ears/Nose/Mouth/Throat: Mucous Membranes Moist Neck: Trachea Midline Respiratory: Symmetrical Chest Expansion and Respiratory Effort, Clear to Auscultation Cardiovascular: NL Sounds; No Murmurs; No JVD, RRR Skin: No Rash or Ulcers Neurological: Alert and Oriented x 3 Lines/Tubes/Other Access: Clean, Dry and Intact Sanches Nutrition: Taking PO's Result Diagrams: 12/16/17 09:50 12/16/17 09:53 Additional Lab and Data: . Microbiology and Other Data: Microbiology 12/15/17 21:35 Stool Occult Blood (JI) - Final Stool Diagnostic Imaging: Patient Name: LA CHEUNG Medical Record#: [id number] Ordering Physician: Waldo Gonzalez [employer] TECHNICIAN Acct.#: [id number] : 1945 Age: 71 Sex: F Location: [address] [place] [address] MEDICAL/TELEMETRY Exam Date: 12/09/171553 ADM Status: ADM IN Order Information: CT BRAIN WO Accession Number: [id number] CPT: 19594 INDICATION: Weakness COMPARISON: Most recent CT of the brain is dated November 10, 2017 TECHNIQUE: Contiguous axial sections of the brain were obtained from the skull base to the vertex without contrast. FINDINGS: The ventricles, cisterns and sulci are within normal limits. Incidentally noted is a cavum septum pellucidum. The hernández-white matter differentiation is adequately maintained and there is no sulcal effacement. No significant focal abnormality or mass effect is present. There is no evidence for intracranial hemorrhage. No significant focal osseous abnormality is present. There is mild mucosal thickening of the right maxillary sinus. The remaining visualized paranasal sinuses are clear. Similar to the prior CT examination, the mastoid air cells are hypoplastic. There is trace mastoid air cell effusion in the lower left mastoid air cells similar in appearance to the previous CT examination. IMPRESSION: 1. No acute intracranial abnormality. 2. Mild paranasal sinus mucosal thickening involving the right maxillary sinus. 3. Trace dependent left mastoid air cell effusion similar to the previous CT the brain. <Electronically signed by Paresh Irving MD in OV> 12/09/17 164 Dictated By: Paresh Irving MD Dictated Date/Time: 12/09/17 164 Transcribed Date/Time: 12/09/17 1639 Copy to: Patient Name: LA CHEUNG Medical Record#: [id number] Ordering Physician: Waldo Gonzalez [employer]ING TECHNICIAN Acct.#: [id number] : 1945 Age: 71 Sex: F Location: [address] [place] [address] MEDICAL/TELEMETRY Exam Date: 12/09/17 1557 ADM Status: ADM IN Order Information: CT ABD/PEL W Accession Number: [id number] CPT: 18395 CLINICAL HISTORY: Emesis. Relevant surgical history includes hysterectomy. COMPARISON: Most recent CT of the abdomen and pelvis dated August 04, 2015 TECHNIQUE: Contrast enhanced CT examination of the abdomen and pelvis from the lung bases through the initial tuberosities. The patient received 80 mL Visipaque 320 intravenously prior to imaging.The patient received oral contrast as well prior to imaging. FINDINGS: VISUALIZED LUNG BASES: The visualized lung bases are grossly clear. There is no pleural effusion. ABDOMEN AND PELVIS: The liver, spleen, pancreas and adrenal glands are grossly normal in appearance. The gallbladder is normal. The kidneys are normal in appearance without focal mass, calcification or signs of hydronephrosis. The urinary bladder measures 8.8 x 9.6 cm in the axial plane and 15.1 cm in greatest cephalocaudal dimension. This yields an approximate volume of 1033 mL. Evaluation of the gastrointestinal tract is limited without oral contrast. The small and large bowel are not distended. Depicted best on the sagittal plane images is the patient's 4 mm appendix (image 45). The gas and stool-filled colon is mostly unremarkable. There is infiltration of the perirectal fat with trace ascites in the dependent portion of the perirectal fat. There is no gross retroperitoneal or mesenteric lymphadenopathy. The uterus is surgically absent. The abdominal aorta and iliac arteries are normal in course and diameter. Degenerative changes include multilevel loss of intervertebral disc height involving the lower thoracic and lumbar spine.There are no sinister bone lesions. IMPRESSION: 1. Although there is no definite wall thickening, there is infiltration of the perirectal fat with presacral fluid in the dependent pelvis. Please correlate to signs or symptoms of proctitis. Particularly if the patient has never had a colonoscopy direct visualization after the patient's acute symptoms have resolved is advised to evaluate for neoplasm. 2. The urinary bladder yields an approximate volume of 1 L. Please correlate to signs or symptoms of bladder outlet obstruction or neurogenic bladder. 3. Additional chronic, degenerative and iatrogenic findings described in the body the report. <Electronically signed by Paresh Irving MD in OV> 12/09/17 1707 Dictated By: Paresh Irving MD 1 of 2 Assess/Plan/Problems-Billing Assessment: Ms. Cheung is a 72 yo female with PMH of DM, HTN, HLD last discharged on after being treated for encephalopathy suspected secondary to medications and /or seizure activity who was admitted on 12/09/17 with weakness and nausea/ vomiting, acute urinary retention and proctitis on CT with heme positive stool. - Patient Problems (1) Encephalopathy Code(s): G93.40 - ENCEPHALOPATHY, UNSPECIFIED SNOMED Code(s): 66796485 Comment: - Mentation better today, more cooperative - Likely multifactorial, underlying UTI, retention, medications, extensive neuro workup 1 month ago was negative, concern for underlying behavioral disorder vs dementia contributing, however patient is appropriate today and expressing her wishes to be DC to home. - EEG with no new focalities - Supportive care (2) Nausea & vomiting Code(s): R11.2 - NAUSEA WITH VOMITING, UNSPECIFIED SNOMED Code(s): 79116396 Comment: - Resolved. CT negative for acute patho, likely viral etiology - Meclizine PRN. Tolerating PO (3) Proctitis Code(s): K62.89 - OTHER SPECIFIED DISEASES OF ANUS AND RECTUM SNOMED Code(s): 8458327 Comment: - No wall thickening but other signs of proctitis on CT - Per record, Case discussed with GI. As patient has no diarrhea or other symptoms typical proctitis and had colonoscopy 2 years ago that showed micro colitis only, no indication for colonoscopy at this point - However, patient is guaic positive now and has been complaining of rectal pain. - Discussed with Dr. Carmichael 12/16 who will see the patient today. (4) DM2 (diabetes mellitus, type 2) Comment: - BGs Moderately well controlled, with one elevated BG today - Received additional 10 units lispro for coverage - Continue SS and lantus (5) HTN (hypertension) Code(s): I10 - ESSENTIAL (PRIMARY) HYPERTENSION SNOMED Code(s): 83465322 Comment: - Stable on Amlodipine dose of 5mg daily. (6) Hyperlipidemia Code(s): E78.5 - HYPERLIPIDEMIA, UNSPECIFIED SNOMED Code(s): 05114324 Comment: - Cont statin (7) UTI (urinary tract infection) Comment: - Urine culture with klebsiella/enterococcus - Nitrofurantoin to which it has intermediate sensitivity (PCN allergy) per JI - No signs of Pyelonephritis - Trial sanches removal today, bladder has been decompressed for 48 hours and on antibiotics. (8) Hx of seizure disorder Code(s): Z86.69 - PERSONAL HISTORY OF DIS OF THE NERVOUS SYS AND SENSE ORGANS SNOMED Code(s): 963757991 Comment: - EEG negative for epileptiform changes - Continue keppra at current dose (9) Occult blood positive stool Comment: - In presence of slowly decreasing Hgb - H&H today - Pending GI consult - Hold ASA and heparin - PPI added Status and Disposition: Remain inpatien, DC planning to STR when clear, however patient wants to go home. Has daughter to assist. Will need VNS.
[2017-12-17] MEDS: Omeprazole CAP* 20 MG PO SCH (17:12)
[2017-12-17] MEDS: CMC:Rosuvastatin (NF) 20 MG TAB PO SCH (21:12)
--- NOTE | 2017-12-17 21:32 | CONS ---
CONSULTATION REPORT: DATE OF CONSULT: 12/17/17 REQUESTING PHYSICIAN: Amirah Navarro DO and Mera Cantor NP INDICATION: Proctitis. HISTORY OF PRESENT ILLNESS: Ms. Cheung is a 71-year-old female admitted on 02/20 with encephalopathy and weakness. She has a history of diabetes, history of a CVA, seizure, hyperlipidemia, hypertension, rheumatoid arthritis, and TIAs. As part of her workup, she did have a CT abdomen and pelvis. It did reveal possible proctitis; however, the radiologist's interpretation was infiltration of the perirectal fat in the pelvic region. No definite evidence of proctitis exist, but should be ruled out clinically. The patient was seen and examined. She states that she was having loose stools at home; however, she is no longer having diarrhea. She denies any blood in the stool. No unintentional weight loss. She denies any abdominal pain. She did have normal colonoscopies in 2006, 2010. She has been diagnosed with microscopic colitis in the past. She did have a normal flex sig in 2014. She was heme-positive 2 days ago. PAST MEDICAL HISTORY: Please see the HPI. PAST SURGICAL HISTORY: Cleft palate repair, hysterectomy, right ankle surgery, foot surgery. MEDICATIONS: Include: 1. Enbrel. 2. Tylenol. 3. Calcium. 4. Crestor. 5. Celebrex. 6. Clarinex. 7. Glipizide. 8. Aspirin. 9. Metformin. ALLERGIES: ASPIRIN, PENICILLIN, ONIONS and PEPPERS. FAMILY HISTORY: Unable to obtain from the patient as she does not know. SOCIAL HISTORY: No tobacco or alcohol. REVIEW OF SYSTEMS: Twelve systems were reviewed, other than mentioned in the HPI were unremarkable. PHYSICAL EXAM: Temperature is 98.4, blood pressure 126/48. General: Chronically ill-appearing female, lying flat in bed. Alert, pleasant, fluent. HEENT: Mucous membranes are moist. Dentition is poor. Heart: Regular rate and rhythm. Lungs: Clear to auscultation. Abdomen: Positive bowel sounds. Soft, nontender, nondistended. No hepatosplenomegaly, masses, rebound or guarding. Skin is warm and dry. DIAGNOSTIC STUDIES/LAB DATA: Of note, hemoglobin is 10.4. BUN is 9, creatinine is 0.78. She had CT abdomen and pelvis from 8 days ago. Please see the HPI. She has had normal colonoscopies in the past. ASSESSMENT AND PLAN: This is a 71-year-old female, came in with a CT showing possible proctitis; however, currently, the patient denies any diarrhea. She seems to be fairly asymptomatic from a GI standpoint at this point. She has had normal colonoscopies in the past. At this point, I do not think much further workup needs to be done. We will continue to follow along. [id number]/[facility] #: [id number] MTDD
--- NOTE | 2017-12-18 02:14 | PN ---
Progress Note - Progress Note Date of Service: 12/18/17 Note: Paged for bladder scan amount >900 - sanches ordered. Patient unable to have any urine output.
[2017-12-18] MEDS: Omeprazole CAP* 20 MG PO SCH (09:09)
[2017-12-18] MEDS: Insulin LISPRO* 1 UNITS UNIT SUBCUT SCH ×2 (09:09→12:47)
[2017-12-18] MEDS: Insulin GLARGINE(*) 1 UNITS UNIT SUBCUT SCH (09:09)
[2017-12-18] MEDS: amLODIPine TAB* 5 MG PO SCH (09:10)
[2017-12-18] MEDS: levETIRAcetam TAB* 500 MG PO SCH (09:10)
[2017-12-18] MEDS: Nitrofurantoin Macrocrystals* 100 MG CAP PO SCH (09:10)
[2017-12-18 15:24] VITALS: BP 119/62
--- NOTE | 2017-12-19 11:16 | DS ---
AMENDED REPORT NOW INCLUDES COSIGNER DESIGNATION - ESIGNED BEFORE ADJUSTMENT CC: Dr. Lindsey Bermeo * DISCHARGE SUMMARY: DATE OF ADMISSION: 12/09/17 DATE OF DISCHARGE: 12/18/17 PRIMARY CARE PHYSICIAN: Dr. Lindsey Bermeo. ATTENDING PHYSICIAN: Dr. Amirah Navarro.* (DICTATED BY NHUNG FREEMAN NP) HOSPITAL COURSE: This is a 72-year-old female patient, who was brought to the emergency department in an altered state. The patient lives in [facility]. Per the report, she had been having some progressive encephalopathic behavior. The patient does have a history of seizure disorder. It was felt that perhaps she was in a postictal state and not aware of her surroundings secondary to having progressive seizure. However, at admission, she had a brain CT which was negative for any acute findings. It was also noted that she was having nausea, vomiting, and diarrhea. She had CAT scan of the abdomen and pelvis also on the 4th on the day of admission, which showed urinary retention, proctitis and was recommending followup colonoscopy. The patient's nausea, vomiting, and diarrhea persisted. She also had an EEG on the 12/12/17, the EEG which was read by Dr. Jason Mora of Neurology showed generally normal EEG consistent with some slowing, but no acute epileptiform changes during that recording. The patient was acutely retaining urine. Urine revealed urinary tract infection and culture was noted to be growing out 2 different bacteria Klebsiella and Enterococcus faecium. The patient was placed on Macrodantin based on sensitivities. She failed voiding trials 2 times and continued to retain urine. Her nausea, vomiting, and diarrhea resolved. She was seen by Dr. Carmichael of GI, who stated it was not necessary at this time for her to have colonoscopy. Also, of note during the course of her diarrhea, she did have a positive Hemoccult, but she remained stable with her hemoglobin and hematocrit. GI felt that this was secondary to her profuse diarrhea and not through GI bleeding that warranted additional intervention. Again, her hemoglobin remained stable. Her symptoms began to resolve on her own. She failed a final trial to void with Jarrell removal on the 12/17/17 resulting in retention of urine again. Jarrell was replaced in the morning. At first, the patient was refusing to have the Jarrell replaced; however, she relented and was agreeable. Jarrell was replaced this morning and she was ready for discharge to home. Of significant note, the patient refused to go to rehab. She was evaluated by Physical Therapy. She is able to ambulate with some assistance. She does live in [place] and she will be referred for visiting nurse services. PHYSICAL EXAMINATION: Vital signs on the day of discharge: Blood pressure 120/ 52, heart rate 79, respiratory rate 18, satting at 93% on room air, temperature 97.7. HEENT: The patient is atraumatic, normocephalic. PERRLA with nonicteric sclerae. She is edentulous. Neck is supple. No thyromegaly appreciated. No carotid bruit auscultated. Cardiovascular: S1, S2 present. Rate and rhythm are regular. No murmurs, gallops, or rubs. Lungs are clear bilaterally to auscultation, diminished at the bases with no adventitious breath sounds noted. Abdomen is soft, nontender, nondistended. She has some hyperactive bowel sounds noted, otherwise benign belly and no organomegaly appreciated. : She has a Jarrell catheter in place, draining clear yellow urine. Musculoskeletal: There is no clubbing, no cyanosis and no edema. She has a very thin body habitus, is ambulatory. She has +2 distal pulses palpable. Neurologic: She is grossly intact. I think some times she has some baseline cognitive deficit. She definitely has hearing loss and I think at some point she may come across this confusion. However, the patient can make her meet needs known and can answer questions appropriately. She is alert and oriented x3. Psychiatric: She is cooperative and appropriate. LABORATORY DATA: On 12/16/17, hemoglobin 10.4, hematocrit 31. Chemistries: She had some labile blood sugars on the 12/17/17, she was as high as 402; however, sugars have remained primarily in the 150 to 230 range. DISCHARGE DIAGNOSES: 1. Altered mental status and acute encephalopathy likely secondary to urinary tract infection. 2. Urinary tract infection with Klebsiella and Enterococcus. 3. Diabetes mellitus type 2. 4. History of seizure disorder. 5. Nausea, vomiting, and diarrhea likely secondary to viral gastroenteritis. 6. Proctitis as found on CAT scan. 7. Hypertension. 8. Hyperlipidemia. 9. Positive occult stool. The patient was stabilized on the day of discharge. All questions were answered. The patient's daughter is responsible for her transfer back to home. Daughter states her understanding of the plan of care at discharge. FOLLOWUPS: She was instructed to follow up with her primary care physician within 1 to 2 weeks and GI as needed. NHUNG FREEMAN, CHUY [id number]/[facility] #: [id number] MCKAYLA
== END 2017-12-18 18:13 | disposition home health service (06) | DRG 689 ==
LOC: ED 07:10 → MEDTELE 15:41
PROVIDERS: ADMIT Internal Medicine; ATTEND Internal Medicine
PROC: 4A10X4Z Monitoring of Central Nervous Electrical Activity, External Approach (ICD-10-PCS; principal; 2017-12-11)
PROC: 0T9B70Z Drainage of Bladder with Drainage Device, Via Natural or Artificial Opening (ICD-10-PCS; 2017-12-13)
PROC: 0TPBX0Z Removal of Drainage Device from Bladder, External Approach (ICD-10-PCS; 2017-12-15)
PROC: 0T9B70Z Drainage of Bladder with Drainage Device, Via Natural or Artificial Opening (ICD-10-PCS; 2017-12-18)
DX: N39.0 Urinary tract infection, site not specified (principal); G93.40 Encephalopathy, unspecified; E11.40 Type 2 diabetes mellitus with diabetic neuropathy, unspecified; E83.42 Hypomagnesemia; B96.1 Klebsiella pneumoniae [K. pneumoniae] as the cause of diseases classified elsewhere; I47.1 Supraventricular tachycardia; J34.89 Other specified disorders of nose and nasal sinuses; I10 Essential (primary) hypertension; K21.9 Gastro-esophageal reflux disease without esophagitis; M19.90 Unspecified osteoarthritis, unspecified site; H91.90 Unspecified hearing loss, unspecified ear; F03.90 Unspecified dementia, unspecified severity, without behavioral disturbance, psychotic disturbance, mood disturbance, and anxiety; G43.909 Migraine, unspecified, not intractable, without status migrainosus; M06.9 Rheumatoid arthritis, unspecified; L40.9 Psoriasis, unspecified; I16.0 Hypertensive urgency; E78.5 Hyperlipidemia, unspecified; G40.909 Epilepsy, unspecified, not intractable, without status epilepticus; R11.2 Nausea with vomiting, unspecified; K62.89 Other specified diseases of anus and rectum; B95.2 Enterococcus as the cause of diseases classified elsewhere; R33.9 Retention of urine, unspecified; E87.6 Hypokalemia; A08.4 Viral intestinal infection, unspecified; R19.5 Other fecal abnormalities; Z88.0 Allergy status to penicillin; Z88.8 Allergy status to other drugs, medicaments and biological substances; Z91.018 Allergy to other foods; Z97.4 Presence of external hearing-aid; Z86.73 Personal history of transient ischemic attack (TIA), and cerebral infarction without residual deficits; Z90.710 Acquired absence of both cervix and uterus; Z86.19 Personal history of other infectious and parasitic diseases
CPT/HCPCS: 36415; 70450; 71045; 74177; 80048; 80053; 80177; 81003; 81015; 82272; 82947; 83605; 83690; 83735; 84443; 84484; 85014; 85018; 85025; 86140; 87077; 87086; 87186; 87502; 93005; 94760; 95819; 99285; A9270-GY; J0360; J0696; J0780; J1644; J1940; J2405; J3475; J3480; J3490; Q9967

== ENCOUNTER 2018-03-09 13:17 | Emergency (ER) | payer MEDICARE, MEDICAID ==
--- NOTE | 2018-03-09 13:35 | UC ---
Skin Complaint HPI - HPI Summary HPI Summary: 72 yo WF presents accompanied by daughter with complaints of a rash under her left breast for 1 month. Pt has a hx of AMS and has been hospitalized twice in the last 4 months for sepsis, hyperglycemia, and abnormal electrolytes. Pt has a home health nurse that visits her throughout the week and nurse told the daughter today that pt has a rash under her left breast. When asking the patient about this, she says this has been getting worse over the last month and she has not been putting anything on it. Denies fever or chills. - History of Current Complaint Chief Complaint: UCRash Time Seen by Provider: 03/09/18 13:29 Stated Complaint: RASH Hx Obtained From: Patient, Family/Channel Layer Onset/Duration: Gradual Onset Skin Exposure Onset/Duration: Weeks Ago Timing: Constant Onset Severity: Moderate Current Severity: Severe Pain Intensity: 8 Pain Scale Used: 0-10 Numeric - Allergy/Home Medications Allergies/Adverse Reactions: Allergies Allergy/AdvReac Type Severity Reaction Status Date / Time aspirin Allergy Hives Verified 03/09/18 13:38 penicillin G Allergy Hives Verified 03/09/18 13:38 Penicillins Allergy Hives Verified 03/09/18 13:38 onion AdvReac GI Upset Verified 03/09/18 13:38 pepper (genus Capsicum) AdvReac GI Upset Verified 03/09/18 13:38 [pepper] Review of Systems Constitutional: Negative Skin: Rash Respiratory: Negative Cardiovascular: Negative Gastrointestinal: Negative Genitourinary: Negative Neurovascular: Negative Neurological: Negative Psychological: Negative All Other Systems Reviewed And Are Negative: Yes PMH/Surg Hx/FS Hx/Imm Hx - Additional Past Medical History Additional PMH: Rheumatoid Arthritis Endocrine History: Diabetes, Dyslipidemia Cardiovascular History: Hypertension GI/ History: Gastroesophageal Reflux - Surgical History Surgical History: Yes Surgery Procedure, Year, and Place: Left ankle repair X 2. Hysterectomy. Right ear surgery- 50 years ago. Cleft palate repair - Family History Known Family History: Positive: Unknown - Social History Occupation: Retired Lives: Alone Alcohol Use: None Substance Use Type: None Smoking Status (MU): Never Smoked Tobacco - Immunization History Most Recent Influenza Vaccination: Fall 2016 Most Recent Tetanus Shot: Within last 5 years Most Recent Pneumonia Vaccination: FALL 2014 Physical Exam - Summary Physical Exam Summary: GENERAL: NAD. WDWN. SKIN: Under the left breast there is diffuse moderate erythema with 4-5 spots < 5mm of superficial raw skin without bleeding. Moderate odor and thick white/ yellow exudates. Rash extends from underside of left breast, to midline, to just below 12th rib. NECK: Supple. Nontender. No lymphadenopathy. CHEST: No accessory muscle use. Breathing comfortably and in no distress. CV: RRR. Without m/r/g. NEURO: Alert. PSYCH: Age appropriate behavior. Triage Information Reviewed: Yes Course/Dx - Course Course Of Treatment: Suspect skin yeast/intertrigo. A culture was obtained and will be sent. Rx for nystatin cream and po Diflucan. F/u with PCP within 1 week for recheck - Diagnoses Provider Diagnoses: intertrigo left breast Discharge - Sign-Out/Discharge Documenting (check all that apply): Discharge/Admit/Transfer - Discharge Plan Condition: Stable Disposition: HOME Prescriptions: Fluconazole [Diflucan 150 MG (NF)] 150 mg PO ONCE #2 tab Nystatin CREAM* [Nystatin Cream*] 1 applic TOPICAL BID #1 tube Nystatin CREAM* [Nystatin Cream*] 1 applic TOPICAL BID #1 tube Patient Education Materials: Skin Yeast Infection (ED) Referrals: Lindsey Bermeo MD [Primary Care Provider] - Additional Instructions: If you develop a fever, shortness of breath, chest pain, new or worsening symptoms - please call your PCP or go to the ED. 1) Please apply topical Nystatin to the area twice a day until the rash is gone 2) Take one pill of the Diflucan now and another pill in 3 days 3) Please schedule a follow up appointment with your PCP within 1 week for recheck to insure healing. - Billing Disposition and Condition Condition: STABLE Disposition: HOME Images Front/Back of Body, Lg (Reagan): 1 - Rash
[2018-03-09 13:38] VITALS: BP 156/66
--- NOTE | 2018-03-12 17:09 | UC ---
- Progress Note Progress Note: wound - mrsa neg, 3+ normal korin no change Wan 03/12/2018 Discharge - Sign-Out/Discharge Documenting (check all that apply): Discharge/Admit/Transfer - Discharge Plan Condition: Stable Disposition: HOME Prescriptions: Fluconazole [Diflucan 150 MG (NF)] 150 mg PO ONCE #2 tab Nystatin CREAM* [Nystatin Cream*] 1 applic TOPICAL BID #1 tube Nystatin CREAM* [Nystatin Cream*] 1 applic TOPICAL BID #1 tube Patient Education Materials: Skin Yeast Infection (ED) Referrals: Lindsey Bermeo MD [Primary Care Provider] - Additional Instructions: If you develop a fever, shortness of breath, chest pain, new or worsening symptoms - please call your PCP or go to the ED. 1) Please apply topical Nystatin to the area twice a day until the rash is gone 2) Take one pill of the Diflucan now and another pill in 3 days 3) Please schedule a follow up appointment with your PCP within 1 week for recheck to insure healing. - Billing Disposition and Condition Condition: STABLE Disposition: HOME
== END 2018-03-09 13:48 | disposition home or self-care (01) ==
LOC: UCEAST 13:17
DX: L30.4 Erythema intertrigo (principal); E11.9 Type 2 diabetes mellitus without complications; Z79.84 Long term (current) use of oral hypoglycemic drugs; E78.5 Hyperlipidemia, unspecified; I10 Essential (primary) hypertension; K21.9 Gastro-esophageal reflux disease without esophagitis; M06.9 Rheumatoid arthritis, unspecified; Z88.6 Allergy status to analgesic agent; Z88.0 Allergy status to penicillin
CPT/HCPCS: 87070; 87205; 87640; 87641; 99212; G0463

== ENCOUNTER 2018-04-29 16:09 | Inpatient (IN) | payer MEDICARE, MEDICAID ==
--- NOTE | 2018-04-29 17:04 | RAD ---
INDICATION: Left hip pain after a fall COMPARISON: CT abdomen pelvis December 09, 2017 TECHNIQUE: 3 views of the left hip were obtained. FINDINGS: There is cortical discontinuity involving the superior and inferior pubic rami medially. The remaining visualized bones are intact and appropriately aligned. Degenerative changes in the bilateral hips include sclerotic change of the acetabular roof. IMPRESSION: Slightly displaced fracture involving the left pubic rami.
[2018-04-29 17:34] LABS: ABS Basophils 0 10^3/ul (0-0.2); ABS Eosinophils 0.1 10^3/ul (0-0.6); ABS Lymphocytes 1.1 10^3/ul (1.0-4.8); ABS Monocytes 0.5 10^3/ul (0-0.8); ABS Neutrophils 6.3 10^3/ul (1.5-7.7); ABS Nucleated RBC 0 10^3/ul; Eosinophil % 1.2 % (0-6); Hematocrit 34 % (35-47); Hemoglobin 11.3 g/dl (12.0-16.0); Lymphocyte % 13.9 % (25-47); Mean Corpuscular HGB Conc 33 g/dl (31-36); Mean Corpuscular Hemoglobin 27 pg (27-31); Mean Corpuscular Volume 80 fL (80-97); Mean Platelet Volume 9.3 um3 (7.4-10.4); Nucleated Red Blood Cells % 0; Platelet Count 138 10^3/ul (150-450); Red Blood Count 4.22 10^6/ul (4.00-5.40); Red Cell Distribution Width 14 % (10.5-15)
[2018-04-29 18:00] LABS: INR 0.89 (0.77-1.02)
--- NOTE | 2018-04-29 18:04 | ED ---
Rosa Maria Linares Tenzin, scribed for Rosales Maciel on 04/29/18 at 1753 . Lower Extremity - HPI Summary HPI Summary: Pt is a 72 years old female BIBA after inability of lift/move her left leg from a mechanical fall at home/[place] [employer] this morning at 11:30. Pt is complaining of pain in her left hip and leg. She rates the pain at 6/10 in severity. Pt notes that she was trying to reach her rescue button but she couldnt reach it. Pt denies fever or chills. No aggravating and alleviating factors were noted. - History of Current Complaint Chief Complaint: EDHipPelvisInjury Stated Complaint: LT HIP PAIN Time Seen by Provider: 04/29/18 16:18 Hx Obtained From: Patient Mechanism Of Injury: Fall From A Standing Position Severity Currently: Mild Pain Intensity: 6 Pain Scale Used: 0-10 Numeric Location: Is Discrete @ - Left hip and left leg. Aggravating Factor(s): Nothing Alleviating Factor(s): Nothing - Allergies/Home Medications Allergies/Adverse Reactions: Allergies Allergy/AdvReac Type Severity Reaction Status Date / Time aspirin Allergy Hives Verified 04/29/18 16:28 penicillin G Allergy Hives Verified 04/29/18 16:28 Penicillins Allergy Hives Verified 04/29/18 16:28 onion AdvReac GI Upset Verified 04/29/18 16:28 pepper (genus Capsicum) AdvReac GI Upset Verified 04/29/18 16:28 [pepper] Home Medications: Home Medications Acetaminophen [Acetaminophen Extra Strength] 500 mg PO DAILY PRN 04/29/18 [ History Confirmed 04/29/18] Calcium Carbonate/Vitamin D3 [ Calcium 600+D3 600-500 mg-Unit] 1 cap PO DAILY 04/29/18 [History Confirmed 04/29/18] Ciproflox/Dexameth OTIC.SUSP* [Ciprodex Otic*] 4 drop RIGHT EAR BID 04/29/18 [ History Confirmed 04/29/18] Desloratidine (NF) [Clarinex (NF)] 5 mg PO DAILY 04/29/18 [History Confirmed ] Diclofenac 1% GEL (NF) [Voltaren 1% GEL (NF)] 1 applic TOPICAL BID PRN 04/29/18 [History Confirmed 04/29/18] Etanercept [Enbrel Sureclick] 50 mg SC TH 04/29/18 [History Confirmed 04/29/18] GuaiFENesin DM* [Robitussin DM*] 1 - 2 teasp PO Q4H PRN 04/29/18 [History Confirmed 04/29/18] Insulin Glargine (Nf) [Toujeo Solostar Pen (NF)] 45 unit SC QAM 04/29/18 [ History Confirmed 04/29/18] Nystatin CREAM* 1 applic TOPICAL BID 04/29/18 [History Confirmed 04/29/18] Omeprazole CAP* [Prilosec CAP* 20 MG] 20 mg PO DAILY 04/29/18 [History Confirmed 04/29/18] Ondansetron ODT TAB* [Zofran 4 MG Odt TAB*] 4 mg PO Q6H PRN 04/29/18 [History Confirmed 04/29/18] Polyethylene Glycol 3350* [Miralax*] 17 gm PO DAILY 04/29/18 [History Confirmed 04/29/18] Rosuvastatin (NF) [Crestor (NF)] 40 mg PO BEDTIME 04/29/18 [History Confirmed ] amLODIPine TAB* [Norvasc 5 mg TAB*] 5 mg PO DAILY 04/29/18 [History Confirmed ] celeCOXIB CAP* [CeleBREX CAP*] 200 mg PO BID 04/29/18 [History Confirmed ] glipiZIDE TAB.XL* [Glucotrol XL*] 2.5 mg PO DAILY 04/29/18 [History Confirmed ] levETIRAcetam TAB* [Keppra TAB*] 500 mg PO BID 04/29/18 [History Confirmed 04/29] metFORMIN* [Glucophage 1000 MG TAB *] 1,000 mg PO BID 04/29/18 [History Confirmed 04/29/18] PMH/Surg Hx/FS Hx/Imm Hx Endocrine/Hematology History: Reports: Hx Diabetes, Hx Anemia Denies: Hx Thyroid Disease Cardiovascular History: Reports: Hx Hypercholesterolemia, Hx Hypertension Denies: Hx Congestive Heart Failure, Hx Pacemaker/ICD Respiratory History: Denies: Hx Asthma, Hx Chronic Obstructive Pulmonary Disease (COPD), Other Respiratory Problems/Disorders GI History: Reports: Hx Gastroesophageal Reflux Disease - OCCASIONALLY, Other GI Disorders - psoriasis Denies: Hx Ulcer History: Denies: Hx Renal Disease Musculoskeletal History: Reports: Hx Arthritis - "ALL OVER", Hx Orthopedic Injury - L jacqui fracture and ORIF; L wrist fracture, Hx Tendonitis - SHOULDERS Sensory History: Reports: Hx Hearing Aid Denies: Hx Contacts or Glasses Opthamlomology History: Denies: Hx Contacts or Glasses Neurological History: Reports: Hx Dementia - Senile dementia, Hx Migraine - OCCASIONALLY- TREATS WITH TYLENOL AND REST, Hx Seizures, Hx Transient Ischemic Attacks (TIA), Other Neuro Impairments/Disorders - diabetic neuropathy Psychiatric History: Denies: Hx Panic Disorder - Cancer History Cancer Type, Location and Year: Family Hx - Surgical History Surgery Procedure, Year, and Place: Left ankle repair X 2. Hysterectomy. Right ear surgery- 50 years ago. Cleft palate repair Hx Anesthesia Reactions: No Infectious Disease History: No Infectious Disease History: Reports: Hx Shingles Denies: Hx Hepatitis, Hx Human Immunodeficiency Virus (HIV), Traveled Outside the [place] in Last 30 Days - Family History Known Family History: Positive: Unknown, Other - colon CA Family History: FHx Limited due to Level 5 Caveat: Altered Mental Status - Social History Alcohol Use: None Hx Substance Use: No Substance Use Type: Reports: None Hx Tobacco Use: No Smoking Status (MU): Never Smoked Tobacco Review of Systems Negative: Fever, Chills Positive: Other - left hip and left leg pain. All Other Systems Reviewed And Are Negative: Yes Physical Exam - Summary Physical Exam Summary: Appearance: Well appearing, no pain distress Skin: warm, dry, reflects adequate perfusion Head/face: normal Eyes: EOMI, AMISH ENT: normal Neck: supple, non-tender Respiratory: CTA, breath sounds present Cardiovascular: RRR, pulses symmetrical Abdomen: non-tender, soft Bowel: present Musculoskeletal: Tenderness in left hip, Restricted range of motion in left hip and left leg. Neuro: normal, sensory motor intact, A&Ox3, no neurological deficit. Triage Information Reviewed: Yes Vital Signs On Initial Exam: Initial Vitals Pulse Resp BP Pulse Ox 75 15 162/79 89 04/29/18 16:13 04/29/18 16:13 04/29/18 16:13 04/29/18 16:13 Vital Signs Reviewed: Yes Diagnostics - Vital Signs Vital Signs Temp Pulse Resp BP Pulse Ox 04/29/18 17:23 15 157/94 04/29/18 17:00 74 14 93 04/29/18 16:22 76 15 90 04/29/18 16:19 98.7 F 74 15 162/79 96 04/29/18 16:13 75 15 162/79 89 - Laboratory Lab Results: Lab Results 04/29/18 Range/Units 17:27 WBC 8.0 (3.5-10.8) 10^3/ul RBC 4.22 (4.00-5.40) 10^6/ul Hgb 11.3 L (12.0-16.0) g/dl Hct 34 L (35-47) % MCV 80 (80-97) fL MCH 27 (27-31) pg MCHC 33 (31-36) g/dl RDW 14 (10.5-15) % Plt Count 138 L (150-450) 10^3/ul MPV 9.3 (7.4-10.4) um3 Neut % (Auto) 78.8 (38-83) % Lymph % (Auto) 13.9 L (25-47) % [place] % (Auto) 5.7 (0-7) % Eos % (Auto) 1.2 (0-6) % Baso % (Auto) 0.4 (0-2) % Absolute Neuts (auto) 6.3 (1.5-7.7) 10^3/ul Absolute Lymphs (auto) 1.1 (1.0-4.8) 10^3/ul Absolute Monos (auto) 0.5 (0-0.8) 10^3/ul Absolute Eos (auto) 0.1 (0-0.6) 10^3/ul Absolute Basos (auto) 0 (0-0.2) 10^3/ul Absolute Nucleated RBC 0 10^3/ul Nucleated RBC % 0 Result Diagrams: 04/29/18 17:27 04/29/18 17:27 Lab Statement: Any lab studies that have been ordered have been reviewed, and results considered in the medical decision making process. - Radiology HIP/PELVIS X RAY Radiology Interpretation Completed By: Radiologist - IMPRESSION: Slightly displaced fracture involving the left pubic rami. Lower Extremity Course/Dx - Course Course Of Treatment: Pt is a 72 years old female BIBA after inability of lift/ move her left leg from a mechanical fall at home/[place] [employer] this morning at 11 :30. Pt is complaining of pain in her left hip and leg. Hip/Pelvis X ray is obtained with positive for pelvic fracture. Hospitalist will admit the pt and will call ortho consult. - Diagnoses Differential Diagnosis/HQI/PQRI: Positive: Contusion, Dislocation, Fracture ( Closed), Strain Provider Diagnoses: Pelvis fracture Discharge - Sign-Out/Discharge Documenting (check all that apply): Discharge/Admit/Transfer - Admit. - Discharge Plan Condition: Stable Disposition: ADMITTED TO [facility] Referrals: Lindsey Bermeo MD [Primary Care Provider] - - Billing Disposition and Condition Condition: STABLE Disposition: Admitted to [facility] The documentation as recorded by the Rosa Maria castaneda Tenzin accurately reflects the service I personally performed and the decisions made by Janell lynn Emmanuel.
[2018-04-29] MEDS ORDERED: oxyCODONE/Acetamin 5/325 MG* TAB PO ONE (18:26)
[2018-04-29] MEDS ORDERED: oxyCODONE/Acetamin 5/325 MG* TAB PO PRN (21:05)
[2018-04-29] MEDS ORDERED: Acetaminophen TAB* 325 MG PO PRN (21:09)
[2018-04-29] MEDS ORDERED: Ondansetron INJ* 2 MG/ML VIAL IV PRN (21:09)
[2018-04-29] MEDS: Heparin VIAL(*) 5000 UNITS/ML VIAL (FIVE THOUSAND) SUBCUT SCH (23:21)
[2018-04-29] MEDS: oxyCODONE/Acetamin 5/325 MG* TAB PO PRN (23:23)
--- NOTE | 2018-04-30 03:24 | HP ---
CC: Dr. Lindsey Bermeo * [facility] MEDICINE HISTORY AND PHYSICAL: DATE OF ADMISSION: 04/29/18 PRIMARY CARE PHYSICIAN: Dr. Lindsey Bermeo ATTENDING PHYSICIAN: Dr. Catracho Simmons * (dictation provided by Gracie Moran NP) CHIEF COMPLAINT: Fall with left hip pain. HISTORY OF PRESENT ILLNESS: This is a 72-year-old female with past medical history of diabetes, seizure disorder, hypertension, rheumatoid arthritis, who presents today to the hospital with concern for left hip pain after a fall. Ms. Cheung states that she has been in her normal state of health with no acute complaint. She lives alone at [facility]. She does have VNS services in the home. She states she has been taking all her medications regularly per routine. She has been checking her blood sugar in the morning and it has been running about 200. Today, she states that she fell. She described that as a purely mechanical fall. She landed on her left side and had significant pain to the left hip and inability to lift and move the leg. The patient was discovered a few hours later and brought to the hospital for evaluation. In the emergency room, Ms. Cheung had a slightly displaced fracture of the left pubic rami. Her vital signs are remarkable for elevated blood pressure consisted with pain at 179/91. Her labs show her electrolytes are normal. BUN and creatinine are normal. PAST MEDICAL HISTORY: 1. Seizures. 2. Type 2 diabetes, insulin dependent. 3. Hypertension. 4. Hyperlipidemia. 5. TIA. MEDICATIONS: 1. Tylenol 500 mg p.o. daily p.r.n. 2. Calcium carbonate with vitamin D 1 cap p.o. daily. 3. Celecoxib 200 mg p.o. b.i.d. 4. Ciprodex otic suspension 4 drops right ear b.i.d. 5. Clarinex 5 mg p.o. daily. 6. Diclofenac 1% application topically b.i.d. p.r.n. 7. Enbrel SureClick 50 mg subcutaneously on . 8. Glipizide 2.5 mg p.o. daily. 9. Guaifenesin 1 to 2 teaspoons p.r.n. 10. Metformin 1000 mg p.o. b.i.d. 11. Ondansetron 4 mg p.o. q.6 hours p.r.n. 12. Rosuvastatin 40 mg p.o. at bedtime. 13. Amlodipine 5 mg p.o. daily. 14. Toujeo SoloSTAR pen 45 units subcutaneously q.a.m. 15. Keppra 500 mg p.o. b.i.d. 16. Nystatin topically under breast. 17. Omeprazole 20 mg p.o. daily. 18. Polyethylene glycol 17 g p.o. daily. ALLERGIES: ASPIRIN, PENICILLIN G, ONION and PEPPERS. FAMILY HISTORY: Unknown according to the patient. SOCIAL HISTORY: No report of alcohol, tobacco or drug use. She states the daughter, Nora, is her healthcare proxy. REVIEW OF SYSTEMS: A 14-point review of systems was completed with Ms. Cheung and all those not mentioned above were negative. PHYSICAL EXAMINATION GENERAL: Ms. Cheung was sleeping in the room when I walked in . She wakens easily to voice. She is in no acute distress. VITAL SIGNS: Temperature 98.7, pulse rate 72, respiratory rate 16, O2 saturation 93% on room air, blood pressure 179/91. LUNGS: Clear to auscultation bilaterally with no accessory muscle use and good aeration. HEART: S1, S2. No murmurs, rubs or gallops. Regular. ABDOMEN: Soft, nontender with bowel sounds positive x4. EXTREMITIES: No cyanosis, no edema. NEUROLOGIC: She is alert. She is oriented x3. She moves all extremities equally. There is no facial asymmetry or focal weakness. Extraocular movements are intact. SKIN: Intact. DIAGNOSTIC STUDIES/LAB DATA: Sodium 136, potassium 4.8, chloride 102, serum bicarbonate 28, BUN 33, creatinine 0.89. WBC 8.0, hemoglobin 11.3, hematocrit 34, platelet count 138. INR 0.89. Hip and pelvis x-ray is read per above. ASSESSMENT AND PLAN: Ms. Cheung is a 72-year-old female with a past medical history of seizure disorder, rheumatoid arthritis, hypertension and insulin- dependent diabetes who presents to hospital stay with concern for a mechanical fall at home resulting in left hip pain and a left pubic rami fracture. She is unable to ambulate and therefore we have placed her on observation in the hospital for the followin. Left pubic rami fracture. The patient will be placed on observation in the hospital for pain control and for evaluation by a Physical and Occupational Therapy tomorrow. The films were reviewed by Dr. Moore in the emergency department and there is no indication for operative intervention. 2. Type 2 diabetes. Plan to continue her home glargine insulin and provide blood glucoses q.a.c. with lispro sliding scale. She will be consistent with carbohydrate diet. 3. Hypertension. Continue amlodipine. 4. Gastroesophageal reflux disease. Continue omeprazole. 5. Seizure disorder. Continue Keppra. 6. DVT prophylaxis with heparin subcu. 7. Code status is full code. TIME SPENT: Approximately 60 minutes were spent on admission of this patient, more than half the time spent with the patient at the bedside reviewing the events leading up to this hospitalization, performing the physical examination and reviewing my plan of care. GRACIE MORAN, CHUY [id number]/CPS #: [id number] MCKAYLA
[2018-04-30] MEDS: Heparin VIAL(*) 5000 UNITS/ML VIAL (FIVE THOUSAND) SUBCUT SCH ×3 (05:57→21:18)
[2018-04-30] MEDS: Omeprazole CAP* 20 MG PO SCH (08:20)
[2018-04-30] MEDS: Insulin GLARGINE(*) 1 UNITS UNIT SUBCUT SCH (08:20)
[2018-04-30] MEDS: amLODIPine TAB* 5 MG PO SCH (08:20)
[2018-04-30] MEDS: levETIRAcetam TAB* 500 MG PO SCH ×2 (08:20→21:18)
[2018-04-30] MEDS: Insulin LISPRO* 1 UNITS UNIT SUBCUT SCH ×3 (08:21→17:46)
[2018-04-30] MEDS: Polyethylene Glycol 3350* 17 GM PACKET PO SCH (08:24)
[2018-04-30] MEDS: Nystatin CREAM* 15 GM TUBE TOPICAL SCH ×2 (09:46→21:18)
[2018-04-30] MEDS: oxyCODONE/Acetamin 5/325 MG* TAB PO PRN ×2 (09:48→17:48)
--- NOTE | 2018-04-30 15:34 | PN ---
Subjective Date of Service: 04/30/18 Interval History: Patient seen and examined at bedside. Denies fever, chills, shortness of breath , chest discomfort, N/V/D. Pt states that her pain is controlled. She has gotten up with PT today. Pt has not urinated in ~ 12 hours. Pt continues to decline sanches at this time and discussed that if she doesn't urinate soon she will need to have a catheter placed overnight. Family History: Unchanged from Admission Social History: Unchanged from Admission Past Medical History: Unchanged from Admission Objective Active Medications: Acetaminophen (Tylenol Tab*) 650 mg PO Q6H PRN Reason: pain/fever Amlodipine Besylate (Norvasc Tab*) 5 mg PO DAILY [facility] Dextrose (D50w Syringe 50 Ml*) 12.5 gm IV PUSH .FOR FS < 60 - SS PRN Reason: FS < 60 Heparin Sodium (Porcine) (Heparin Vial(*)) 5,000 units SUBCUT Q8HR [facility] Insulin Glargine (Lantus(*)) 45 units SUBCUT QAM [facility] Insulin Human Lispro (Humalog*) 0 units SUBCUT AC [facility]; Protocol Levetiracetam (Keppra Tab*) 500 mg PO BID [facility] Nystatin (Nystatin Cream*) 1 applic TOPICAL BID [facility] Omeprazole (Prilosec Cap*) 20 mg PO DAILY [facility] Ondansetron HCl (Zofran Inj*) 4 mg IV Q6H PRN Reason: NAUSEA Oxycodone/Acetaminophen (Percocet 5/325 Tab*) 1 tab PO Q4H PRN Reason: PAIN Oxycodone/Acetaminophen (Percocet 5/325 Tab*) 2 tab PO Q4H PRN Reason: PAIN Polyethylene Glycol/Electrolytes (Miralax*) 17 gm PO DAILY [facility] Vital Signs - 8 hr 04/30/18 04/30/18 04/30/18 07:50 08:00 09:48 Temperature 97.4 F Pulse Rate 70 Respiratory 17 18 18 Rate Blood Pressure 123/49 (mmHg) O2 Sat by Pulse 96 Oximetry 04/30/18 04/30/18 11:20 14:06 Temperature 97.6 F Pulse Rate 66 Respiratory 18 14 Rate Blood Pressure 90/44 (mmHg) O2 Sat by Pulse 92 Oximetry Oxygen Devices in Use Now: None Appearance: NAD, laying in bed Ears/Nose/Mouth/Throat: Mucous Membranes Moist Respiratory: Symmetrical Chest Expansion and Respiratory Effort, Clear to Auscultation Cardiovascular: NL Sounds; No Murmurs; No JVD, RRR Abdominal: - - Bowel sounds present, ABD soft and non tender. Slightly distended in lower ABD (bladder) Extremities: No Edema Skin: No Rash or Ulcers Neurological: Alert and Oriented x 3, NL Muscle Strength and Tone Lines/Tubes/Other Access: Clean, Dry and Intact Peripheral IV - site benign Nutrition: Taking PO's Result Diagrams: 04/29/18 17:27 04/29/18 17:27 Additional Lab and Data: . Assess/Plan/Problems-Billing Assessment: Ms. Cheung is a 76 yo female with PMH significant for seizure disorder, RA, HTN , and DM who had a mechanical fall at home resulting in a left pubic rami fracture. - Patient Problems (1) Pubic ramus fracture Code(s): S32.599A - OTH FRACTURE OF UNSP PUBIS, INIT ENCNTR FOR CLOSED FRACTURE SNOMED Code(s): 61725514 Comment: - After mechanical fall - Will check UA to r/o UTI in elderly patient with a fall - Case discussed with ortho oncall and no surgical intervention needed - Continue PT and pain control (2) Urinary retention Code(s): R33.9 - RETENTION OF URINE, UNSPECIFIED SNOMED Code(s): 383113994 Comment: - Acute - Pt declining catheter at this time - Order for urinary catheter if unable to urinate, Pt noted to have ~ 600 ml in bladder with bladder scan (3) DM2 (diabetes mellitus, type 2) Comment: - Glucose 120-350's - Hold glipizide and metformin - Continue Lispro SS and lantus (4) HTN (hypertension) Code(s): I10 - ESSENTIAL (PRIMARY) HYPERTENSION SNOMED Code(s): 16134191 Comment: - Mostly normotensive, SBP 90-130's - Continue Amlodipine (5) Hx of seizure disorder Code(s): Z86.69 - PERSONAL HISTORY OF DIS OF THE NERVOUS SYS AND SENSE ORGANS SNOMED Code(s): 500265718 Comment: - Seizure precautions - Continue keppra (6) Hyperlipidemia Code(s): E78.5 - HYPERLIPIDEMIA, UNSPECIFIED SNOMED Code(s): 44132289 Comment: - Continue statin (7) Rheumatoid arthritis Code(s): M06.9 - RHEUMATOID ARTHRITIS, UNSPECIFIED SNOMED Code(s): 64348477 Comment: - Entanercept weekly on - Patient is unable to go to [facility] due to cost of med, consider holding if sending to [facility]. (8) DVT prophylaxis Code(s): EOI1400 - SNOMED Code(s): 915222314 Comment: - Heparin sub-q. (9) Full code status Current Visit: Yes Status: Acute Code(s): Z78.9 - OTHER SPECIFIED HEALTH STATUS SNOMED Code(s): 699111179 Status and Disposition: OBV to Inpatient. Discharge to home when medically stable, possibly in the morning. She may require RUTH ANN.
[2018-04-30 18:29] LABS: Urine Appearance Turbid; Urine Blood 1+ (Negative); Urine Color Yellow; Urine Ketones Negative (Negative); Urine Protein 2+(100 mg/dL) (Negative); Urine Specific Gravity 1.016 (1.010-1.030); Urine Urobilinogen Negative (Negative)
[2018-04-30] MEDS: NS 0.9% 1000 ML* 1,000 ML IV SCH (21:17)
[2018-04-30] MEDS: cefTRIAXone(*) 1 GM in NS 0.9% 50 ML* 50 ML IVPB SCH (22:31)
[2018-05-01] MEDS: Acetaminophen TAB* 325 MG PO SCH ×4 (00:32→17:41)
[2018-05-01] MEDS: Heparin VIAL(*) 5000 UNITS/ML VIAL (FIVE THOUSAND) SUBCUT SCH ×3 (06:32→21:46)
[2018-05-01] MEDS: Insulin GLARGINE(*) 1 UNITS UNIT SUBCUT SCH (09:40)
[2018-05-01] MEDS: Insulin LISPRO* 1 UNITS UNIT SUBCUT SCH ×3 (09:41→17:41)
[2018-05-01] MEDS: amLODIPine TAB* 5 MG PO SCH (09:41)
[2018-05-01] MEDS: Omeprazole CAP* 20 MG PO SCH (09:41)
[2018-05-01] MEDS: levETIRAcetam TAB* 500 MG PO SCH ×2 (09:41→21:45)
[2018-05-01] MEDS: Nystatin CREAM* 15 GM TUBE TOPICAL SCH ×2 (09:42→22:00)
[2018-05-01] MEDS: Polyethylene Glycol 3350* 17 GM PACKET PO SCH (09:42)
[2018-05-01] MEDS: NS 0.9% 1000 ML* 1,000 ML IV SCH (11:21)
--- NOTE | 2018-05-01 15:14 | PN ---
Subjective Date of Service: 05/01/18 Interval History: Adequate pain control. Family History: Unchanged from Admission Social History: Unchanged from Admission Past Medical History: Unchanged from Admission Objective Active Medications: Acetaminophen (Tylenol Tab*) 650 mg PO Q6H [facility] Last Admin: 05/01/18 12:42 Dose: 650 mg Amlodipine Besylate (Norvasc Tab*) 5 mg PO DAILY [facility] Last Admin: 05/01/18 09:41 Dose: 5 mg Dextrose (D50w Syringe 50 Ml*) 12.5 gm IV PUSH .FOR FS < 60 - SS PRN PRN Reason: FS < 60 Heparin Sodium (Porcine) (Heparin Vial(*)) 5,000 units SUBCUT Q8HR [facility] Last Admin: 05/01/18 14:20 Dose: 5,000 units Ceftriaxone Sodium 1 gm/ (Sodium Chloride) 50 mls @ 200 mls/hr IVPB Q24H [facility] Last Admin: 04/30/18 22:31 Dose: 200 mls/hr Sodium Chloride (Ns 0.9% 1000 Ml*) 1,000 mls @ 75 mls/hr IV PER RATE [facility] Last Admin: 05/01/18 11:21 Dose: 75 mls/hr Insulin Glargine (Lantus(*)) 45 units SUBCUT QAM [facility] Last Admin: 05/01/18 09:40 Dose: 45 udc Insulin Human Lispro (Humalog*) 0 units SUBCUT AC [facility]; Protocol Last Admin: 05/01/18 12:45 Dose: Not Given Levetiracetam (Keppra Tab*) 500 mg PO BID [facility] Last Admin: 05/01/18 09:41 Dose: 500 mg Metformin HCl (Glucophage*) 1,000 mg PO 0800,1700 [facility] Nystatin (Nystatin Cream*) 1 applic TOPICAL BID [facility] Last Admin: 05/01/18 09:42 Dose: 1 applic Omeprazole (Prilosec Cap*) 20 mg PO DAILY [facility] Last Admin: 05/01/18 09:41 Dose: 20 mg Ondansetron HCl (Zofran Inj*) 4 mg IV Q6H PRN PRN Reason: NAUSEA Polyethylene Glycol/Electrolytes (Miralax*) 17 gm PO DAILY [facility] Last Admin: 05/01/18 09:42 Dose: 17 gm Vital Signs - 8 hr 05/01/18 05/01/18 05/01/18 07:14 09:41 11:22 Temperature 97.8 F 98.1 F Pulse Rate 75 74 Respiratory 16 13 16 Rate Blood Pressure 123/55 112/50 (mmHg) O2 Sat by Pulse 90 92 Oximetry Oxygen Devices in Use Now: None Appearance: Alert, in a chair. In fair spirits. Looks comfortable. Eyes: No Scleral Icterus Neck: NL Appearance and Movements; NL JVP, No Thyroid Enlargement, Masses Respiratory: Symmetrical Chest Expansion and Respiratory Effort, Clear to Auscultation, Clear to Percussion Cardiovascular: NL Sounds; No Murmurs; No JVD, RRR, No Edema, - Extremities: No Edema, No Clubbing, Cyanosis, - Skin: No Rash or Ulcers, No Nodules or Sclerosis, - Neurological: Alert and Oriented x 3, NL Sensation - Diminished hearing. No tremor. Result Diagrams: 04/29/18 17:27 04/29/18 17:27 Additional Lab and Data: . Microbiology and Other Data: Microbiology 04/30/18 17:58 Urine Culture - Preliminary Urine Enterobacter Cloacae Assess/Plan/Problems-Billing Assessment: Ms. Cheung is a 76 yo female with PMH significant for seizure disorder, RA, HTN , and DM who had a mechanical fall at home resulting in a left pubic rami fracture. - Patient Problems (1) Pubic ramus fracture Current Visit: Yes Status: Acute Code(s): S32.599A - OTH FRACTURE OF UNSP PUBIS, INIT ENCNTR FOR CLOSED FRACTURE SNOMED Code(s): 08100715 Comment: - After mechanical fall Urine growing E. cloacae. On ceftriaxone. - Case discussed with ortho oncall and no surgical intervention needed - Continue PT and pain control (APAP only). Walked 15 ft with assist of 2. (2) DM2 (diabetes mellitus, type 2) Current Visit: No Status: Chronic Priority: High Comment: - Glucose 120-350's -Resume metformin 05/01 PM. - Continue Lispro SS and lantus (3) HTN (hypertension) Current Visit: No Status: Chronic Priority: High Code(s): I10 - ESSENTIAL (PRIMARY) HYPERTENSION SNOMED Code(s): 50939143 Comment: Diastolics uner 60 as of 05/01, reduce amlodipine to 2.5 mg daily 05/02 AM. (4) Hx of seizure disorder Current Visit: No Status: Chronic Code(s): Z86.69 - PERSONAL HISTORY OF DIS OF THE NERVOUS SYS AND SENSE ORGANS SNOMED Code(s): 130206702 Comment: - Seizure precautions - Continue keppra (5) Rheumatoid arthritis Current Visit: No Status: Chronic Priority: High Code(s): M06.9 - RHEUMATOID ARTHRITIS, UNSPECIFIED SNOMED Code(s): 33448314 Comment: - Entanercept weekly on . Pt sometimes refuses it. I spoke to Dr. Radha Bermeo 05/01--not clear if she has benefited from it. She sometimes sees Dr. Song. . Status and Disposition: OBV to Inpatient. Discharge to home when medically stable, possibly in the morning. She may require RUTH ANN.
[2018-05-01] MEDS: metFORMIN* 1,000 MG TAB PO SCH (17:41)
[2018-05-01] MEDS ORDERED: oxyCODONE/Acetamin 5/325 MG* TAB PO PRN (21:29)
[2018-05-01] MEDS: cefTRIAXone(*) 1 GM in NS 0.9% 50 ML* 50 ML IVPB SCH (21:38)
[2018-05-02] MEDS: Dextrose 50% Syringe 50 ML* 25 GM/50 ML SYRINGE IV PUSH PRN
[2018-05-02] MEDS: Acetaminophen TAB* 325 MG PO SCH ×5 (02:05→23:44)
[2018-05-02] MEDS: Heparin VIAL(*) 5000 UNITS/ML VIAL (FIVE THOUSAND) SUBCUT SCH ×3 (06:03→21:47)
[2018-05-02] MEDS: Insulin LISPRO* 1 UNITS UNIT SUBCUT SCH ×3 (07:32→17:38)
--- NOTE | 2018-05-02 08:31 | PN ---
Subjective Date of Service: 05/02/18 Interval History: Some shaking and chills with FS of 61 last evening. Feels OK now. Appetite OK. Pain improving, adequate control. Family History: Unchanged from Admission Social History: Unchanged from Admission Past Medical History: Unchanged from Admission Objective Active Medications: Acetaminophen (Tylenol Tab*) 650 mg PO Q6H [facility] Last Admin: 05/02/18 06:02 Dose: 650 mg Amlodipine Besylate (Norvasc Tab*) 2.5 mg PO DAILY [facility] Dextrose (D50w Syringe 50 Ml*) 12.5 gm IV PUSH .FOR FS < 60 - SS PRN PRN Reason: FS < 60 Last Admin: 05/02/18 00:00 Dose: 12.5 gm Heparin Sodium (Porcine) (Heparin Vial(*)) 5,000 units SUBCUT Q8HR [facility] Last Admin: 05/02/18 06:03 Dose: 5,000 units Ceftriaxone Sodium 1 gm/ (Sodium Chloride) 50 mls @ 200 mls/hr IVPB Q24H [facility] Last Admin: 05/01/18 21:38 Dose: 200 mls/hr Insulin Glargine (Lantus(*)) 25 units SUBCUT QAM [facility] Insulin Human Lispro (Humalog*) 0 units SUBCUT AC [facility]; Protocol Last Admin: 05/02/18 07:32 Dose: Not Given Levetiracetam (Keppra Tab*) 500 mg PO BID [facility] Last Admin: 05/01/18 21:45 Dose: 500 mg Nystatin (Nystatin Cream*) 1 applic TOPICAL BID [facility] Last Admin: 05/01/18 22:00 Dose: 1 applic Omeprazole (Prilosec Cap*) 20 mg PO DAILY [facility] Last Admin: 05/01/18 09:41 Dose: 20 mg Ondansetron HCl (Zofran Inj*) 4 mg IV Q6H PRN PRN Reason: NAUSEA Polyethylene Glycol/Electrolytes (Miralax*) 17 gm PO DAILY [facility] Last Admin: 05/01/18 09:42 Dose: 17 gm Vital Signs - 8 hr 05/02/18 04:03 Temperature 97.4 F Pulse Rate 63 Respiratory 16 Rate Blood Pressure 101/42 (mmHg) O2 Sat by Pulse 99 Oximetry Oxygen Devices in Use Now: None Appearance: Alert, supine in bed. In good spirits. Looks comfortable. Eyes: No Scleral Icterus Respiratory: Symmetrical Chest Expansion and Respiratory Effort, Clear to Auscultation, Clear to Percussion Cardiovascular: NL Sounds; No Murmurs; No JVD, RRR, No Edema, - Extremities: No Edema, No Clubbing, Cyanosis, - Skin: No Rash or Ulcers, No Nodules or Sclerosis, - Neurological: Alert and Oriented x 3, NL Sensation Result Diagrams: 04/29/18 17:27 04/29/18 17:27 Additional Lab and Data: . Microbiology and Other Data: Microbiology 04/30/18 17:58 Urine Culture - Preliminary Urine Enterobacter Cloacae Assess/Plan/Problems-Billing Assessment: Ms. Cheung is a 76 yo female with PMH significant for seizure disorder, RA, HTN , and DM who had a mechanical fall at home resulting in a left pubic rami fracture. - Patient Problems (1) Pubic ramus fracture Current Visit: Yes Status: Acute Code(s): S32.599A - OTH FRACTURE OF UNSP PUBIS, INIT ENCNTR FOR CLOSED FRACTURE SNOMED Code(s): 33009443 Comment: - After mechanical fall - Case discussed with ortho oncall and no surgical intervention needed - Continue PT and pain control (APAP only). Walked 15 ft with assist of 2 04/30 , did better with PT 05/01. (2) DM2 (diabetes mellitus, type 2) Current Visit: No Status: Chronic Priority: High Comment: Hypoglycemic episode 05/01 PM with mild sx's. Hold metformin 05/02 AM. Reduce lantus 05/02 to 25U and hold until FS > 100. (3) HTN (hypertension) Current Visit: No Status: Chronic Priority: High Code(s): I10 - ESSENTIAL (PRIMARY) HYPERTENSION SNOMED Code(s): 46237066 Comment: Diastolics under 60 as of 05/01, reduce amlodipine to 2.5 mg daily 05/02 AM. (4) Hx of seizure disorder Current Visit: No Status: Chronic Code(s): Z86.69 - PERSONAL HISTORY OF DIS OF THE NERVOUS SYS AND SENSE ORGANS SNOMED Code(s): 903459088 Comment: - Seizure precautions - Continue keppra (5) Rheumatoid arthritis Current Visit: No Status: Chronic Priority: High Code(s): M06.9 - RHEUMATOID ARTHRITIS, UNSPECIFIED SNOMED Code(s): 52672554 Comment: - Entanercept weekly on . Pt sometimes refuses it. I spoke to Dr. Radha Bermeo 05/01--not clear if she has benefited from it. She sometimes sees Dr. Song. . Status and Disposition: OBV to Inpatient. Discharge to home when gait is adequate for safety at home.
[2018-05-02] MEDS: levETIRAcetam TAB* 500 MG PO SCH ×2 (09:59→21:47)
[2018-05-02] MEDS: Polyethylene Glycol 3350* 17 GM PACKET PO SCH (09:59)
[2018-05-02] MEDS: amLODIPine TAB* 5 MG PO SCH (09:59)
[2018-05-02] MEDS: Omeprazole CAP* 20 MG PO SCH (09:59)
[2018-05-02] MEDS: Insulin GLARGINE(*) 1 UNITS UNIT SUBCUT SCH (10:11)
[2018-05-02] MEDS: Nystatin CREAM* 15 GM TUBE TOPICAL SCH ×2 (10:15→21:54)
[2018-05-02] MEDS: metFORMIN* 1,000 MG TAB PO SCH (10:24)
[2018-05-02] MEDS: cefTRIAXone(*) 1 GM in NS 0.9% 50 ML* 50 ML IVPB SCH (21:47)
[2018-05-03] MEDS: Acetaminophen TAB* 325 MG PO SCH ×3 (06:07→17:18)
[2018-05-03] MEDS: Heparin VIAL(*) 5000 UNITS/ML VIAL (FIVE THOUSAND) SUBCUT SCH ×2 (06:36→12:58)
[2018-05-03] MEDS: Dextrose 50% Syringe 50 ML* 25 GM/50 ML SYRINGE IV PUSH PRN (07:55)
[2018-05-03] MEDS: Insulin LISPRO* 1 UNITS UNIT SUBCUT SCH ×3 (08:22→17:18)
[2018-05-03] MEDS: Polyethylene Glycol 3350* 17 GM PACKET PO SCH (08:28)
[2018-05-03] MEDS: levETIRAcetam TAB* 500 MG PO SCH (08:28)
[2018-05-03] MEDS: amLODIPine TAB* 5 MG PO SCH (08:28)
[2018-05-03] MEDS: Omeprazole CAP* 20 MG PO SCH (08:28)
[2018-05-03] MEDS: Insulin GLARGINE(*) 1 UNITS UNIT SUBCUT SCH (09:55)
--- NOTE | 2018-05-03 10:02 | PN ---
Progress Note - Progress Note Date of Service: 05/03/18 Note: Time spent on discharge 50 minutes.
[2018-05-03] MEDS: Nystatin CREAM* 15 GM TUBE TOPICAL SCH (10:09)
[2018-05-03] MEDS ORDERED: Cholecalciferol TAB* 1000 UNITS PO SCH (11:00)
[2018-05-03] MEDS ORDERED: Insulin GLARGINE(*) 1 UNITS UNIT SUBCUT SCH (12:45)
[2018-05-03 16:35] VITALS: BP 155/71
[2018-05-03] MEDS ORDERED: metFORMIN* 500 MG TAB PO SCH (17:00)
--- NOTE | 2018-05-03 22:11 | DS ---
CC: Lindsey Bermeo MD. * DISCHARGE SUMMARY: DATE OF ADMISSION: DATE OF DISCHARGE: 05/03/18. HISTORY OF PRESENT ILLNESS: This 72-year-old woman presented with left hip pain after a fall. She has a known seizure disorder. However, this fall seemed to me a mechanical fall. She could not lift or move her left leg immediately after she fell. In the emergency room, she was found to have a slightly displaced fracture of the left pubic ramus. She was admitted for pain control and physical therapy. She actually progressed rather well. On 05/02/18, she was able to walk 65 feet with a walker. Pain control was achieved with acetaminophen. I do not think she had a seizure at this time. She had a couple of episodes of mild symptomatic hypoglycemia. I reduced her Lantus quite a bit. She did not get metformin in the hospital. She will go home on a lower dose of metformin and no glipizide and a reduced dose of Lantus. Her vitamin D level was 19 and she has been started on vitamin D at 1000 units daily. FINAL DIAGNOSES: 1. Pubic ramus fracture. 2. Diabetes. 3. Hypertension. 4. Seizure disorder. 5. Rheumatoid arthritis. I also decreased her amlodipine in half to 2.5 mg daily. It is not really clear if the patient is taking Enbrel. She often refuses that she did not get any in the hospital. It might overall be a benefit if she discontinues it completely to avoid any confusion. DISCHARGE MEDICATIONS: 1. Amlodipine 2.5 mg daily. 2. Metformin 500 mg 8 a.m. and 5 p.m. 3. Vitamin D 1000 units daily. 4. Omeprazole 20 mg daily. 5. Nystatin t.i.d. to affected areas. 6. Ciprodex otic suspension as directed. 7. Levetiracetam 500 mg b.i.d. 8. Rosuvastatin 40 mg h.s. 9. Ondansetron ODT 4 mg every 6 hours p.r.n. 10. Guaifenesin DM as prescribed. 11. Diclofenac 1% gel apply b.i.d. p.r.n. 12. Polyethylene glycol 17 g daily. 13. Etanercept 50 mg subcu every . 14. Celecoxib 200 mg b.i.d. 15. Clarinex 5 mg daily. 16. Calcium with D3 one daily. 17. Acetaminophen 500 mg daily p.r.n. 18. Lantus 18 units daily. [id number]/[facility] #: [id number] [facility]
== END 2018-05-03 18:02 | disposition home health service (06) | DRG 536 ==
LOC: ED 16:09 → SSU 21:03 → OBSVTOIN 04-30 18:06 → MED 05-01 15:23
PROVIDERS: ADMIT Hospitalist; ATTEND Internal Medicine
DX: S32.592A Other specified fracture of left pubis, initial encounter for closed fracture (principal); W17.89XA Other fall from one level to another, initial encounter; E78.5 Hyperlipidemia, unspecified; I10 Essential (primary) hypertension; M06.9 Rheumatoid arthritis, unspecified; G40.909 Epilepsy, unspecified, not intractable, without status epilepticus; K21.9 Gastro-esophageal reflux disease without esophagitis; L40.9 Psoriasis, unspecified; M19.90 Unspecified osteoarthritis, unspecified site; H91.90 Unspecified hearing loss, unspecified ear; G43.909 Migraine, unspecified, not intractable, without status migrainosus; F03.90 Unspecified dementia, unspecified severity, without behavioral disturbance, psychotic disturbance, mood disturbance, and anxiety; E11.40 Type 2 diabetes mellitus with diabetic neuropathy, unspecified; R33.9 Retention of urine, unspecified; E11.649 Type 2 diabetes mellitus with hypoglycemia without coma; Z79.4 Long term (current) use of insulin; Z90.710 Acquired absence of both cervix and uterus; Z86.19 Personal history of other infectious and parasitic diseases; Y92.009 Unspecified place in unspecified non-institutional (private) residence as the place of occurrence of the external cause; Z86.73 Personal history of transient ischemic attack (TIA), and cerebral infarction without residual deficits; Z88.6 Allergy status to analgesic agent; Z88.0 Allergy status to penicillin; Z91.018 Allergy to other foods; Z97.4 Presence of external hearing-aid; Z80.0 Family history of malignant neoplasm of digestive organs
CPT/HCPCS: 36415; 80053; 81003; 81015; 82306; 85025; 85610; 85730; 87077; 87086; 87186; 99283; A9270-GY; G0378; G8978-GO-CK; G8978-GP-CL; G8979-GO-CH; G8979-GP-CI; G8987-GO-CL; G8988-GO-CH; J0696; J1644

== ENCOUNTER 2018-06-30 21:34 | Inpatient (IN) | payer MEDICARE, MEDICAID ==
[2018-06-30] MEDS ORDERED: NS 0.9% 1000 ML* 2,000 ML IV ONE (21:37)
--- NOTE | 2018-06-30 21:57 | ED ---
Altered Mental Status - HPI Summary HPI Summary: This patient is a 72 year old F presenting to [facility] with a chief complaint of AMS since being found by her daughter at around 2100. Pt lives alone in [facility], PMHx CVA, DM; BG was >400 per EMS. Pts daughter stated that she went in to check on pt, as she didnt hear from her all day, and found her fairly unresponsive/AMS. She noted mild slurred speech and facial droop, but these sx could be residual from a previous CVA. PMHx of a broken hip 2 weeks ago. The time-frame of LKW is unknown. Pt was able to deny recent illness in the ambulance. Spoke with pt on phone 2240, LKW 2100 last night. - History Of Current Complaint Chief Complaint: EDAltMentalStatus Stated Complaint: DIABETIC ISSUES Time Seen by Provider: 06/30/18 21:37 Hx Obtained From: Family/[employer], EMS Last Known Well Date: unknown Onset/Duration: Unknown, Still Present Timing: Constant Severity Initially: Moderate Severity Currently: Moderate Character: Confusion, Responsiveness, Lethargy Aggravating Factor(s): Unknown Alleviating Factor(s): Nothing Associated Signs And Symptoms: Positive: Negative - Allergies/Home Medications Allergies/Adverse Reactions: Allergies Allergy/AdvReac Type Severity Reaction Status Date / Time aspirin Allergy Hives Verified 04/29/18 16:28 penicillin G Allergy Hives Verified 04/29/18 16:28 Penicillins Allergy Hives Verified 04/29/18 16:28 onion AdvReac GI Upset Verified 04/29/18 16:28 pepper (genus Capsicum) AdvReac GI Upset Verified 04/29/18 16:28 [pepper] PMH/Surg Hx/FS Hx/Imm Hx Endocrine/Hematology History: Reports: Hx Diabetes - IDDM II, Hx Anemia Denies: Hx Thyroid Disease Cardiovascular History: Reports: Hx Hypercholesterolemia, Hx Hypertension Denies: Hx Congestive Heart Failure, Hx Pacemaker/ICD Respiratory History: Denies: Hx Asthma, Hx Chronic Obstructive Pulmonary Disease (COPD), Other Respiratory Problems/Disorders GI History: Reports: Hx Gastroesophageal Reflux Disease - OCCASIONALLY, Other GI Disorders - psoriasis Denies: Hx Ulcer History: Denies: Hx Dialysis, Hx Renal Disease Musculoskeletal History: Reports: Hx Arthritis - "ALL OVER", Hx Orthopedic Injury - L jacqui fracture and ORIF; L wrist fracture, Hx Tendonitis - SHOULDERS Sensory History: Reports: Hx Cataracts, Hx Contacts or Glasses, Hx Hearing Aid - hearing aide were lost prior to pt leaving her residence, Hx Hearing Problem Opthamlomology History: Reports: Hx Cataracts, Hx Contacts or Glasses Neurological History: Reports: Hx Migraine - OCCASIONALLY- TREATS WITH TYLENOL AND REST, Hx Seizures, Hx Transient Ischemic Attacks (TIA), Other Neuro Impairments/Disorders - diabetic neuropathy Denies: Hx Dementia Psychiatric History: Denies: Hx Panic Disorder - Cancer History Cancer Type, Location and Year: Family Hx - Surgical History Surgery Procedure, Year, and Place: Left ankle repair X 2. Hysterectomy. Right ear surgery- 50 years ago. Cleft palate repair Hx Anesthesia Reactions: No Infectious Disease History: No Infectious Disease History: Reports: Hx Shingles Denies: Hx Hepatitis, Hx Human Immunodeficiency Virus (HIV), Traveled Outside the [place] in Last 30 Days - Family History Known Family History: Positive: Other - colon CA Family History: FHx Limited due to Level 5 Caveat: Altered Mental Status - Social History Occupation: Unemployed Lives: Alone Alcohol Use: None Hx Substance Use: No Substance Use Type: Reports: None Hx Tobacco Use: No Smoking Status (MU): Never Smoked Tobacco Review of Systems Positive: Fever Positive: no symptoms reported Neurological: Other - mild facial droop Positive: Slurred Speech All Other Systems Reviewed And Are Negative: Yes Physical Exam - Summary Physical Exam Summary: Appearance: Well-appearing, Well-nourished, lying in bed comfortably Skin: Warm, dry, no obvious rash Eyes: sclera anicteric, no conjunctival pallor ENT: mucous membranes moist, pharynx appears normal Neck: Supple, non-tender Respiratory: Clear to auscultation, no signs of respiratory distress Cardiovascular: Normal S1, S2. No murmurs. Normal distal pulses in tibial and radial bilaterally. Abdomernn: Soft, non-tender, normal active bowel sounds present Musculoskeletal: Normal, Strength/ROM Intact Neurological: A&Ox3, awake and alert, mentation is normal, speech is fluent and appropriate Psychiatric: affect is normal, does not appear anxious or depressed Triage Information Reviewed: Yes Vital Signs On Initial Exam: Initial Vitals Pulse Resp BP Pulse Ox 103 13 212/101 93 06/30/18 21:37 06/30/18 21:37 06/30/18 21:37 08/26/18 21:37 Vital Signs Reviewed: Yes Diagnostics - Vital Signs Vital Signs Temp Pulse Resp BP Pulse Ox 06/30/18 21:49 100.5 F 103 16 212/101 90 06/30/18 21:39 108 15 95 06/30/18 21:37 103 13 212/101 93 - Laboratory Result Diagrams: 06/30/18 21:53 06/30/18 21:53 Lab Statement: Any lab studies that have been ordered have been reviewed, and results considered in the medical decision making process. - CT Brain CT Interpretation: No Acute Changes CT Interpretation Completed By: Radiologist - 1. No acute intracranial abnormality. 2. Mild chronic small vessel ischemic disease. Dr. Singh has reviewed this report. CTA head/chest CT Interpretation: Positive (See Comments) CT Interpretation Completed By: Radiologist - 1. Moderately stenotic right internal carotid artery in the cavernous and supraclinoid segments. 2. High- grade stenosis left internal carotid artery in the supraclinoid segment. 3. Right lung apical posterior segment nodule.Based on current Murali criteria , if low risk no followup indicated and if high risk optional followup chest CT in 12 months recommended. - EKG 2144 Cardiac Rate: Tachycardia - 101 EKG Rhythm: Sinus Tachycardia ST Segment: Non-Specific Ectopy: None EKG Interpretation: non-specific repolarization abnormality in lateral leads Altered Mental Statu Course/Dx - Diagnoses Differential Diagnosis/HQI/PQRI: CVA, Hyperthermia, Metabolic Disorder, TIA Provider Diagnoses: CVA (cerebral vascular accident), Fever - Provider Notifications Discussed Care Of Patient With: Anatoliy Eckert Time Discussed With Above Provider: 23:50 Instructed by Provider To: Other - Critical Care Time Critical Care Time: 30-74 min - 72 woman with suspected stroke requiring frequent reevaluation, consultation with stroke neurology service at [place], interpretation of advanced imaging, and decision regarding thrombolytic therapy and/or mechanical reperfusion therapy. Discharge - Sign-Out/Discharge Documenting (check all that apply): Patient Departure - admit - Discharge Plan Condition: Guarded Disposition: ADMITTED TO [facility] Referrals: Lindsey Bermeo MD [Primary Care Provider] - - Billing Disposition and Condition Condition: GUARDED Disposition: Admitted to [facility] - Attestation Statements Document Initiated by Scribe: Yes Documenting Scribe: Aden Gatica Provider For Whom Izzy is Documenting (Include Credential): Dr. Rome Singh MD Scribe Attestation: I, Aden Gatica, scribed for Dr. Rome Singh MD on 07/01/18 at 0032. Scribe Documentation Reviewed: Yes Provider Attestation: The documentation as recorded by the damireAden accurately reflects the service I personally performed and the decisions made by me, Dr. Rome Singh MD
[2018-06-30 22:08] LABS: ABS Basophils 0 10^3/ul (0-0.2); ABS Eosinophils 0 10^3/ul (0-0.6); ABS Lymphocytes 0.8 10^3/ul (1.0-4.8); ABS Monocytes 0.2 10^3/ul (0-0.8); ABS Nucleated RBC 0 10^3/ul; Eosinophil % 0.4 % (0-6); Hematocrit 36 % (35-47); Lymphocyte % 10.9 % (25-47); Mean Corpuscular HGB Conc 34 g/dl (31-36); Mean Corpuscular Hemoglobin 27 pg (27-31); Mean Corpuscular Volume 80 fL (80-97); Mean Platelet Volume 8.7 um3 (7.4-10.4); Nucleated Red Blood Cells % 0; Platelet Count 167 10^3/ul (150-450); Red Cell Distribution Width 14 % (10.5-15)
[2018-06-30 22:19] LABS: EGFR Non-African American 76.7 (>60)
--- NOTE | 2018-06-30 22:26 | RAD ---
EXAM: CT Head Without Intravenous Contrast CLINICAL HISTORY: 72 years old, female; Signs and symptoms; Altered mental status/memory loss TECHNIQUE: Axial computed tomography images of the head/brain without intravenous contrast. All CT scans at this facility use at least one of these dose optimization techniques: automated exposure control; mA and/or kV adjustment per patient size (includes targeted exams where dose is matched to clinical indication); or iterative reconstruction. COMPARISON: BRAIN WO CT BRAIN WO 12/09/2017 4:12 PM FINDINGS: Brain: Mild periventricular and subcortical low attenuation without adjacent mass effect. No acute ischemic changes, extra axial fluid collections, intraparenchymal hemorrhage, or midline shift. Cavum septum pellucidum and vergae. Ventricles: Normal. No ventriculomegaly. Symmetrical in position. Bones/joints: No acute fracture. No suspicious osseous lesions. Soft tissues: Normal. Vasculature: The vasculature demonstrates diffuse moderate atherosclerotic calcification. Sinuses: Normal as visualized. Mastoid air cells: Normal as visualized. No mastoid effusion. Orbits: There have been bilateral lens replacements. IMPRESSION: 1. No acute intracranial abnormality. 2. Mild chronic small vessel ischemic disease.
[2018-06-30 22:37] LABS: Urine Appearance Clear; Urine Blood 2+ (Negative); Urine Color Yellow; Urine Ketones 1+ (Negative); Urine Protein 3+(>=500 mg/dL) (Negative); Urine Red Blood Cell 3+(>10/hpf) (Absent); Urine Specific Gravity 1.024 (1.010-1.030); Urine Urobilinogen Negative (Negative); Urine White Blood Cell Trace(0-5/hpf) (Absent)
[2018-06-30] MEDS ORDERED: Iodixanol* (CONTRAST) 320 MG/ML 100 ML SDV IV ONE (22:38)
--- NOTE | 2018-06-30 23:38 | RAD ---
EXAM: CT Angiography Head With Intravenous Contrast CLINICAL HISTORY: 72 years old, female; Signs and symptoms; Cognitive deficit and speech disturbance and weakness; Communication deficit; Aphasia TECHNIQUE: Axial computed tomographic angiography images of the head with intravenous contrast using CT angiography protocol. All CT scans at this facility use at least one of these dose optimization techniques: automated exposure control; mA and/or kV adjustment per patient size (includes targeted exams where dose is matched to clinical indication); or iterative reconstruction. MIP reconstructed images were created and reviewed. Coronal and sagittal reformatted images were created and reviewed. CONTRAST: 80 mL of VISIPAQUE 350 administered intravenously. COMPARISON: No relevant prior studies available. FINDINGS: Right internal carotid artery: Moderately atherosclerotic right internal carotid artery within the cavernous and supraclinoid segment causing moderate canal stenosis. No occlusion or aneurysm. Right anterior cerebral artery: Normal. No occlusion or significant stenosis. No aneurysm. Right middle cerebral artery: Normal. No occlusion or stenosis. No aneurysm. Right posterior cerebral artery: Normal. No occlusion or significant stenosis. No aneurysm. Right vertebral artery: Normal as visualized. Left internal carotid artery: Small caliber left internal carotid artery with high-grade stenosis in the supraclinoid segment with continued distal flow. No occlusion or aneurysm. 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 Left middle cerebral artery: Normal. No occlusion or stenosis. No aneurysm. Left posterior cerebral artery: Normal. No occlusion or stenosis. No aneurysm. Left vertebral artery: Normal as visualized. Basilar artery: Normal. No occlusion or stenosis. No aneurysm. Brain: No abnormal brain enhancement. IMPRESSION: 1. Moderately stenotic right internal carotid artery in the cavernous and supraclinoid segments. 2. High-grade stenosis left internal carotid artery in the supraclinoid segment. EXAM: CT Angiography Neck With Intravenous Contrast CLINICAL HISTORY: 72 years old, female; Signs and symptoms; Cognitive deficit and speech disturbance and weakness; Communication deficit; Aphasia TECHNIQUE: Axial computed tomographic angiography images of the neck with intravenous contrast using CT angiography protocol. All CT scans at this facility use at least one of these dose optimization techniques: automated exposure control; mA and/or kV adjustment per patient size (includes targeted exams where dose is matched to clinical indication); or iterative reconstruction. MIP reconstructed images were created and reviewed. Coronal and sagittal reformatted images were created and reviewed. CONTRAST: 80 mL of VISIPAQUE 350 administered intravenously. 80 mL of VISIPAQUE 350 administered intravenously. COMPARISON: BRAIN WO CT BRAIN WO 06/30/2018 10:03 PM FINDINGS: VASCULATURE: Right common carotid artery: Normal. No stenosis. No dissection or occlusion. Right internal carotid artery: Moderately atherosclerotic right internal carotid artery at the origin causing 34% stenosis. Normal distal flow. Right external carotid artery: Normal. No occlusion. Right vertebral artery: Normal. No significant stenosis. No dissection or occlusion. Left common carotid artery: Mildly atherosclerotic left common carotid artery at the origin causing no stenosis. Left internal carotid artery: Small caliber left internal carotid artery with no stenosis and normal flow. Left external carotid artery: Normal. No occlusion. Left vertebral artery: Mild atherosclerotic left vertebral artery without stenosis. No dissection or occlusion. NECK: Bones/joints: Mild multilevel cervical spondylopathy. Congenital nonfused posterior ring of C1. No acute fracture. No dislocation. Soft tissues: Normal as visualized. No mass. Lung apices: An azygos lobe is seen. Small solid nodule apical posterior segment right upper lobe measuring 0.5 cm (series 2, image 27). CAROTID STENOSIS REFERENCE USING NASCET CRITERIA: % ICA stenosis = (1 - narrowest ICA diameter/diameter of distal cervical ICA) x 100. Mild - <50% stenosis. Moderate - 50-69% stenosis. Severe - 70-94% stenosis. Near occlusion - 95-99% stenosis. Occluded - 100% stenosis. IMPRESSION: 1. Mild right internal carotid artery stenosis. Otherwise normal neck CTA. 2. Right lung apical posterior segment nodule.Based on current Murali criteria, if low risk no followup indicated and if high risk optional followup chest CT in 12 months recommended. Guidelines for Management of Incidental Pulmonary Nodules Detected on CT Images: From the Fleischner Society 2017. MacMahon H et al. Radiology. 2017 Feb 23:[id number].
[2018-07-01] MEDS ORDERED: Al Hydrox/Mg Hydrox/Simet LIQ* 30 ML UDC PO PRN (00:11)
[2018-07-01] MEDS ORDERED: Ondansetron INJ* 2 MG/ML VIAL IV PRN (00:11)
[2018-07-01] MEDS ORDERED: NS 0.9% 1000 ML* 1,000 ML IV SCH (00:15)
[2018-07-01] MEDS ORDERED: Insulin LISPRO* 1 UNITS UNIT SUBCUT ONE (00:17)
[2018-07-01] MEDS ORDERED: Dextrose 50% Syringe 50 ML* 25 GM/50 ML SYRINGE IV PUSH PRN ×2 (00:17→00:18)
[2018-07-01] MEDS ORDERED: levETIRAcetam IV* 500 MG in NS 0.9% 100 ML* 100 ML IVPB ONE (00:18)
[2018-07-01] MEDS ORDERED: levETIRAcetam 500 MG IVPREMIX* 500 MG/100 ML BAG IVPB ONE (01:00)
[2018-07-01] MEDS: Insulin GLARGINE(*) 1 UNITS UNIT SUBCUT SCH ×2 (01:49→23:29)
[2018-07-01] MEDS: Nystatin TOP POWDER* 15 GM BTL TOPICAL SCH ×4 (02:48→23:29)
--- NOTE | 2018-07-01 05:13 | HP ---
CC: Lindsey Bermeo MD * HISTORY AND PHYSICAL: DATE OF ADMISSION: 07/01/18 TIME OF EVALUATION: 0000. PRIMARY CARE PHYSICIAN: Lindsey Bermeo MD CHIEF COMPLAINT: Altered mental status. HISTORY OF PRESENT ILLNESS: This is a 72-year-old female who was recently admitted for a pubic ramus fracture with a history of diabetes and seizure disorder, who presented to the emergency room after her daughter found her in bed with increased confusion. The patient was last known well on the evening of 06/30/18 at 9 p.m. Her daughter was trying to get in touch with her all day and was not able to when she went to go to check on her this evening she found her lying in bed lethargic, unable to have a conversation. She subsequently called the emergency room for further evaluation. On arrival, the patient was noted to be disheveled appearing with did not appear to have bathed any time recently and she appeared to have excoriated skin under her breasts per the nursing staff in the ER and noted to be incontinent as well. I was told that the daughter was going to show up to see her mother but she has not arrived and we are unable to get in touch with her. The patient is confused, she is unable to articulate, she does awake to voice. In the emergency room, the patient had labs and imaging. She had a head CT done and head CTA and there was concern for maybe a possible early infarct evolving on the head CT and based on her head CT today, the [facility]roke Team recommended IV fluids and admission for further evaluation. The patient was given 2 L of IV fluids in the emergency room and referred to the hospitalist service for further evaluation. PAST MEDICAL HISTORY: 1. Based on her prior records, recent admission in April 2018 for pubic ramus fracture and was discharged home with a walker. 2. Diabetes. 3. History of seizure disorder. 4. Hypertension. 5. Hyperlipidemia. 6. History of TIA. 7. History of rheumatoid arthritis. MEDICATIONS: On discharge from 05/03/18 are: 1. Amlodipine 2.5 mg p.o. daily. 2. Metformin 500 mg p.o. b.i.d. 3. Vitamin D 1000 units daily. 4 Omeprazole 20 mg daily. 5. Nystatin t.i.d. to affected areas. 6. Ciprodex otic suspension as directed. 7. Keppra 500 mg p.o. b.i.d. 8. Rosuvastatin 40 mg at bedtime. 9. Zofran 4 mg every 6 hours as needed. 10. Guaifenesin DM as prescribed. 11. Diclofenac 1% gel applied b.i.d. as needed. 12. MiraLAX 17 g daily. 13. Etanercept 50 mg subcutaneous every . Per last note, it is unclear if she is actually taking this. 14. Celecoxib 200 mg p.o. b.i.d. 15. Clarinex 5 mg daily. 16. Calcium with vitamin D3 one daily. 17. Tylenol as needed. 18. Lantus 18 units daily. ALLERGIES: ASPIRIN, PENICILLIN, ONION, and PEPPER. FAMILY HISTORY: Unable to obtain due to the patient's altered mental status. SOCIAL HISTORY: Per staff, she lives in a senior housing unit. No history of smoking, alcohol, or illicit drugs. Her daughter, Cara is her healthcare proxy. REVIEW OF SYSTEMS: Unable to obtain due to the patient's altered mental status. PHYSICAL EXAMINATION GENERAL: Frail female, in no acute distress, curled up in a ball. VITAL SIGNS: T-max 100.5, pulse rate 98, respiratory rate 12, oxygen saturation 95% on room air, and blood pressure 174/75. HEENT: Head normocephalic. Pupils: Her left pupil is 4 mm, whereas her right pupil is 3 mm. Her left eye is closed. When she opens her eyes, she is only able to open her right eye. Oropharynx: Mucous membranes are dry. NECK: Supple. No lymphadenopathy. RESPIRATORY: Diminished breath sounds. No wheezing, rhonchi, or rales. CARDIAC: Regular rate and rhythm. Harsh systolic murmur, most prominent at the left sternal base. Carotid bruit present bilaterally. ABDOMEN: Soft, nontender, and nondistended. EXTREMITIES: +1 pretibial edema. +1 DPs. NEUROLOGIC: The patient will awake to voice and mumbles, not able to articulate any coherent language. She is moving her upper and lower extremities symmetrically. She appears to have a left facial asymmetry with a left facial droop. Alert and oriented x0, she is nonverbal. LABORATORY DATA: White count 7, hemoglobin 12, hematocrit 36, platelets 167. INR 0.89. Sodium 135, potassium 3.8, chloride 99, bicarb 26, BUN 16, creatinine 0.74, glucose 380. Troponin 0.01. Urine shows negative bacteria, red cells, +1 ketones, +3 proteins. RADIOGRAPHIC DATA: Head CT, no acute intracranial abnormality, mild chronic small vessel ischemic change. Head CTA, moderate stenotic right internal carotid artery in the cavernous and supraclinoid segments. EKG, sinus tachycardia, some lateral T- wave depression. ASSESSMENT: This is a 72-year-old female with past medical history of diabetes , transient ischemic attack, and seizure disorder who presents to the emergency room with altered mental status. Altered mental status. Assessment: The patient's history and physical are concerning for an acute cerebrovascular accident. A compounding factor is her low- grade temp; however , she was found in a hot apartment with no air conditioning running, so it is unclear if this is related to her elevated temperature. She has no focal findings of an infection, no white count. The patient does not appear to be seizing and she does awake to voice and she appears to have expressive aphasia on exam. I am unclear if her left eye is chronic or not. Plan: [facility]. We will obtain an MRI and echo in the morning as well as an EEG. Keep her n.p.o. until she passes her swallow; order speech, physical therapy, occupational therapy, and consult Neurology in the morning. We will also continue to trend her troponin. We will check inflammatory markers, TSH, and CK in the setting of her being found down and with a low-grade temp. The patient is allergic to ASPIRIN, unable to give this to her as a suppository. She does not appear safe to be swallowing so we will not order Plavix at this time. We would follow up with further Neurology's recommendations for anti-platelet regimen. CHRONIC MEDICAL PROBLEMS: We will need to obtain a med rec officially, which she has been taking at home. For her hypertension, we will allow for permissive hypertension in the setting of possible acute stroke. For seizures, we will switch her to IV Keppra 500 mg p.o. as it is one-to-one conversion. We will hold off her oral agents as she does not appear to be safe to take any p.o. Diabetes: We will continue her on her Lantus and lispro sliding scale. Skin breakdown: We will order nystatin powder. FEN: N.p.o. We will continue IV fluids. DVT prophylaxis: The patient scores high risk. We will place her on heparin subcu t.i.d. Code status: The patient is a presumed full code. Disposition: Due to the patient's appearance of being disheveled and poor living conditions, it does not appear that the patient will safe to return back to independent living. We will follow up with her daughter to further get more information on this. Recommend referral for at least a rehab facility. TIME SPENT: Greater than 60 minutes were spent doing the history and physical, greater than half time was spent in direct patient contact. [id number]/[facility] #: [id number] MCKAYLA
[2018-07-01] MEDS: Heparin VIAL(*) 5000 UNITS/ML VIAL (FIVE THOUSAND) SUBCUT SCH ×3 (05:36→21:17)
[2018-07-01] MEDS: Insulin LISPRO* 1 UNITS UNIT SUBCUT SCH ×4 (05:36→23:30)
--- NOTE | 2018-07-01 07:51 | RAD ---
INDICATION: Altered mental status COMPARISON: Chest x-ray December 14, 2017 TECHNIQUE: Single AP portable view of the chest was obtained. FINDINGS: Image quality is compromised due to the relative inferiority of a portable chest x-ray. Similar to the prior chest x-ray, there is a mild degree of cardiomegaly. There is coarse calcification overlying the arch of the aorta. The pulmonary vasculature appears mildly engorged and indistinct. There are densities obscuring the bilateral lung bases. Visualized bones are normal for the patient's age. IMPRESSION: Chest x-ray findings are most consistent with mild cardiogenic pulmonary edema with likely small pleural effusions the bilateral lung bases. Overall the degree of aeration is improved relative to the most recent December 14, 2017 chest x-ray.
--- NOTE | 2018-07-01 10:41 | ECHO ---
Patient: LA WILSON [facility] Rec#: [id number] : 1945 Date: 07/01/2018 Age: 72y Height: 163 cm / 64.2 in Weight: 72.6 kg / 160.0 lbs Sex: F BSA: 1.78 Room#: [facility] Admit Date#: 07/01/2018 Type: Inpatient Referring: Viridiana Fleming Referring: Lindsey Bermeo Reading: Yonny Elliott MD Director Of Early Childhood: Caren Carter [facility] Transthoracic Echocardiogram Indication: CVA BP: 169/72 HR: 79 Rhythm: NSR Findings History: DM,seizures,HTN,HLD,TIA in the past,harsh systolic murmur. Technical Comments: The study quality is fair. Completed at 0850. Left Ventricle: The left ventricular chamber size is normal. Moderate to severe concentric left ventricular hypertrophy is observed. Global left ventricular wall motion and contractility are within normal limits. There is normal left ventricular systolic function. The estimated ejection fraction is 55-60%. Abnormal left ventricular diastolic function is observed. Left Atrium: The left atrial chamber size is normal. Right Ventricle: The right ventricular cavity size is normal. The right ventricular global systolic function is normal. Right Atrium: The right atrial cavity size is normal. Aortic Valve: The aortic valve is trileaflet. There is no evidence of aortic valve thickening. There is no evidence of aortic regurgitation. There is no evidence of aortic stenosis. Mitral Valve: The mitral valve leaflets are mildly thickened. There is mild mitral regurgitation. There is no evidence of mitral stenosis. Tricuspid Valve: The tricuspid valve leaflets are normal. There is mild tricuspid regurgitation. There is evidence of mild pulmonary hypertension. There is no tricuspid stenosis. Pulmonic Valve: The pulmonic valve appears normal. There is a trace pulmonic regurgitation. There is no pulmonic stenosis. Pericardium: The pericardium appears normal. Aorta: There is no dilatation of the ascending aorta. There is no dilatation of the aortic arch. There is no dilation of the aortic root. Pulmonary Artery: The main pulmonary artery appears normal. Venous: The venous system is not well visualized. Summary: There are no significant changes when compared to the previous study done on 11/12/17 Conclusions Moderate to severe concentric left ventricular hypertrophy is observed. Global left ventricular wall motion and contractility are within normal limits. There is normal left ventricular systolic function. The estimated ejection fraction is 55-60%. The right ventricular global systolic function is normal. There is no evidence of aortic stenosis. There is mild mitral regurgitation. There is mild tricuspid regurgitation. There is evidence of mild pulmonary hypertension. The pericardium appears normal. There are no significant changes when compared to the previous study done on 11/12/17 Measurements Name Value Normal Range RVIDd (AP) 2D 2.8 cm (0.9 - 2.6) RVDdMajor (2D) 2.5 cm (2.2 - 4.4) RAd ISD 4CH 4.7 cm (3.4 - 4.9) RA (A4C)W 3.2 cm (2.9 - 4.6) IVSd (2D) 1.8 cm (0.6 - 1) LVPWd (2D) 1.1 cm (0.6 - 1) LVIDd (2D) 3.7 cm (3.6 - 5.4) LVIDs (2D) 3.3 cm - Aortic Annulus 1.8 cm (1.4 - 2.6) Ao root diameter (2D) 3 cm (2.1 - 3.5) Ascending Ao 2.8 cm (2.1 - 3.4) Aortic arch 2.1 cm (1.8 - 3.4) Descending Ao 0.6 cm - LA dimension (AP) 2D 3.5 cm (2.3 - 3.8) LAd ISD 4CH 4.7 cm (2.9 - 5.3) LA ISD 4CH W 3.4 cm (2.5 - 4.5) Name Value Normal Range LA ESV SP 4CH (A/L) 34 ml - LA ESV SP 2CH (A/L) 18 ml - LA ESV BP (A/L) index 26 ml/m2 - Name Value Normal Range MV E-wave Vmax 0.7 m/sec - MV deceleration time 278 msec - MV A-wave Vmax 1 m/sec - MV E:A ratio 0.7 ratio - LV septal e' Vmax 0.05 m/sec - LV lateral e' Vmax 0.11 m/sec - Name Value Normal Range AV Vmax 1.3 m/sec - AV VTI 31.3 cm - AV peak gradient 7 mmHg - AV mean gradient 4 mmHg - LVOT Vmax 0.9 m/sec - LVOT VTI 21.7 cm - LVOT peak gradient 3 mmHg - LVOT mean gradient 1 mmHg - Name Value Normal Range TR Vmax 2.9 m/sec - TR peak gradient 34 mmHg - RAP 8 mmHg - RVSP 42 mmHg - Name Value Normal Range PV Vmax 0.9 m/sec - PV peak gradient 3 mmHg -
[2018-07-01] MEDS ORDERED: levETIRAcetam 500 MG IVPREMIX* 500 MG/100 ML BAG IV SCH (11:00)
[2018-07-01 11:13] LABS: ABS Basophils 0 10^3/ul (0-0.2); ABS Eosinophils 0.1 10^3/ul (0-0.6); ABS Lymphocytes 1.4 10^3/ul (1.0-4.8); ABS Monocytes 0.5 10^3/ul (0-0.8); ABS Neutrophils 3.9 10^3/ul (1.5-7.7); ABS Nucleated RBC 0 10^3/ul; Hematocrit 34 % (35-47); Hemoglobin 11.1 g/dl (12.0-16.0); Lymphocyte % 23.5 % (25-47); Mean Corpuscular HGB Conc 33 g/dl (31-36); Mean Corpuscular Hemoglobin 26 pg (27-31); Mean Corpuscular Volume 79 fL (80-97); Mean Platelet Volume 8.7 um3 (7.4-10.4); Nucleated Red Blood Cells % 0; Platelet Count 183 10^3/ul (150-450); Red Blood Count 4.26 10^6/ul (4.00-5.40); Red Cell Distribution Width 14 % (10.5-15); White Blood Count 5.8 10^3/ul (3.5-10.8)
--- NOTE | 2018-07-01 15:54 | PN ---
Hospitalist Progress Note Date of Service: 07/01/18 I have seen and examined Ms. Cheung and assume her care today. Vitals are stable, she alerts to voice, sits up and talks with me. She does not recall the events of last night or why she was brought to the hospital. Awaiting MRI report.
--- NOTE | 2018-07-01 17:02 | RAD ---
INDICATION: CVA. COMPARISON: Comparison is made with a prior MRI of the brain from November 14, [address] of the brain from June 30, 2018. TECHNIQUE: Sagittal T1, axial T1, T2, susceptibility, FLAIR and diffusion weighted images were obtained. FINDINGS: The ventricles, cisterns and sulci are prominent consistent with diffuse atrophy. There is a focal oval-shaped area of increased signal intensity on T2-weighted images and decreased signal intensity on T1-weighted images measuring 1.8 x 1.4 cm in size present in the posterior inferior left frontal lobe which is new from the prior MRI study. No restricted diffusion is present. There are small focal areas of decreased signal intensity on the susceptibility images present in the jarett on the right side suggestive of old hemosiderin deposition. No acute hemorrhage is seen. There is mild mucosal thickening within the ethmoid air cells. The paranasal sinuses otherwise appear clear. There appear to be small effusions present bilaterally within the mastoid air cells. The results of this exam were called to Dr. Tommy Navarro. IMPRESSION: THERE IS A FOCAL AREA OF INCREASED SIGNAL INTENSITY PRESENT IN THE INFERIOR POSTERIOR LEFT FRONTAL LOBE. THIS IS A NONSPECIFIC FINDING DIFFERENTIAL DIAGNOSTIC CONSIDERATIONS WOULD INCLUDE A MASS, LESS LIKELY ENCEPHALITIS OR AN INFLAMMATORY PROCESS. A CVA IS UNLIKELY GIVEN THE LACK OF RESTRICTED DIFFUSION. RECOMMEND A CONTRAST-ENHANCED MRI OF THE BRAIN FOR FURTHER EVALUATION.
[2018-07-01] MEDS: levETIRAcetam TAB* 500 MG PO SCH (21:17)
--- NOTE | 2018-07-01 21:54 | CONS ---
NEUROLOGY CONSULTATION: DATE OF CONSULT: 07/01/18 LOCATION: She is an inpatient in room 446. REFERRING PROVIDER: Amirah Navarro DO CHIEF COMPLAINT: Change in mental status. HISTORY OF PRESENT ILLNESS: Joyce Cheung is a 72-year-old woman, known to me from a previous hospitalization. She presented last winter with diminished responsiveness. She was brought into the hospital yesterday when she presented to the emergency room when her daughter found her in bed with confusion and diminished responsiveness at about 10 p.m. or so. She was last seen in her usual state of functioning at about 9 p.m. A telestroke consultation was obtained because of diminished attenuation in the head CT scan in the left concerning for an early infarction. A CT angiogram did not reveal actionable lesion and so, she was admitted and hydrated. She has a prior history of possible seizures and was put on Keppra when I saw her for that problem back in November of 2017. She presented very similarly where she was found very confused and had diminished responsiveness and then spontaneously improved. She had an MRI of the brain, which did not reveal an acute infarction, but has prior cerebrovascular disease. At that time, Keppra was added. This morning when I saw her and again this afternoon, she is relatively alert. She has been sleeping a lot today according to her nurse. Joyce says that she feels fine. She did complain of pain from her pubic ramus fracture earlier, which she apparently suffered from a fall couple of weeks ago. PAST MEDICAL HISTORY: Otherwise remarkable for hypertension, hyperlipidemia, rheumatoid arthritis, diabetes. MEDICATIONS: Currently consist of: 1. Sliding scale insulin. 2. Heparin subcutaneous 5000 units q.8 hours. 3. Keppra 500 mg IV q.12 hours. 4. Zofran p.r.n. q.4 hours 4 mg for nausea. ALLERGIES: She is listed as having allergies to ASPIRIN and PENICILLIN. REVIEW OF SYSTEMS: Review of systems from the patient is pretty unproductive. She did complain of the pelvic pain earlier, but not this afternoon. She lives in [facility]. Nurses bring her medications. PHYSICAL EXAM: She had a temperature of 100.5 temporally yesterday, but she has been afebrile since. Blood pressure most recently 126/56, heart rate in the 70s and regular, respiratory rate about 20, oxygen saturation is 96% on room air. Heart was in a regular rhythm earlier today and lungs were clear. Oral mucosa is moist and atraumatic. On neurological exam, eye movements are full. Facial musculature reveals flattening of the left lower facial musculature. Speech is dysarthric, but understandable. She has diminished mobility of the left arm, but is able to move both arms. She could only stand with assist. She is oriented only to hospital and herself. DIAGNOSTIC STUDIES/LAB DATA: Laboratory data reviewed includes glucose earlier today of 222, hemoglobin A1c from yesterday 12.5%. Chemistry is otherwise unremarkable, creatinine 0.67 and BUN 14, alkaline phosphatase elevated at 254, AST and ALT are normal. C-reactive protein is elevated at 19.8. TSH is normal at 2.11. CBC is notable for normal white blood cell count 5.8, it was 7.0 when she came in yesterday. Urinalysis is notable for 3+ protein, 1+ ketones, 2+ blood, 3+ glucose. There is trace white blood cells and absent bacteria. MRI of the brain is reviewed, it is a noncontrasted study. There is new areas of high signal involving the left basal ganglia and white matter surrounding it in a somewhat oval configuration. There is also what appeared to be chronic white matter changes. She had a transthoracic echocardiogram earlier today interpreted as showing mild pulmonary hypertension, [id number] concentric left ventricular hypertrophy, normal left ventricular wall motion and contractility. There is mild mitral and tricuspid regurgitation. CT angiogram from the head from 06/30/18 interpreted as showing moderately severe right internal carotid artery stenosis in the cavernous and supraclinoid segments. In the cervical vasculature, there is mild right internal carotid stenosis. She had an EEG earlier today, which reveals slowing from the left frontal region with sharp waves, which diminished over the course of the recording. IMPRESSION AND PLAN: My impression is that Joyce probably had a seizure. She has a new lesion in the left subcortical hemisphere concerning for a mass. It could also be postictal changes. It is recommended she have an MRI with contrast and she will set that up for tomorrow. I have increased her Keppra to 750 mg twice per day and made it p.o. We will check a blood level as well. I will continue to follow her along with you. [id number]/[facility] #: [id number] [facility]
--- NOTE | 2018-07-01 22:28 | EEG ---
ELECTROENCEPHALOGRAM REPORT: DATE OF STUDY: 07/01/18 REFERRING PROVIDER: Dr. Fleming. LOCATION: She is in [address] [place] [address]. CLINICAL PROBLEM: Chief Complaint: Altered mental status in the patient with a history of diabetes and epilepsy. MEDICATIONS: Include: 1. Levetiracetam. 2. Amlodipine. 3. Metformin. 4. Insulin. 5. Rosuvastatin. 6. Etanercept. REPORT: This 16-channel EEG is remarkable for background rhythms consisting of mixed theta and delta activities seen centrally with more suppressed slower rhythm seen from the left frontotemporal region. There are occasional sharp forms seen from the left frontal and central region and more rarely from the right frontal region. The patient is described as confused and an inaudible to communicate or follow commands. As the tracing progresses, there is improvement in the asymmetries with slightly higher amplitude and slightly faster rhythms in the theta range seen from the left temporal and parietal regions compared to the more normal- appearing right hemisphere. Photic stimulation is carried out with a weak occipital driving response, but no abnormalities are elicited. There may be some parasagittal sleep spindles, but they are poorly formed and infrequent. There are no clinical events described. CLINICAL IMPRESSION: Abnormal EEG due to asymmetrical slowing from the left frontal hemisphere as well as occasional sharp forms, occasionally with phase reversals in the left frontocentral region. This tracing is compatible with neural dysfunction in the left hemisphere, particularly frontally with a possible epileptiform focus in that location. The gradual improvement towards them are normal asymmetries suggests the additional possibility of a postictal slowing. [id number]/[facility] #: [id number] MTDD
[2018-07-02] MEDS: Heparin VIAL(*) 5000 UNITS/ML VIAL (FIVE THOUSAND) SUBCUT SCH ×3 (05:24→20:35)
[2018-07-02] MEDS: Insulin LISPRO* 1 UNITS UNIT SUBCUT SCH ×3 (06:25→18:00)
[2018-07-02] MEDS: levETIRAcetam TAB* 500 MG PO SCH ×2 (08:33→20:35)
[2018-07-02] MEDS: Nystatin TOP POWDER* 15 GM BTL TOPICAL SCH ×3 (08:36→20:36)
[2018-07-02] MEDS ORDERED: Gadoteridol* (CONTRAST) 279.3 MG/ML 10 ML IV ONE (10:32)
--- NOTE | 2018-07-02 12:37 | PN ---
Subjective Date of Service: 07/02/18 Interval History: Pt mental status improved per RN. Afebrile. MRI with contrast shot, read pending. Pt initially napping. Pt very difficult to understand and [place]. Denies complaints. States daughter Nora visited her yesterday. Objective Active Medications: Al Hydrox/Mg Hydrox/Simethicone (Maalox Plus*) 30 ml PO Q6H PRN PRN Reason: INDIGESTION Dextrose (D50w Syringe 50 Ml*) 12.5 gm IV PUSH .FOR FS < 60 - SS PRN PRN Reason: FS < 60 Heparin Sodium (Porcine) (Heparin Vial(*)) 5,000 units SUBCUT Q8HR [facility] Last Admin: 07/02/18 05:24 Dose: 5,000 units Insulin Glargine (Lantus(*)) 15 units SUBCUT 2300 [facility] Last Admin: 07/01/18 23:29 Dose: 15 unit Insulin Human Lispro (Humalog*) 0 units SUBCUT Q6HR [facility]; Protocol Last Admin: 07/02/18 06:25 Dose: Not Given Levetiracetam (Keppra Tab*) 750 mg PO BID [facility] Last Admin: 07/02/18 08:33 Dose: 750 mg Nystatin (Nystatin Top Powder*) 1 applic TOPICAL TID [facility] Last Admin: 07/02/18 08:36 Dose: 1 dose Ondansetron HCl (Zofran Inj*) 4 mg IV Q4H PRN PRN Reason: NAUSEA/VOMITING Vital Signs - 8 hr 07/02/18 07/02/18 07:43 08:00 Temperature 98.1 F Pulse Rate 74 Respiratory 20 18 Rate Blood Pressure 152/54 (mmHg) O2 Sat by Pulse 93 Oximetry Oxygen Devices in Use Now: None Appearance: NAD, chronically ill appearing. Eyes: No Scleral Icterus, PERRLA Respiratory: Symmetrical Chest Expansion and Respiratory Effort Cardiovascular: NL Sounds; No Murmurs; No JVD, RRR Abdominal: NL Sounds; No Tenderness; No Distention Extremities: No Edema, No Clubbing, Cyanosis Skin: No Rash or Ulcers Neurological: - - very difficult to understand but occasional clear words. feed research technician strength 4+ b/l. pt can sit at side of bed after assistance up. Does not hold arms up for testing. BILLINGS. Nutrition: Taking PO's Result Diagrams: 07/01/18 10:53 07/01/18 10:53 Additional Lab and Data: Laboratory Results - last 24 hr 07/01/18 07/01/18 07/01/18 17:28 17:45 23:04 POC Glucose (mg/dL) 246 H 307 H Urine Opiates Screen None detected Ur Barbiturates Screen None detected Ur Phencyclidine Scrn None detected Ur Amphetamines Screen None detected U Benzodiazepines Scrn None detected Urine Cocaine Screen None detected U Cannabinoids Screen None detected 07/02/18 07/02/18 05:07 11:28 POC Glucose (mg/dL) 148 H 178 H Urine Opiates Screen Ur Barbiturates Screen Ur Phencyclidine Scrn Ur Amphetamines Screen U Benzodiazepines Scrn Urine Cocaine Screen U Cannabinoids Screen Microbiology and Other Data: Microbiology 06/30/18 22:25 Urine Urine Culture - Preliminary Klebsiella Pneumoniae Assess/Plan/Problems-Billing Assessment: 72 yo female PMH seizuer disorder on keppra, poorly controlled IDDM (A1C 12.5), TIA, recent pubic rami fracture, rheumatoid arthritis presenting with AMS/ lethargy, hypertensive urgency 200/100. MRI Brain with 1.8x1.4cm mass in inferior posterior left frontal, less likely CVA (Contrast study pending). Neurology suspicious for AMS etiology being seizures. - Patient Problems (1) Brain mass Current Visit: Yes Status: Acute Code(s): G93.9 - DISORDER OF BRAIN, UNSPECIFIED SNOMED Code(s): 584244553 Comment: appreciate Neurology assistance, awaiting read of MRI Brain w/ contrast. May need NS or heme onc consult but will await read. keppra as below. (2) Hx of seizure disorder Current Visit: No Status: Chronic Code(s): Z86.69 - PERSONAL HISTORY OF DIS OF THE NERVOUS SYS AND SENSE ORGANS SNOMED Code(s): 368267526 Comment: Appreciate Neurology assistance EEG concerning for possible epiliptiform acitivity keppra at increased 750mg BID dosing. f/u level. (3) DM2 (diabetes mellitus, type 2) Current Visit: No Status: Chronic Priority: High Comment: A1C 12.5 Continue Lantus 15U. BG in 300s yesterday but 140-170 so far today. SSI holding home metformin. (4) HTN (hypertension) Current Visit: No Status: Chronic Priority: High Code(s): I10 - ESSENTIAL (PRIMARY) HYPERTENSION SNOMED Code(s): 32791362 Comment: home amlodipine 5 mg daily was held on admission. currently 130-150s (improved) (5) Hyperlipidemia Current Visit: No Status: Chronic Priority: High Code(s): E78.5 - HYPERLIPIDEMIA, UNSPECIFIED SNOMED Code(s): 03209139 Comment: LDL 169, HDL 53 - restart statin (6) Rheumatoid arthritis Current Visit: No Status: Chronic Priority: High Code(s): M06.9 - RHEUMATOID ARTHRITIS, UNSPECIFIED SNOMED Code(s): 58807086 Comment: - RN calling daughter to see if still taking Entanercept weekly on . She sometimes sees Dr. Song. . Status and Disposition: medicine inpatient. PT is following.
--- NOTE | 2018-07-02 14:46 | RAD ---
INDICATION: Seizure, abnormal noncontrast MRI study. COMPARISON: Comparison is made with prior MRI studies of the brain from November 14, 2017 and July 01, 2018. TECHNIQUE: Sagittal, axial and coronal T1-weighted images of the brain were obtained following intravenous injection of 11 ml of ProHance contrast. FINDINGS: The ventricles, cisterns and sulci are prominent consistent with diffuse atrophy. No abnormal contrast enhancement is seen. Specifically no abnormal enhancement is seen in the T2 hyperintense left frontal lobe lesion. IMPRESSION: THERE IS NO ABNORMAL ENHANCEMENT IN THE T2 HYPERINTENSE LESION IN THE LEFT FRONTAL LOBE. CONSIDER LOW-GRADE GLIOMA, ENCEPHALITIS OR CHRONIC INFARCT. RECOMMEND CLINICAL CORRELATION AND A FOLLOW-UP MRI OF THE BRAIN WITHOUT CONTRAST IN 1-2 MONTHS TIME TO EVALUATE FOR STABILITY.
[2018-07-02] MEDS: amLODIPine TAB* 5 MG PO SCH (18:01)
--- NOTE | 2018-07-02 20:50 | CONS ---
NEUROLOGY FOLLOWUP NOTE: DATE OF FOLLOWUP: 07/02/18 LOCATION: She is an inpatient in room 446. HOSPITALIST: Dr. Carter Mane. CHIEF COMPLAINT: Mental status changes. INTERVAL HISTORY: Since yesterday, there have been no new clinical events. She is described as sleepy much of the time, but does interact with the staff. She says that she had been up walking and there are patient care notes indicating that she was walking with a gait belt. She was able to walk 25 feet. Her blood glucose continues to be elevated, but has been gradually coming down on a sliding scale insulin regimen. From patient care record, she did have some breakfast, but not much and did not eat lunch. MEDICATIONS: Reviewed and she is on: 1. Sliding scale insulin. 2. Keppra 750 mg p.o. b.i.d. 3. Heparin 5000 units subcutaneous q.8 hours. PHYSICAL EXAM: She is sleepy, but wakes to voices and answers questions and follows commands. Temperature 98.1 orally, blood pressure 152/54, heart rate 74 and regular, respiratory rate 20, oxygen saturation is 93% on room air. Heart is in a regular rhythm without murmurs. There are no cervical bruits. Neurological Exam: Eye movements are divergent. The right eye deviates outwards. Facial musculature is notable for a left lower facial weakness. Speech is dysarthric, but understandable. There is a spastic catch in the left arm. She has good strength in the right arm. She has antigravity strength in the left arm and mildly weak left handgrip. I did not attempt to ambulate her. DIAGNOSTIC STUDIES/LAB DATA: Laboratory data was reviewed, and she had an MRI of the brain with contrast, which revealed no enhancement of the lesion seen on the noncontrasted with MRI scan from yesterday. Echocardiogram from yesterday reveals anafydgh-ve-myrlvn concentric left ventricular hypertrophy with an ejection fraction of 55% to 60%. Otherwise, it is an unremarkable echocardiogram. Other laboratory data notable for chemistries today only noticeable for glucose , which was high at 307 late last night and 178 this morning. CBC is stable and unremarkable. IMPRESSION AND PLAN: Impression is that of probable seizure. She has a new lesion on her MRI, but it is not contrasting. I would recommend continuing Keppra at the current dose. Recommend continuing therapies to try get her back up on her feet again. She will need a followup MRI scan in the future to follow the lesion seen on her imaging. Whether she will be able to be discharged home I think remains to be seen as she is still pretty lethargic and ambulates only with assistance. [id number]/[facility] #: [id number] MCKAYLA
[2018-07-03] MEDS: Insulin GLARGINE(*) 1 UNITS UNIT SUBCUT SCH (01:30)
[2018-07-03 05:57] LABS: ABS Basophils 0 10^3/ul (0-0.2); ABS Eosinophils 0.1 10^3/ul (0-0.6); ABS Lymphocytes 1.7 10^3/ul (1.0-4.8); ABS Monocytes 0.3 10^3/ul (0-0.8); ABS Neutrophils 2.2 10^3/ul (1.5-7.7); ABS Nucleated RBC 0 10^3/ul; Eosinophil % 2.2 % (0-6); Hematocrit 31 % (35-47); Hemoglobin 10.2 g/dl (12.0-16.0); Lymphocyte % 38.4 % (25-47); Mean Corpuscular HGB Conc 33 g/dl (31-36); Mean Corpuscular Hemoglobin 26 pg (27-31); Mean Corpuscular Volume 78 fL (80-97); Mean Platelet Volume 8.2 um3 (7.4-10.4); Nucleated Red Blood Cells % 0.1; Platelet Count 155 10^3/ul (150-450); Red Blood Count 3.93 10^6/ul (4.00-5.40); Red Cell Distribution Width 14 % (10.5-15); White Blood Count 4.4 10^3/ul (3.5-10.8)
[2018-07-03] MEDS: Insulin LISPRO* 1 UNITS UNIT SUBCUT SCH ×3 (06:10→18:17)
[2018-07-03] MEDS: Heparin VIAL(*) 5000 UNITS/ML VIAL (FIVE THOUSAND) SUBCUT SCH ×3 (06:12→22:10)
[2018-07-03 06:16] LABS: EGFR Non-African American 90.7 (>60)
[2018-07-03] MEDS: amLODIPine TAB* 5 MG PO SCH (08:27)
[2018-07-03] MEDS: Cholecalciferol TAB* 1000 UNITS PO SCH (08:27)
[2018-07-03] MEDS: Nystatin TOP POWDER* 15 GM BTL TOPICAL SCH ×3 (08:27→20:54)
[2018-07-03] MEDS: levETIRAcetam TAB* 500 MG PO SCH ×2 (08:27→20:39)
[2018-07-03] MEDS: Omeprazole CAP* 20 MG PO SCH (08:27)
--- NOTE | 2018-07-03 14:59 | PN ---
Subjective Date of Service: 07/03/18 Interval History: Worked with PT yesterday and today, went for a walk. Discussed care with RN Opal, who reports more interaction today. Took a shower this morning. Ms. Cheung feels okay and says she wants to go home. She cannot recall the tv shows she usually watches at home. Objective Active Medications: Al Hydrox/Mg Hydrox/Simethicone (Maalox Plus*) 30 ml PO Q6H PRN PRN Reason: INDIGESTION Amlodipine Besylate (Norvasc Tab*) 5 mg PO DAILY [facility] Last Admin: 07/03/18 08:27 Dose: 5 mg Atorvastatin Calcium (Lipitor*) 40 mg PO 1700 [facility] Cholecalciferol (Vitamin D Tab*) 1,000 units PO DAILY [facility] Last Admin: 07/03/18 08:27 Dose: 1,000 units Clopidogrel Bisulfate (Plavix Tab*) 75 mg PO DAILY [facility] Dextrose (D50w Syringe 50 Ml*) 12.5 gm IV PUSH .FOR FS < 60 - SS PRN PRN Reason: FS < 60 Heparin Sodium (Porcine) (Heparin Vial(*)) 5,000 units SUBCUT Q8HR [facility] Last Admin: 07/03/18 06:12 Dose: 5,000 units Insulin Glargine (Lantus(*)) 15 units SUBCUT 2300 [facility] Last Admin: 07/03/18 01:30 Dose: 15 unit Insulin Human Lispro (Humalog*) 0 units SUBCUT Q6HR [facility]; Protocol Last Admin: 07/03/18 12:46 Dose: 1 unit Levetiracetam (Keppra Tab*) 750 mg PO BID [facility] Last Admin: 07/03/18 08:27 Dose: 750 mg Nystatin (Nystatin Top Powder*) 1 applic TOPICAL TID [facility] Last Admin: 07/03/18 08:27 Dose: 1 dose Omeprazole (Prilosec Cap*) 20 mg PO DAILY [facility] Last Admin: 07/03/18 08:27 Dose: 20 mg Ondansetron HCl (Zofran Inj*) 4 mg IV Q4H PRN PRN Reason: NAUSEA/VOMITING Vital Signs - 8 hr 07/03/18 07/03/18 07/03/18 07:36 08:00 12:15 Temperature 99.1 F Pulse Rate 79 79 Respiratory 16 16 18 Rate Blood Pressure 148/64 151/66 (mmHg) O2 Sat by Pulse 89 96 Oximetry Oxygen Devices in Use Now: None Appearance: sleeping in chair when I walk in, alerts to voice and asks to be put back in bed. says she also sleeps most of the day at home. Eyes: No Scleral Icterus Ears/Nose/Mouth/Throat: - - edentulous Neck: NL Appearance and Movements; NL JVP Respiratory: Symmetrical Chest Expansion and Respiratory Effort, Clear to Auscultation Cardiovascular: NL Sounds; No Murmurs; No JVD, RRR Abdominal: NL Sounds; No Tenderness; No Distention Lymphatic: No Cervical Adenopathy Extremities: No Edema Skin: No Rash or Ulcers Neurological: - - able to name letters but cannot read words. follows simple commands but not complex commands. names objects appropriately. Result Diagrams: 07/03/18 05:40 07/03/18 05:40 Additional Lab and Data: Laboratory Results - last 24 hr 07/01/18 07/01/18 07/01/18 17:28 17:45 23:04 POC Glucose (mg/dL) 246 H 307 H Urine Opiates Screen None detected Ur Barbiturates Screen None detected Ur Phencyclidine Scrn None detected Ur Amphetamines Screen None detected U Benzodiazepines Scrn None detected Urine Cocaine Screen None detected U Cannabinoids Screen None detected 07/02/18 07/02/18 05:07 11:28 POC Glucose (mg/dL) 148 H 178 H Urine Opiates Screen Ur Barbiturates Screen Ur Phencyclidine Scrn Ur Amphetamines Screen U Benzodiazepines Scrn Urine Cocaine Screen U Cannabinoids Screen Microbiology and Other Data: Microbiology 06/30/18 22:25 Urine Urine Culture - Preliminary Klebsiella Pneumoniae Assess/Plan/Problems-Billing Assessment: 72 yo female PMH seizure disorder on keppra, poorly controlled IDDM (A1C 12.5), TIA, recent pubic ramus fracture, rheumatoid arthritis presenting with AMS/ lethargy, hypertensive urgency 200/100. MRI Brain with 1.8x1.4cm mass in inferior posterior left frontal lobe that is nonenhancing. - Patient Problems (1) Encephalopathy Current Visit: No Status: Acute Priority: High Code(s): G93.40 - ENCEPHALOPATHY, UNSPECIFIED SNOMED Code(s): 36102299 Comment: Much improved today. Presentation likely was post-ictal state, and has been slow to improve. She has had similar admissions prior to this mass being present in frontal lobe , so the etiology is likely cerebrovascular disease. UDS negative, no infectious source. *Despite her improvement, she has poor cognition at baseline, and I am concerned about her safety and ability to care for herself at home. She refuses placement or rehab. I contacted Dr. Godoy about a psychiatric evaluation for her decision making capacity in regards to this decision. (2) Brain mass Current Visit: Yes Status: Acute Code(s): G93.9 - DISORDER OF BRAIN, UNSPECIFIED SNOMED Code(s): 765525953 Comment: Dr. Mora following and suspects old CVA over a mass, however a low-grade neoplasm is possible Needs radiographic and Abby follow up in one month I am adding plavix today, statin added yesterday (3) DM2 (diabetes mellitus, type 2) Current Visit: No Status: Chronic Priority: High Comment: very poorly controlled with A1C 12.5 Continue Lantus 15U. BG acceptable on her home dose, suggesting she does not take her insulin at home. holding home metformin. (4) Rheumatoid arthritis Current Visit: No Status: Chronic Priority: High Code(s): M06.9 - RHEUMATOID ARTHRITIS, UNSPECIFIED SNOMED Code(s): 07008012 Comment: on etanercept; if she does go to rehab or assisted living, we may need to get in touch with Dr. Song for an alternative regimen due to cost limitations (5) Hypokalemia Current Visit: Yes Status: Acute Code(s): E87.6 - HYPOKALEMIA SNOMED Code( s): 15756087 (6) Hypomagnesemia Current Visit: Yes Status: Acute Code(s): E83.42 - HYPOMAGNESEMIA SNOMED Code(s): 184857969 Comment: replete and check phos to rule out refeeding syndrome Status and Disposition: medicine inpatient. PT is following. Awaiting psych consult for capacity evaluation.
[2018-07-03] MEDS ORDERED: Potassium Chloride LIQUID* 20 MEQ PACKET PO ONE (15:21)
[2018-07-03] MEDS ORDERED: Magnesium Oxide TAB* 400 MG PO ONE (15:21)
--- NOTE | 2018-07-03 15:55 | CONS ---
NEUROLOGY FOLLOW-UP NOTE DATE OF FOLLOW-UP: 07/03/2018. She is in room 446. PRIMARY CARE PHYSICIAN: Dr. Lindsey Bermeo. CHIEF COMPLAINT: Seizures. INTERVAL HISTORY: Since yesterday Joyce is doing better. She has been walking around with supervision, but otherwise unassisted. She is more mentally alert than she was yesterday. She has not had any episodes of unresponsiveness. MEDICATIONS: Medications are reviewed and she is on Keppra 750 mg p.o. b.i.d., Amlodipine 5 mg p.o. daily, Atorvastatin 40 mg p.o. daily, vitamin D 1,000 units p.o. daily, Heparin subcutaneous 5,000 units q.8 hours, sliding scale insulin, Omeprazole 20 mg p.o. daily. PHYSICAL EXAMINATION: She is well-hydrated. Vital Signs: Temperature 99.1 temporally, blood pressure 150/66, heart rate in the 70s and regular, respiratory rate is 18, and oxygen saturation is 96 percent on room air. Neurologically, she is alert or at least is alert as she has been since I have seen her here. She is very hard of hearing. Speech is dysarthric. Right eye is exotropic which is chronic. Upper extremity and lower extremity strength is symmetrically and reasonably strong. She is oriented to person and place. She asked when she can go home. LABORATORY DATA: Laboratory studies notable were CBC with a hemoglobin of 10.2 which is stable. Chemistry profile today notable for potassium down to 3.0, glucose this morning 186. IMPRESSION: Probable seizures. This is at least the third admission I am aware of where she came in with weakness and diminished responsiveness, only to have it resolve within days. She does have a new lesion on her brain imaging which does not enhance and may be a low grade neoplasm. Her episodes of probable seizures predate that. She should have a follow-up MRI in a couple of months with and without contrast. I think she should be on Plavix given her cerebrovascular disease on imaging and she was on it when she was here in November. I can see her in follow-up in my office in a month or so and will arrange for follow-up imaging and make sure that she is tolerating and getting her anticonvulsants. [id number]/[facility] #: [id number] [facility]
[2018-07-03] MEDS: Atorvastatin* 40 MG TAB PO SCH (18:17)
[2018-07-03] MEDS: Potassium Chlor TAB* 20 MEQ TAB.ER PO SCH (20:40)
[2018-07-04] MEDS: Insulin GLARGINE(*) 1 UNITS UNIT SUBCUT SCH (00:07)
[2018-07-04] MEDS: Insulin LISPRO* 1 UNITS UNIT SUBCUT SCH ×4 (00:08→17:31)
[2018-07-04] MEDS: Heparin VIAL(*) 5000 UNITS/ML VIAL (FIVE THOUSAND) SUBCUT SCH ×3 (06:01→21:54)
[2018-07-04 06:23] LABS: EGFR Non-African American 94.1 (>60)
[2018-07-04] MEDS: amLODIPine TAB* 5 MG PO SCH (09:22)
[2018-07-04] MEDS: Potassium Chlor TAB* 20 MEQ TAB.ER PO SCH ×2 (09:22→21:54)
[2018-07-04] MEDS: Cholecalciferol TAB* 1000 UNITS PO SCH (09:22)
[2018-07-04] MEDS: Omeprazole CAP* 20 MG PO SCH (09:22)
[2018-07-04] MEDS: levETIRAcetam TAB* 500 MG PO SCH ×2 (09:22→21:54)
[2018-07-04] MEDS: Clopidogrel TAB* 75 MG PO SCH (09:22)
[2018-07-04] MEDS: Nystatin TOP POWDER* 15 GM BTL TOPICAL SCH ×2 (09:23→14:02)
--- NOTE | 2018-07-04 09:41 | RAD ---
HISTORY: Left leg swelling TECHNIQUE: Multiple transverse and longitudinal ultrasound images were obtained of the veins of the left lower extremity using grayscale, color Doppler, and spectral Doppler imaging with and without compression and with augmentation. FINDINGS: VEINS: The common femoral vein, deep femoral vein, femoral vein and popliteal vein are compressible throughout their course, with normal flow on color Doppler imaging and normal response to augmentation on spectral Doppler imaging. SOFT TISSUES: There is mild subcutaneous edema overlying the left lower leg. IMPRESSION: No sonographic evidence of deep vein thrombosis.
[2018-07-04] MEDS ORDERED: Magnesium Sulfate 2 GM IV* 2 GM/50 ML BAG IVPB ONE (10:00)
--- NOTE | 2018-07-04 12:30 | CONSULT ---
Consult Consult: Consult for Medical Decision Making Capacity: S: Psychiatry is asked to evaluate capacity in this 72 y.o. single, white female with a history of diabetes and seizure disorder who presents to the hospital with marked confusion and inability to care for herself. Neuroimaging has revealed a structural abnormality in her frontal lobes that is new and could represent an acute infarct versus mass. It is assumed that she experienced a seizure, perhaps secondary to this lesion, and this is what is perhaps causing encephalopathy, although direct causation from the lesion cannot be ruled out. At any rate, the primary team does not feel that she is safe to return to independent living in the community and feels like [facility] placement is the indicated treatment after discharge. As per attending physicians, Dr.s Navarro and Mratín, the patient shows no appreciation for her diagnosis, the recommended treatment, or the risks of refusing [facility] placement, described as worsening blood glucose leading to acidosis, further stroke or . On exam, Joyce is hard of hearing and does not seem to appreciate who I am or what I am asking her. She does seem to understand what "rehab" means and voices clear opposition to this, saying repeatedly "I want to go home." She cannot list any possible benefits of [facility] placement, and similarly cannot list any risks to going home. "My daughter is with me." She knows that she lives in [facility] but cannot state her apartment number. She is disoriented to time and situation. O: aging white female with drooping eyes; dishevelled, dressed in patient gown; speech shows little spontaneity or detail; euthymic with full affect; thought process is simplistic and somewhat impoverished; denies SI or HI; denies AH/VH; insight and judgment are impaired; cognitively awake, lethargic with evidence of waxing/waning sensorium. A/P: Capacity: the patient clearly fails to demonstrate an appreciation of her illness or the benefits/risks associated with the indicated treatment. She lacks capacity to make informed decisions about [facility] placement. Psychiatry is signing off but can be reconsulted in the event of any changes in her presentation.
--- NOTE | 2018-07-04 16:43 | PN ---
Subjective Date of Service: 07/04/18 Interval History: Pt seen and examined. Meds and labs reviewed. CC: N/A ROS: Denied ANGEL/dizziness, F/C, N/V, CP, SOB, increased cough, sputum production , abd pain, diarrhea, constipation, dysuria, myalgias, arthralgias, throat pain , and new skin lesions. The rest of the 14 point ROS are unremarkable. PHYSICAL EXAM: GEN APPEARANCE: Awake, not in acute distress, not oriented x3 HEENT: NC/AT, PERRLA, moist oral mucosa, (-) throat erythema NECK: Soft, supple, (-) cervical LAD, (-)JVD HEART: S1S2 WNL, RRR, No MRG CHEST: CTA, BL, GAE, No W/R/R ABD: Soft, ND/NT, NABS 4x Q EXT: No C/C/BLLE edema +2 SKIN: Warm to touch PSYCH: No active psychosis, hallucinations, depression, SI/HI Objective Active Medications: Al Hydrox/Mg Hydrox/Simethicone (Maalox Plus*) 30 ml PO Q6H PRN PRN Reason: INDIGESTION Amlodipine Besylate (Norvasc Tab*) 5 mg PO DAILY [facility] Last Admin: 07/04/18 09:22 Dose: 5 mg Atorvastatin Calcium (Lipitor*) 40 mg PO 1700 [facility] Last Admin: 07/03/18 18:17 Dose: 40 mg Cholecalciferol (Vitamin D Tab*) 1,000 units PO DAILY [facility] Last Admin: 07/04/18 09:22 Dose: 1,000 units Clopidogrel Bisulfate (Plavix Tab*) 75 mg PO DAILY [facility] Last Admin: 07/04/18 09:22 Dose: 75 mg Dextrose (D50w Syringe 50 Ml*) 12.5 gm IV PUSH .FOR FS < 60 - SS PRN PRN Reason: FS < 60 Heparin Sodium (Porcine) (Heparin Vial(*)) 5,000 units SUBCUT Q8HR [facility] Last Admin: 07/04/18 14:01 Dose: 5,000 units Insulin Glargine (Lantus(*)) 15 units SUBCUT 2300 [facility] Last Admin: 07/04/18 00:07 Dose: 15 unit Insulin Human Lispro (Humalog*) 0 units SUBCUT Q6HR [facility]; Protocol Last Admin: 07/04/18 12:44 Dose: 3 unit Levetiracetam (Keppra Tab*) 750 mg PO BID [facility] Last Admin: 07/04/18 09:22 Dose: 750 mg Nystatin (Nystatin Top Powder*) 1 applic TOPICAL TID [facility] Last Admin: 07/04/18 14:02 Dose: 1 dose Omeprazole (Prilosec Cap*) 20 mg PO DAILY [facility] Last Admin: 07/04/18 09:22 Dose: 20 mg Ondansetron HCl (Zofran Inj*) 4 mg IV Q4H PRN PRN Reason: NAUSEA/VOMITING Potassium Chloride (Klor Con Er Tab*) 20 meq PO BID [facility] Last Admin: 07/04/18 09:22 Dose: 20 meq Vital Signs - 8 hr 07/04/18 07/04/18 11:42 15:15 Temperature 99.5 F 97.5 F Pulse Rate 76 76 Respiratory 16 12 Rate Blood Pressure 125/55 137/60 (mmHg) O2 Sat by Pulse 97 97 Oximetry Oxygen Devices in Use Now: None Result Diagrams: 07/03/18 05:40 07/04/18 05:33 Additional Lab and Data: Laboratory Results - last 24 hr 07/01/18 07/01/18 07/01/18 17:28 17:45 23:04 POC Glucose (mg/dL) 246 H 307 H Urine Opiates Screen None detected Ur Barbiturates Screen None detected Ur Phencyclidine Scrn None detected Ur Amphetamines Screen None detected U Benzodiazepines Scrn None detected Urine Cocaine Screen None detected U Cannabinoids Screen None detected 07/02/18 07/02/18 05:07 11:28 POC Glucose (mg/dL) 148 H 178 H Urine Opiates Screen Ur Barbiturates Screen Ur Phencyclidine Scrn Ur Amphetamines Screen U Benzodiazepines Scrn Urine Cocaine Screen U Cannabinoids Screen Microbiology and Other Data: Microbiology 06/30/18 22:25 Urine Urine Culture - Preliminary Klebsiella Pneumoniae Assess/Plan/Problems-Billing Assessment: 72 yo female PMH seizure disorder on keppra, poorly controlled IDDM (A1C 12.5), TIA, recent pubic ramus fracture, rheumatoid arthritis presenting with AMS/ lethargy, hypertensive urgency 200/100. MRI Brain with 1.8x1.4cm mass in inferior posterior left frontal lobe that is nonenhancing. - Patient Problems (1) Brain mass Current Visit: Yes Status: Acute Code(s): G93.9 - DISORDER OF BRAIN, UNSPECIFIED SNOMED Code(s): 254553485 Comment: -appreciate Neurology assistance -MRI of brain with contrast shows no abnormal enhancement in T2 hyperintense lesion in left frontal lobe -For F/U MRI in 1-2 months -Consider outpatient consult with Heme/Onc---will call on D/C -Continue Keppra and Plavix (given chronic ischemic CVA on MRI). May need NS or heme onc consult but will await read. hawk as below. (2) Hx of seizure disorder Current Visit: No Status: Chronic Code(s): Z86.69 - PERSONAL HISTORY OF DIS OF THE NERVOUS SYS AND SENSE ORGANS SNOMED Code(s): 955875515 Comment: -Appreciate Neurology assistance -EEG concerning for possible epiliptiform acitivity -Continue Keppra -Appreciate Psych evaluation---pt currently does not have capacity to make decisions about [facility] placement (3) DM2 (diabetes mellitus, type 2) Current Visit: No Status: Chronic Priority: High Comment: -A1C 12.5 -Improved -Continue current regimen (4) HTN (hypertension) Current Visit: No Status: Chronic Priority: High Code(s): I10 - ESSENTIAL (PRIMARY) HYPERTENSION SNOMED Code(s): 20737979 Comment: home amlodipine 5 mg daily was held on admission. currently 130-150s (improved) (5) Hyperlipidemia Current Visit: No Status: Chronic Priority: High Code(s): E78.5 - HYPERLIPIDEMIA, UNSPECIFIED SNOMED Code(s): 33308324 Comment: LDL 169, HDL 53 - restart statin (6) Rheumatoid arthritis Current Visit: No Status: Chronic Priority: High Code(s): M06.9 - RHEUMATOID ARTHRITIS, UNSPECIFIED SNOMED Code(s): 57589458 Comment: on etanercept; if she does go to rehab or assisted living, we may need to get in touch with Dr. Song for an alternative regimen due to cost limitations Status and Disposition: medicine inpatient. PT is following. -Will discuss placement status given above in AM
[2018-07-04] MEDS: Atorvastatin* 40 MG TAB PO SCH (17:31)
[2018-07-05] MEDS: Insulin GLARGINE(*) 1 UNITS UNIT SUBCUT SCH (00:15)
[2018-07-05] MEDS: Insulin LISPRO* 1 UNITS UNIT SUBCUT SCH ×5 (00:16→23:52)
[2018-07-05] MEDS: Nystatin TOP POWDER* 15 GM BTL TOPICAL SCH ×4 (00:16→21:13)
[2018-07-05] MEDS: Heparin VIAL(*) 5000 UNITS/ML VIAL (FIVE THOUSAND) SUBCUT SCH ×3 (05:52→21:07)
[2018-07-05] MEDS: amLODIPine TAB* 5 MG PO SCH (08:51)
[2018-07-05] MEDS: Clopidogrel TAB* 75 MG PO SCH (08:51)
[2018-07-05] MEDS: Omeprazole CAP* 20 MG PO SCH (08:51)
[2018-07-05] MEDS: Potassium Chlor TAB* 20 MEQ TAB.ER PO SCH ×2 (08:51→21:07)
[2018-07-05] MEDS: levETIRAcetam TAB* 500 MG PO SCH ×2 (08:51→21:06)
[2018-07-05] MEDS: Cholecalciferol TAB* 1000 UNITS PO SCH (08:52)
[2018-07-05 09:25] LABS: ABS Basophils 0 10^3/ul (0-0.2); ABS Eosinophils 0.2 10^3/ul (0-0.6); ABS Lymphocytes 1.3 10^3/ul (1.0-4.8); ABS Monocytes 0.3 10^3/ul (0-0.8); ABS Neutrophils 1.9 10^3/ul (1.5-7.7); ABS Nucleated RBC 0 10^3/ul; Hematocrit 33 % (35-47); Lymphocyte % 34.8 % (25-47); Mean Corpuscular HGB Conc 33 g/dl (31-36); Mean Corpuscular Hemoglobin 26 pg (27-31); Mean Corpuscular Volume 79 fL (80-97); Mean Platelet Volume 8.4 um3 (7.4-10.4); Nucleated Red Blood Cells % 0.1; Platelet Count 183 10^3/ul (150-450); Red Blood Count 4.19 10^6/ul (4.00-5.40); Red Cell Distribution Width 14 % (10.5-15); White Blood Count 3.7 10^3/ul (3.5-10.8)
[2018-07-05 09:43] LABS: EGFR Non-African American 79.2 (>60)
[2018-07-05] MEDS ORDERED: Dextrose 50% Syringe 50 ML* 25 GM/50 ML SYRINGE IV PUSH PRN (17:03)
--- NOTE | 2018-07-05 17:09 | PN ---
Subjective Date of Service: 07/05/18 Interval History: Pt seen and examined. Meds and labs reviewed. CC: N/A ROS: Unable to fully provide reliable 14 point ROS, although no specific complaints PHYSICAL EXAM: GEN APPEARANCE: Awake, not in acute distress, oriented x 3, more alert today but still confused despite improvement of orientation HEENT: NC/AT, PERRLA, moist oral mucosa, (-) throat erythema NECK: Soft, supple, (-) cervical LAD, (-)JVD HEART: S1S2 WNL, RRR, No MRG CHEST: CTA, BL, GAE, No W/R/R ABD: Soft, ND/NT, NABS 4x Q EXT: No C/C/BLLE+1 edema SKIN: Warm to touch PSYCH: No active psychosis, hallucinations, depression, SI/HI Objective Active Medications: Al Hydrox/Mg Hydrox/Simethicone (Maalox Plus*) 30 ml PO Q6H PRN PRN Reason: INDIGESTION Amlodipine Besylate (Norvasc Tab*) 5 mg PO DAILY [facility] Last Admin: 07/05/18 08:51 Dose: 5 mg Atorvastatin Calcium (Lipitor*) 40 mg PO 1700 [facility] Last Admin: 07/04/18 17:31 Dose: 40 mg Cholecalciferol (Vitamin D Tab*) 1,000 units PO DAILY [facility] Last Admin: 07/05/18 08:52 Dose: 1,000 units Clopidogrel Bisulfate (Plavix Tab*) 75 mg PO DAILY [facility] Last Admin: 07/05/18 08:51 Dose: 75 mg Dextrose (D50w Syringe 50 Ml*) 12.5 gm IV PUSH .FOR FS < 60 - SS PRN PRN Reason: FS < 60 Heparin Sodium (Porcine) (Heparin Vial(*)) 5,000 units SUBCUT Q8HR [facility] Last Admin: 07/05/18 13:31 Dose: 5,000 units Insulin Glargine (Lantus(*)) 15 units SUBCUT 2300 [facility] Last Admin: 07/05/18 00:15 Dose: 15 unit Insulin Human Lispro (Humalog*) 0 units SUBCUT Q6HR [facility]; Protocol Last Admin: 07/05/18 13:31 Dose: 3 unit Levetiracetam (Keppra Tab*) 750 mg PO BID [facility] Last Admin: 07/05/18 08:51 Dose: 750 mg Nystatin (Nystatin Top Powder*) 1 applic TOPICAL TID [facility] Last Admin: 07/05/18 13:20 Dose: Not Given Omeprazole (Prilosec Cap*) 20 mg PO DAILY [facility] Last Admin: 07/05/18 08:51 Dose: 20 mg Ondansetron HCl (Zofran Inj*) 4 mg IV Q4H PRN PRN Reason: NAUSEA/VOMITING Potassium Chloride (Klor Con Er Tab*) 20 meq PO BID [facility] Last Admin: 07/05/18 08:51 Dose: 20 meq Vital Signs - 8 hr 07/05/18 11:59 Temperature 98.3 F Pulse Rate 78 Respiratory 16 Rate Blood Pressure 145/67 (mmHg) O2 Sat by Pulse 97 Oximetry Oxygen Devices in Use Now: None Result Diagrams: 07/05/18 09:18 07/05/18 09:18 Additional Lab and Data: Laboratory Results - last 24 hr 07/01/18 07/01/18 07/01/18 17:28 17:45 23:04 POC Glucose (mg/dL) 246 H 307 H Urine Opiates Screen None detected Ur Barbiturates Screen None detected Ur Phencyclidine Scrn None detected Ur Amphetamines Screen None detected U Benzodiazepines Scrn None detected Urine Cocaine Screen None detected U Cannabinoids Screen None detected 07/02/18 07/02/18 05:07 11:28 POC Glucose (mg/dL) 148 H 178 H Urine Opiates Screen Ur Barbiturates Screen Ur Phencyclidine Scrn Ur Amphetamines Screen U Benzodiazepines Scrn Urine Cocaine Screen U Cannabinoids Screen Microbiology and Other Data: Microbiology 06/30/18 22:25 Urine Urine Culture - Preliminary Klebsiella Pneumoniae Assess/Plan/Problems-Billing Assessment: 72 yo female PMH seizure disorder on keppra, poorly controlled IDDM (A1C 12.5), TIA, recent pubic ramus fracture, rheumatoid arthritis presenting with AMS/ lethargy, hypertensive urgency 200/100. MRI Brain with 1.8x1.4cm mass in inferior posterior left frontal lobe that is nonenhancing. - Patient Problems (1) Brain mass Current Visit: Yes Status: Acute Code(s): G93.9 - DISORDER OF BRAIN, UNSPECIFIED SNOMED Code(s): 709062780 Comment: -appreciate Neurology assistance -MRI of brain with contrast shows no abnormal enhancement in T2 hyperintense lesion in left frontal lobe -For F/U MRI in 1-2 months -Consider outpatient consult with Heme/Onc---please call on D/C to schedule appointment -Continue Keppra and Plavix (given chronic ischemic CVA on MRI). May need NS or heme onc consult but will await read. carine as below. (2) Hx of seizure disorder Current Visit: No Status: Chronic Code(s): Z86.69 - PERSONAL HISTORY OF DIS OF THE NERVOUS SYS AND SENSE ORGANS SNOMED Code(s): 224653130 Comment: -Appreciate Neurology assistance -EEG concerning for possible epiliptiform acitivity -Continue Keppra -Appreciate Psych evaluation---pt currently does not have capacity to make decisions about [facility] placement (3) DM2 (diabetes mellitus, type 2) Current Visit: No Status: Chronic Priority: High Comment: -A1C 12.5 -Will increase Lantus and will add premeal insulin in addition to ISS (4) HTN (hypertension) Current Visit: No Status: Chronic Priority: High Code(s): I10 - ESSENTIAL (PRIMARY) HYPERTENSION SNOMED Code(s): 43294573 Comment: home amlodipine 5 mg daily was held on admission. currently 130-150s (improved) (5) Hyperlipidemia Current Visit: No Status: Chronic Priority: High Code(s): E78.5 - HYPERLIPIDEMIA, UNSPECIFIED SNOMED Code(s): 61096573 Comment: LDL 169, HDL 53 - restart statin (6) Rheumatoid arthritis Current Visit: No Status: Chronic Priority: High Code(s): M06.9 - RHEUMATOID ARTHRITIS, UNSPECIFIED SNOMED Code(s): 57028317 Comment: -Unfortunately, Dr. 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 Song as an outpatient which is still currently pending. -Gregory Juliano recommended given Dr. Noonan records to hold off on Enbrel and have pt F/U with Dr. Song Status and Disposition: -D/C to [facility] on Sunday due to bed availability
[2018-07-05] MEDS: Atorvastatin* 40 MG TAB PO SCH (18:41)
[2018-07-05] MEDS ORDERED: Insulin GLARGINE(*) 1 UNITS UNIT SUBCUT SCH (23:00)
[2018-07-06] MEDS: Heparin VIAL(*) 5000 UNITS/ML VIAL (FIVE THOUSAND) SUBCUT SCH ×3 (06:14→21:48)
[2018-07-06] MEDS: Insulin LISPRO* 1 UNITS UNIT SUBCUT SCH ×4 (06:14→20:48)
[2018-07-06] MEDS ORDERED: Insulin LISPRO* 1 UNITS UNIT SUBCUT SCH (07:30)
[2018-07-06] MEDS: Nystatin TOP POWDER* 15 GM BTL TOPICAL SCH ×3 (08:30→20:47)
[2018-07-06] MEDS: Potassium Chlor TAB* 20 MEQ TAB.ER PO SCH ×2 (08:34→20:44)
[2018-07-06] MEDS: levETIRAcetam TAB* 500 MG PO SCH ×2 (08:35→20:44)
[2018-07-06] MEDS: Clopidogrel TAB* 75 MG PO SCH (08:37)
[2018-07-06] MEDS: Omeprazole CAP* 20 MG PO SCH (08:37)
[2018-07-06] MEDS: Cholecalciferol TAB* 1000 UNITS PO SCH (08:37)
[2018-07-06] MEDS: amLODIPine TAB* 5 MG PO SCH (08:37)
[2018-07-06] MEDS ORDERED: Dextrose 50% Syringe 50 ML* 25 GM/50 ML SYRINGE IV PUSH PRN (09:28)
--- NOTE | 2018-07-06 10:22 | PN ---
Subjective Date of Service: 07/06/18 Interval History: Patient offers no c/o. Objective Active Medications: Al Hydrox/Mg Hydrox/Simethicone (Maalox Plus*) 30 ml PO Q6H PRN PRN Reason: INDIGESTION Amlodipine Besylate (Norvasc Tab*) 5 mg PO DAILY [facility] Last Admin: 07/06/18 08:37 Dose: 5 mg Atorvastatin Calcium (Lipitor*) 40 mg PO 1700 [facility] Last Admin: 07/05/18 18:41 Dose: 40 mg Cholecalciferol (Vitamin D Tab*) 1,000 units PO DAILY [facility] Last Admin: 07/06/18 08:37 Dose: 1,000 units Clopidogrel Bisulfate (Plavix Tab*) 75 mg PO DAILY [facility] Last Admin: 07/06/18 08:37 Dose: 75 mg Dextrose (D50w Syringe 50 Ml*) 12.5 gm IV PUSH .FOR FS < 60 - SS PRN PRN Reason: FS < 60 Heparin Sodium (Porcine) (Heparin Vial(*)) 5,000 units SUBCUT Q8HR [facility] Last Admin: 07/06/18 06:14 Dose: 5,000 units Insulin Glargine (Lantus(*)) 16 units SUBCUT 2300 [facility] Insulin Human Lispro (Humalog*) 0 units SUBCUT ACHS [facility]; Protocol Levetiracetam (Keppra Tab*) 750 mg PO BID [facility] Last Admin: 07/06/18 08:35 Dose: 750 mg Nystatin (Nystatin Top Powder*) 1 applic TOPICAL TID [facility] Last Admin: 07/06/18 08:30 Dose: Not Given Omeprazole (Prilosec Cap*) 20 mg PO DAILY [facility] Last Admin: 07/06/18 08:37 Dose: 20 mg Ondansetron HCl (Zofran Inj*) 4 mg IV Q4H PRN PRN Reason: NAUSEA/VOMITING Potassium Chloride (Klor Con Er Tab*) 20 meq PO BID [facility] Last Admin: 07/06/18 08:34 Dose: 20 meq Vital Signs - 8 hr 07/06/18 07/06/18 07/06/18 03:54 08:00 08:15 Temperature 98.6 F 97.9 F Pulse Rate 75 76 Respiratory 16 18 16 Rate Blood Pressure 147/68 175/72 (mmHg) O2 Sat by Pulse 97 94 Oximetry Oxygen Devices in Use Now: None Appearance: In a chair. Neutral affect, looks comfortable. Eyes: No Scleral Icterus Respiratory: Symmetrical Chest Expansion and Respiratory Effort, Clear to Auscultation, Clear to Percussion Cardiovascular: NL Sounds; No Murmurs; No JVD, RRR, No Edema, - Extremities: No Edema, No Clubbing, Cyanosis, - Skin: No Rash or Ulcers, No Nodules or Sclerosis, - Neurological: NL Sensation - Very passive, diminished hearing. Either couldn't hear or couldn't answer any of my questions. No tremor. Result Diagrams: 07/05/18 09:18 07/05/18 09:18 Additional Lab and Data: Laboratory Results - last 24 hr 07/01/18 07/01/18 07/01/18 17:28 17:45 23:04 POC Glucose (mg/dL) 246 H 307 H Urine Opiates Screen None detected Ur Barbiturates Screen None detected Ur Phencyclidine Scrn None detected Ur Amphetamines Screen None detected U Benzodiazepines Scrn None detected Urine Cocaine Screen None detected U Cannabinoids Screen None detected 07/02/18 07/02/18 05:07 11:28 POC Glucose (mg/dL) 148 H 178 H Urine Opiates Screen Ur Barbiturates Screen Ur Phencyclidine Scrn Ur Amphetamines Screen U Benzodiazepines Scrn Urine Cocaine Screen U Cannabinoids Screen Microbiology and Other Data: Microbiology 06/30/18 22:25 Urine Urine Culture - Preliminary Klebsiella Pneumoniae Assess/Plan/Problems-Billing Assessment: 72 yo female PMH seizure disorder on keppra, poorly controlled IDDM (A1C 12.5), TIA, recent pubic ramus fracture, rheumatoid arthritis presenting with AMS/ lethargy, hypertensive urgency 200/100. MRI Brain with 1.8x1.4cm mass in inferior posterior left frontal lobe that is nonenhancing. - Patient Problems (1) Seizure Current Visit: No Status: Acute Priority: High Code(s): R56.9 - UNSPECIFIED CONVULSIONS SNOMED Code(s): 26584692 Comment: No recent seizure activity. EEG showed diffuse slowing and no epileptiform discharges. Continue keppra. Level therapeutic 07/02/18. (2) Brain mass Current Visit: Yes Status: Acute Code(s): G93.9 - DISORDER OF BRAIN, UNSPECIFIED SNOMED Code(s): 606573354 Comment: -appreciate Neurology assistance -MRI of brain with contrast shows no abnormal enhancement in T2 hyperintense lesion in left frontal lobe -For F/U MRI w/wo in 1-2 months (3) Encephalopathy Current Visit: No Status: Acute Priority: High Code(s): G93.40 - ENCEPHALOPATHY, UNSPECIFIED SNOMED Code(s): 60141765 Comment: Much improved today. Presentation likely was post-ictal state, and has been slow to improve. She may be at her baseline on 07/06 with markedly impaired cognition. She has had similar admissions prior to this mass being present in frontal lobe , so the etiology may cerebrovascular disease. Continue clopidogrel, statin. UDS negative, no infectious source. Dr. Godoy has determined that she lacks capacity to make medical decisions. (4) DM2 (diabetes mellitus, type 2) Current Visit: No Status: Chronic Priority: High Comment: -A1C 12.5 on 06/30/18. Decrease Lantus to 16 U start 07/06 and will start carb counting Lispro. (5) Hyperlipidemia Current Visit: No Status: Chronic Priority: High Code(s): E78.5 - HYPERLIPIDEMIA, UNSPECIFIED SNOMED Code(s): 70044732 Comment: LDL 169, HDL 53 - restart statin Status and Disposition: -D/C to [facility] on 07/07.
[2018-07-06] MEDS: Atorvastatin* 40 MG TAB PO SCH (17:57)
[2018-07-06] MEDS: Insulin GLARGINE(*) 1 UNITS UNIT SUBCUT SCH (21:48)
[2018-07-07] MEDS: Heparin VIAL(*) 5000 UNITS/ML VIAL (FIVE THOUSAND) SUBCUT SCH ×3 (05:48→21:42)
[2018-07-07] MEDS: Potassium Chlor TAB* 20 MEQ TAB.ER PO SCH ×2 (08:54→20:35)
[2018-07-07] MEDS: Cholecalciferol TAB* 1000 UNITS PO SCH (08:54)
[2018-07-07] MEDS: Omeprazole CAP* 20 MG PO SCH (08:54)
[2018-07-07] MEDS: Insulin LISPRO* 1 UNITS UNIT SUBCUT SCH ×4 (08:54→21:42)
[2018-07-07] MEDS: amLODIPine TAB* 5 MG PO SCH (08:54)
[2018-07-07] MEDS: Clopidogrel TAB* 75 MG PO SCH (08:55)
[2018-07-07] MEDS: levETIRAcetam TAB* 500 MG PO SCH ×2 (08:55→20:35)
[2018-07-07] MEDS: Nystatin TOP POWDER* 15 GM BTL TOPICAL SCH ×3 (08:56→21:46)
--- NOTE | 2018-07-07 11:04 | PN ---
Subjective Date of Service: 07/07/18 Interval History: No c/o. Objective Active Medications: Al Hydrox/Mg Hydrox/Simethicone (Maalox Plus*) 30 ml PO Q6H PRN PRN Reason: INDIGESTION Amlodipine Besylate (Norvasc Tab*) 5 mg PO DAILY [facility] Last Admin: 07/07/18 08:54 Dose: 5 mg Atorvastatin Calcium (Lipitor*) 40 mg PO 1700 [facility] Last Admin: 07/06/18 17:57 Dose: 40 mg Cholecalciferol (Vitamin D Tab*) 1,000 units PO DAILY [facility] Last Admin: 07/07/18 08:54 Dose: 1,000 units Clopidogrel Bisulfate (Plavix Tab*) 75 mg PO DAILY [facility] Last Admin: 07/07/18 08:55 Dose: 75 mg Dextrose (D50w Syringe 50 Ml*) 12.5 gm IV PUSH .FOR FS < 60 - SS PRN PRN Reason: FS < 60 Heparin Sodium (Porcine) (Heparin Vial(*)) 5,000 units SUBCUT Q8HR [facility] Last Admin: 07/07/18 05:48 Dose: 5,000 units Insulin Glargine (Lantus(*)) 16 units SUBCUT 2300 [facility] Last Admin: 07/06/18 21:48 Dose: 16 units Insulin Human Lispro (Humalog*) 0 units SUBCUT ACHS [facility]; Protocol Levetiracetam (Keppra Tab*) 750 mg PO BID [facility] Last Admin: 07/07/18 08:55 Dose: 750 mg Nystatin (Nystatin Top Powder*) 1 applic TOPICAL TID [facility] Last Admin: 07/07/18 08:56 Dose: Not Given Omeprazole (Prilosec Cap*) 20 mg PO DAILY [facility] Last Admin: 07/07/18 08:54 Dose: 20 mg Ondansetron HCl (Zofran Inj*) 4 mg IV Q4H PRN PRN Reason: NAUSEA/VOMITING Potassium Chloride (Klor Con Er Tab*) 20 meq PO BID [facility] Last Admin: 07/07/18 08:54 Dose: 20 meq Vital Signs - 8 hr 07/07/18 07/07/18 07/07/18 03:37 07:27 07:50 Temperature 98.9 F 98.4 F Pulse Rate 78 89 Respiratory 20 17 18 Rate Blood Pressure 151/69 125/64 (mmHg) O2 Sat by Pulse 96 98 Oximetry Oxygen Devices in Use Now: None Appearance: Alert, partly up in bed. Neutral affect. Looks comfortable. Eyes: No Scleral Icterus Neck: NL Appearance and Movements; NL JVP, No Thyroid Enlargement, Masses Respiratory: Symmetrical Chest Expansion and Respiratory Effort, Clear to Auscultation, Clear to Percussion Cardiovascular: RRR, No Edema, - - 1-2/6 systolic murmur RSB. Extremities: No Edema, No Clubbing, Cyanosis, - Skin: No Rash or Ulcers, No Nodules or Sclerosis, - Neurological: NL Sensation - States her full name. Gave her age as 71. Cooperative but very passive. BILLINGS. No tremor. Result Diagrams: 07/05/18 09:18 07/05/18 09:18 Additional Lab and Data: Laboratory Results - last 24 hr 07/01/18 07/01/18 07/01/18 17:28 17:45 23:04 POC Glucose (mg/dL) 246 H 307 H Urine Opiates Screen None detected Ur Barbiturates Screen None detected Ur Phencyclidine Scrn None detected Ur Amphetamines Screen None detected U Benzodiazepines Scrn None detected Urine Cocaine Screen None detected U Cannabinoids Screen None detected 07/02/18 07/02/18 05:07 11:28 POC Glucose (mg/dL) 148 H 178 H Urine Opiates Screen Ur Barbiturates Screen Ur Phencyclidine Scrn Ur Amphetamines Screen U Benzodiazepines Scrn Urine Cocaine Screen U Cannabinoids Screen Microbiology and Other Data: Microbiology 06/30/18 22:25 Urine Urine Culture - Preliminary Klebsiella Pneumoniae Assess/Plan/Problems-Billing Assessment: 72 yo female PMH seizure disorder on keppra, poorly controlled IDDM (A1C 12.5), TIA, recent pubic ramus fracture, rheumatoid arthritis presenting with AMS/ lethargy, hypertensive urgency 200/100. MRI Brain with 1.8x1.4cm mass in inferior posterior left frontal lobe that is nonenhancing. - Patient Problems (1) Seizure Current Visit: No Status: Acute Priority: High Code(s): R56.9 - UNSPECIFIED CONVULSIONS SNOMED Code(s): 49188868 Comment: No recent seizure activity. EEG showed diffuse slowing and no epileptiform discharges. Continue keppra. Level therapeutic 07/02/18. (2) Brain mass Current Visit: Yes Status: Acute Code(s): G93.9 - DISORDER OF BRAIN, UNSPECIFIED SNOMED Code(s): 277580243 Comment: -appreciate Neurology assistance -MRI of brain with contrast shows no abnormal enhancement in T2 hyperintense lesion in left frontal lobe -For F/U MRI w/wo in 1-2 months (3) Encephalopathy Current Visit: No Status: Acute Priority: High Code(s): G93.40 - ENCEPHALOPATHY, UNSPECIFIED SNOMED Code(s): 89991039 Comment: Much improved today. Presentation likely was post-ictal state, and has been slow to improve. She may be at her baseline on 07/06 with markedly impaired cognition. She has had similar admissions prior to this mass being present in frontal lobe , so the etiology may cerebrovascular disease. Continue clopidogrel, statin. UDS negative, no infectious source. Dr. Godoy has determined that she lacks capacity to make medical decisions. (4) DM2 (diabetes mellitus, type 2) Current Visit: No Status: Chronic Priority: High Comment: -A1C 12.5 on 06/30/18. Decrease Lantus to 16 U start 07/06 and will start carb counting Lispro. (5) Hyperlipidemia Current Visit: No Status: Chronic Priority: High Code(s): E78.5 - HYPERLIPIDEMIA, UNSPECIFIED SNOMED Code(s): 06165549 Comment: LDL 169, HDL 53 - restart statin Status and Disposition: -D/C to [facility] on 07/09.
[2018-07-07] MEDS: Atorvastatin* 40 MG TAB PO SCH (16:53)
[2018-07-07] MEDS: Insulin GLARGINE(*) 1 UNITS UNIT SUBCUT SCH (21:43)
[2018-07-08] MEDS: Heparin VIAL(*) 5000 UNITS/ML VIAL (FIVE THOUSAND) SUBCUT SCH ×3 (05:49→20:32)
[2018-07-08] MEDS: Nystatin TOP POWDER* 15 GM BTL TOPICAL SCH ×3 (09:03→20:33)
[2018-07-08] MEDS: Potassium Chlor TAB* 20 MEQ TAB.ER PO SCH (09:03)
[2018-07-08] MEDS: Clopidogrel TAB* 75 MG PO SCH (09:03)
[2018-07-08] MEDS: levETIRAcetam TAB* 500 MG PO SCH ×2 (09:03→20:32)
[2018-07-08] MEDS: Cholecalciferol TAB* 1000 UNITS PO SCH (09:03)
[2018-07-08] MEDS: amLODIPine TAB* 5 MG PO SCH (09:03)
[2018-07-08] MEDS: Omeprazole CAP* 20 MG PO SCH (09:03)
[2018-07-08] MEDS: Insulin LISPRO* 1 UNITS UNIT SUBCUT SCH ×4 (09:03→21:00)
--- NOTE | 2018-07-08 10:18 | PN ---
Subjective Date of Service: 07/08/18 Interval History: No new c/o. Objective Active Medications: Al Hydrox/Mg Hydrox/Simethicone (Maalox Plus*) 30 ml PO Q6H PRN PRN Reason: INDIGESTION Amlodipine Besylate (Norvasc Tab*) 5 mg PO DAILY [facility] Last Admin: 07/08/18 09:03 Dose: 5 mg Atorvastatin Calcium (Lipitor*) 40 mg PO 1700 [facility] Last Admin: 07/07/18 16:53 Dose: 40 mg Cholecalciferol (Vitamin D Tab*) 1,000 units PO DAILY [facility] Last Admin: 07/08/18 09:03 Dose: 1,000 units Clopidogrel Bisulfate (Plavix Tab*) 75 mg PO DAILY [facility] Last Admin: 07/08/18 09:03 Dose: 75 mg Dextrose (D50w Syringe 50 Ml*) 12.5 gm IV PUSH .FOR FS < 60 - SS PRN PRN Reason: FS < 60 Heparin Sodium (Porcine) (Heparin Vial(*)) 5,000 units SUBCUT Q8HR [facility] Last Admin: 07/08/18 05:49 Dose: 5,000 units Insulin Glargine (Lantus(*)) 16 units SUBCUT 2300 [facility] Last Admin: 07/07/18 21:43 Dose: 16 units Insulin Human Lispro (Humalog*) 0 units SUBCUT ACHS [facility]; Protocol Last Admin: 07/08/18 09:03 Dose: 6 units Levetiracetam (Keppra Tab*) 750 mg PO BID [facility] Last Admin: 07/08/18 09:03 Dose: 750 mg Nystatin (Nystatin Top Powder*) 1 applic TOPICAL TID [facility] Last Admin: 07/08/18 09:03 Dose: 1 applic Omeprazole (Prilosec Cap*) 20 mg PO DAILY [facility] Last Admin: 07/08/18 09:03 Dose: 20 mg Ondansetron HCl (Zofran Inj*) 4 mg IV Q4H PRN PRN Reason: NAUSEA/VOMITING Potassium Chloride (Klor Con Er Tab*) 20 meq PO BID [facility] Last Admin: 07/08/18 09:03 Dose: 20 meq Vital Signs - 8 hr 07/08/18 07/08/18 07:48 08:00 Temperature 98.3 F Pulse Rate 79 Respiratory 16 16 Rate Blood Pressure 140/58 (mmHg) O2 Sat by Pulse 96 Oximetry Oxygen Devices in Use Now: None Appearance: Alert, in a chair. Neutral affect, looks comfortable. Eyes: No Scleral Icterus Neck: NL Appearance and Movements; NL JVP, No Thyroid Enlargement, Masses Respiratory: Symmetrical Chest Expansion and Respiratory Effort, Clear to Auscultation, Clear to Percussion Cardiovascular: NL Sounds; No Murmurs; No JVD, RRR, No Edema, - Extremities: No Edema, No Clubbing, Cyanosis, - Skin: No Rash or Ulcers, No Nodules or Sclerosis, - Neurological: NL Sensation - Poor hearing. No tremor. Passive but cooperative. Result Diagrams: 07/05/18 09:18 07/05/18 09:18 Additional Lab and Data: Laboratory Results - last 24 hr 07/01/18 07/01/18 07/01/18 17:28 17:45 23:04 POC Glucose (mg/dL) 246 H 307 H Urine Opiates Screen None detected Ur Barbiturates Screen None detected Ur Phencyclidine Scrn None detected Ur Amphetamines Screen None detected U Benzodiazepines Scrn None detected Urine Cocaine Screen None detected U Cannabinoids Screen None detected 07/02/18 07/02/18 05:07 11:28 POC Glucose (mg/dL) 148 H 178 H Urine Opiates Screen Ur Barbiturates Screen Ur Phencyclidine Scrn Ur Amphetamines Screen U Benzodiazepines Scrn Urine Cocaine Screen U Cannabinoids Screen Microbiology and Other Data: Microbiology 06/30/18 22:25 Urine Urine Culture - Preliminary Klebsiella Pneumoniae Assess/Plan/Problems-Billing Assessment: 72 yo female PMH seizure disorder on keppra, poorly controlled IDDM (A1C 12.5), TIA, recent pubic ramus fracture, rheumatoid arthritis presenting with AMS/ lethargy, hypertensive urgency 200/100. MRI Brain with 1.8x1.4cm mass in inferior posterior left frontal lobe that is nonenhancing. - Patient Problems (1) Seizure Current Visit: No Status: Acute Priority: High Code(s): R56.9 - UNSPECIFIED CONVULSIONS SNOMED Code(s): 74730050 Comment: No recent seizure activity. EEG showed diffuse slowing and no epileptiform discharges. Continue keppra. Level therapeutic 07/02/18. (2) Brain mass Current Visit: Yes Status: Acute Code(s): G93.9 - DISORDER OF BRAIN, UNSPECIFIED SNOMED Code(s): 596195518 Comment: -appreciate Neurology assistance -MRI of brain with contrast shows no abnormal enhancement in T2 hyperintense lesion in left frontal lobe -For F/U MRI w/wo in 1-2 months (3) Encephalopathy Current Visit: No Status: Acute Priority: High Code(s): G93.40 - ENCEPHALOPATHY, UNSPECIFIED SNOMED Code(s): 65485162 Comment: Stable. Presentation likely was post-ictal state, and has been slow to improve. She may be at her baseline on 07/06 with markedly impaired cognition. She has had similar admissions prior to this mass being present in frontal lobe , so the etiology may cerebrovascular disease. Continue clopidogrel, statin. UDS negative, no infectious source. Dr. Godoy has determined that she lacks capacity to make medical decisions. (4) DM2 (diabetes mellitus, type 2) Current Visit: No Status: Chronic Priority: High Comment: -A1C 12.5 on 06/30/18. Decrease Lantus to 12 U start 07/08 and continue carb counting Lispro. (5) Hyperlipidemia Current Visit: No Status: Chronic Priority: High Code(s): E78.5 - HYPERLIPIDEMIA, UNSPECIFIED SNOMED Code(s): 79052220 Comment: LDL 169, HDL 53 on 07/01/18. continue statin Status and Disposition: -D/C to [facility] on 07/09.
[2018-07-08] MEDS ORDERED: Magnesium Hydroxide LIQ* 30 ML UDC PO PRN (10:24)
[2018-07-08] MEDS ORDERED: Polyethylene Glycol 3350* 17 GM PACKET PO PRN (10:28)
--- NOTE | 2018-07-08 10:36 | PN ---
Progress Note - Progress Note Date of Service: 07/08/18 Note: Time spent on discharge 50 minutes, including exam of patient, discussion with patient, nurse, CM, review of EMR and preparation of discharge documents.
--- NOTE | 2018-07-08 11:27 | TRS ---
CC: Dr. Lindsey Bermeo; [facility] * TRANSFER SUMMARY: DATE OF ADMISSION: DATE OF TRANSFER: 07/09/18 HOSPITAL COURSE: This 72-year-old woman presents with altered mental status. She has had known history of seizures. Her daughter found her in bed with increased confusion. She was soiled and unable to communicate at all. There were excoriations on to her breasts. She had been incontinent. She received intravenous fluids in the emergency room. She was in an hot apartment with no air conditioning. Her temperature was 100.5 in the emergency room. She was initially cared for in the intensive care unit. EEG showed diffuse slowing, but no epileptiform discharges. Her levetiracetam dose was increased from her home dose. I note she had therapeutic level on 07/02/18. A brain mass was found. This did not enhance with contrast on MRI scan and repeat MRI in 1 to 2 months was recommended by the radiologist. She was evaluated by the psychiatrist, who felt she was not capable of making medical decisions. Metformin was withheld. She was started on Lantus and lispro. She was also started on clopidogrel for possibility of cerebrovascular accident. FINAL DIAGNOSES: 1. Seizure disorder. 2. Encephalopathy. 3. Brain mass. 4. Diabetes. 5. Hyperlipidemia. 6. Poor hearing. TRANSFER MEDICATIONS: 1. Atorvastatin 40 mg daily at 5 p.m. 2. Clopidogrel 75 mg daily. 3. Glargine insulin 12 units daily at 2100 hours. 4. Lispro by sliding scale per carb count. 5. Levetiracetam 750 mg b.i.d. 6. Nystatin topical powder to affected areas t.i.d. 7. Potassium chloride 20 mEq daily. 8. Magnesium hydroxide 60 mL every 4 hours p.r.n. constipation. 9. Polyethylene glycol 17 g daily. 10. Omeprazole 20 mg daily. 11. Celecoxib 200 mg b.i.d. 12. Clarinex 5 mg daily. 13. Vitamin D 1000 units daily. 14. Amlodipine 5 mg daily. DISCHARGE DISPOSITION: The patient is transferred to [facility] on 07/09/18. DISCHARGE CONDITION: Stable. [id number]/[facility] #: [id number] [facility]
[2018-07-08] MEDS: Atorvastatin* 40 MG TAB PO SCH (18:21)
[2018-07-08] MEDS ORDERED: Insulin GLARGINE(*) 1 UNITS UNIT SUBCUT SCH (21:00)
[2018-07-09] MEDS: Heparin VIAL(*) 5000 UNITS/ML VIAL (FIVE THOUSAND) SUBCUT SCH (05:02)
[2018-07-09] MEDS: Insulin LISPRO* 1 UNITS UNIT SUBCUT SCH (08:52)
[2018-07-09] MEDS: Cholecalciferol TAB* 1000 UNITS PO SCH (08:53)
[2018-07-09] MEDS: Omeprazole CAP* 20 MG PO SCH (08:53)
[2018-07-09] MEDS: amLODIPine TAB* 5 MG PO SCH (08:53)
[2018-07-09] MEDS: Clopidogrel TAB* 75 MG PO SCH (08:53)
[2018-07-09] MEDS: Nystatin TOP POWDER* 15 GM BTL TOPICAL SCH (08:54)
[2018-07-09] MEDS: levETIRAcetam TAB* 500 MG PO SCH (08:54)
[2018-07-09] MEDS ORDERED: Potassium Chlor TAB* 20 MEQ TAB.ER PO SCH (09:00)
[2018-07-09 11:34] VITALS: BP 119/58
== END 2018-07-09 11:56 | DRG 100 ==
LOC: ED 21:34 → MEDTELE 07-01 00:11
PROVIDERS: ADMIT Pediatrics; ATTEND Internal Medicine
PROC: 4A00X4Z Measurement of Central Nervous Electrical Activity, External Approach (ICD-10-PCS; principal; 2018-07-01)
DX: G40.909 Epilepsy, unspecified, not intractable, without status epilepticus (principal); G93.40 Encephalopathy, unspecified; E78.5 Hyperlipidemia, unspecified; I10 Essential (primary) hypertension; L40.9 Psoriasis, unspecified; H91.90 Unspecified hearing loss, unspecified ear; G43.909 Migraine, unspecified, not intractable, without status migrainosus; E11.40 Type 2 diabetes mellitus with diabetic neuropathy, unspecified; E11.36 Type 2 diabetes mellitus with diabetic cataract; M06.9 Rheumatoid arthritis, unspecified; I27.20 Pulmonary hypertension, unspecified; I08.1 Rheumatic disorders of both mitral and tricuspid valves; I65.21 Occlusion and stenosis of right carotid artery; G93.9 Disorder of brain, unspecified; E87.6 Hypokalemia; E83.42 Hypomagnesemia; S20.112A Abrasion of breast, left breast, initial encounter; S20.111A Abrasion of breast, right breast, initial encounter; X58.XXXA Exposure to other specified factors, initial encounter; Y92.009 Unspecified place in unspecified non-institutional (private) residence as the place of occurrence of the external cause; Z86.73 Personal history of transient ischemic attack (TIA), and cerebral infarction without residual deficits; Z88.0 Allergy status to penicillin; Z90.710 Acquired absence of both cervix and uterus; Z80.0 Family history of malignant neoplasm of digestive organs; Z79.02 Long term (current) use of antithrombotics/antiplatelets; Z97.4 Presence of external hearing-aid; Z88.8 Allergy status to other drugs, medicaments and biological substances; Z91.018 Allergy to other foods; Z86.19 Personal history of other infectious and parasitic diseases; Z79.4 Long term (current) use of insulin
CPT/HCPCS: 36415; 70450; 70496; 70498; 70551; 70552; 71045; 80048; 80053; 80061; 80177; 80307; 81003; 81015; 82550; 83036; 83605; 83735; 84100; 84443; 84484; 85025; 85652; 86140; 87077; 87086; 87186; 93005; 93306; 95819; 99284; A9270-GY; A9579; G8978-GP-CJ; G8979-GP-CH; G8979-GP-CI; G8987-GO-CK; G8987-GO-CL; G8988-GO-CJ; J1644; J3475; Q9967

== ENCOUNTER 2018-10-26 13:11 | Inpatient (IN) | payer MEDICARE, MEDICAID ==
[2018-10-26] MEDS ORDERED: NS 0.9% 1000 ML* 1,000 ML IV ONE (13:16)
--- NOTE | 2018-10-26 13:21 | ED ---
Neurological HPI - HPI Summary HPI Summary: This patient is a 72 year old F with a PMHx of stroke brought in by ambulance to [facility] with a chief complaint of difficulty controlling the left side of her body since 30 minutes [employer]. She fell at [facility] because she was having difficulty with the left side of her body. Patient is now at baseline. Patient reports difficulty with speech (preexisting), dizziness, and that her left leg wasnt working well. She is normally on anticoagulants but she has not had them in a couple of weeks. - History of Current Complaint Stated Complaint: CODE VERGARA Hx Obtained From: Patient Onset/Duration: Sudden Onset, Resolved Timing: Sudden Onset Character: Motor Weakness - in left side - Additional Pertinent History Primary Care Physician: ELIZABETH - Allergy/Home Medications Allergies/Adverse Reactions: Allergies Allergy/AdvReac Type Severity Reaction Status Date / Time aspirin Allergy Hives Verified 10/26/18 13:39 penicillin G Allergy Hives Verified 10/26/18 13:39 Penicillins Allergy Hives Verified 10/26/18 13:39 onion AdvReac GI Upset Verified 10/26/18 13:39 pepper (genus Capsicum) AdvReac GI Upset Verified 10/26/18 13:39 [pepper] Home Medications: Home Medications Metformin HCl 500 mg PO DAILY 10/26/18 [History Confirmed 10/26/18] Rosuvastatin Calcium 40 mg PO DAILY 10/26/18 [History Confirmed 10/26/18] PMH/Surg Hx/FS Hx/Imm Hx Endocrine/Hematology History: Reports: Hx Diabetes, Hx Anemia Denies: Hx Thyroid Disease Cardiovascular History: Reports: Hx Hypercholesterolemia, Hx Hypertension Denies: Hx Congestive Heart Failure, Hx Pacemaker/ICD Respiratory History: Denies: Hx Asthma, Hx Chronic Obstructive Pulmonary Disease (COPD), Other Respiratory Problems/Disorders GI History: Reports: Hx Gastroesophageal Reflux Disease - OCCASIONALLY, Other GI Disorders - psoriasis Denies: Hx Ulcer History: Denies: Hx Dialysis, Hx Renal Disease Musculoskeletal History: Reports: Hx Arthritis - "ALL OVER", Hx Orthopedic Injury - L jacqui fracture and ORIF; L wrist fracture, Hx Tendonitis - SHOULDERS Sensory History: Reports: Hx Cataracts, Hx Contacts or Glasses, Hx Hearing Aid - does not have with her, speak loudly into her left ear, Hx Hearing Problem Opthamlomology History: Reports: Hx Cataracts, Hx Contacts or Glasses Neurological History: Reports: Hx Migraine - OCCASIONALLY- TREATS WITH TYLENOL AND REST, Hx Seizures - seizure disorder, Hx Transient Ischemic Attacks (TIA), Other Neuro Impairments/Disorders - diabetic neuropathy Denies: Hx Dementia Psychiatric History: Denies: Hx Panic Disorder - Cancer History Cancer Type, Location and Year: Family Hx - Surgical History Surgery Procedure, Year, and Place: Left ankle/LEG repair X 2. Hysterectomy PARTIAL. Right ear surgery- 50 years ago-TUBES. Cleft palate repair. rt foot Hx Anesthesia Reactions: No Infectious Disease History: Reports: Hx Shingles Denies: Hx Hepatitis, Hx Human Immunodeficiency Virus (HIV) - Family History Known Family History: Positive: Unknown, Other - colon CA Family History: FHx Limited due to Level 5 Caveat: Altered Mental Status - Social History Alcohol Use: None Hx Substance Use: No Substance Use Type: Reports: None Hx Tobacco Use: No Smoking Status (MU): Never Smoked Tobacco Review of Systems Negative: Fever Neurological: Other - Dizziness Positive: Weakness - Difficulty controlling the left side of the body, Slurred Speech - Preexisting All Other Systems Reviewed And Are Negative: Yes Physical Exam - Summary Physical Exam Summary: Appearance: Chronically ill appearing, no pain distress Skin: warm, dry, reflects adequate perfusion Head/face: normal Eyes: EOMI, AMISH ENT: mucous membranes moist Neck: supple, non-tender Respiratory: CTA, breath sounds present Cardiovascular: RRR, pulses symmetrical Abdomen: non-tender, soft Bowel Sounds: present Musculoskeletal: normal, strength/ROM intact Neuro: normal, sensory motor intact, Dysarthria NIH: 3 Triage Information Reviewed: Yes Vital Signs On Initial Exam: Initial Vitals Temp Pulse Resp BP Pulse Ox 97.8 F 79 18 125/67 92 10/26/18 13:27 10/26/18 13:27 10/26/18 13:27 10/26/18 13:27 10/26/18 13:27 Vital Signs Reviewed: Yes Diagnostics - Laboratory Result Diagrams: 10/26/18 13:37 10/26/18 13:37 Lab Statement: Any lab studies that have been ordered have been reviewed, and results considered in the medical decision making process. - CT Brain CT CT Interpretation Completed By: Radiologist Summary of CT Findings: 13:30. No intracranial mass or hemorrhage is noted. ED Physician has reviewed this imaging report. Head CTA CT Interpretation Completed By: Radiologist Summary of CT Findings: 14:51. Atherosclerosis of the internal carotid arteries more prominent on the right. than on the left. There is atherosclerosis of the right intracavernous portion of the. right internal carotid artery. No branch occlusion or aneurysmal dilatation is noted. No. evidence of carotid or vertebral artery dissection. ED Physician has reviewed this imaging report. - EKG 13:32 Cardiac Rate: NL - 81 bpm EKG Rhythm: Sinus Rhythm ST Segment: Normal Ectopy: None Summary of EKG Findings: Normal axis and intervals. NIH Scale - NIH Scale Level of Consciousness: Alert/Keenly Responsive Ask Patient the Month and His/Her Age: Neither Correct/Aphasic Ask Pt to Open/Close Eyes and Box Closing Machine Operator/Release Non-Paretic Hand: Both Correctly Best Gaze (Only Horizontal Eye Movement): Normal Visual Field Testing: No Visual Loss Facial Paresis-Pt to Smile & Close Eyes or Grimace Symmetry: Normal/Symmetrical Motor Function - Right Arm: No Drift-Holds 10 Seconds Motor Function - Left Arm: No Drift-Holds 10 Seconds Motor Function - Right Leg: No Drift-Holds 10 Seconds Motor Function - Left Leg: No Drift-Holds 10 Seconds Limb Ataxia-Must be out of Proportion to Weakness Present: Absent Sensory (Use Pinprick to Test Arms/Legs/Trunk/Face): Normal Best Language (Describe Picture, Name Items): No Aphasia Dysarthria (Read Several Words): Slurs Some Words Extinction and Inattention: No Abnormality Total Score: 3 Re-Evaluation - Re-Evaluation 1 Re-Evaluation Time: 13:38 Comment: Patient still reports some weakness in her left leg. Course/Dx - Course Course Of Treatment: Nurse's note reviewed. 13:08 - Code [place] called. 13:10 patient arrives and is seen by Dr. Xiong. 13:15 patient taken to imaging. 13:30 spoke with radiologist who reported a negative head CT. 13:38 Dr. Xiong re-evaluates the pt: she still feels like she has some weakness. 13:40 Dr. Xiong speaks to Garcia Carter MD, Neurology, on the phone. Patient is not a TPA candidate. Dr. Carter recommends a Head. CTA. Patient with a history of CVA in the past presents with NIH stroke score of 3. At baseline patient has dysarthria and possibly some confusion. Her NIH today may be her baseline. She feels as though there is some weakness remaining on the left lower extremity. There is no drift on exam. Brain CT, CTA shows no acute findings. She has been off her Keppra, Plavix for some time. These will be restarted by hospitalist team who will admit for further evaluation of TIA symptoms. - Differential Dx Differential Diagnoses Neuro: Positive: Other - Hypo-/hyperglycemia, TIA/stroke , metabolic abnormality, vertigo, UTI - Diagnoses Provider Diagnoses: TIA (transient ischemic attack), Diabetes mellitus with hyperglycemia - Physician Notifications Discussed Care Of Patient With: Garcia Carter - Neurology Time Discussed With Above Provider: 13:40 Instructed by Provider To: Other - She is not a tPA candidate. He wants a CTA Head next. - Critical Care Time Critical Care Time: 30-74 min - CCT is EXCLUSIVE of separately billable procedures. Discharge - Sign-Out/Discharge Documenting (check all that apply): Patient Departure - Admit - Discharge Plan Condition: Fair Disposition: ADMITTED TO [facility] Referrals: Lindsey Bermeo MD [Primary Care Provider] - - Billing Disposition and Condition Condition: FAIR Disposition: Admitted to [facility] - Attestation Statements Document Initiated by Scribe: Yes Documenting Scribe: Fermín Rose Provider For Whom Scribe is Documenting (Include Credential): Lance Xiong MD Scribe Attestation: Fermín Linares, scribed for Lance Xiong MD on 10/26/18 at 1605. Scribe Documentation Reviewed: Yes Provider Attestation: The documentation as recorded by the Fermín castaneda accurately reflects the service I personally performed and the decisions made by me, Lance Xiong MD Status of Scribe Document: Viewed Consult Consult: 15:08 - Consult with Shania Dalal DO, hospitalist who will admit the patient.
[2018-10-26 13:48] LABS: ABS Basophils 0 10^3/ul (0-0.2); ABS Eosinophils 0.1 10^3/ul (0-0.6); ABS Lymphocytes 1.1 10^3/ul (1.0-4.8); ABS Monocytes 0.4 10^3/ul (0-0.8); ABS Neutrophils 3.1 10^3/ul (1.5-7.7); ABS Nucleated RBC 0 10^3/ul; Eosinophil % 2.7 %; Hematocrit 35 % (35-47); Hemoglobin 11.5 g/dl (12.0-16.0); Lymphocyte % 24.1 %; Mean Corpuscular HGB Conc 33 g/dl (31-36); Mean Corpuscular Hemoglobin 26 pg (27-31); Mean Corpuscular Volume 79 fL (80-97); Mean Platelet Volume 9.6 fL (7.4-10.4); Nucleated Red Blood Cells % 0; Platelet Count 158 10^3/ul (150-450); Red Blood Count 4.44 10^6/ul (4.00-5.40); Red Cell Distribution Width 15 % (10.5-15); White Blood Count 4.7 10^3/ul (3.5-10.8)
[2018-10-26 13:56] LABS: Activated Partial Thrombo Time 28.2 seconds (26.0-36.3); INR 0.9 (0.77-1.02)
[2018-10-26 14:05] LABS: Albumin 3.8 g/dL (3.2-5.2); Albumin/Globulin Ratio 1.5 (1-3); BUN/Creatinine Ratio 21.6 (8-20); Calcium 9.5 mg/dL (8.6-10.3); EGFR Non-African American 45.7 (>60); Globulin 2.6 g/dL (2-4); HDL Cholesterol 52.2 mg/dL; Potassium 4.7 mmol/L (3.5-5.0); Total Bilirubin 0.5 mg/dL (0.2-1.0); Total Protein 6.4 g/dL (6.4-8.9)
[2018-10-26] MEDS ORDERED: Iodixanol* (CONTRAST) 320 MG/ML 100 ML SDV IV ONE (14:14)
[2018-10-26] MEDS ORDERED: Docusate CAP* 100 MG PO PRN (16:10)
[2018-10-26] MEDS ORDERED: Senna TAB PO PRN (16:10)
[2018-10-26] MEDS ORDERED: Polyethylene Glycol 3350* 17 GM PACKET PO PRN (16:44)
[2018-10-26] MEDS ORDERED: Magnesium Hydroxide LIQ* 30 ML UDC PO PRN (16:44)
[2018-10-26] MEDS ORDERED: Dextrose 50% Syringe 50 ML* 25 GM/50 ML SYRINGE IV PUSH PRN (16:48)
[2018-10-26] MEDS ORDERED: NS 0.9% 1000 ML* 1,000 ML IV SCH (17:15)
[2018-10-26] MEDS ORDERED: Insulin LISPRO* 1 UNITS UNIT SUBCUT ONE (18:01)
[2018-10-26] MEDS: Clopidogrel TAB* 75 MG PO SCH (18:03)
[2018-10-26] MEDS: Insulin LISPRO* 1 UNITS UNIT SUBCUT SCH ×2 (18:03→22:33)
[2018-10-26 18:07] LABS: Urine Appearance Clear; Urine Bacteria Absent (Absent); Urine Bilirubin Negative (Negative); Urine Blood 1+ (Negative); Urine Color Yellow; Urine Glucose 2+(150 mg/dL) (Negative); Urine Ketones 1+ (Negative); Urine Nitrite Negative (Negative); Urine Protein 1+(30 mg/dL) (Negative); Urine Red Blood Cell Trace(0-2/hpf) (Absent); Urine Specific Gravity 1.027 (1.010-1.030); Urine Urobilinogen Negative (Negative); Urine White Blood Cell Absent (Absent)
--- NOTE | 2018-10-26 20:40 | HP ---
AMENDED REPORT NOW INCLUDES DESIGNATED COSIGNER CC: Dr. Lindsey Bermeo * HISTORY AND PHYSICAL: DATE OF ADMISSION: 10/26/18 PROVIDER: Neela Murdock NP PRIMARY CARE PHYSICIAN: Dr. Lindsey Bermeo. ATTENDING PHYSICIAN: Dr. Dalal * (dictated by Neela Murdock NP). CHIEF COMPLAINT: Left leg weakness. HISTORY OF PRESENT ILLNESS: Ms. Cheung is a 72-year-old female with a past medical history of possible CVA/TIA, seizure disorder, brain lesion on MRI in June, diabetes, peripheral arterial disease with known blockages bilaterally, hypertension, hyperlipidemia, and rheumatoid arthritis, who presented to the ED today with a complaint of left- sided weakness. The patient was in her usual state of health prior to this incident. This morning, she went to [facility] with her daughter and experienced a sudden onset of left leg weakness resulting in a fall. The patient's daughter noted that she thought she had a facial droop at that time. Her daughter also noted that while she has slurred speech at baseline, she felt that her speech was more slurred than usual. Pt reports that she was dizzy as well. Upon arriving in the ED about 30 minutes later, the patient had an NIH of 3 scoring for orientation and slurred speech. The patient did not demonstrate any lower extremity weakness on exam. She did not have an appreciable facial droop or any other focal abnormalities. The patient did have a brain CT, which showed no acute intracranial abnormalities. The ED did speak to Dr. Panchal with telestroke service and it was deemed she was not a tPA candidate. He did recommend a head CTA, which showed atherosclerosis of the internal carotids, but no significant blockages. Also of note, the patient is prescribed Plavix and Keppra, but she has been out of these medications for at least a few days, possibly longer and has not been taking them. The patient' s daughter also reports that she is sporadically compliant with her medications and does not always take them. At the time of my exam, the patient did seem like she was back to her baseline. She was still reporting left leg numbness, but did not demonstrate any weakness and her speech was slurred; however, the daughter reported that this was similar to her baseline. There is no drift on facila droop on exam. The patient denied headache, changes in her vision, dizziness, shortness of breath, chest pain, abdominal pain, or dysuria. She does report having some diarrhea a few days ago, but this has resolved. She does also endorse some abdominal bloating, which she feels is secondary to her chronic urinary retention. The hospitalist team was asked to admit the patient for further workup of CVA versus TIA versus seizure. PAST MEDICAL HISTORY: 1. Seizure disorder, on Keppra; however, the patient has not been taking this medication for the past few days. 2. Prior CVA/TIAs, on Plavix. Of note, the patient is allergic to ASPIRIN. 3. Diabetes, on home insulin; however, the patient reports infrequent compliance. 4. Hypertension. 5. Hyperlipidemia. 6. Rheumatoid arthritis. 7. Peripheral arterial disease with known blockages bilaterally. PAST SURGICAL HISTORY: Left ankle surgery x2, partial hysterectomy, right ear tubes, cleft palate repair. HOME MEDICATIONS: The patient and her daughter did not have a list of her home medications with them. The last list that we have is: 1. Insulin lispro a.c. h.s. 2. Clarinex 5 mg p.o. daily. 3. Plavix 75 mg p.o. daily, which the patient has not been taking for at least a few days. 4. Celebrex 200 mg p.o. b.i.d. 5. Potassium 20 mEq p.o. daily. 6. MiraLAX 17 g p.o. daily p.r.n. 7. Prilosec 20 mg p.o. daily. 8. Milk of magnesia 60 mL p.o. q.4 hours p.r.n. 9. Amlodipine 5 mg p.o. daily. 10. Rosuvastatin 40 mg p.o. daily. 11. Lantus 12 units subcutaneous at 2100. 12. Keppra 750 mg p.o. daily, which again the patient reports not taking for at least the past few days. 13. Nystatin 1 application topically t.i.d. 14. Vitamin D 1000 units p.o. daily. 15. Metformin 500 mg p.o. daily. The patient's daughter reports that Dr. Bermeo has made some increases to her Lantus, but she does not know the dosing. She also reports that she has been restarted on Enbrel; however, she does not know the dosing of that either. ALLERGIES: The patient has an allergy to ASPIRIN with a reaction of hives, PENICILLIN with a reaction of hives, ONION and PEPPER with a reaction of GI upset. FAMILY HISTORY: The patient denies a family history of heart disease. She does have a family history of diabetes. Her daughter, son and grandson also have diabetes. The patient's sister has colon cancer. SOCIAL HISTORY: The patient does not smoke cigarettes or drink alcohol. The patient would like to be a full code. Her medical decision maker is her daughter, Cara Velarde. REVIEW OF SYSTEMS: I performed a 14-point review of systems. All the pertinent positives and negatives are mentioned in the history of present illness. The remaining review of systems are negative. PHYSICAL EXAMINATION GENERAL: The patient is alert, pleasant, and appears to be in no acute distress. VITAL SIGNS: Temperature 98.5, pulse rate 88, respiratory rate 16, O2 sat 95% on room air, blood pressure 163/100. HEENT: Normocephalic, atraumatic. Pupils are equal, round, and reactive to light and accommodation. EOMs are intact. NECK: Supple. No lymphadenopathy noted. No JVD appreciated. RESPIRATORY: No accessory muscle use. Lungs are clear to auscultation and normal work of breathing. CARDIAC: Regular rate and rhythm. S1 and S2 present. There are no murmurs, rubs, or gallops heard. ABDOMEN: Soft, nontender, but somewhat distended. There are bowel sounds x4. EXTREMITIES: There is trace bilateral lower extremity edema. There are chronic venous stasis changes as well as dry skin to bilateral lower extremities. DP and PT pulses are 2+ and symmetric. Both legs are tender to palpation. MUSCULOSKELETAL: No clubbing or cyanosis noted. The patient exhibited 5/5 strength in all 4 extremities. NEUROLOGIC: The patient is alert and oriented x3. The patient is dysarthric; however, she does have dysarthria at baseline. No droop or drift is noted. No facial droop was appreciated. Sensation is intact bilaterally; however, the patient does endorse numbness to her left lower extremity. PSYCH: The patient is calm and cooperative. SKIN: The patient does have dry skin to bilateral lower extremities. DIAGNOSTIC STUDIES/LAB DATA: White blood cell count 4.7, RBC 4.44, hemoglobin of 11.5, hematocrit 35, MCV 79, MCH 26, MCHC 33, RDW 15, platelet count 158. INR 0.9, APTT 28.2. Sodium 138, potassium 4.7, chloride 101, carbon dioxide 29 , anion gap 18, BUN 25, creatinine 1.16, BUN/creatinine ratio 21.6, glucose 269 , lactic acid 1.3, calcium 9.5. Total bili 0.5, AST 24, ALT 23, alk phos 101. Troponin 0. Total protein 6.4, albumin 3.8, globulin 2.6, albumin/globulin ratio 1.5. Triglycerides 159, cholesterol 155, LDL 71, HDL 52.2. UA is pending. Diagnostics: Brain CT with no intracranial mass or hemorrhage noted. Chest x-ray: No active cardiopulmonary disease noted. Head CTA: Atherosclerosis of the internal carotid arteries, more prominent on the right than left. There is atherosclerosis of the intracavernous portion of the right internal carotid artery. No branch occlusion or aneurysmal dilation is noted. No evidence of carotid or vertebral artery dissection. EKG with normal sinus rhythm. No evidence of ischemia or infarction. ASSESSMENT: The patient is a 72-year-old female with a past medical history significant for prior cerebrovascular accident/transient ischemic attack and seizure disorder, who presented to the ED after having an episode of left lower extremity weakness accompanied by possible slurred speech, will be admitted to the hospitalist service for further workup related to cerebrovascular accident/ transient ischemic attack versus seizure. PLAN: 1. Left leg weakness and dysarthria secondary to possible TIA. We will continue with TIA workup. The patient has already had a CTA per Telemedicine. I have spoken to Dr. Lucio and we have agreed upon a plan, which includes restarting the patient's Plavix, continuing her statin. Of note, the patient is allergic to ASPIRIN. We will also do an echo with bubble and an MRI. I have ordered this with and without contrast, as when Dr Mora saw the patient during her June admission, he recommended she have this follow up for a lesion seen on her scan at that time. Dr. Lucio will see the patient tomorrow. I will monitor the patient on telemetry and continue with neuro checks. I will allow for permissive hypertension in the setting of possible TIA versus CVA. I will also order PT and OT. 2. Diabetes. The patient was hyperglycemic in the ED up to 265. The patient' s daughter reports that she is infrequently compliant with her insulin. I am going to restart her Lantus at 12 units nightly and add sliding scale lispro a.c. h.s. 3. Seizure disorder. I will restart the patient's Keppra at 750 mg b.i.d. and I will also order a Keppra level as the patient reports not taking this medication for at least a few days. I have also added seizure precautions. 4. BUD. The patient does report decreased fluid intake in the past few days. I suspect her BUD is secondary to this and I will give her fluids at 75 mL an hour for 1 L. 5. History of peripheral arterial disease. Follow up as an outpatient. 6. History of urinary retention. The patient has been seen by Dr. Farnsworth, who feels that this is likely secondary to her diabetes. The patient was unable to urinate in the ED. I have ordered bladder scans and p.r.n. straight cathing. 7. History of rheumatoid arthritis. I am holding the patient's Enbrel as this is unavailable in the hospital; however, I will continue her Celebrex. 8. Diet. The patient passed her bedside swallow eval, so she may have a carb- controlled diet. 9. DVT prophylaxis. Heparin subcutaneous as the patient is high risk. 10. Code status. Full. 11. Disposition. Inpatient. Anticipate discharge to home when medically stable. TIME SPENT: Time spent for this admission was 60 minutes, and 35 minutes were spent with the patient discussing medications, past medical history and events leading up to her arrival today and performing a physical exam. The case has been reviewed with my attending, Dr. Dalal, who agrees with the plan of care. NEELA MURDOCK, CHUY [id number]/[facility] #: [id number] MCKAYLA
[2018-10-26] MEDS: celeCOXIB CAP* 200 MG PO SCH (22:26)
[2018-10-26] MEDS: levETIRAcetam TAB* 500 MG PO SCH (22:27)
[2018-10-26] MEDS: Nystatin TOP POWDER* 15 GM BTL TOPICAL SCH (22:31)
[2018-10-26] MEDS: Insulin GLARGINE(*) 1 UNITS UNIT SUBCUT SCH (22:33)
[2018-10-26] MEDS: Heparin VIAL(*) 5000 UNITS/ML VIAL (FIVE THOUSAND) SUBCUT SCH (22:34)
[2018-10-27] MEDS: Heparin VIAL(*) 5000 UNITS/ML VIAL (FIVE THOUSAND) SUBCUT SCH ×3 (05:00→21:31)
[2018-10-27 05:05] LABS: ABS Basophils 0 10^3/ul (0-0.2); ABS Eosinophils 0.1 10^3/ul (0-0.6); ABS Lymphocytes 1.7 10^3/ul (1.0-4.8); ABS Monocytes 0.3 10^3/ul (0-0.8); ABS Neutrophils 1.6 10^3/ul (1.5-7.7); ABS Nucleated RBC 0 10^3/ul; Eosinophil % 3.5 %; Hematocrit 30 % (35-47); Lymphocyte % 45.3 %; Mean Corpuscular HGB Conc 33 g/dl (31-36); Mean Corpuscular Hemoglobin 26 pg (27-31); Mean Corpuscular Volume 79 fL (80-97); Mean Platelet Volume 8.9 fL (7.4-10.4); Nucleated Red Blood Cells % 0; Platelet Count 139 10^3/ul (150-450); Red Blood Count 3.79 10^6/ul (4.00-5.40); Red Cell Distribution Width 14 % (10.5-15); White Blood Count 3.8 10^3/ul (3.5-10.8)
[2018-10-27 05:19] LABS: Anion Gap 3 mmol/L (2-11); BUN/Creatinine Ratio 33.3 (8-20); Blood Urea Nitrogen 26 mg/dL (6-24); CO2 Carbon Dioxide 31 mmol/L (22-32); Calcium 8.7 mg/dL (8.6-10.3); Chloride 109 mmol/L (101-111); EGFR Non-African American 72.2 (>60); Glucose 135 mg/dL (70-100); Potassium 3.7 mmol/L (3.5-5.0); Sodium 143 mmol/L (135-145)
[2018-10-27] MEDS: Insulin LISPRO* 1 UNITS UNIT SUBCUT SCH ×4 (07:30→21:31)
[2018-10-27] MEDS: celeCOXIB CAP* 200 MG PO SCH ×2 (08:49→21:29)
[2018-10-27] MEDS: Cholecalciferol TAB* 1000 UNITS PO SCH (08:49)
[2018-10-27] MEDS: levETIRAcetam TAB* 500 MG PO SCH ×2 (08:49→21:29)
[2018-10-27] MEDS: Clopidogrel TAB* 75 MG PO SCH (08:49)
[2018-10-27] MEDS: Atorvastatin* 10 MG TAB PO SCH (08:49)
--- NOTE | 2018-10-27 11:21 | PN ---
Subjective Date of Service: 10/27/18 Interval History: Patient would like to go home - she is upset and states "I am going home today no matter what". she reports her symptoms "have resolved". She states she feels steady on her feet. She has LE numbness at her baseline stating this has not changed. She is not sure why her "legs gave out" - she denies losing consciousness. She does not think she had a seizure. Denies speech or swallowing difficulties. Denies ANGEL, vision changes. Per H&P it states pt is noncompliant with medication as well as has not take her meds the last few days - when patient is asked she states she takes her meds as prescribed and has a Nurse that helps her with her medications Objective Active Medications: Atorvastatin Calcium (Lipitor*) 10 mg PO DAILY [facility] Last Admin: 10/27/18 08:49 Dose: 10 mg Celecoxib (Celebrex Cap*) 200 mg PO BID [facility] Last Admin: 10/27/18 08:49 Dose: 200 mg Cholecalciferol (Vitamin D Tab*) 1,000 units PO DAILY [facility] Last Admin: 10/27/18 08:49 Dose: 1,000 units Clopidogrel Bisulfate (Plavix Tab*) 75 mg PO DAILY [facility] Last Admin: 10/27/18 08:49 Dose: 75 mg Dextrose (D50w Syringe 50 Ml*) 12.5 gm IV PUSH .FOR FS < 60 - SS PRN PRN Reason: FS < 60 Docusate Sodium (Colace Cap*) 100 mg PO DAILY PRN PRN Reason: CONSTIPATION Heparin Sodium (Porcine) (Heparin Vial(*)) 5,000 units SUBCUT Q8HR [facility] Last Admin: 10/27/18 05:00 Dose: 5,000 units Insulin Glargine (Lantus(*)) 12 units SUBCUT 2100 [facility] Last Admin: 10/26/18 22:33 Dose: 12 units Insulin Human Lispro (Humalog*) 0 units SUBCUT ACHS [facility]; Protocol Last Admin: 10/27/18 07:30 Dose: Not Given Levetiracetam (Keppra Tab*) 750 mg PO BID [facility] Last Admin: 10/27/18 08:49 Dose: 750 mg Magnesium Hydroxide (Milk Of Magnesia Liq*) 60 ml PO Q4H PRN PRN Reason: CONSTIPATION Nystatin (Nystatin Top Powder*) 1 applic TOPICAL TID [facility]ED[facility] Last Admin: 10/26/18 22:31 Dose: 1 applic Pantoprazole Sodium (Protonix Tab (Nf)) 40 mg PO DAILY [facility] Polyethylene Glycol/Electrolytes (Miralax*) 17 gm PO DAILY PRN PRN Reason: CONSTIPATION Senna (Senokot Tab*) 1 tab PO BID PRN PRN Reason: CONSTIPATION Vital Signs - 8 hr 10/27/18 10/27/18 10/27/18 03:38 07:38 08:00 Temperature 97.5 F 97.5 F Pulse Rate 75 68 Respiratory 16 16 16 Rate Blood Pressure 144/67 142/71 (mmHg) O2 Sat by Pulse 96 94 Oximetry Oxygen Devices in Use Now: None Appearance: chronically ill female sitting up in bed A+ox3 - Eyes: No Scleral Icterus, PERRLA Respiratory: Symmetrical Chest Expansion and Respiratory Effort, Clear to Auscultation Cardiovascular: NL Sounds; No Murmurs; No JVD, RRR, No Edema Abdominal: NL Sounds; No Tenderness; No Distention Extremities: No Edema Skin: No Rash or Ulcers, No Nodules or Sclerosis Neurological: Alert and Oriented x 3, NL Sensation, NL Muscle Strength and Tone , - - dystharia noted. no facial droop Lines/Tubes/Other Access: Clean, Dry and Intact Peripheral IV Nutrition: Taking PO's Result Diagrams: 10/27/18 04:56 10/27/18 04:56 Assess/Plan/Problems-Billing Assessment: 72 yo female with a PMH of CVA/TIA, seizure disorder, brain lesion on MRI in June 2018, DM, PVD. HTN, HLD, RA who presented to the ER on 10/26 after she fell at [facility] with c/o left sided-weakness stating "my left side just gave out" and possible speech changes. Hx of medication non-compliance - Patient Problems (1) Left-sided weakness Comment: - with possible worsening of speech. Now resolved. Pt has dysarthria at her baseline and b/l LE leg numbness L> R. Pt Denies seizure activity. no ANGEL. It is unclear the etiology of left side weakness and possible speech changes? - does not appear she had a seizure even though it was reported she has been w/o her medication for a few days and is non-compliant.CTA neck/head showing atherosclerosis of the internal carotid arteries but no occlusions. Brain CT showed no acute intacranial abnormalities. - awaiting echo with bubble study - MRI brain w/wo contrast pending -continue plavix, statin -> pt is allergic to ASA - Neuro consult pending (2) Brain mass Comment: -Found in 06/2018 hospitalization with MRI w/ contrast showing a new lesion that did not enchance but concern for possible low grade neoplasm, was recommended to f/u with neurology and have f/u MRI in 1-2 months which she did not do. -Plan for MRI w/wo contrast (3) BUD (acute kidney injury) Comment: - resolved with IVFs - suspect dehydration (4) DM2 (diabetes mellitus, type 2) Comment: - FSBG Ac with lispro SS - continue home Lantus 12 units Qpm (5) PVD (peripheral vascular disease) Comment: - continue plavix - H+P states known b/l LE blockages - do not see imaging to confirm this. - follow with PCP. (6) Hx of seizure disorder Comment: -Continue Keppra - hx of non-compliance with Keppra (7) HTN (hypertension) Comment: restart home amlodipine 5 mg daily (8) Hyperlipidemia Comment: continue statin (9) Rheumatoid arthritis Comment: -follow with PCP. Does not appear to be in an acute flare (10) Full code status (11) DVT prophylaxis Comment: - Heparin sub-q. Status and Disposition: OBV left sided weakness. MRI pending
[2018-10-27] MEDS ORDERED: amLODIPine TAB* 5 MG PO ONE (11:30)
[2018-10-27] MEDS: Pantoprazole TAB (NF) 40 MG TAB PO SCH (11:41)
[2018-10-27] MEDS: Nystatin TOP POWDER* 15 GM BTL TOPICAL SCH ×3 (11:43→21:28)
--- NOTE | 2018-10-27 12:22 | ECHO ---
Patient: LA WILSON [facility] Rec#: [id number] : 1945 Date: 10/27/2018 Age: 72y Height: 162.56 cm / 64.0 in Weight: 54.88 kg / 121.0 lbs Sex: F BSA: 1.58 Room#: 437 Admit Date#: 10/26/2018 Type: Inpatient Referring: SOLOMON MURDOCK Reading: Yonny Elliott MD Pesticide Chemist: Caren Carter RDCS CC: Lindsey Bermeo Transthoracic Echocardiogram Indication: TIA BP: 144/67 HR: 76 Rhythm: NSR Findings History: DM,PAD,HTN,HLD,rheumatoid arthritis,seizures. Technical Comments: The study quality is good. Completed at 1127. Left Ventricle: The left ventricular chamber size is normal. Moderate concentric left ventricular hypertrophy is observed. Global left ventricular wall motion and contractility are within normal limits. There is normal left ventricular systolic function. The estimated ejection fraction is 55-60%. Abnormal left ventricular diastolic function is observed. Left Atrium: The left atrial chamber size is normal. Right Ventricle: The right ventricular cavity size is normal. The right ventricular global systolic function is normal. Right Atrium: The right atrial cavity size is normal. There is no patent foramen ovale visualized. There is no evidence of patent foramen ovale shunting. A patent foramen ovale is not demonstrated with color Doppler and agitated contrast. Aortic Valve: The aortic valve is trileaflet. There is no evidence of aortic valve thickening. There is no evidence of aortic regurgitation. There is no evidence of aortic stenosis. Mitral Valve: The mitral valve leaflets are mildly thickened. There is mild mitral regurgitation. There is no evidence of mitral stenosis. Tricuspid Valve: The tricuspid valve leaflets are normal. There is trace to mild tricuspid regurgitation. The tricuspid regurgitant jet is wall impinging. There is evidence of mild pulmonary hypertension. There is no tricuspid stenosis. Pulmonic Valve: The pulmonic valve appears normal. There is mild pulmonic regurgitation. There is no pulmonic stenosis. Pericardium: The pericardium appears normal. Aorta: There is no dilatation of the ascending aorta. There is no dilatation of the aortic arch. There is no dilation of the aortic root. Pulmonary Artery: The main pulmonary artery appears normal. Venous: The inferior vena cava appears normal in size. There is a greater than 50% respiratory change in the inferior vena cava dimension. Contrast: Normal saline was used as contrast for the bubble study. Intravenous contrast was used to help determine presence of intracardiac shunting. Summary: There are no significant changes when compared to the previous study done on 07/01/18 Conclusions Moderate concentric left ventricular hypertrophy is observed. Global left ventricular wall motion and contractility are within normal limits. There is normal left ventricular systolic function. The estimated ejection fraction is 55-60%. The right ventricular global systolic function is normal. There is no patent foramen ovale visualized. A patent foramen ovale is not demonstrated with color Doppler and agitated contrast. There is no evidence of aortic stenosis. There is mild mitral regurgitation. There is trace to mild tricuspid regurgitation. There is evidence of mild pulmonary hypertension. The pericardium appears normal. Measurements Name Value Normal Range RVIDd (AP) 2D 3.1 cm (0.9 - 2.6) RVDdMajor (2D) 3.2 cm (2.2 - 4.4) RAd ISD 4CH 3.8 cm (3.4 - 4.9) RA (A4C)W 3.9 cm (2.9 - 4.6) IVSd (2D) 1.4 cm (0.6 - 1) LVPWd (2D) 1.4 cm (0.6 - 1) LVIDd (2D) 3.7 cm (3.6 - 5.4) LVIDs (2D) 2.7 cm - LV FS (2D) 26 % (25 - 45) Aortic Annulus 1.9 cm (1.4 - 2.6) Ao root diameter (2D) 3.3 cm (2.1 - 3.5) Ascending Ao 2.8 cm (2.1 - 3.4) Aortic arch 2.6 cm (1.8 - 3.4) Descending Ao 0.5 cm - LA dimension (AP) 2D 3.4 cm (2.3 - 3.8) LAd ISD 4CH 4.3 cm (2.9 - 5.3) LA ISD 4CH W 3.4 cm (2.5 - 4.5) Name Value Normal Range LA ESV SP 4CH (A/L) 38 ml - LA ESV SP 2CH (A/L) 32 ml - LA ESV BP (A/L) 37 ml - LA ESV BP (A/L) index 23.22 ml/m2 - LA ESV SP 4CH (MOD) 32 ml - LA ESV SP 2CH (MOD) 29 ml - Name Value Normal Range MV E-wave Vmax 0.9 m/sec - MV deceleration time 239 msec - MV A-wave Vmax 1.1 m/sec - MV E:A ratio 0.77 ratio - LV septal e' Vmax 0.04 m/sec - LV lateral e' Vmax 0.07 m/sec - LV E:e' septal ratio 22.5 ratio - LV E:e' lateral ratio 12.85 ratio - Name Value Normal Range AV Vmax 1.6 m/sec - AV VTI 39.2 cm - AV peak gradient 10.32 mmHg - AV mean gradient 2.82 mmHg - LVOT Vmax 1.2 m/sec - LVOT VTI 33 cm - LVOT peak gradient 6.01 mmHg - LVOT mean gradient 3.12 mmHg - Name Value Normal Range MR Vmax 4.4 m/sec - MR VTI 117 cm - Name Value Normal Range TR Vmax 3 m/sec - TR peak gradient 35 mmHg - RAP 3 mmHg - RVSP 38 mmHg - IVC diameter 1.6 cm - Name Value Normal Range PV Vmax 1 m/sec - PV peak gradient 4.22 mmHg -
[2018-10-27 17:00] LABS: TSH (Thyroid Stimulating Horm) 2.65 mcIU/mL (0.34-5.60)
[2018-10-27 17:11] LABS: Folate > 20.00 ng/mL (>3.99)
--- NOTE | 2018-10-27 20:52 | CONS ---
CONSULTATION REPORT: DATE OF SERVICE: 10/27/18 PATIENT OF: Dr. Lindsey Bermeo; Dr. Kaelyn Lira and Dr. Jason Cheung. HISTORY: This is a 72-year-old woman who is having possible seizures and has a possibly abnormal MRI scan. She has been seen as an inpatient by Dr. Mora in the past, most recently in June of this year, for an episode of confusion and unresponsiveness. There was concern during that hospitalization for left frontal lesion and she had an MRI scan with and without contrast which showed a nonenhancing potential lesion there. She was sent out on Keppra. She has, apparently due to a pharmacy issues, not been on Keppra or her Plavix in the past few days. Her daughter says that she tried to get the meds, but there was a problem with the pharmacy; however, in the past 2 to 3 months, Joyce has also had problems with short-term memory and things needed to be repeated to her and the daughter who lives around the corner checks on her on a daily basis and there is also a visiting nurse at home that sees her weekly. In any event, she has been off her Plavix and Keppra for 3 to 4 days prior to an event in [facility], where she slumped to the ground, the daughter had her back turned to her but as soon as she saw her, she was somewhat confused, but also had some right-sided facial droop and possibly right leg weakness with some slurring of her speech. She has had some of her seizures in the past that have involved shaking, but there was no obvious shaking at the time of the event yesterday was witnessed. She was brought into the ER, where she had an NIH stroke scale of 3. The ER spoke to Dr. Panchal, I do not see his note in the hospital records as of now, but apparently her head CTA was recommended which was negative and she was restarted on Plavix and Keppra. She was not deemed to be a tPA candidate. Since then, she has been back to her baseline. PAST MEDICAL HISTORY: Significant for: 1. Seizure disorder, on Keppra. 2. Prior CVA/TIAs, on Plavix. There is an allergy to ASPIRIN. 3. She has diabetes, on insulin at home but poor compliance. 4. She has a history of hypertension. 5. Hyperlipidemia. 6. Rheumatoid arthritis. 7. Peripheral artery disease. 8. She is status post 2 ankle surgeries. 9. Partial hysterectomy. 10. Cleft palate repair. MEDICATIONS: Include: 1. Metformin 500 daily. 2. Keppra 750 twice a day. 3. Lantus 12 units subcu at 11, other insulin with meals, dose is not known. 4. Rosuvastatin 40 mg daily. 5. Amlodipine 5 mg daily. 6. Prilosec 20 mg daily. 7. MiraLAX 17 g daily p.r.n. 8. Celebrex 200 b.i.d. 9. Plavix 75 mg daily. ALLERGIES: She is allergic to ASPIRIN with hives, PENICILLIN with hives. FAMILY HISTORY: There is a family history for heart disease and family history for diabetes. SOCIAL HISTORY: She does not smoke or drink. REVIEW OF SYSTEMS: Negative in all 14 spheres, other than the HPI. PHYSICAL EXAMINATION: Temperature 97.5, pulse 75, respiratory rate 18, blood pressure 147/69. She is alert and oriented x3. Memory was 2/3 and 1 with prompting and she tended to wander slightly with her conversation, had some perseveration and the daughter says this is typical of her. Cranial nerves II though XII are intact. Discs were sharp. Motor exam revealed normal tone. Strength, she used a walker but was stable with this and apparently, her gait has not changed with no focal weakness and strength was 5/5. Reflexes were 1+ and equal. Toes were downgoing. Sensation was intact to light touch. Chest is clear. Cardiovascular is regular rate and rhythm. DIAGNOSTIC STUDIES: Her CTA showed atherosclerosis, but no clear stenosis. Her CT scan was negative. 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 She has not had the follow up recommended for that at this point. She has had an EEG back in June which showed left frontal slowing as well as some sharp waves there. She had a transthoracic echo done yesterday which showed no source of clot and there was negative PFO with bubble study done. LABORATORY DATA: Includes normal CBC other than hematocrit of 30 with an MCV of 79. Normal INR and PTT. She has a BMP with BUN of 26, creatinine of 0.78. Blood sugars have been on the high side. UA was negative other than 2+ glucose, 1+ ketones. Apparently, her ER CMP was not in the chart, but per admission note, liver function tests were normal. She had an LDL of 71. ASSESSMENT AND PLAN: The major concern with Joyce's case is that she could have a left frontal lesion, have seizures secondary to that and she absolutely needs followup on it, it has been 4 months since her initial MRI scan was done and she is going to have an MRI scan with and without contrast tomorrow, it is possible that she is having focal seizures and had a breakthrough seizure and she had been missing her Keppra for a few days' time and the right facial weakness and what the family saying is possible right leg weakness yesterday may have been from a seizure and that would fit with her left frontal lesion. She is on her Plavix and her cholesterol is being adequately treated in the event this was a transient ischemic attack, but this would be of less concern. The other concern is that she might have progressive memory problems. We would have to see what her potential frontal lesion is doing, whether it is expanding and that this would be the focus of her medical efforts, but she should have a serological workup for memory loss including B12, folate, thyroid and a general CMP. At this point, she should have Social Work involved and she will need to follow up with Neurology as an outpatient for any event. Please call the neurologist on-call if you have any questions after the MRI scan is done and the Social Work should begin to address the issue whether she needs more services at home. Thank you for sharing her case. [id number]/CPS #: [id number] MCKAYLA
[2018-10-27] MEDS: Insulin GLARGINE(*) 1 UNITS UNIT SUBCUT SCH (21:31)
[2018-10-28] MEDS: Heparin VIAL(*) 5000 UNITS/ML VIAL (FIVE THOUSAND) SUBCUT SCH ×2 (05:17→14:04)
[2018-10-28 05:51] LABS: ABS Basophils 0 10^3/ul (0-0.2); ABS Eosinophils 0.2 10^3/ul (0-0.6); ABS Lymphocytes 1.7 10^3/ul (1.0-4.8); ABS Monocytes 0.3 10^3/ul (0-0.8); ABS Nucleated RBC 0 10^3/ul; Eosinophil % 3.7 %; Hematocrit 29 % (35-47); Hemoglobin 9.8 g/dl (12.0-16.0); Lymphocyte % 39.6 %; Mean Corpuscular HGB Conc 34 g/dl (31-36); Mean Corpuscular Hemoglobin 26 pg (27-31); Mean Corpuscular Volume 78 fL (80-97); Mean Platelet Volume 8.6 fL (7.4-10.4); Nucleated Red Blood Cells % 0.1; Platelet Count 139 10^3/ul (150-450); Red Cell Distribution Width 15 % (10.5-15); White Blood Count 4.2 10^3/ul (3.5-10.8)
[2018-10-28 06:07] LABS: BUN/Creatinine Ratio 30.5 (8-20); Calcium 8.7 mg/dL (8.6-10.3); EGFR Non-African American 68.1 (>60); Potassium 3.7 mmol/L (3.5-5.0)
[2018-10-28] MEDS: Insulin LISPRO* 1 UNITS UNIT SUBCUT SCH ×2 (08:08→12:01)
[2018-10-28] MEDS: Nystatin TOP POWDER* 15 GM BTL TOPICAL SCH ×2 (08:40→14:04)
[2018-10-28] MEDS: Clopidogrel TAB* 75 MG PO SCH (08:40)
[2018-10-28] MEDS: Atorvastatin* 10 MG TAB PO SCH (08:41)
[2018-10-28] MEDS: levETIRAcetam TAB* 500 MG PO SCH (08:41)
[2018-10-28] MEDS: Pantoprazole TAB (NF) 40 MG TAB PO SCH (08:41)
[2018-10-28] MEDS: celeCOXIB CAP* 200 MG PO SCH (08:41)
[2018-10-28] MEDS: Cholecalciferol TAB* 1000 UNITS PO SCH (08:41)
[2018-10-28] MEDS ORDERED: amLODIPine TAB* 5 MG PO SCH (09:00)
[2018-10-28] MEDS ORDERED: Gadoteridol* (CONTRAST) 279.3 MG/ML 10 ML IV ONE (10:38)
[2018-10-28 11:52] VITALS: BP 134/65
--- NOTE | 2018-10-28 13:36 | DCNOTE ---
Subjective Date of Service: 10/28/18 Interval History: pt is anxious to go home. She feels that she is at her baseline. Daughter at bedside who agrees with plan. Objective Active Medications: Amlodipine Besylate (Norvasc Tab*) 5 mg PO DAILY [facility] Last Admin: 10/28/18 08:40 Dose: 5 mg Atorvastatin Calcium (Lipitor*) 10 mg PO DAILY [facility] Last Admin: 10/28/18 08:41 Dose: 10 mg Celecoxib (Celebrex Cap*) 200 mg PO BID [facility] Last Admin: 10/28/18 08:41 Dose: 200 mg Cholecalciferol (Vitamin D Tab*) 1,000 units PO DAILY [facility] Last Admin: 10/28/18 08:41 Dose: 1,000 units Clopidogrel Bisulfate (Plavix Tab*) 75 mg PO DAILY [facility] Last Admin: 10/28/18 08:40 Dose: 75 mg Dextrose (D50w Syringe 50 Ml*) 12.5 gm IV PUSH .FOR FS < 60 - SS PRN PRN Reason: FS < 60 Docusate Sodium (Colace Cap*) 100 mg PO DAILY PRN PRN Reason: CONSTIPATION Heparin Sodium (Porcine) (Heparin Vial(*)) 5,000 units SUBCUT Q8HR [facility] Last Admin: 10/28/18 05:17 Dose: 5,000 units Insulin Glargine (Lantus(*)) 12 units SUBCUT 2100 [facility] Last Admin: 10/27/18 21:31 Dose: 12 units Insulin Human Lispro (Humalog*) 0 units SUBCUT ACHS [facility]; Protocol Last Admin: 10/28/18 12:01 Dose: 3 units Levetiracetam (Keppra Tab*) 750 mg PO BID [facility] Last Admin: 10/28/18 08:41 Dose: 750 mg Magnesium Hydroxide (Milk Of Magnesia Liq*) 60 ml PO Q4H PRN PRN Reason: CONSTIPATION Nystatin (Nystatin Top Powder*) 1 applic TOPICAL TID [facility] Last Admin: 10/28/18 08:40 Dose: 1 applic Pantoprazole Sodium (Protonix Tab (Nf)) 40 mg PO DAILY [facility] Last Admin: 10/28/18 08:41 Dose: 40 mg Polyethylene Glycol/Electrolytes (Miralax*) 17 gm PO DAILY PRN PRN Reason: CONSTIPATION Senna (Senokot Tab*) 1 tab PO BID PRN PRN Reason: CONSTIPATION Vital Signs - 8 hr 10/28/18 10/28/18 10/28/18 07:51 08:08 11:51 Temperature 97.4 F 98.1 F Pulse Rate 68 71 Respiratory 18 16 16 Rate Blood Pressure 152/70 134/65 (mmHg) O2 Sat by Pulse 98 100 Oximetry Oxygen Devices in Use Now: None Appearance: A+O x3 in NAD Eyes: No Scleral Icterus, PERRLA Ears/Nose/Mouth/Throat: NL Teeth, Lips, Gums, Mucous Membranes Moist Neck: NL Appearance and Movements; NL JVP Respiratory: Symmetrical Chest Expansion and Respiratory Effort, Clear to Auscultation Cardiovascular: NL Sounds; No Murmurs; No JVD, RRR, No Edema Abdominal: NL Sounds; No Tenderness; No Distention Extremities: No Edema, No Clubbing, Cyanosis Skin: No Rash or Ulcers, No Nodules or Sclerosis Neurological: Alert and Oriented x 3, NL Sensation, NL Gait, NL Muscle Strength and Tone Lines/Tubes/Other Access: Clean, Dry and Intact Peripheral IV Nutrition: Taking PO's Result Diagrams: 10/28/18 05:41 10/28/18 05:41 Assess/Plan/Problems-Billing Assessment: 72 yo female with a PMH of CVA/TIA, seizure disorder, brain lesion on MRI in June 2018, DM, PVD. HTN, HLD, RA who presented to the ER on 10/26 after she fell at [facility] with c/o left sided-weakness stating "my left side just gave out" and possible speech changes. Hx of medication non-compliance - Patient Problems (1) Left-sided weakness Comment: - Resolved. Pt has dysarthria at her baseline and b/l LE leg numbness L> R. Pt Denies seizure activity but patient went several days w/o her Keppra prescription. Suspect episode secondary partial seizure 2nd to medication noncompliance - CTA neck/head showing atherosclerosis of the internal carotid arteries but no occlusions. - Brain CT showed no acute intacranial abnormalities. - Echo with bubble study - no PFO noted - MRI brain w/wo contrast showing no CVA, white matter, lesion noted on prior MRI has resolved- thought to be an inflammatory or infectcious lesion. -continue plavix, statin -> pt is allergic to ASA - Neuro consult - agrres with the above plan (2) Brain mass Comment: -resolved on MRI (3) BUD (acute kidney injury) Comment: - resolved with IVFs - suspect dehydration (4) DM2 (diabetes mellitus, type 2) Comment: - FSBG Ac with lispro SS - continue home Lantus 12 units Qpm (5) PVD (peripheral vascular disease) Comment: - continue plavix - H+P states known b/l LE blockages - do not see imaging to confirm this. - follow with PCP. (6) Hx of seizure disorder Comment: -Continue Keppra - hx of non-compliance with Keppra (7) HTN (hypertension) Comment: restart home amlodipine 5 mg daily (8) Hyperlipidemia Comment: continue statin (9) Rheumatoid arthritis Comment: -follow with PCP. Does not appear to be in an acute flare (10) Full code status (11) DVT prophylaxis Comment: - Heparin sub-q. Status and Disposition: OBV. DC to home
--- NOTE | 2018-10-28 14:04 | PN ---
Subjective Date of Service: 10/28/18 Length of Stay: 2 Days Neurology is following for the evaluation and management of confusion Interval History: The patient has no acute complaints. She feels back to herself. She is eager to go home. Review of Systems: 14 point review of systems negative in detail Objective Active Medications: Amlodipine Besylate (Norvasc Tab*) 5 mg PO DAILY [facility] Last Admin: 10/28/18 08:40 Dose: 5 mg Atorvastatin Calcium (Lipitor*) 10 mg PO DAILY [facility] Last Admin: 10/28/18 08:41 Dose: 10 mg Celecoxib (Celebrex Cap*) 200 mg PO BID [facility] Last Admin: 10/28/18 08:41 Dose: 200 mg Cholecalciferol (Vitamin D Tab*) 1,000 units PO DAILY [facility] Last Admin: 10/28/18 08:41 Dose: 1,000 units Clopidogrel Bisulfate (Plavix Tab*) 75 mg PO DAILY [facility] Last Admin: 10/28/18 08:40 Dose: 75 mg Dextrose (D50w Syringe 50 Ml*) 12.5 gm IV PUSH .FOR FS < 60 - SS PRN PRN Reason: FS < 60 Docusate Sodium (Colace Cap*) 100 mg PO DAILY PRN PRN Reason: CONSTIPATION Heparin Sodium (Porcine) (Heparin Vial(*)) 5,000 units SUBCUT Q8HR [facility] Last Admin: 10/28/18 05:17 Dose: 5,000 units Insulin Glargine (Lantus(*)) 12 units SUBCUT 2100 [facility] Last Admin: 10/27/18 21:31 Dose: 12 units Insulin Human Lispro (Humalog*) 0 units SUBCUT ACHS [facility]; Protocol Last Admin: 10/28/18 12:01 Dose: 3 units Levetiracetam (Keppra Tab*) 750 mg PO BID [facility] Last Admin: 10/28/18 08:41 Dose: 750 mg Magnesium Hydroxide (Milk Of Magnesia Liq*) 60 ml PO Q4H PRN PRN Reason: CONSTIPATION Nystatin (Nystatin Top Powder*) 1 applic TOPICAL TID [facility] Last Admin: 10/28/18 08:40 Dose: 1 applic Pantoprazole Sodium (Protonix Tab (Nf)) 40 mg PO DAILY [facility] Last Admin: 10/28/18 08:41 Dose: 40 mg Polyethylene Glycol/Electrolytes (Miralax*) 17 gm PO DAILY PRN PRN Reason: CONSTIPATION Senna (Senokot Tab*) 1 tab PO BID PRN PRN Reason: CONSTIPATION Vital Signs 10/27/18 10/27/18 10/27/18 15:26 19:44 19:50 Temperature 98.5 F 97.9 F Pulse Rate 84 83 Respiratory 14 16 16 Rate Blood Pressure 137/84 151/79 (mmHg) O2 Sat by Pulse 98 100 100 Oximetry 10/27/18 10/28/18 10/28/18 23:55 03:18 07:51 Temperature 97.8 F 98.1 F Pulse Rate 74 67 Respiratory 16 18 18 Rate Blood Pressure 156/64 137/63 (mmHg) O2 Sat by Pulse 99 94 Oximetry 10/28/18 10/28/18 08:08 11:51 Temperature 97.4 F 98.1 F Pulse Rate 68 71 Respiratory 16 16 Rate Blood Pressure 152/70 134/65 (mmHg) O2 Sat by Pulse 98 100 Oximetry Intake and Output Last 24 Hours 10/26/18 10/27/18 10/28/18 10/29/18 06:59 06:59 06:59 06:59 Intake Total 1643 2400 Output Total 0 1041 42 Balance 1643 1359 -42 Weight 125 lb Intake: IV Fluids 1643 300 NS (0.9%) 643 300 Oral 0 2100 Output: Urine 0 889 Post Void Residual 152 42 Other: Estimated Void Medium # Bowel Movements 0 # Voids 1 Oxygen Devices in Use Now: None Neurology Exam: General: Awake, Alert, Oriented x3 HEENT: Normocephalic/atraumatic, sclera anicteric, mucous membranes moist Neck: Supple Chest: Clear to auscultation bilaterally Cardiovascular: Regular rate and rhythm without murmurs, rubs, gallops Abdomen: Soft, nontender/nondistended Extremities: No clubbing, cyanosis, or edema Neurological Findings: Awake, Alert, Oriented x3 Speech: fluent, repetition intact Cranial Nerve: PEERL, EOM intact, VFF, no nystagmus, face symmetric bilaterally , facial sensation intact, hearing intact to finger rub bilaterally, palate elevates symmetrically, tongue midline, SCM and Trapezius s/s. Motor: s/s throughout, proximal and distal extremities x4 tone/bulk normal Sensation: intact to LT/PP bilaterally upper and lower extremities Deep Tendon Reflex: 2+ symmetric in the upper/lower extremities, Babinski - down going Finger to nose, rapid alternating movements intact without tremor, no dysdiadochokinesia Result Diagrams: 10/28/18 05:41 10/28/18 05:41 Diagnostic Imaging: MRI Brain IMPRESSION: 1. THERE IS SCATTERED NONSPECIFIC WHITE MATTER CHANGES THAT ARE STABLE FROM THE PREVIOUS EXAMINATION. 2. THE LEFT CAUDATE LESION NOTED ON THE PREVIOUS EXAMINATION HAS ESSENTIALLY RESOLVED SUGGESTIVE OF RESOLUTION OF AN INFLAMMATORY OR INFECTIOUS PROCESS. THERE IS NO ABNORMAL ENHANCEMENT, VASOGENIC EDEMA, OR SPACE-OCCUPYING LESION SUGGEST REFERENCE ASSISTANT NEOPLASM. Assessment/Plan A/P Possible seizure due to medication non compliance Keppra resumed Frontal lesion of concern not apparent on recent MRI F/U with Dr. Mora
--- NOTE | 2018-10-28 20:24 | DS ---
CC: Dr. Lindsey Bermeo * DISCHARGE SUMMARY: DATE OF ADMISSION: 10/26/18 DATE OF DISCHARGE: 10/28/18 PROVIDER: Olinda Sky NP ATTENDING PHYSICIAN: Dr. Dalal * (report dictated by Olinda Sky NP). PRIMARY CARE PROVIDER: Dr. Lindsey Bermeo. NEUROLOGIST: Dr. Mora. DISCHARGE DIAGNOSIS: Left leg weakness, suspect secondary to partial seizure, secondary to not taking her Keppra. SECONDARY DIAGNOSES: 1. Prior history of cerebrovascular accident/transient ischemic attack. 2. Insulin-dependent type 2 diabetes. 3. Hypertension. 4. Hyperlipidemia. 5. Rheumatoid arthritis. 6. Peripheral vascular disease. HISTORY OF PRESENT ILLNESS AND HOSPITAL COURSE: Please see history and physical by Neela Ray NP, for full admission details; but in summary, this is a 72- year-old female with a past medical history of seizure disorder, on Keppra, who presented to the emergency department on 10/26/18 with chief complaint of left leg weakness, difficulty with speech and some mild confusion. The patient and her daughter report they were in [employer] and she was at the register paying when "all of a sudden my left leg went out." Per the daughter, she had some noted confusion and speech difficulties. It is reported that the patient ran out of her Keppra at least 3 days ago due to the pharmacy running out of the medication. She was admitted to the hospitalist service to telemetry and underwent a TIA/stroke workup, which was negative. There was also concern about a brain lesion identified on an MRI in June; however, she underwent a repeat MRI of the brain, which showed that this lesion had resolved and thought most likely it was an infectious or inflammatory process. She was seen by neurologist, Dr. Lucio as well as Dr. De La Cruz. It is suspect that her episode was secondary to a partial seizure due to medication noncompliance. Her Keppra was resumed on admission. She has had no further episodes and the patient is stable for discharge to home. The patient had a Keppra level sent; however, that is still pending at the time of discharge. She is noted to have a low normal B12 level of 184 and may benefit from having a methylmalonic and homocysteine level as an outpatient and may benefit from B12 supplementation. This should be followed up with a primary care provider. The patient has been ambulating around the unit with steady gait and will be discharged home today. DISCHARGE MEDICATIONS: 1. Clarinex 5 mg p.o. daily. 2. Plavix 75 mg p.o. daily. 3. Celebrex 200 mg p.o. b.i.d. 4. Potassium chloride 20 mEq p.o. daily. 5. MiraLAX 17 g p.o. daily p.r.n. 6. Omeprazole 20 mg p.o. daily. 7. Milk of magnesia 60 mL p.o. q.4 hours p.r.n. 8. Amlodipine 5 mg p.o. daily. 9. Rosuvastatin 40 mg p.o. daily. 10. Lantus 12 units subcu at 9 p.m. 11. Keppra 750 mg p.o. b.i.d. 12. Nystatin powder 1 application topical t.i.d. 13. Vitamin D 1000 units p.o. daily. 14. Metformin 500 mg p.o. daily. 15. Lispro sliding scale a.c. and h.s. DISCHARGE PLAN: 1. Follow up with primary care provider within 4 to 7 days. 2. Follow up with Dr. Mora in 1 to 2 months. 3. The patient's Keppra has been switched to a different pharmacy. As per daughter, [facility] is out of the Keppra at this time. She has been given a 1- month supply through [facility]. TIME SPENT: Approximately 60 minutes was spent on this discharge. OLINDA SKY, CHUY [id number]/CPS #: [id number] MCKAYLA
== END 2018-10-28 16:20 | disposition home or self-care (01) | DRG 101 ==
LOC: ED 13:11 → MEDTELE 16:10
PROVIDERS: ADMIT Hospitalist; ATTEND Hospitalist
DX: G40.909 Epilepsy, unspecified, not intractable, without status epilepticus (principal); N17.9 Acute kidney failure, unspecified; E78.5 Hyperlipidemia, unspecified; I10 Essential (primary) hypertension; K21.9 Gastro-esophageal reflux disease without esophagitis; M19.90 Unspecified osteoarthritis, unspecified site; H91.92 Unspecified hearing loss, left ear; G43.909 Migraine, unspecified, not intractable, without status migrainosus; E11.40 Type 2 diabetes mellitus with diabetic neuropathy, unspecified; R29.703 NIHSS score 3; E11.65 Type 2 diabetes mellitus with hyperglycemia; I73.9 Peripheral vascular disease, unspecified; M06.9 Rheumatoid arthritis, unspecified; R47.1 Dysarthria and anarthria; R53.1 Weakness; G93.9 Disorder of brain, unspecified; Z91.14 Patient's other noncompliance with medication regimen; Z88.0 Allergy status to penicillin; Z97.4 Presence of external hearing-aid; Z86.73 Personal history of transient ischemic attack (TIA), and cerebral infarction without residual deficits; Z90.711 Acquired absence of uterus with remaining cervical stump; Z80.0 Family history of malignant neoplasm of digestive organs; Z88.8 Allergy status to other drugs, medicaments and biological substances; Z91.018 Allergy to other foods; Z79.02 Long term (current) use of antithrombotics/antiplatelets; Z79.4 Long term (current) use of insulin
CPT/HCPCS: 36415; 70450; 70496; 70498; 70553; 71045; 80048; 80053; 80061; 80177; 81003; 81015; 82140; 82607; 82746; 83605; 84443; 84484; 85025; 85610; 85730; 93005; 93306; 99285; A9270-GY; A9579; G8978-GP-CJ; G8979-GP-CI; J1644; Q9967

== ENCOUNTER 2019-01-27 22:50 | Observation (INO) | payer MEDICARE, MEDICAID ==
[2019-01-27] MEDS ORDERED: Insulin REGULAR(*) 1 UNITS UNIT IV PUSH ONE (23:26)
[2019-01-27] MEDS ORDERED: NS 0.9% 1000 ML** 2,000 ML IV ONE (23:26)
--- NOTE | 2019-01-27 23:29 | ED ---
Complex/Multi-Sys Presentation - HPI Summary HPI Summary: Pt is a 73 y/o F presenting to the ED brought in by EMS for a fall. Per EMS, she was found on the floor of her apartment where she lives alone with her pants down. The pt states she is unsure how she fell. She reports weakness and some abd pain. She denies myalgia. Per nurse, the pt is presently somewhat confused and disoriented. - History Of Current Complaint Chief Complaint: EDAltMentalStatus Time Seen by Provider: 01/27/19 23:10 Hx Obtained From: Patient, EMS Onset/Duration: Sudden Onset, Lasting Hours, Still Present Timing: Constant, Hours Severity Currently: Mild Severity Initially: Moderate Location: Pain At: - abd Aggravating Factor(s): none Alleviating Factor(s): none Associated Signs And Symptoms: Positive: Confusion, Weakness, Abdominal Pain. Negative: Other - myalgia - Allergies/Home Medications Allergies/Adverse Reactions: Allergies Allergy/AdvReac Type Severity Reaction Status Date / Time aspirin Allergy Intermediate Hives Verified 01/04/19 15:09 penicillin G Allergy Intermediate Hives Verified 01/04/19 15:09 Penicillins Allergy Intermediate Hives Verified 01/04/19 15:09 onion AdvReac GI Upset Verified 01/04/19 15:09 pepper (genus Capsicum) AdvReac GI Upset Verified 01/04/19 15:09 [pepper] Home Medications: Home Medications Calcium 600-Vit D3 600 Tablet 1500mg- 200 Unit 1 unit PO DAILY WITH MEAL [History Confirmed 01/27/19] Etanercept [Enbrel Sureclick] 0.98 ml SUBCUT WEEKLY 01/27/19 [History Confirmed 01/27/19] Insulin Glargine,Hum.rec.anlog [Toujeo Solostar] 1.5 ml SUBCUT DAILY WITH MEAL 01/27/19 [History Confirmed 01/27/19] traMADol TAB* [Ultram*] 50 mg PO TID PRN 01/27/19 [History Confirmed 01/27/19] PMH/Surg Hx/FS Hx/Imm Hx Previously Healthy: No Endocrine/Hematology History: Reports: Hx Diabetes, Hx Anemia Denies: Hx Thyroid Disease Cardiovascular History: Reports: Hx Hypercholesterolemia, Hx Hypertension Denies: Hx Congestive Heart Failure, Hx Pacemaker/ICD Respiratory History: Denies: Hx Asthma, Hx Chronic Obstructive Pulmonary Disease (COPD), Other Respiratory Problems/Disorders GI History: Reports: Hx Gastroesophageal Reflux Disease - OCCASIONALLY, Other GI Disorders - psoriasis Denies: Hx Ulcer History: Denies: Hx Dialysis, Hx Renal Disease Musculoskeletal History: Reports: Hx Arthritis - "ALL OVER", Hx Orthopedic Injury - L jacqui fracture and ORIF; L wrist fracture, Hx Tendonitis - SHOULDERS Sensory History: Reports: Hx Cataracts - repair, Hx Deafness, Hx Hearing Problem Denies: Hx Contacts or Glasses, Hx Hearing Aid Opthamlomology History: Reports: Hx Cataracts - repair Denies: Hx Contacts or Glasses Neurological History: Reports: Hx Migraine - OCCASIONALLY- TREATS WITH TYLENOL AND REST, Hx Seizures - seizure disorder, Hx Transient Ischemic Attacks (TIA), Other Neuro Impairments/Disorders - diabetic neuropathy Denies: Hx Dementia Psychiatric History: Denies: Hx Panic Disorder - Cancer History Cancer Type, Location and Year: Family Hx - Surgical History Surgery Procedure, Year, and Place: Left ankle/LEG repair X 2. Hysterectomy PARTIAL. Right ear surgery- 50 years ago-TUBES. Cleft palate repair. rt foot Hx Anesthesia Reactions: No Infectious Disease History: No Infectious Disease History: Reports: Hx Shingles Denies: Hx Hepatitis, Hx Human Immunodeficiency Virus (HIV), Traveled Outside the [place] in Last 30 Days - Family History Known Family History: Positive: Other - colon CA Negative: Renal Disease - Social History Lives: Alone Alcohol Use: None Hx Substance Use: No Substance Use Type: Reports: None Hx Tobacco Use: No Smoking Status (MU): Former Smoker Review of Systems Positive: Abdominal Pain Negative: Myalgia Positive: Weakness All Other Systems Reviewed And Are Negative: Yes Physical Exam - Summary Physical Exam Summary: VITAL SIGNS: Reviewed. GENERAL: Patient is a well-developed and nourished elderly female who is lying comfortable in the stretcher. Patient is not in any acute respiratory distress. HEAD AND FACE: No signs of trauma. No ecchymosis, hematomas or skull depressions. No sinus tenderness. EYES: PERRLA, EOMI x 2, No injected conjunctiva, no nystagmus. EARS: Hearing grossly intact. Ear canals and tympanic membranes are within normal limits. MOUTH: Oropharynx dry. NECK: Supple, trachea is midline, no adenopathy, no JVD, no carotid bruit, no c- spine tenderness, neck with full ROM. CHEST: Symmetric, no tenderness at palpation LUNGS: Clear to auscultation bilaterally. No wheezing or crackles. CVS: Regular rate and rhythm, S1 and S2 present, no murmurs or gallops appreciated. ABDOMEN: Soft, non-tender. No signs of distention. No rebound no guarding, and no masses palpated. Bowel sounds are normal. EXTREMITIES: FROM in all major joints, no edema, no cyanosis or clubbing. NEURO: Alert and oriented x 3. No acute neurological deficits. Speech is normal and follows commands. SKIN: Dry and warm. Poor skin tone. GCS: 15 Triage Information Reviewed: Yes Vital Signs On Initial Exam: Initial Vitals Temp Pulse Resp BP Pulse Ox 99.0 F 97 16 192/104 92 01/27/19 23:06 01/27/19 23:06 01/27/19 23:06 01/27/19 23:06 01/27/19 23:06 Vital Signs Reviewed: Yes Diagnostics - Vital Signs Vital Signs Temp Pulse Resp BP Pulse Ox 01/27/19 23:06 99.0 F 97 16 192/104 92 - Laboratory Result Diagrams: 01/27/19 23:54 01/27/19 23:54 Lab Statement: Any lab studies that have been ordered have been reviewed, and results considered in the medical decision making process. - Radiology CXR Radiology Interpretation Completed By: ED Physician Summary of Radiographic Findings: No acute process. Pending official radiology report. - CT Brain CT CT Interpretation Completed By: Radiologist Summary of CT Findings: 1. No acute intracranial abnormality. 2. Mild parenchymal volume loss with microvascular white matter disease. 3. A 5.5 mm calcified right ICA aneurysm. ED physician has reviewed this report. Chest/Thorax CTA CT Interpretation Completed By: Radiologist Summary of CT Findings: 1. No pulmonary emboli to the level of proximal segmental branches. Limited evaluation of distal segmental and subsegmental branches due to suboptimal opacification of contrast and atelectasis. 2. Cardiomegaly with coronary artery calcification. 3. A 6 mm pulmonary nodule in the right apex. For patients at low risk (minimal or absent history of smoking and of other known risk factors), recommend CT at 6-12 months, then consider CT at 18-24 months. For patients at high risk (history of smoking or of other known risk factors), recommend CT at 6-12 months, then CT at 18-24 months. ( MacMahon, et al., Fleischner Society, 2017). 4. Small loculated pleural effusion along the azygous fissure. 5. A small hiatal hernia. ED physician has reviewed this report. - EKG 2356 Cardiac Rate: NL - 99bpm EKG Rhythm: Sinus Rhythm ST Segment: Normal Ectopy: None Re-Evaluation - Re-Evaluation 1st re-eval Re-Evaluation Time: 04:55 Change: Unchanged Comment: The pt was ambulating around the ED with her walker and she complained of a headache. Upon sitting down, she started vomiting. Complex Multi-Symp Course/Dx Course Of Treatment: Pt is a 73 y/o F presenting to the ED brought in by EMS for a fall. She was found by EMS on the floor with her pants down. She reports weakness and abd pain. She denies myalgia. Per nurse, pt is somewhat confused and disoriented. EKG shows NSR 99bpm. CXR shows no acute process. Brain CT shows : 1. No acute intracranial abnormality. 2. Mild parenchymal volume loss with microvascular white matter disease. 3. A 5.5 mm calcified right ICA aneurysm. Chest/Thorax CTA shows: 1. No pulmonary emboli to the level of proximal segmental branches. Limited evaluation of distal segmental and subsegmental branches due to suboptimal opacification of contrast and atelectasis. 2. Cardiomegaly with coronary artery calcification. 3. A 6 mm pulmonary nodule in the right apex. For patients at low risk (minimal or absent history of smoking and of other known risk factors), recommend CT at 6-12 months, then consider CT at 18-24 months. For patients at high risk (history of smoking or of other known risk factors), recommend CT at 6-12 months, then CT at 18-24 months. ( MacMahon, et al., Fleischner Society, 2017). 4. Small loculated pleural effusion along the azygous fissure. 5. A small hiatal hernia. The pt is positive for Influenza A. As of 045, the pt was ambulating around the ED at baseline and complained of headache. When she sat down, she started vomiting. As of 499, the pt will be accepted to [facility] under Dr. Winters. - Diagnoses Provider Diagnoses: Influenza A, Weakness, Diabetes Discharge - Sign-Out/Discharge Documenting (check all that apply): Patient Departure - Discharge Plan Condition: Stable Disposition: ADMITTED TO [facility] Referrals: Lindsey Bermeo MD [Primary Care Provider] - - Attestation Statements Document Initiated by Scribe: Yes Documenting Scribe: Viridiana Sanchez Provider For Whom Scribe is Documenting (Include Credential): Jr Emerson MD. Scribe Attestation: Viridiana Linares scribed for Jr Emerson MD. on 01/28/19 at 0457. Status of Scribe Document: Ready Consult Consult: [id number] - Spoke with Dr. Winters about the pt's present condition who will be the accepting physician to [facility].
--- OUTSIDE RECORDS SUMMARY | 2019-01-27 23:44 | XMS REPORT | Continuity of Care Document ---
:1945 External Reference #:[id number] Author Name Dee Christy Care Team Providers Name Role Phone Lindsey Bermeo MD Primary Care Physician Unavailable Payers Date Identification Numbers Payment Provider Subscriber Policy Number: [id number] Medicare Joyce Cheung PayID: [id number] [address] [place] [address] Policy Number: [id number] Medicaid Joyce Cheung PayID: [id number] [address] [place] [address] Advance Directives Description No Information Available Problems Date Description Provider Status Onset: 04/29/2018 Closed fracture pubis Gracie Moran N.P. Active Onset: 04/29/2018 Type 2 diabetes mellitus Gracie Moran N.P. Active Onset: 04/29/2018 Gastroesophageal reflux disease Gracie Moran N.P. 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 Active Onset: 05/03/2018 Hypoglycemic event in diabetes Eleazar Nicole M.D. Active Onset: 05/03/2018 Seizure Eleazar Nicole M.D. Active Onset: 07/01/2018 Altered mental status Viridiana Fleming DO Active Onset: 07/02/2018 Disorder of brain Carter Mane MD Active Onset: 07/03/2018 Hypokalemia Amirah Navarro DO Active Onset: 07/05/2018 Generalized convulsive epilepsy Morris Resendiz MD Active Onset: 07/07/2018 Static encephalopathy Eleazar Nicole M.D. Active Onset: 01/08/2019 Closed fracture of middle phalanx Tasha Oswald M.D. Active of little finger Family History Date Family Member(s) Observation Comments General Heart Disease General Diabetes General Rheumatoid Arthritis General Stroke General Cancer Social History Type Date Description Comments Sex Unknown Lives With Alone ETOH Use Denies alcohol use Tobacco Use Start: Unknown Patient has never smoked Smoking Status Reviewed: 01/08/19 Patient has never smoked Exercise Type/Frequency Does not exercise Allergies, Adverse Reactions, Alerts Date Description Reaction Status Severity Comments 04/23/2014 Penicillins Active 04/23/2014 Aspirin Active 11/06/2017 Potassium Chloride Active Medications Medication Date Status Form Strength Qnty SIG Indications Ordering Provider Compression 05/13 Active Misc 1unit 20/30 - ble R60.0 Tasha Stockings /2017 s swelling/edema- Darek, need thigh high M.D. Tramadol HCL 05/13 Active Tablets 50mg 60tab 1 tablet by M25.552 Tasha /2017 s mouth every 8 Darek, hours as needed M.D. pain Enbrel Active Soln 50mg/ml inject the Unknown Prefill contents of one Syringe syringe (50mg) subcutaneously once a week.single-use syringe. refrigerate. Crestor Active Tablets 40mg 1 by mouth Unknown /0000 every day Metformin HCL Active Tablets 1,000mg 1 by mouth Unknown /0000 twice a day Clopidogrel Active Tablets 75mg 1 by mouth Unknown Bisulfate /0000 every day Polyethylene Active Powder 3350-GRX mix one 17gm Unknown Glycol /0000 scoop in 8 oz 3350-GRX water and take by mouth daily as needed Lantus Active Solution 100Unit/M Unknown Solostar /0000 Pen-Injec L t Glipizide ER 00 Active Tablets 5mg 1 by mouth Unknown /0000 ER 24HR every day Celebrex Active Capsules 200mg 1 by mouth Unknown /0000 every day Clarinex-D 12 Active Tablets 2.5-120mg by mouth twice Unknown Hour /0000 ER 12HR a day as needed Zofran Active Tablets 4mg 1 tab by mouth Unknown /0000 every 6 hours as needed nausea Tylenol Extra 00 Active Tablets 500mg 2 by mouth as Unknown Strength /0000 needed Calcium 600 + 00 Active Tablets 600-600mg 1 by mouth Unknown D 0000 -Unit twice a day Voltaren Active Gel 1% apply 2 grams Unknown / twice daily as needed for pain Flexeril 04/04 Hx Tablets 5mg 30tab 1 tab by mouth s twice a day prn Tank Sifuentes M.D. 11/11 Keflex 09/14 Hx Capsules 500mg 21cap one by mouth 3 s times daily for Maria, - 7 days M.D. 10/07 [place] 08/30 Hx Tablets 5-325mg 40tab 1-2 po q4h prn s Tank Sifuentes M.D. 04/23 Claritin / Hx Unknown /0000 - 11/11 Humalog / Hx Unknown / - 11/11 Desloratadine Hx Tablets 5mg 1 by mouth Unknown /0000 every day - 03/16 Celecoxib Hx Capsules 200mg once daily Unknown / - 03/16 Immunizations Description No Information Available Vital Signs Date Vital Result Comment 01/08/2019 10:08am Height 64 inches 5'4" Weight 122.00 lb BP Systolic 132 mmHg BP Diastolic 62 mmHg Respiratory Rate 15 /min Body Temperature 97.1 F Pain Level 5 BMI (Body Mass Index) 20.9 kg/m2 05/13/2018 10:47am Height 64 inches 5'4" Weight 139.00 lb BP Systolic 134 mmHg BP Diastolic 84 mmHg Body Temperature 97.5 F BMI (Body Mass Index) 23.9 kg/m2 11/06/2017 10:47am Height 61 inches 5'1" Weight 139.00 lb Heart Rate 80 /min BP Systolic Sitting 140 mmHg BP Diastolic Sitting 80 mmHg Respiratory Rate 16 /min Body Temperature 97.9 F Pain Level 5 BMI (Body Mass Index) 26.3 kg/m2 03/17/2016 10:03am Height 61 inches 5'1" Weight 142.00 lb Pain Level 1 "feels heavy" BMI (Body Mass Index) 26.8 kg/m2 08/14/2014 2:40pm Height 61 inches 5'1" Weight 139.00 lb Heart Rate 67 /min BP Systolic 146 mmHg BP Diastolic 81 mmHg BMI (Body Mass Index) 26.3 kg/m2 05/27/2014 10:16am Height 62 inches 5'2" Heart Rate 79 /min BP Systolic 127 mmHg BP Diastolic 89 mmHg 05/07/2014 10:18am Height 62 inches 5'2" Weight 134.00 lb Heart Rate 70 /min BP Systolic 129 mmHg BP Diastolic 80 mmHg Pain Level 5 BMI (Body Mass Index) 24.5 kg/m2 04/23/2014 1:46pm Height 65 inches 5'5" Weight 134.00 lb Heart Rate 76 /min BP Systolic 120 mmHg BP Diastolic 73 mmHg BMI (Body Mass Index) 22.3 kg/m2 07/07/2011 11:43am Height 62 inches 5'2" Weight 134.00 lb Heart Rate 71 /min BP Systolic 125 mmHg BP Diastolic 76 mmHg BMI (Body Mass Index) 24.5 kg/m2 Results Description No Information Available Procedures Date Code Description Status 10/27/2018 89410 ECHO Transthorasic Realtime 2D W Doppler & Color Flow Hosp Completed 07/01/2018 14234 EEG Recording Awake & Asleep Completed 07/01/2018 93246 ECHO Transthorasic Realtime 2D W Doppler & Color Flow Hosp Completed 12/11/2017 02862 EEG Recording Awake & Asleep Completed 11/12/2017 32022 EEG Recording Awake & Drowsy Completed 11/12/2017 80977 ECHO Transthorasic Realtime 2D W Doppler & Color Flow Hosp Completed 11/14/2014 34635 EKG, Interpretation Only Completed 05/27/2014 42175 Rad Exam; Wrist, Comp, Min 3 Views Completed 05/27/2014 56169 Rad Exam; Wrist, Comp, Min 3 Views Completed 04/23/2014 11710 CLST TRMT Distal Radial FX Completed 04/04/2012 83246 Rad Exam; Clavicle Comp Completed 03/08/2012 76489 Closed TRTMT Clavicular Fracture Completed 12/22/2011 12868 Rad Exam; Ankle Comp Completed 12/22/2011 30574 Short Leg Cast Completed 12/21/2011 52007 Rad Exam; Ankle Comp Completed 11/30/2011 64356 Rad Exam; Ankle Comp Completed 11/30/2011 61126 Short Leg Cast Completed 11/20/2011 51162 ORIF Open TX Bimalleolar Ankle FX Includes Internal Completed Fixation 11/20/2011 61255 ORIF Open TX Bimalleolar Ankle FX Includes Internal Completed Fixation 11/15/2011 78318 Rad Exam; Ankle Comp Completed 09/27/2011 45878 Walking Cast Completed 09/14/2011 86481 Rad Exam; Ankle Comp Completed 09/04/2011 56756 ORIF Trimalleolar Ankle FX Medial And/Or Lateral Malleolus Completed 09/04/2011 81058 ORIF Trimalleolar Ankle FX Medial And/Or Lateral Malleolus Completed 08/30/2011 86396 Rad Exam; Ankle Comp Completed 08/30/2011 18876 Rad Exam; Wrist, Comp, Min 3 Views Completed 07/07/2011 01493 Rad Exam; Fingers Completed 01/04/2009 63078 ECHO Transthorasic Realtime 2D W Doppler & Color Flow Hosp Completed Encounters Type Date Location Provider Dx Diagnosis Office Visit 10/28/2018 [facility] Assoc,pc Shania Dalal, R53.1 Weakness 9:38a Hospitalists D.O. G40.909 Epilepsy, unsp, not intractable, without status epilepticus E11.9 Type 2 diabetes mellitus without complications I10 Essential (primary) hypertension Office Visit 10/28/2018 [facility] Clary R41.82 Altered mental 7:00a Clinic MD Jono status, unspecified R94.02 Abnormal brain scan Office Visit 10/27/2018 [facility] [place] G40.909 Epilepsy, unsp, 9:38a Assoc,pc Lira, SERVICE [employer]IER not intractable, Hospitalists without status epilepticus E11.9 Type 2 diabetes mellitus without complications I10 Essential (primary) hypertension E78.5 Hyperlipidemia, unspecified Office Visit 10/27/2018 [facility] Junior R41.82 Altered mental 7:00a Clinic MD Khadijah status, unspecified R94.02 Abnormal brain scan Office Visit 10/26/2018 [facility] Loyda Deshawn, E11.65 Type 2 diabetes 9:37a Assoc,pc [employer] mellitus with Hospitalists hyperglycemia N17.9 Acute kidney failure, unspecified G40.909 Epilepsy, unsp, not intractable, without status epilepticus R53.1 Weakness R47.81 Slurred speech Office Visit 07/08/2018 11:34a [facility] Eleazar R56.9 Unspecified Assoc,slime Nicole M.D. convulsions Hospitalists I10 Essential (primary) hypertension G93.9 Disorder of brain, unspecified G93.40 Encephalopathy, unspecified E11.9 Type 2 diabetes mellitus without complications [facility] Assoc,slime Nicole M.D. convulsions Hospitalists G93.40 Encephalopathy, unspecified E11.9 Type 2 diabetes mellitus without complications Office Visit 07/06/2018 11:33a [facility] R56.9 Unspecified Assoc,slime Nicole M.D. convulsions Hospitalists G93.9 Disorder of brain, unspecified E11.9 Type 2 diabetes mellitus without complications Office Visit 07/05/2018 [facility] Morris Blake G40.409 Oth generalized 11:33a Assoc,slime Resendiz MD epilepsy, not Hospitalists intractable, w/o stat epi G93.9 Disorder of brain, unspecified E11.9 Type 2 diabetes mellitus without complications I10 Essential (primary) hypertension M06.9 Rheumatoid arthritis, unspecified Office Visit 07/04/2018 [facility] Morris Blake G93.9 Disorder of 11:33a Assoc,slime Resendiz MD brain, Hospitalists unspecified I10 Essential (primary) hypertension E11.9 Type 2 diabetes mellitus without complications M06.9 Rheumatoid arthritis, unspecified Office Visit 07/03/2018 [facility] Jason Lynne R41.82 Altered mental 7:00a Charito Mora M.D. status, unspecified R94.02 Abnormal brain scan I67.9 Cerebrovascular disease, unspecified Office Visit 07/03/2018 11:32a [facility] Amirah G93.9 Disorder of Assoc,slime Navarro DO brain, Hospitalists unspecified E87.6 Hypokalemia I10 Essential (primary) hypertension M06.9 Rheumatoid arthritis, unspecified Office Visit 07/02/2018 [facility] Jason Lynne R41.82 Altered mental 7:00a Charito Mora M.D. status, unspecified R94.02 Abnormal brain scan I67.9 Cerebrovascular disease, unspecified Office Visit 07/02/2018 11:32a [facility] Carter Mane R41.82 Altered mental Assoc,slime LUCIA status, Hospitalists unspecified G93.9 Disorder of brain, unspecified E11.9 Type 2 diabetes mellitus without complications M06.9 Rheumatoid arthritis, unspecified Office Visit 07/01/2018 11:32a [facility] Viridiana R41.82 Altered mental Assoc,slime Fleming, DO status, Hospitalists unspecified E11.9 Type 2 diabetes mellitus without complications I10 Essential (primary) hypertension Office Visit 07/01/2018 [facility] Jason Lynne R41.82 Altered mental 7:00a Clinic Leia Mora status, unspecified R94.02 Abnormal brain scan I67.9 Cerebrovascular disease, unspecified Office Visit 05/13/2018 9:30a [facility] Tasha Oswald, M25.552 Pain in left Of C.M.A. M.D. hip M16.12 Unilateral primary osteoarthritis, left hip S32.502A Unsp fracture of left pubis, init encntr for closed fracture W19.xxxA Unspecified fall, initial encounter Z47.1 Aftercare following joint replacement surgery R60.0 Localized edema S32.512A Fracture of superior rim of left pubis, init for clos fx Office Visit 05/03/2018 10:03a [facility] S32.502A Unsp fracture Assoc,slime Nicole M.D. of left pubis, Hospitalists init encntr for closed fracture E11.649 Type 2 diabetes mellitus with hypoglycemia without coma R56.9 Unspecified convulsions M06.9 Rheumatoid arthritis, unspecified Office Visit 05/02/2018 [facility] E11.9 Type 2 diabetes 10:03a Assocslime M.D. mellitus without Hospitalists complications I10 Essential (primary) hypertension S32.502A Unsp fracture of left pubis, init encntr for closed fracture M06.9 Rheumatoid arthritis, unspecified Office Visit 05/01/2018 10:02a [facility] R33.9 Retention of Assocslime M.D. urine, Hospitalists unspecified M06.9 Rheumatoid arthritis, unspecified E11.9 Type 2 diabetes mellitus without complications S32.502A Unsp fracture of left pubis, init encntr for closed fracture Office Visit 04/30/2018 [facility] Olivia Contreras S32.502A Unsp fracture 10:02a Assoc,pc Bharat, SERVICE [employer]IER of left Hospitalists pubis, init encntr for closed fracture E11.9 Type 2 diabetes mellitus without complications R33.9 Retention of urine, unspecified M06.9 Rheumatoid arthritis, unspecified Office Visit 04/29/2018 9:59a [facility] Gracie Moran, S32.502A Unsp fracture Assoc,pc N.P. of left pubis, Hospitalists init encntr for closed fracture E11.9 Type 2 diabetes mellitus without complications K21.9 Gastro-esophageal reflux disease without esophagitis Office Visit 12/18/2017 10:30a [facility] Mera N30.00 Acute cystitis Assoc,[facility] Dot, without Hospitalists [employer]IER hematuria R33.9 Retention of urine, unspecified R53.1 Weakness K62.89 Other specified diseases of anus and rectum Office Visit 12/17/2017 10:29a [facility] Mera N30.00 Acute cystitis Assoc,[facility] Dot, without Hospitalists SERV[employer]IER hematuria R33.9 Retention of urine, unspecified R53.1 Weakness K62.89 Other specified diseases of anus and rectum Office Visit 12/16/2017 10:28a [facility] Mera N30.00 Acute cystitis Assoc,[facility] Doto, without Hospitalists SERVICE BAR [employer]IER hematuria R33.9 Retention of urine, unspecified R53.1 Weakness K62.89 Other specified diseases of anus and rectum Office Visit 12/15/2017 10:26a [facility] Mera N30.00 Acute cystitis Assoc,[facility] Doto, without Hospitalists SERVICE BAR [employer]IER hematuria R33.9 Retention of urine, unspecified R53.1 Weakness K62.89 Other specified diseases of anus and rectum Office Visit 12/14/2017 10:25a [facility] Alec N30.00 Acute cystitis Assoc,EMLIY Cobos without Hospitalists hematuria R33.9 Retention of urine, unspecified R53.1 Weakness I10 Essential (primary) hypertension Office Visit 12/13/2017 10:24a [facility] Alec N30.00 Acute cystitis Assoc,EMILY Cobos without Hospitalists hematuria R33.9 Retention of urine, unspecified R53.1 Weakness I10 Essential (primary) hypertension Office Visit 12/12/2017 10:22a [facility] Alec N30.00 Acute cystitis Assoc,EMILY Cobos without Hospitalists hematuria R33.9 Retention of urine, unspecified R53.1 Weakness I10 Essential (primary) hypertension Office Visit 12/11/2017 10:18a [facility] Gracie Moran, N30.00 Acute cystitis Assoc,pc N.P. without Hospitalists hematuria R33.9 Retention of urine, unspecified R53.1 Weakness I10 Essential (primary) hypertension Office Visit 2017 10:16a [facility], R53.1 Weakness Assoc, Hospitalists N.P. R33.9 Retention of urine, unspecified K62.89 Other specified diseases of anus and rectum I10 Essential (primary) hypertension Office Visit 12/09/2017 10:10a [facility], R53.1 Weakness Assoc, Hospitalists N.P. R33.9 Retention of urine, unspecified K62.89 Other specified diseases of anus and rectum I10 Essential (primary) hypertension [facility] Encephal[facility], 9:16a Assslime henry M.D. unspecified Hospitalists A41.9 Sepsis, unspecified organism R56.9 Unspecified convulsions D84.9 Immunodeficiency, unspecified Office Visit [facility] G93.40 Encephalopathy, 9:16a slime Ugarte M.D. unspecified Hospitalists A41.9 Sepsis, unspecified organism R56.9 Unspecified convulsions D84.9 Immunodeficiency, unspecified Office Visit [facility]/18[facility] G93.40 Encephalopathy, 9:15a slime Ugarte M.D. unspecified Hospitalists A41.9 Sepsis, unspecified organism D84.9 Immunodeficiency, unspecified R56.9 Unspecified convulsions Office Visit 11/17/[facility] G93.40 Encephalopathy, 9:14a Assslime henry M.D. unspecified Hospitalists R56.9 Unspecified convulsions A41.9 Sepsis, unspecified organism D84.9 Immunodeficiency, unspecified Office Visit 11/16/[facility] G93.40 Encephalopathy, 9:14a Assoc,slime Brown M.D. unspecified Hospitalists R56.9 Unspecified convulsions A41.9 Sepsis, unspecified organism D84.9 Immunodeficiency, unspecified Office Visit 11/15/[facility] G93.40 Encephalopathy, 9:13a Assoc,slime Brown M.D. unspecified Hospitalists R56.9 Unspecified convulsions A41.9 Sepsis, unspecified organism D84.9 Immunodeficiency, unspecified Office 11/14/2017 [facility] Jason Lynne G93.40 Encephalopathy, Visit 2:25p Clinic raghav Mora M.D. Office 11/14/2017 [facility] R56.9 Unspecified Visit 9:12a Assoc,slime Nicole M.D. convulsions G93.40 Encephalopathy, unspecified A41.9 Sepsis, unspecified organism D84.9 Immunodeficiency, unspecified Office 11/13/2017 [facility] Jason Lynne G93.40 Encephalopathy, Visit 2:24p Clinic raghav Mora M.D. H51.8 Other specified disorders of binocular movement Office Visit 11/13/2017 9:09a Intensivists Benny Montes G93.40 Encephalopathy, unspecified A41.9 Sepsis, unspecified organism R56.9 Unspecified convulsions Office 11/12/2017 [facility] Jason Lynne G93.40 Encephalopathy, Visit 2:16p Clinic raghav Mora M.D. H51.8 Other specified disorders of binocular movement Office Visit 11/12/2017 9:08a Intensivists Juan Mitchell G93.40 Encephalopathy, Slim D.Stacey unspecified A41.9 Sepsis, unspecified organism R56.9 Unspecified convulsions D84.9 Immunodeficiency, unspecified Office Visit 11/11/2017 9:06a [facility] Catracho Simmons R65.20 Severe sepsis Assoc,slime BAUGH M.D. without Hospitalists septic shock E11.59 Type 2 diabetes mellitus with oth circulatory complications D84.9 Immunodeficiency, unspecified A41.9 Sepsis, unspecified organism Office Visit 11/11/2017 9:08a Intensivists Juan Mitchell G93.40 Encephalopathy, Slim, D.O. unspecified R56.9 Unspecified convulsions A41.9 Sepsis, unspecified organism D84.9 Immunodeficiency, unspecified Office 11/11/2017 [facility] Jason Lynne G93.40 Encephalopathy, Visit 2:15p Clinic raghav Mora M.D. R40.1 Stupor H51.8 Other specified disorders of binocular movement Office 11/06/2017 [facility] M19.072 Primary Visit 10:00a Services Of Leia Cedillo osteoarthritis, left C.M.A. ankle and foot Office 03/17/2016 [facility] Nico M19.072 Primary Visit 9:50a Services Of Leia Cedillo osteoarthritis, left C.M.A. ankle and foot Office 11/12/2015 [facility]opedic Nico M19.072 Primary Visit 11:30a Services Of Leia Cedillo osteoarthritis, left C.M.A. ankle and foot Office 11/16/2014 [facility] 557.9 Vascular Visit 7:23a Assoc,slime Brown M.D. Insufficiency Of Hospitalists Intestine Unspecified 250.00 Diabetes Mellitus W/O Compl Type II Or Unspec Controlled 401.9 Hypertension Unspec Office Visit 11/15/2014 [facility] Kevin, 557.9 Vascular 7:23a Assocslime M.D. Insufficiency Of Hospitalists Intestine Unspecified 250.00 Diabetes Mellitus W/O Compl Type II Or Unspec Controlled 272.4 Hyperlipidemia Other Unspec 401.9 Hypertension Unspec Office Visit 11/14/2014 [facility] Jourdan 557.9 Vascular 7:22a Assoc,slime Gonzalez, N.PGregory Insufficiency Of Hospitalists Intestine Unspecified 272.4 Hyperlipidemia Other Unspec 401.9 Hypertension Unspec 250.00 Diabetes Mellitus W/O Compl Type II Or Unspec Controlled Office Visit 08/14/2014 Orthopedic Nico Cedillo, 715.97 Osteoarthrosis 2:30p Services Of Leia Unspec Genlzd Or C.M.A. Localized Ankle & Foot Office Visit 05/23/2012 Orthopedic Del Rolon 810.00 FX Clavicle Closed 4:00p Services Of Hunter Yo Part C.M.A. R.P.A.-C Office Visit 04/18/2012 Orthopedic Neal Sifuentes, 810.00 FX Clavicle Closed 4:15p Services Of Leia Unspec Part C.M.A. Office Visit 04/04/2012 Orthopedic Neal Sifuentes, 810.00 FX Clavicle Closed 10:15a Services Of Leia Unspec Part C.M.A. Office Visit 03/21/2012 Orthopedic Neal Sifuentes, 810.00 FX Clavicle Closed 4:00p Services Of Leia Unspec Part C.M.A. Office Visit 03/08/2012 Orthopedic Del Rolon 810.00 FX Clavicle Closed 11:45a Services Of Hunter Yo Part C.M.A. R.P.A.-C Office Visit 08/30/2011 Orthopedic Jackelyn Paiz, 824.8 FX Ankle Unspec 11:00a Services Of RPA-C Closed C.M.AGregory 824.6 FX Ankle Trimalleolar Closed Office Visit 08/23/2011 Orthopedic Neal 824.6 FX Ankle 10:30a Services Of Leia Sifuentes Trimalleolar Closed C.M.A. Office Visit 07/07/2011 Orthopedic Chen 715.94 Osteoarthrosis 11:15a Services Of Hunter Cervantes Or Man Dupree Localized Hand Plan of Treatment Future Appointment(s):01/24/2019 1:15 pm - Tasha Oswald M.D. at [facility].MJimbo01/08/2019 - Tasha Oswald M.D.M79.641 Pain in right handS62.626A Displaced fracture of middle phalanx of right little finger,
[2019-01-28 00:08] LABS: Hematocrit 31 % (33-41); Hemoglobin 10.1 g/dL (12.0-16.0); Mean Corpuscular HGB Conc 33 g/dL (31-36); Mean Corpuscular Hemoglobin 27 pg (27-31); Mean Corpuscular Volume 81 fL (80-97); Red Blood Count 3.78 10^6 /uL (3.70-4.87); Red Cell Distribution Width 14 % (10.5-15); White Blood Count 4.3 10^3/uL (3.5-10.8)
[2019-01-28 00:18] LABS: Activated Partial Thrombo Time 29.5 seconds (26.0-36.3); INR 0.98 (0.77-1.02)
[2019-01-28 00:25] LABS: Albumin 3.7 g/dL (3.2-5.2); Albumin/Globulin Ratio 1.7 (1-3); BUN/Creatinine Ratio 33.3 (8-20); C Reactive Protein 25.07 mg/L (<8.01); Calcium 8.7 mg/dL (8.6-10.3); EGFR African American 76.8 (>60); EGFR Non-African American 63.5 (>60); Globulin 2.2 g/dL (2-4); Magnesium 1.4 mg/dL (1.9-2.7); Phosphorus 2.6 mg/dL (2.5-5.0); Potassium 4.1 mmol/L (3.5-5.0); Total Bilirubin 0.4 mg/dL (0.2-1.0); Total Protein 5.9 g/dL (6.4-8.9)
[2019-01-28 00:39] LABS: Urine Appearance Clear; Urine Bacteria Absent (Absent); Urine Bilirubin Negative (Negative); Urine Blood 1+ (Negative); Urine Color Yellow; Urine Glucose 3+(>=500 mg/dL) (Negative); Urine Ketones Trace (Negative); Urine Nitrite Negative (Negative); Urine Protein 2+(100 mg/dL) (Negative); Urine Red Blood Cell 3+(>10/hpf) (Absent); Urine Specific Gravity 1.014 (1.010-1.030); Urine Urobilinogen Positive (Negative); Urine White Blood Cell Absent (Absent)
[2019-01-28] MEDS ORDERED: Acetaminophen TAB* 325 MG PO ONE (02:30)
[2019-01-28] MEDS ORDERED: Insulin REGULAR(*) 1 UNITS UNIT IV PUSH ONE ×2 (02:30→05:07)
[2019-01-28] MEDS ORDERED: Levofloxacin 750 MG IVPREMIX(* 750 MG/150 ML BAG IVPB ONE (02:31)
[2019-01-28] MEDS ORDERED: Acetaminophen TAB* 325 MG ONE (02:32)
[2019-01-28 03:02] LABS: ABS Basophils 0 10^3/ul (0-0.2); ABS Eosinophils 0 10^3/ul (0-0.6); ABS Lymphocytes 0.5 10^3/ul (1.0-4.8); ABS Monocytes 0.6 10^3/ul (0-0.8); ABS Neutrophils 3.1 10^3/ul (1.5-7.7); ABS Nucleated RBC 0 10^3/ul; Eosinophil % 0.5 %; Lymphocyte % 11.2 %; Mean Platelet Volume 9.9 fL (7.4-10.4); Nucleated Red Blood Cells % 0; Platelet Count 98 10^3/uL (150-450)
[2019-01-28] MEDS ORDERED: NS 0.9% 1000 ML** 1,000 ML IV ONE (03:06)
[2019-01-28 03:17] LABS: Influenza A Molecular POSITIVE (Negative)
[2019-01-28] MEDS ORDERED: Iodixanol 320 (CONTRAST) 100 ML SDV IV ONE (03:28)
[2019-01-28] MEDS ORDERED: Oseltamivir CAP* 75 MG CAP PO ONE (03:54)
[2019-01-28] MEDS ORDERED: Ondansetron INJ* 2 MG/ML VIAL ONE (04:57)
[2019-01-28] MEDS ORDERED: Ondansetron INJ* 2 MG/ML VIAL IV ONE (04:59)
[2019-01-28] MEDS ORDERED: Al Hydrox/Mg Hydrox/Simet LIQ* 30 ML UDC PO PRN (07:46)
[2019-01-28] MEDS ORDERED: Ondansetron INJ* 2 MG/ML VIAL IV PRN (07:46)
[2019-01-28] MEDS ORDERED: Dextrose 50% Syringe 50 ML* 25 GM/50 ML SYRINGE IV PUSH PRN (07:50)
[2019-01-28] MEDS ORDERED: Magnesium Oxide TAB* 400 MG PO ONE (08:16)
[2019-01-28] MEDS: Pantoprazole TAB * 40 MG TAB PO SCH (08:53)
[2019-01-28] MEDS: Polyethylene Glycol 3350* 17 GM PACKET PO PRN (08:53)
[2019-01-28] MEDS: levETIRAcetam TAB* 500 MG PO SCH ×2 (08:54→21:56)
[2019-01-28] MEDS: amLODIPine TAB* 5 MG PO SCH (08:54)
[2019-01-28] MEDS: Atorvastatin* 80 MG TAB PO SCH (08:54)
[2019-01-28] MEDS: metFORMIN* 500 MG TAB PO SCH (08:54)
--- NOTE | 2019-01-28 09:51 | HP ---
CC: Lindsey Bermeo MD* HISTORY AND PHYSICAL: DATE OF ADMISSION: 01/28/19 TIME OF ADMISSION: 7:30 a.m. CHIEF COMPLAINT: "I fell." HISTORY OF PRESENT ILLNESS: This is a 73-year-old female with a history of seizure disorder; who presents to the emergency department after EMS found her on her bathroom floor. It is unclear who called EMS and she does not recall. On further questioning, she is unable to tell me anything about her fall. She answers all questions with "I do not know." She says she has not been sick recently, she "just fell." She says I am asking her too many questions. HPI is limited by her difficulty hearing me; however, she says this is at her baseline and she has always had difficulty hearing. She cannot tell me anything more about her evening/last night. PAST MEDICAL HISTORY: Seizure disorder, CVA/TIA, type 2 diabetes, hypertension , hyperlipidemia, rheumatoid arthritis, peripheral arterial disease. MEDICATIONS: Home medications: This list is from her most recent discharge summary which was in October 2018. 1. Clarinex 5 mg daily. 2. Plavix 75 mg daily. 3. Celebrex 200 mg b.i.d. 4. KCL 20 mEq daily. 5. MiraLAX 17 g daily p.r.n. constipation. 6. Omeprazole 20 mg daily. 7. Milk of magnesia 60 mL q.4 p.r.n. constipation. 8. Amlodipine 5 mg daily. 9. Rosuvastatin 40 mg daily. 10. Lantus 12 units at bedtime. 11. Keppra 750 mg b.i.d. 12. Nystatin topical t.i.d. 13. Vitamin D 1000 units daily. 14. Metformin 500 mg daily. 15. Lispro sliding scale. ALLERGIES: PENICILLIN and ASPIRIN. FAMILY HISTORY: Strong for diabetes. SOCIAL HISTORY: She lives at [facility]. She does not smoke or drink. Her healthcare proxy is her daughter Lilia. REVIEW OF SYSTEMS: She denies recent fever, chest pain, palpitations, hitting her head, headache, nausea, or vomiting. However, the ED nursing notes indicate that she did vomit this morning. The remainder of the review of systems is negative except as per the HPI; however, please note that the review of systems is limited by her difficulty hearing. PHYSICAL EXAMINATION GENERAL: Elderly female in no distress. She was sleeping when I entered the room and wakes up to voice. She is oriented to time, person, place, and situation; however, she is very hard of hearing. VITAL SIGNS: Temperature 98.1, heart rate 73, respiratory rate 17, pulse ox 93 % on 2 L, and blood pressure 125/61. HEENT: Pupils are equal, round, and reactive to light. Her oral mucosa is dry. NECK: JVP or cervical adenopathy. LUNGS: Her lungs are clear bilaterally. CHEST: She is in a regular rate and rhythm with no murmurs. ABDOMEN: Soft, nontender, and nondistended with an old healed laparotomy incision. No CVA tenderness. EXTREMITIES: No edema, rashes, or ulcers. NEUROLOGIC: Coordination is intact. Comprehension seems to be intact. Her speech is slow and her strength is 5/5 in all extremities. LABORATORY DATA: White blood cells 4.3, hemoglobin 10.1, platelets 98, INR 0.98. ABG 7.39/41/107/25. Sodium 136, potassium 4.1, chloride 104, bicarb 27, BUN 29, creatinine 0.87, glucose 301, lactic acid 1.2, magnesium 1.4. AST 17, ALT 21, alk phos 77, CK 36. Flu A swab was positive. IMAGING: Chest and thorax CTA shows: 1. No PE to the level of the proximal segmental branches. Limited evaluation of distal segmental and subsegmental branches due to suboptimal opacification of contrast and atelectasis. 2. Cardiomegaly with coronary artery calcification. 3. A 6-mm pulmonary nodule in the right apex. Bran CT show no acute intracranial abnormality. Mild parenchymal volume loss with microvascular white matter disease and a 5-mm calcified right ICA aneurysm. EKG: Sinus rhythm. Normal axis. Normal intervals. No Q-waves. No chamber hypertrophy. No ST or T-wave changes. ASSESSMENT AND PLAN: This is a 73-year-old female with a history of seizure disorder, cerebrovascular accident, and rheumatoid arthritis who presents to the emergency department after being found on her bathroom floor and is found to have influenza A. 1. Fall. The differential for her fall includes mechanical, seizure, and syncope. She is unable to relate any history about her fall and is a poor historian at baseline. She has had a history of subtherapeutic Keppra levels due to nonadherence, so I am checking a Keppra level. It does sound like her presentation to the ED may have been somewhat postictal, so this is high on the differential. It is also possible she had a mechanical fall from being ill from influenza; however, she denies being sick recently or having decreased appetite. She does have a baseline ambulatory dysfunction and walks with a walker. We will also keep her on telemetry and trend her troponins to work up etiologies of syncope. Orthostasis is also a consideration as is a vasovagal or micturition syncope. She has no evidence of trauma from the fall. I will request a PT consult. 2. Influenza A. She received a dose of Tamiflu in the ED and I will continue b.i.d. dosing. 3. Nausea and vomiting. Supportive care. 4. Thrombocytopenia. This may be from a viral infection. She has no evidence of bleeding, may also be related to medication side effects. However, she has not been this thrombocytopenic in the past. We will continue to monitor this and check an HCV antibody. 5. Pulmonary nodule. This needs followup in 6 to 12 months. 6. Type 2 diabetes. I am continuing her insulin as was dosed on her last discharge summary in October. However, hopefully her daughter will have a more updated list. 7. DVT prophylaxis. Heparin subcutaneously. 8. History of cerebrovascular accident/transient ischemic attack. Her CT head was negative this morning. Continue Plavix and statin. She is allergic to aspirin. 9. Disposition. Admit to observation with a PT consult. [id number]/[facility] #: [id number] MCKAYLA
[2019-01-28] MEDS: Nystatin TOP POWDER* 15 GM BTL TOPICAL SCH ×3 (10:01→21:58)
[2019-01-28] MEDS: celeCOXIB CAP* 200 MG PO SCH ×2 (10:01→22:11)
[2019-01-28] MEDS: Insulin LISPRO* 1 UNITS UNIT SUBCUT SCH ×3 (11:49→21:56)
[2019-01-28 12:01] LABS: Hepatitis C Antibody Nonreactive (Nonreactive)
[2019-01-28] MEDS: Heparin VIAL(*) 5000 UNITS/ML VIAL (FIVE THOUSAND) SUBCUT SCH ×2 (14:30→21:55)
[2019-01-28] MEDS ORDERED: Insulin GLARGINE(*) 1 UNITS UNIT SUBCUT SCH (21:00)
[2019-01-28] MEDS: Oseltamivir CAP* 30 MG CAP PO SCH (21:56)
[2019-01-29] MEDS: Heparin VIAL(*) 5000 UNITS/ML VIAL (FIVE THOUSAND) SUBCUT SCH ×2 (05:04→12:20)
[2019-01-29 05:35] LABS: ABS Basophils 0 10^3/ul (0-0.2); ABS Eosinophils 0 10^3/ul (0-0.6); ABS Lymphocytes 1.2 10^3/ul (1.0-4.8); ABS Monocytes 0.5 10^3/ul (0-0.8); ABS Neutrophils 1.2 10^3/ul (1.5-7.7); ABS Nucleated RBC 0 10^3/ul; Eosinophil % 0.7 %; Hematocrit 28 % (33-41); Hemoglobin 9.2 g/dL (12.0-16.0); Lymphocyte % 40.5 %; Mean Corpuscular HGB Conc 33 g/dL (31-36); Mean Corpuscular Hemoglobin 27 pg (27-31); Mean Corpuscular Volume 80 fL (80-97); Nucleated Red Blood Cells % 0; Platelet Count 92 10^3/uL (150-450); Red Blood Count 3.46 10^6 /uL (3.70-4.87); Red Cell Distribution Width 15 % (10.5-15)
[2019-01-29 05:55] LABS: Calcium 8.3 mg/dL (8.6-10.3); EGFR African American 73.9 (>60); Potassium 3.9 mmol/L (3.5-5.0)
[2019-01-29] MEDS: Oseltamivir CAP* 30 MG CAP PO SCH (08:12)
[2019-01-29] MEDS: metFORMIN* 500 MG TAB PO SCH (08:12)
[2019-01-29] MEDS: amLODIPine TAB* 5 MG PO SCH (08:13)
[2019-01-29] MEDS: Pantoprazole TAB * 40 MG TAB PO SCH (08:13)
[2019-01-29] MEDS: levETIRAcetam TAB* 500 MG PO SCH (08:14)
[2019-01-29] MEDS: Atorvastatin* 80 MG TAB PO SCH (08:14)
[2019-01-29] MEDS: Polyethylene Glycol 3350* 17 GM PACKET PO PRN (08:16)
[2019-01-29] MEDS: celeCOXIB CAP* 200 MG PO SCH (09:30)
[2019-01-29] MEDS: Insulin LISPRO* 1 UNITS UNIT SUBCUT SCH ×2 (09:43→12:20)
[2019-01-29] MEDS: Nystatin TOP POWDER* 15 GM BTL TOPICAL SCH ×2 (11:27→12:21)
[2019-01-29 13:46] VITALS: BP 104/84
--- NOTE | 2019-01-29 22:15 | DS ---
CC: Lindsey Bermeo MD* DISCHARGE SUMMARY: DATE OF ADMISSION: 01/28/19 DATE OF DISCHARGE: 01/29/19 PRINCIPAL DISCHARGE DIAGNOSES: 1. Influenza A. 2. Mechanical fall. SECONDARY DISCHARGE DIAGNOSES: 1. Seizure disorder. 2. History of cerebrovascular accident. 3. Type 2 diabetes. 4. Hypertension. 5. Rheumatoid arthritis. 6. Peripheral arterial disease. MEDICATIONS AT THE TIME OF DISCHARGE: 1. Omeprazole 20 mg daily. 2. Celebrex mg b.i.d. 3. Amlodipine 5 mg daily. 4. MiraLAX 17 g daily p.r.n. constipation. 5. Rosuvastatin 40 mg daily. 6. Metformin 500 mg daily. 7. Keppra 750 mg q.12. 8. Etanercept 0.98 mL subcutaneous weekly. 9. Tramadol 50 mg t.i.d. p.r.n. pain. 10. Calcium with vitamin D daily. 11. Tamiflu 30 mg b.i.d. for 4 more days. PHYSICAL EXAMINATION AT THE TIME OF DISCHARGE: Temperature 98.2, heart rate 88 , respiratory rate 16, pulse ox 99% on room air, blood pressure 104/84. General : Alert, elderly female, in no distress. She is pleasant and comfortable. HEENT: Pupils equal, round, and reactive to light. Oral mucosa is moist. Neck : No JVP. No adenopathy. Chest: She is in a regular rate and rhythm. Her lungs are clear bilaterally. Abdomen: Soft, nontender, nondistended. No guarding or rebound. No CVA tenderness. Extremities: No rashes, edema, or ulcers. Neurologic: Strength is 5/5 throughout. Her gait is slow with a walker but steady. HOSPITAL COURSE BY PROBLEM: 1. Influenza A. She was found to have a positive flu swab and she was started on Tamiflu which was renally dosed. She had no complaints or symptoms on Tamiflu. 2. Fall. The differential included mechanical fall versus seizure versus syncope. The patient was unable to tell us about the fall, but is a poor historian at baseline. There is currently a Keppra level pending that should be followed up when she follows with her neurologist. This is a send-out and is not expected to be back prior to her discharge from the hospital. She worked with Physical Therapy prior to discharge who recommended discharge to home. 3. History of seizure disorder. She is to continue Keppra. 4. Rheumatoid arthritis. She is to continue Enbrel. 5. Disposition. Ms. Cheung is discharged to home on 01/29/19 back to [facility]. Her daughter will transport her. She is to follow up with Dr. Bermeo as soon as she can get into her office and also her neurologist as soon as possible. She is to return to the emergency department should she develop fevers , falls, seizures, or any other new symptoms. CONDITION AT THE TIME OF DISCHARGE: Stable. TIME SPENT: Forty minutes was spent on this discharge. ADDENDUM TO DISCHARGE SUMMARY: Please note that her current dose of Toujeo is 30 units daily. Prior to her discharge, her levetiracetam level came back and was less than 2. This suggests she was not taking her Keppra at home. Certainly, this raises the possibility of a seizure having caused her fall at home. However, 2 days out, this is impossible to prove and an EEG would not be helpful. I have called the Neurology office and spoken with them. She has never seen any of their providers, but they are willing to see her despite her no shows. I have sent in a referral for Dr. Mora and she should follow up with him to discuss her Keppra and seizure disorder. She was encouraged to take her medications as prescribed. [id number]/[facility] #: [id number]/[facility] #: [id number]/[facility] #: [id number] MCKAYLA
--- NOTE | 2019-01-29 23:28 | DS ---
DISCHARGE SUMMARY: ADDENDUM: Please note that her current dose of Toujeo is 30 units daily. [id number]/[facility] #: [id number] MTDD
--- NOTE | 2019-01-29 23:55 | DS ---
DISCHARGE SUMMARY: ADDENDUM: Prior to her discharge, her levetiracetam level came back and was less than 2. This sugge sts she was not taking her Keppra at home. Certainly, this raises the possibility of a seizure guicho martines caused her fall at home. However, 2 days out, this is impossible to prove and an EEG would not be helpful. I have called the Neurology office and spoken with them. She has never seen any of their p roviders, but they are willing to see her despite her no shows. I have sent in a referral for Dr. Blaine orosco and she should follow up with him to discuss her Keppra and seizure disorder. She was encourag ed to take her medications as prescribed. [id number]/[facility] #: [id number]
== END 2019-01-29 17:10 | disposition home or self-care (01) ==
LOC: ED 22:50 → MED 01-28 07:46
PROVIDERS: ADMIT Internal Medicine; ATTEND Internal Medicine
DX: J11.1 Influenza due to unidentified influenza virus with other respiratory manifestations (principal); Z91.81 History of falling; G40.909 Epilepsy, unspecified, not intractable, without status epilepticus; Z86.73 Personal history of transient ischemic attack (TIA), and cerebral infarction without residual deficits; E11.9 Type 2 diabetes mellitus without complications; I10 Essential (primary) hypertension; I73.9 Peripheral vascular disease, unspecified; M06.9 Rheumatoid arthritis, unspecified; E78.5 Hyperlipidemia, unspecified; Z88.0 Allergy status to penicillin; Z88.6 Allergy status to analgesic agent; R41.0 Disorientation, unspecified; Z87.891 Personal history of nicotine dependence
CPT/HCPCS: 36415; 70450; 71045; 71275; 80048; 80053; 80177; 81003; 81015; 82550; 82803; 83605; 83735; 84100; 84484; 85025; 85060; 85610; 85730; 86140; 86803; 87040; 93005; 96365; 96372; 96375; 99285; A9270-GY; G0378; G8978-GP-CH; G8979-GP-CH; G8980-GP-CH; J1644; J2405; Q9967

== ENCOUNTER 2023-04-14 19:37 | Inpatient (IN) ==
[2023-04-14 20:14] LABS: ABS Lymphocytes 0.7 10^3/uL (1.0-4.8); ABS Monocytes 0.3 10^3/uL (0.0-0.9); ABS Neutrophils 1.3 10^3/uL (1.5-7.6); ABS Nucleated RBC 0.01 10^3/ul; Eosinophil % 0.5 %; Hematocrit 32.3 % (35-45); Hemoglobin 10.8 g/dL (11.5-14.3); Lymphocyte % 28.7 %; Mean Corpuscular Hemoglobin 27.6 pg (27-33); Mean Corpuscular Hgb Conc 33.3 g/dL (31-36); Mean Corpuscular Volume 82.7 fL (80-97); Mean Platelet Volume 9.4 fL (7.5-11.2); Nucleated Red Blood Cells % 0.3 /100 WBC (0.0-0.4); Platelet Count 140 10^3/uL (150-450); Red Blood Count 3.91 10^6/uL (3.63-4.92); Red Cell Distribution Width 15.5 % (12-17); White Blood Count 2.3 10^3/uL (3.8-11.8)
[2023-04-14 20:31] LABS: ALT 37 U/L (7-52); Albumin 2.9 g/dL (3.2-5.2); Albumin/Globulin Ratio 1.3 (1-3); Alkaline Phosphatase 78 U/L (35-149); Blood Urea Nitrogen 21 mg/dL (6-24); CO2 Carbon Dioxide 19 mmol/L (22-32); Chloride 114 mmol/L (101-111); Creatinine, Serum 0.93 mg/dL (0.51-0.95); Globulin 2.2 g/dL (2-4); Glucose 68 mg/dL (70-100); Sodium 140 mmol/L (135-145); Total Protein 5.1 g/dL (6.4-8.9); eGFR CKD-EPI 62.5 (>60)
[2023-04-14 20:37] LABS: High Sens Troponin Baseline 10 pg/mL (<15)
[2023-04-14 20:51] LABS: AST 37 U/L (13-39); Anion Gap 7 mmol/L (2-16); Potassium 3.9 mmol/L (3.5-5.0)
[2023-04-14 20:54] LABS: Calcium 6.2 mg/dL (8.6-10.3)
[2023-04-14 20:58] LABS: Alcohol, S < 13 mg/dL (<13)
[2023-04-14 21:13] LABS: TSH Ultra Thyroid Stim Horm 1.94 mcIU/mL (0.34-5.60)
[2023-04-14] MEDS ORDERED: Calcium Gluconate 2 GM in NS 0.9% 100 ml BAG 100 ML IVPB ONE (21:49)
[2023-04-14 22:05] LABS: Magnesium 1.8 mg/dL (1.9-2.7)
[2023-04-15 00:13] LABS: Calcium (PTH Intact) 7.4 mg/dL (8.6-10.3)
[2023-04-15] MEDS ORDERED: Lactated Ringers 1000 ml BAG 1,000 ML IV SCH (01:00)
[2023-04-15] MEDS ORDERED: Senna TAB 8.6 mg TAB PO PRN (01:15)
[2023-04-15] MEDS ORDERED: Magnesium Hydroxide LIQ 30 ML UDC PO PRN (01:15)
[2023-04-15] MEDS ORDERED: Polyethylene Glycol 3350 17 GM PACKET PO PRN (01:15)
[2023-04-15] MEDS: cefTRIAXone 1 gm/50 mL D5W 1 GM/50 ML BAG IV SCH (03:25)
[2023-04-15 03:35] LABS: Urine Appearance Clear; Urine Bilirubin Negative (Negative); Urine Blood Negative (Negative); Urine Color Yellow; Urine Glucose Negative (Negative); Urine Ketones Trace (Negative); Urine Nitrite Negative (Negative); Urine Protein 2+(100 mg/dL) (Negative); Urine Specific Gravity 1.012 (1.002-1.030); Urine Urobilinogen Negative (Negative)
[2023-04-15 03:39] LABS: Urine Bacteria Absent (Absent); Urine Red Blood Cell Trace(0-2/hpf) (Absent); Urine Squamous Epithelial Cell Present (Absent); Urine White Blood Cell Trace(0-5/hpf) (Absent)
[2023-04-15] MEDS ORDERED: Potassium Chloride LIQUID 20 MEQ/15 ML LIQUID PO ONE (04:49)
[2023-04-15] MEDS: Enoxaparin 40 MG/0.4 ML SYR SUBCUT SCH (05:32)
[2023-04-15] MEDS ORDERED: Dextrose 50% Syringe 50 ml 25 GM/50 ML SYRINGE IV PUSH PRN ×2 (05:52→12:57)
[2023-04-15 06:48] LABS: Hematocrit 30.8 % (35-45); Hemoglobin 10.3 g/dL (11.5-14.3); Mean Corpuscular Hemoglobin 27.8 pg (27-33); Mean Corpuscular Hgb Conc 33.5 g/dL (31-36); Mean Corpuscular Volume 83.1 fL (80-97); Mean Platelet Volume 8.6 fL (7.5-11.2); Platelet Count 109 10^3/uL (150-450); Red Blood Count 3.71 10^6/uL (3.63-4.92); Red Cell Distribution Width 15.3 % (12-17)
[2023-04-15 07:04] LABS: Calcium 8.1 mg/dL (8.6-10.3); Potassium 4.2 mmol/L (3.5-5.0)
[2023-04-15 07:09] LABS: Creatinine, Serum 1.27 mg/dL (0.51-0.95)
[2023-04-15 07:48] LABS: ABS Lymphocytes 0.6 10^3/uL (1.0-4.8); ABS Monocytes 0.3 10^3/uL (0.0-0.9); ABS Neutrophils 1.1 10^3/uL (1.5-7.6); Eosinophil % 0.4 %; Lymphocyte % 30.3 %; Nucleated Red Blood Cells % 0.1 /100 WBC (0.0-0.4)
[2023-04-15 08:51] LABS: C Reactive Protein 37.5 mg/L (<8.01); Phosphorus 2.5 mg/dL (2.5-5.0)
[2023-04-15 09:09] LABS: % Iron Saturation 15 % (15-55); .Transferrin 125 mg/dL (203-362); Iron 26 ug/dL (50-212); Total Iron Binding Capacity 175 mcg/dL (250-450); Unsaturated Iron Binding 149 ug/dL
[2023-04-15 09:13] LABS: Albumin 3.2 g/dL (3.2-5.2)
[2023-04-15 09:30] LABS: Ferritin 167.7 ng/mL (11-307)
[2023-04-15 09:37] LABS: Vitamin D Total 25(OH) < 7.0 ng/mL (20-50)
[2023-04-15] MEDS: DULoxetine DR 60 mg CAP PO SCH (10:05)
[2023-04-15] MEDS: Lactated Ringers 1000 ml BAG 1,000 ML IV SCH ×2 (13:12→21:34)
[2023-04-15 17:57] LABS: Calcium 8.2 mg/dL (8.6-10.3); Creatinine, Serum 1.25 mg/dL (0.51-0.95); Magnesium 2.1 mg/dL (1.9-2.7); Potassium 4.5 mmol/L (3.5-5.0); eGFR CKD-EPI 43.8 (>60)
[2023-04-15] MEDS: Nystatin TOP POWDER 15 GM BTL TOPICAL SCH (21:00)
[2023-04-16] MEDS: cefTRIAXone 1 gm/50 mL D5W 1 GM/50 ML BAG IV SCH (01:54)
[2023-04-16] MEDS: Lactated Ringers 1000 ml BAG 1,000 ML IV SCH ×2 (05:51→11:51)
[2023-04-16] MEDS: Enoxaparin 40 MG/0.4 ML SYR SUBCUT SCH (05:53)
[2023-04-16] MEDS: DULoxetine DR 60 mg CAP PO SCH (07:50)
[2023-04-16] MEDS: Nystatin TOP POWDER 15 GM BTL TOPICAL SCH ×3 (07:51→21:13)
[2023-04-17] MEDS: cefTRIAXone 1 gm/50 mL D5W 1 GM/50 ML BAG IV SCH (02:37)
[2023-04-17 08:25] LABS: Hematocrit 31.4 % (35-45); Hemoglobin 10.6 g/dL (11.5-14.3); Mean Corpuscular Hemoglobin 27.6 pg (27-33); Mean Corpuscular Hgb Conc 33.8 g/dL (31-36); Mean Corpuscular Volume 81.4 fL (80-97); Mean Platelet Volume 8.3 fL (7.5-11.2); Platelet Count 156 10^3/uL (150-450); Red Blood Count 3.85 10^6/uL (3.63-4.92); Red Cell Distribution Width 14.9 % (12-17); White Blood Count 2.1 10^3/uL (3.8-11.8)
[2023-04-17 08:41] LABS: Calcium 7.9 mg/dL (8.6-10.3); Creatinine, Serum 1.02 mg/dL (0.51-0.95); Potassium 4.3 mmol/L (3.5-5.0)
[2023-04-17 09:06] LABS: ABS Lymphocytes 0.6 10^3/uL (1.0-4.8); ABS Monocytes 0.3 10^3/uL (0.0-0.9); ABS Neutrophils 1.2 10^3/uL (1.5-7.6); Eosinophil % 1.6 %; Lymphocyte % 28.9 %; Nucleated Red Blood Cells % 0.1 /100 WBC (0.0-0.4)
[2023-04-17] MEDS: Enoxaparin 40 MG/0.4 ML SYR SUBCUT SCH (10:13)
[2023-04-17] MEDS: DULoxetine DR 60 mg CAP PO SCH (10:15)
[2023-04-17] MEDS: Nystatin TOP POWDER 15 GM BTL TOPICAL SCH ×2 (10:15→14:51)
[2023-04-17 14:50] VITALS: BP 134/70
== END 2023-04-17 17:56 | disposition home or self-care (01) | DRG 70 ==
LOC: ED 19:37 → EDHOLD 04-15 00:12 → SUATTDRO 04-15 00:12 → MEDTELE 04-15 03:50
PROVIDERS: ADMIT Student in an Organized Health Care Education/Training Program; ATTEND Hospitalist

== ENCOUNTER 2023-05-12 20:07 | Inpatient (IN) ==
[2023-05-12] MEDS ORDERED: Lactated Ringers 1000 ml BAG 1,000 ML IV ONE (21:13)
[2023-05-12 21:33] LABS: ABS Basophils 0.1 10^3/uL (0.0-0.1); ABS Eosinophils 0.1 10^3/uL (0.0-0.5); ABS Lymphocytes 0.9 10^3/uL (1.0-4.8); ABS Monocytes 0.5 10^3/uL (0.0-0.9); ABS Neutrophils 5.5 10^3/uL (1.5-7.6); ABS Nucleated RBC 0.01 10^3/ul; Eosinophil % 1.9 %; Hematocrit 33.8 % (35-45); Hemoglobin 11.2 g/dL (11.5-14.3); Lymphocyte % 12.9 %; Mean Corpuscular Hemoglobin 27.4 pg (27-33); Mean Corpuscular Volume 83.1 fL (80-97); Mean Platelet Volume 9.7 fL (7.5-11.2); Nucleated Red Blood Cells % 0.1 /100 WBC (0.0-0.4); Platelet Count 145 10^3/uL (150-450); Red Blood Count 4.07 10^6/uL (3.63-4.92); Red Cell Distribution Width 14.9 % (12-17); White Blood Count 7.1 10^3/uL (3.8-11.8)
[2023-05-12 21:37] LABS: INR 1.09 (0.88-1.18)
[2023-05-12 21:48] LABS: ALT 12 U/L (7-52); AST 26 U/L (13-39); Albumin 3.9 g/dL (3.2-5.2); Albumin/Globulin Ratio 1.6 (1-3); Alkaline Phosphatase 81 U/L (35-149); Anion Gap 8 mmol/L (2-16); Blood Urea Nitrogen 22 mg/dL (6-24); CO2 Carbon Dioxide 27 mmol/L (22-32); Calcium 9.4 mg/dL (8.6-10.3); Chloride 105 mmol/L (101-111); Creatinine, Serum 1.31 mg/dL (0.51-0.95); Globulin 2.5 g/dL (2-4); Glucose 94 mg/dL (70-100); Sodium 140 mmol/L (135-145); Total Protein 6.4 g/dL (6.4-8.9); eGFR CKD-EPI 41.4 (>60)
[2023-05-12 22:03] LABS: Alcohol, S < 13 mg/dL (<13)
[2023-05-12 22:19] LABS: High Sens Troponin Baseline 17 pg/mL (<15)
[2023-05-12] MEDS ORDERED: Iodixanol (CONTRAST) 320 MG/ML 100 ML SDV IV ONE (22:59)
[2023-05-13] MEDS ORDERED: Lactated Ringers 1000 ml BAG 1,000 ML IV ONE (02:40)
[2023-05-13 05:48] LABS: Urine Appearance Clear; Urine Bilirubin Negative (Negative); Urine Blood 2+ (Negative); Urine Color Yellow; Urine Glucose Negative (Negative); Urine Ketones 1+ (Negative); Urine Nitrite Negative (Negative); Urine Protein Negative (Negative); Urine Specific Gravity 1.029 (1.002-1.030); Urine Urobilinogen Negative (Negative)
[2023-05-13 06:14] LABS: Urine Bacteria 1+ (Absent); Urine Red Blood Cell 3+(>10/hpf) (Absent); Urine Squamous Epithelial Cell Present (Absent); Urine White Blood Cell 1+(6-10/hpf) (Absent); Urine Yeast Present (Absent)
[2023-05-13] MEDS ORDERED: cefTRIAXone 1 gm/50 mL D5W 1 GM/50 ML BAG IV ONE (07:18)
[2023-05-13 07:45] LABS: Magnesium 1.7 mg/dL (1.9-2.7)
[2023-05-13] MEDS ORDERED: Magnesium Sulfate 2 gm BAG 2 GM/50 ML BAG IVPB ONE (08:30)
[2023-05-13] MEDS ORDERED: levETIRAcetam IV 750 MG in NS 0.9% 100 ml BAG 100 ML IVPB SCH (09:00)
[2023-05-13] MEDS: levETIRAcetam 500 MG/100 ML IV SCH ×2 (09:24→21:37)
[2023-05-13] MEDS: Lactated Ringers 1000 ml BAG 1,000 ML IV SCH ×2 (09:41→17:30)
[2023-05-13] MEDS: Heparin 5000 UNITS/ML 1 mL VIAL SUBCUT SCH ×2 (14:31→21:39)
[2023-05-14] MEDS: Lactated Ringers 1000 ml BAG 1,000 ML IV SCH ×4 (00:13→22:46)
[2023-05-14] MEDS: Heparin 5000 UNITS/ML 1 mL VIAL SUBCUT SCH (06:06)
[2023-05-14] MEDS ORDERED: Dextrose 50% Syringe 50 ml 25 GM/50 ML SYRINGE ONE (06:27)
[2023-05-14] MEDS: Dextrose 50% Syringe 50 ml 25 GM/50 ML SYRINGE IV PUSH PRN (06:28)
[2023-05-14 06:52] LABS: ABS Eosinophils 0.5 10^3/uL (0.0-0.5); ABS Lymphocytes 0.5 10^3/uL (1.0-4.8); ABS Monocytes 0.4 10^3/uL (0.0-0.9); ABS Neutrophils 3.5 10^3/uL (1.5-7.6); Eosinophil % 9.3 %; Hematocrit 28.6 % (35-45); Hemoglobin 9.6 g/dL (11.5-14.3); Lymphocyte % 10.6 %; Mean Corpuscular Hemoglobin 28.3 pg (27-33); Mean Corpuscular Hgb Conc 33.6 g/dL (31-36); Mean Corpuscular Volume 84.2 fL (80-97); Mean Platelet Volume 9.6 fL (7.5-11.2); Platelet Count 101 10^3/uL (150-450); Red Blood Count 3.39 10^6/uL (3.63-4.92); Red Cell Distribution Width 15.1 % (12-17); White Blood Count 4.9 10^3/uL (3.8-11.8)
[2023-05-14 07:09] LABS: Calcium 7.9 mg/dL (8.6-10.3); Creatinine, Serum 0.82 mg/dL (0.51-0.95); eGFR CKD-EPI 72.7 (>60)
[2023-05-14] MEDS: cefTRIAXone 1 gm/50 mL D5W 1 GM/50 ML BAG IV SCH (08:36)
[2023-05-14] MEDS ORDERED: Cyanocobalamin INJ 1,000 MCG/ML VIAL 1 ML VIAL IM ONE (08:53)
[2023-05-14] MEDS ORDERED: Dextran 70/Hypromellose Tears Eye Drops 15 ml BTL (for Artificials Tears) BOTH EYES SCH (11:00)
[2023-05-14] MEDS: levETIRAcetam IV 750 MG in NS 0.9% 100 ml BAG 100 ML IVPB SCH ×2 (11:59→22:48)
[2023-05-14] MEDS: Dextran 70/Hypromellose Tears Eye Drops 15 ml BTL (for Artificials Tears) BOTH EYES SCH ×2 (12:04→22:48)
[2023-05-14] MEDS: Enoxaparin 40 MG/0.4 ML SYR SUBCUT SCH (14:24)
[2023-05-15] MEDS: Lactated Ringers 1000 ml BAG 1,000 ML IV SCH ×2 (05:31→19:33)
[2023-05-15 06:20] LABS: ABS Eosinophils 0.4 10^3/uL (0.0-0.5); ABS Lymphocytes 0.8 10^3/uL (1.0-4.8); ABS Monocytes 0.4 10^3/uL (0.0-0.9); ABS Neutrophils 2.6 10^3/uL (1.5-7.6); Hematocrit 26.3 % (35-45); Hemoglobin 8.9 g/dL (11.5-14.3); Lymphocyte % 18.8 %; Mean Corpuscular Hemoglobin 28.3 pg (27-33); Mean Corpuscular Hgb Conc 33.8 g/dL (31-36); Mean Corpuscular Volume 83.8 fL (80-97); Mean Platelet Volume 9.4 fL (7.5-11.2); Platelet Count 111 10^3/uL (150-450); Red Blood Count 3.14 10^6/uL (3.63-4.92); Red Cell Distribution Width 14.6 % (12-17); White Blood Count 4.3 10^3/uL (3.8-11.8)
[2023-05-15 06:36] LABS: Calcium 7.9 mg/dL (8.6-10.3); Creatinine, Serum 0.87 mg/dL (0.51-0.95); Potassium 3.5 mmol/L (3.5-5.0); eGFR CKD-EPI 67.7 (>60)
[2023-05-15 07:57] LABS: Magnesium 1.4 mg/dL (1.9-2.7)
[2023-05-15] MEDS: KCL 20 MEQ/100 ML IVPREMIX 20 MEQ/100 ML BAG IV SCH ×2 (09:44→16:41)
[2023-05-15] MEDS: Dextran 70/Hypromellose Tears Eye Drops 15 ml BTL (for Artificials Tears) BOTH EYES SCH ×2 (09:52→22:06)
[2023-05-15] MEDS ORDERED: Magnesium Sulfate IV 3 GM in NS 0.9% 100 ml BAG 100 ML IVPB ONE (10:00)
[2023-05-15] MEDS: levETIRAcetam IV 750 MG in NS 0.9% 100 ml BAG 100 ML IVPB SCH ×2 (12:03→22:07)
[2023-05-15] MEDS: cefTRIAXone 1 gm/50 mL D5W 1 GM/50 ML BAG IV SCH (12:36)
[2023-05-15 16:17] LABS: Corrected Retic Count 0.5 % (0.5-1.5); Hematocrit for Retic CNT 26.6 % (35-45); Immature Retic Fraction 0.47; RBC Retic Count 3.17 10^6/ul (3.63-4.92)
[2023-05-15] MEDS: Enoxaparin 40 MG/0.4 ML SYR SUBCUT SCH (17:17)
[2023-05-16] MEDS: Lactated Ringers 1000 ml BAG 1,000 ML IV SCH ×2 (02:48→10:37)
[2023-05-16] MEDS: cefTRIAXone 1 gm/50 mL D5W 1 GM/50 ML BAG IV SCH (07:57)
[2023-05-16] MEDS: Dextran 70/Hypromellose Tears Eye Drops 15 ml BTL (for Artificials Tears) BOTH EYES SCH ×2 (07:58→21:01)
[2023-05-16 08:03] LABS: ABS Eosinophils 0.3 10^3/uL (0.0-0.5); ABS Lymphocytes 0.7 10^3/uL (1.0-4.8); ABS Monocytes 0.4 10^3/uL (0.0-0.9); ABS Neutrophils 2.2 10^3/uL (1.5-7.6); ABS Nucleated RBC 0.01 10^3/ul; Eosinophil % 8.7 %; Hematocrit 26.6 % (35-45); Hemoglobin 8.8 g/dL (11.5-14.3); Mean Corpuscular Hemoglobin 27.9 pg (27-33); Mean Corpuscular Hgb Conc 33.2 g/dL (31-36); Mean Corpuscular Volume 84.1 fL (80-97); Mean Platelet Volume 9.3 fL (7.5-11.2); Nucleated Red Blood Cells % 0.2 /100 WBC (0.0-0.4); Platelet Count 109 10^3/uL (150-450); Red Blood Count 3.16 10^6/uL (3.63-4.92); Red Cell Distribution Width 14.7 % (12-17); White Blood Count 3.6 10^3/uL (3.8-11.8)
[2023-05-16 08:18] LABS: Calcium 8.2 mg/dL (8.6-10.3); Creatinine, Serum 0.82 mg/dL (0.51-0.95); Magnesium 1.2 mg/dL (1.9-2.7); Potassium 3.6 mmol/L (3.5-5.0); eGFR CKD-EPI 72.7 (>60)
[2023-05-16] MEDS ORDERED: DULoxetine DR 60 mg CAP PO SCH (09:00)
[2023-05-16] MEDS: levETIRAcetam IV 750 MG in NS 0.9% 100 ml BAG 100 ML IVPB SCH ×2 (12:44→23:45)
[2023-05-16] MEDS ORDERED: Magnesium Sulfate IV 3 GM in NS 0.9% 100 ml BAG 100 ML IVPB ONE (14:00)
[2023-05-16] MEDS: Enoxaparin 40 MG/0.4 ML SYR SUBCUT SCH (15:06)
[2023-05-16] MEDS: KCL 20 MEQ/100 ML IVPREMIX 20 MEQ/100 ML BAG IV SCH ×2 (15:06→17:29)
[2023-05-16] MEDS ORDERED: KCL 10 MEQ/50 ML IVPREMIX 0 MEQ/0 ML BAG ONE (20:22)
[2023-05-17 06:36] LABS: Calcium 8.7 mg/dL (8.6-10.3); Creatinine, Serum 0.74 mg/dL (0.51-0.95); Magnesium 1.9 mg/dL (1.9-2.7); eGFR CKD-EPI 82.2 (>60)
[2023-05-17] MEDS ORDERED: ETANERCEPT 50 MG/ML SUBCUT SCH (09:00)
[2023-05-17] MEDS: cefTRIAXone 1 gm/50 mL D5W 1 GM/50 ML BAG IV SCH (09:44)
[2023-05-17] MEDS: Dextran 70/Hypromellose Tears Eye Drops 15 ml BTL (for Artificials Tears) BOTH EYES SCH ×2 (09:45→21:58)
[2023-05-17] MEDS: Magnesium Hydroxide LIQ 30 ML UDC PO SCH ×2 (09:58→21:51)
[2023-05-17] MEDS: Polyethylene Glycol 3350 17 GM PACKET PO SCH (09:59)
[2023-05-17] MEDS ORDERED: Ondansetron 4 mg VIAL 2 MG/ML 2 ml VIAL IV PRN (10:01)
[2023-05-17] MEDS: Enoxaparin 40 MG/0.4 ML SYR SUBCUT SCH (14:41)
[2023-05-17] MEDS ORDERED: Ferric Gluconate IV 250 MG in NS 0.9% 250 ml 200 ML IVPB ONE (18:30)
[2023-05-17] MEDS: levETIRAcetam IV 750 MG in NS 0.9% 100 ml BAG 100 ML IVPB SCH (21:58)
[2023-05-17] MEDS ORDERED: NS 0.9% 1000 ml BAG 1,000 ML IV SCH (23:45)
[2023-05-18 07:14] LABS: ABS Eosinophils 0.2 10^3/uL (0.0-0.5); ABS Monocytes 0.4 10^3/uL (0.0-0.9); ABS Neutrophils 2.1 10^3/uL (1.5-7.6); Eosinophil % 6.4 %; Hematocrit 28.4 % (35-45); Hemoglobin 9.5 g/dL (11.5-14.3); Lymphocyte % 26.8 %; Mean Corpuscular Hemoglobin 28.2 pg (27-33); Mean Corpuscular Hgb Conc 33.6 g/dL (31-36); Mean Corpuscular Volume 83.9 fL (80-97); Mean Platelet Volume 9.1 fL (7.5-11.2); Nucleated Red Blood Cells % 0.1 /100 WBC (0.0-0.4); Platelet Count 134 10^3/uL (150-450); Red Blood Count 3.38 10^6/uL (3.63-4.92); Red Cell Distribution Width 14.6 % (12-17); White Blood Count 3.7 10^3/uL (3.8-11.8)
[2023-05-18 07:27] LABS: Calcium 7.9 mg/dL (8.6-10.3); Creatinine, Serum 0.79 mg/dL (0.51-0.95); Potassium 3.4 mmol/L (3.5-5.0)
[2023-05-18] MEDS: cefTRIAXone 1 gm/50 mL D5W 1 GM/50 ML BAG IV SCH (09:16)
[2023-05-18] MEDS: Magnesium Hydroxide LIQ 30 ML UDC PO SCH ×2 (09:20→21:24)
[2023-05-18] MEDS: Dextran 70/Hypromellose Tears Eye Drops 15 ml BTL (for Artificials Tears) BOTH EYES SCH ×2 (09:26→21:23)
[2023-05-18] MEDS: Polyethylene Glycol 3350 17 GM PACKET PO SCH (09:44)
[2023-05-18] MEDS: levETIRAcetam IV 750 MG in NS 0.9% 100 ml BAG 100 ML IVPB SCH ×2 (10:36→21:24)
[2023-05-18] MEDS: Dextrose 50% Syringe 50 ml 25 GM/50 ML SYRINGE IV PUSH PRN (12:43)
[2023-05-18] MEDS ORDERED: D5W 1/2 NS 40 Meq KCL 1000 ml 1,000 ML IV SCH (13:00)
[2023-05-18] MEDS: Enoxaparin 40 MG/0.4 ML SYR SUBCUT SCH (14:09)
[2023-05-19] MEDS: levETIRAcetam IV 750 MG in NS 0.9% 100 ml BAG 100 ML IVPB SCH ×2 (08:57→20:59)
[2023-05-19] MEDS: Magnesium Hydroxide LIQ 30 ML UDC PO SCH ×2 (08:58→20:50)
[2023-05-19] MEDS: Polyethylene Glycol 3350 17 GM PACKET PO SCH (09:00)
[2023-05-19] MEDS: Dextran 70/Hypromellose Tears Eye Drops 15 ml BTL (for Artificials Tears) BOTH EYES SCH ×2 (09:01→20:52)
[2023-05-19] MEDS: cefTRIAXone 1 gm/50 mL D5W 1 GM/50 ML BAG IV SCH (09:20)
[2023-05-19] MEDS: Enoxaparin 40 MG/0.4 ML SYR SUBCUT SCH (15:11)
[2023-05-19] MEDS: Nystatin TOP POWDER 15 GM BTL TOPICAL SCH (23:00)
[2023-05-20 07:53] LABS: C Reactive Protein 15.73 mg/L (<8.01)
[2023-05-20 08:24] LABS: Creatinine, Serum 0.82 mg/dL (0.51-0.95)
[2023-05-20 08:25] LABS: Calcium 8.7 mg/dL (8.6-10.3); eGFR CKD-EPI 72.7 (>60)
[2023-05-20] MEDS: Dextran 70/Hypromellose Tears Eye Drops 15 ml BTL (for Artificials Tears) BOTH EYES SCH ×2 (12:26→22:15)
[2023-05-20] MEDS: levETIRAcetam IV 750 MG in NS 0.9% 100 ml BAG 100 ML IVPB SCH ×2 (12:29→22:09)
[2023-05-20] MEDS: Nystatin TOP POWDER 15 GM BTL TOPICAL SCH ×2 (12:44→22:19)
[2023-05-20] MEDS: Magnesium Hydroxide LIQ 30 ML UDC PO SCH ×2 (12:47→22:18)
[2023-05-20] MEDS: Polyethylene Glycol 3350 17 GM PACKET PO SCH (12:49)
[2023-05-20] MEDS: Enoxaparin 40 MG/0.4 ML SYR SUBCUT SCH (12:50)
[2023-05-20] MEDS: cefTRIAXone 1 gm/50 mL D5W 1 GM/50 ML BAG IV SCH (12:57)
[2023-05-21] MEDS: Magnesium Hydroxide LIQ 30 ML UDC PO SCH (11:12)
[2023-05-21] MEDS: Dextran 70/Hypromellose Tears Eye Drops 15 ml BTL (for Artificials Tears) BOTH EYES SCH (11:17)
[2023-05-21] MEDS: Polyethylene Glycol 3350 17 GM PACKET PO SCH (11:20)
[2023-05-21] MEDS: cefTRIAXone 1 gm/50 mL D5W 1 GM/50 ML BAG IV SCH (11:27)
[2023-05-21] MEDS: Nystatin TOP POWDER 15 GM BTL TOPICAL SCH (11:32)
[2023-05-21] MEDS: levETIRAcetam IV 750 MG in NS 0.9% 100 ml BAG 100 ML IVPB SCH (12:32)
[2023-05-21 14:28] VITALS: BP 97/58
[2023-05-22] MEDS ORDERED: cefTRIAXone 1 GM Q24H (ADVAN) IVPB SCH (09:00)
[2023-05-22 16:29] LABS: Anaplasma phagocytophilum Negative (Negative); B. miyamotoi PCR, B Negative (Negative); Babesia divergens/MO-1 Negative (Negative); Babesia ducani Negative (Negative); Ehrlichia chaffeensis Negative (Negative); Ehrlichia ewingii/canis Negative (Negative); Ehrlichia muris eauclairensis Negative (Negative)
== END 2023-05-21 14:50 | DRG 698 ==
LOC: ED 20:07 → SUATTDRO 05-13 08:06 → EDHOLD 05-13 08:06 → SSU 05-13 13:20
PROVIDERS: ADMIT Internal Medicine; ATTEND Internal Medicine

== ENCOUNTER 2024-07-27 15:26 | Inpatient (IN) ==
[2024-07-27] MEDS: Lactated Ringers SEPSIS* BAG 1,780 ML IV ONE (16:18)
[2024-07-27 16:19] LABS: Hematocrit 29.9 % (35-45); Hemoglobin 10.2 g/dL (11.5-14.3); Mean Corpuscular Hemoglobin 28.9 pg (27-33); Mean Corpuscular Hgb Conc 34.1 g/dL (31-36); Mean Corpuscular Volume 84.7 fL (80-97); Mean Platelet Volume 9.1 fL (7.5-11.2); Platelet Count 116 10^3/uL (150-450); Red Blood Count 3.53 10^6/uL (3.63-4.92); Red Cell Distribution Width 18.1 % (12-17); White Blood Count 3.8 10^3/uL (3.8-11.8)
[2024-07-27 16:26] LABS: Activated Partial Thrombo Time 27.8 seconds (26.0-38.0); INR 0.97 (0.85-1.14)
[2024-07-27] MEDS: Cefepime 2 GM in Dextrose 2 GM/50 ML BAG IV ONE (16:35)
[2024-07-27] MEDS: Acetaminophen IV 1 GM/100ML 1,000 MG/100 ML BAG IV ONE (16:35)
[2024-07-27 16:56] LABS: Albumin 3.2 g/dL (3.2-5.2); Albumin/Globulin Ratio 1.2 (1-3); C Reactive Protein 34.27 mg/L (<8.01); Calcium 8.6 mg/dL (8.6-10.3); Creatinine, Serum 1.25 mg/dL (0.51-0.95); Globulin 2.6 g/dL (2-4); Potassium 4.4 mmol/L (3.5-5.0); Total Bilirubin 0.3 mg/dL (0.2-1.0); Total Protein 5.8 g/dL (6.4-8.9); eGFR CKD-EPI 43.6 (>60)
[2024-07-27 17:58] LABS: High Sensitivity Troponin 1 Hr 12 pg/mL (<15)
[2024-07-27 18:27] LABS: Urine Appearance Clear; Urine Bilirubin Negative (Negative); Urine Blood Negative (Negative); Urine Color Light-Yellow; Urine Glucose Negative (Negative); Urine Ketones 1+ (Negative); Urine Nitrite Negative (Negative); Urine Protein Trace (Negative); Urine Specific Gravity 1.014 (1.002-1.030); Urine Urobilinogen Negative (Negative); Urine pH 6.5 (5.0-8.0)
[2024-07-27] MEDS: Iodixanol (CONTRAST) 320 MG/ML 100 ML SDV IV ONE (18:33)
[2024-07-27 19:16] LABS: ABS Neutrophils 1.7 10^3/uL (1.5-7.6)
[2024-07-27] MEDS: Azithromycin 500 mg/250 ml NS 500 MG/250 ML BAG IVPB SCH (22:42)
[2024-07-27] MEDS: Enoxaparin 30 MG/0.3 ML SYR SUBCUT SCH (22:44)
[2024-07-27] MEDS ORDERED: Enoxaparin 40 MG/0.4 ML SYR SUBCUT SCH (23:00)
[2024-07-27 23:08] LABS: PCO2 Arterial 52 mmHg (35-45); PO2 Arterial 140 mmHg (80-100)
[2024-07-28] MEDS: Valproic Acid IV 375 MG in NS 0.9% 100 ml BAG 100 ML IVPB SCH ×2 (00:20→13:41)
[2024-07-28] MEDS ORDERED: Labetalol IV 5 MG/ML 20 ml VIAL IV PUSH PRN (04:44)
[2024-07-28] MEDS: cefTRIAXone 1 gm/50 mL D5W 1 GM/50 ML BAG IV SCH (05:28)
[2024-07-28 07:57] LABS: ABS Lymphocytes 0.9 10^3/uL (1.0-4.8); ABS Monocytes 0.8 10^3/uL (0.0-0.9); ABS Neutrophils 3.5 10^3/uL (1.5-7.6); Eosinophil % 0.7 %; Hematocrit 33.1 % (35-45); Hemoglobin 10.9 g/dL (11.5-14.3); Lymphocyte % 17.5 %; Mean Corpuscular Hemoglobin 28.1 pg (27-33); Mean Corpuscular Hgb Conc 32.9 g/dL (31-36); Mean Corpuscular Volume 85.4 fL (80-97); Mean Platelet Volume 8.3 fL (7.5-11.2); Nucleated Red Blood Cells % 0.1 %/100WBC (0.0-0.8); Platelet Count 111 10^3/uL (150-450); Red Blood Count 3.87 10^6/uL (3.63-4.92); Red Cell Distribution Width 17.8 % (12-17); White Blood Count 5.3 10^3/uL (3.8-11.8)
[2024-07-28] MEDS: DULoxetine DR 30 mg CAP PO SCH (08:27)
[2024-07-28] MEDS: Dextran 70/Hypromellose Tears Eye Drops 15 ml BTL (for Artificials Tears) BOTH EYES SCH (08:27)
[2024-07-28] MEDS: Labetalol IV 5 MG/ML 20 ml VIAL IV PUSH ONE (09:03)
[2024-07-28 09:04] LABS: Calcium 8.3 mg/dL (8.6-10.3); Creatinine, Serum 1.17 mg/dL (0.51-0.95); eGFR CKD-EPI 47.2 (>60)
[2024-07-28] MEDS: Nystatin TOP POWDER 15 GM BTL TOPICAL SCH (10:14)
[2024-07-28] MEDS: Acetaminophen IV 1 GM/100ML 1,000 MG/100 ML BAG IV PRN (10:39)
[2024-07-28] MEDS ORDERED: Vancomycin per Pharmacy 1 EA NOTE FOLLOW UP SCH (14:00)
[2024-07-28] MEDS: Vancomycin 1,000 MG in NS 0.9% 250 ml 250 ML IVPB ONE (14:54)
[2024-07-28] MEDS: NS 0.9% 500 ml BAG 500 ML IV ONE (16:01)
[2024-07-28] MEDS: Lactated Ringers 1000 ml BAG 1,000 ML IV SCH (20:48)
[2024-07-28] MEDS: Azithromycin 500 mg/250 ml NS 500 MG/250 ML BAG IVPB SCH (23:00)
[2024-07-29] MEDS: cefTRIAXone 1 gm/50 mL D5W 1 GM/50 ML BAG IV SCH (05:17)
[2024-07-29 07:04] LABS: Calcium 7.6 mg/dL (8.6-10.3); Creatinine, Serum 1.58 mg/dL (0.51-0.95); Potassium 4.3 mmol/L (3.5-5.0); eGFR CKD-EPI 32.9 (>60)
[2024-07-29 07:08] LABS: Hematocrit 29.4 % (35-45); Hemoglobin 9.3 g/dL (11.5-14.3); Mean Corpuscular Hemoglobin 28.2 pg (27-33); Mean Corpuscular Hgb Conc 31.6 g/dL (31-36); Mean Corpuscular Volume 89.4 fL (80-97); Mean Platelet Volume 8.9 fL (7.5-11.2); Platelet Count 93 10^3/uL (150-450); Red Blood Count 3.29 10^6/uL (3.63-4.92); Red Cell Distribution Width 18.5 % (12-17); White Blood Count 6.9 10^3/uL (3.8-11.8)
[2024-07-29] MEDS: Lactated Ringers 1000 ml BAG 1,000 ML IV SCH (11:39)
[2024-07-29] MEDS: Vancomycin 750 MG in NS 0.9% 250 ML IVPB SCH (12:29)
[2024-07-30 07:13] LABS: Anion Gap 6 mmol/L (2-16); Blood Urea Nitrogen 26 mg/dL (6-24); CO2 Carbon Dioxide 30 mmol/L (22-32); Calcium 7.3 mg/dL (8.6-10.3); Chloride 108 mmol/L (101-111); Creatinine, Serum 1.06 mg/dL (0.51-0.95); Glucose 73 mg/dL (70-100); Potassium 3.8 mmol/L (3.5-5.0); Sodium 144 mmol/L (135-145); eGFR CKD-EPI 53.1 (>60)
[2024-07-30 07:19] LABS: Hematocrit 25.5 % (35-45); Hemoglobin 8.4 g/dL (11.5-14.3); Mean Corpuscular Hemoglobin 28.1 pg (27-33); Mean Corpuscular Hgb Conc 32.9 g/dL (31-36); Mean Corpuscular Volume 85.5 fL (80-97); Mean Platelet Volume 8.7 fL (7.5-11.2); Platelet Count 90 10^3/uL (150-450); Red Blood Count 2.98 10^6/uL (3.63-4.92); Red Cell Distribution Width 18.1 % (12-17); White Blood Count 5.2 10^3/uL (3.8-11.8)
[2024-07-30 07:39] LABS: Folate > 20.00 ng/mL (5.90-24.80)
[2024-07-30 07:40] LABS: Vitamin B12 1119 pg/mL (180-914)
[2024-07-30] MEDS: Famotidine IV 10 MG/ML 2 ml VIAL (20 mg) IV SLOW PU SCH (10:02)
[2024-07-30] MEDS: Lactated Ringers 1000 ml BAG 1,000 ML IV SCH (10:46)
[2024-07-30] MEDS ORDERED: Zosyn per Pharmacy NOTE FOLLOW UP SCH (11:00)
[2024-07-30] MEDS ORDERED: Vancomycin Trough Check NOTE FOLLOW UP ONE (11:30)
[2024-07-30] MEDS: Dextrose 50% Syringe 50 ml 25 GM/50 ML SYRINGE IV PUSH PRN (11:36)
[2024-07-30] MEDS: Piperacillin/Tazobac 3.375 BAG 3.375 GM/100 ML BAG IV ONE (12:30)
[2024-07-30] MEDS: ZOSYN 3.375 GM Q8H per EXTENDED INFUSION IV SCH (15:57)
[2024-07-30] MEDS: D5LR 1000 ml BAG 1,000 ML IV SCH (17:45)
[2024-07-30 19:15] LABS: C Reactive Protein 220.79 mg/L (<8.01)
[2024-07-31] MEDS ORDERED: Lactated Ringers 1000 ml BAG 1,000 ML IV SCH (01:00)
[2024-07-31 05:33] LABS: ABS Lymphocytes 0.9 10^3/uL (1.0-4.8); ABS Monocytes 0.6 10^3/uL (0.0-0.9); ABS Nucleated RBC 0.01 10^3/ul; Eosinophil % 0.5 %; Hematocrit 26.9 % (35-45); Hemoglobin 8.6 g/dL (11.5-14.3); Lymphocyte % 19.9 %; Mean Corpuscular Hemoglobin 27.5 pg (27-33); Mean Corpuscular Hgb Conc 32.1 g/dL (31-36); Mean Corpuscular Volume 85.7 fL (80-97); Mean Platelet Volume 8.2 fL (7.5-11.2); Nucleated Red Blood Cells % 0.1 %/100WBC (0.0-0.8); Platelet Count 100 10^3/uL (150-450); Red Blood Count 3.14 10^6/uL (3.63-4.92); Red Cell Distribution Width 17.6 % (12-17); White Blood Count 4.5 10^3/uL (3.8-11.8)
[2024-07-31 06:10] LABS: Calcium 7.5 mg/dL (8.6-10.3); Creatinine, Serum 0.96 mg/dL (0.51-0.95); Potassium 3.6 mmol/L (3.5-5.0); eGFR CKD-EPI 59.8 (>60)
[2024-07-31] MEDS: D5LR 1000 ml BAG 1,000 ML IV SCH (17:57)
[2024-08-01 08:03] LABS: Hematocrit 28.3 % (35-45); Hemoglobin 9.1 g/dL (11.5-14.3); Mean Corpuscular Hemoglobin 28.1 pg (27-33); Mean Corpuscular Hgb Conc 32.1 g/dL (31-36); Mean Corpuscular Volume 87.4 fL (80-97); Red Blood Count 3.24 10^6/uL (3.63-4.92); White Blood Count 2.8 10^3/uL (3.8-11.8)
[2024-08-01 08:24] LABS: Anion Gap 9 mmol/L (2-16); Blood Urea Nitrogen 14 mg/dL (6-24); CO2 Carbon Dioxide 29 mmol/L (22-32); Calcium 7.4 mg/dL (8.6-10.3); Chloride 106 mmol/L (101-111); Creatinine, Serum 0.91 mg/dL (0.51-0.95); Glucose 109 mg/dL (70-100); Sodium 144 mmol/L (135-145); eGFR CKD-EPI 63.8 (>60)
[2024-08-01 08:29] LABS: Potassium, Whole Blood 5.2 mmol/L (3.4-4.5)
[2024-08-01 09:11] LABS: ABS Lymphocytes 0.9 10^3/uL (1.0-4.8); ABS Monocytes 0.3 10^3/uL (0.0-0.9); ABS Neutrophils 1.5 10^3/uL (1.5-7.6); Eosinophil % 1.2 %; Lymphocyte % 33.5 %; Mean Platelet Volume 8.6 fL (7.5-11.2); Nucleated Red Blood Cells % 0.1 %/100WBC (0.0-0.8); Platelet Count 92 10^3/uL (150-450); RBC Morphology Normal (Normal)
[2024-08-01] MEDS: D5LR 1000 ml BAG 1,000 ML IV SCH (15:49)
[2024-08-02 06:14] LABS: Hematocrit 29.2 % (35-45); Hemoglobin 9.4 g/dL (11.5-14.3); Mean Corpuscular Hemoglobin 27.4 pg (27-33); Mean Corpuscular Hgb Conc 32.2 g/dL (31-36); Mean Corpuscular Volume 85.1 fL (80-97); Mean Platelet Volume 8.1 fL (7.5-11.2); Platelet Count 109 10^3/uL (150-450); Red Blood Count 3.44 10^6/uL (3.63-4.92); Red Cell Distribution Width 17.2 % (12-17); White Blood Count 3.3 10^3/uL (3.8-11.8)
[2024-08-02 06:46] LABS: Albumin 2.2 g/dL (3.2-5.2); Calcium 7.3 mg/dL (8.6-10.3); Creatinine, Serum 0.76 mg/dL (0.51-0.95); Globulin 2.3 g/dL (2-4); Potassium 3.1 mmol/L (3.5-5.0); Total Bilirubin 0.3 mg/dL (0.2-1.0); Total Protein 4.5 g/dL (6.4-8.9); eGFR CKD-EPI 79.2 (>60)
[2024-08-02 07:24] LABS: ABS Eosinophils 0.1 10^3/uL (0.0-0.5); ABS Monocytes 0.5 10^3/uL (0.0-0.9); ABS Neutrophils 1.8 10^3/uL (1.5-7.6); Eosinophil % 3.2 %; Lymphocyte % 30.2 %; Nucleated Red Blood Cells % 0.1 %/100WBC (0.0-0.8); RBC Morphology Normal (Normal)
[2024-08-02] MEDS ORDERED: Thiamine 100 MG/ML 2 ml VIAL (200 mg) IV ONE (08:07)
[2024-08-02] MEDS: D5W 1000 ml BAG 1,000 ML IV SCH (08:26)
[2024-08-02] MEDS: KCL 20 MEQ/100 ML IVPREMIX 20 MEQ/100 ML BAG IV ONE (08:28)
[2024-08-02] MEDS: Thiamine IV 100 MG in NS 0.9% 50 ML Q24H IV ONE (12:00)
[2024-08-02 15:09] LABS: Magnesium 1.2 mg/dL (1.9-2.7); Phosphorus 1.6 mg/dL (2.5-5.0)
[2024-08-02] MEDS: Magnesium Sulf 4 GM/100 ML IV 4,000 MG/100 ML BAG IVPB ONE (16:43)
[2024-08-02] MEDS: Potassium Phosphate IV 15 MMOL in NS 0.9% 250 ml 250 ML IVPB ONE (16:48)
[2024-08-02] MEDS: ZOSYN 3.375 GM x ONE DOSE over 30 miuntes IV (17:21)
[2024-08-02 17:29] LABS: Calcium 7.9 mg/dL (8.6-10.3); Creatinine, Serum 0.8 mg/dL (0.51-0.95); Potassium 3.1 mmol/L (3.5-5.0); eGFR CKD-EPI 74.4 (>60)
[2024-08-02] MEDS: Haloperidol 5 mg/ml SDV IV/IM 5 MG/ML AMP IV SLOW PU PRN (18:22)
[2024-08-02] MEDS: ZOSYN 3.375 GM Q8H per EXTENDED INFUSION IV SCH (22:25)
[2024-08-03 07:16] LABS: Hematocrit 28.7 % (35-45); Hemoglobin 9.5 g/dL (11.5-14.3); Mean Corpuscular Hemoglobin 28.1 pg (27-33); Mean Corpuscular Hgb Conc 33.1 g/dL (31-36); Mean Platelet Volume 8.1 fL (7.5-11.2); Platelet Count 105 10^3/uL (150-450); Red Blood Count 3.38 10^6/uL (3.63-4.92); Red Cell Distribution Width 17.4 % (12-17); White Blood Count 3.3 10^3/uL (3.8-11.8)
[2024-08-03 07:50] LABS: Albumin 2.3 g/dL (3.2-5.2); Calcium 7.2 mg/dL (8.6-10.3); Creatinine, Serum 0.85 mg/dL (0.51-0.95); Globulin 2.3 g/dL (2-4); Magnesium 2.1 mg/dL (1.9-2.7); Phosphorus 3.5 mg/dL (2.5-5.0); Potassium 3.4 mmol/L (3.5-5.0); Total Bilirubin 0.3 mg/dL (0.2-1.0); Total Protein 4.6 g/dL (6.4-8.9); eGFR CKD-EPI 69.2 (>60)
[2024-08-03] MEDS: KCL 20 MEQ/100 ML IVPREMIX 20 MEQ/100 ML BAG IV SCH (08:30)
[2024-08-03 08:47] LABS: ABS Eosinophils 0.1 10^3/uL (0.0-0.5); ABS Lymphocytes 1.1 10^3/uL (1.0-4.8); ABS Monocytes 0.5 10^3/uL (0.0-0.9); ABS Neutrophils 1.5 10^3/uL (1.5-7.6); Eosinophil % 3.9 %; Nucleated Red Blood Cells % 0.1 %/100WBC (0.0-0.8); RBC Morphology Normal (Normal)
[2024-08-03 11:07] LABS: PCO2 Arterial 59 mmHg (35-45); PO2 Arterial 88 mmHg (80-100)
[2024-08-03] MEDS: D5LR 1000 ml BAG 1,000 ML IV SCH (12:27)
[2024-08-03 13:38] LABS: Urine Appearance Clear; Urine Bilirubin Negative (Negative); Urine Blood Negative (Negative); Urine Color Light-Yellow; Urine Glucose Negative (Negative); Urine Ketones Negative (Negative); Urine Nitrite Negative (Negative); Urine Protein 1+ (>=30 mg/dL) (Negative); Urine Urobilinogen Negative (Negative)
[2024-08-03 13:41] LABS: Urine Bacteria Absent /HPF (Absent); Urine Red Blood Cell Trace(0-2/hpf) /HPF (0-Trace); Urine Squamous Epithelial Cell Present /HPF (Absent); Urine White Blood Cell Trace(0-5/hpf) /HPF (0-Trace)
[2024-08-03 19:40] LABS: Calcium 7.3 mg/dL (8.6-10.3); Creatinine, Serum 0.91 mg/dL (0.51-0.95); Potassium 4.1 mmol/L (3.5-5.0); eGFR CKD-EPI 63.8 (>60)
[2024-08-04 06:39] LABS: Hematocrit 27.7 % (35-45); Hemoglobin 8.9 g/dL (11.5-14.3); Mean Corpuscular Hemoglobin 27.7 pg (27-33); Mean Corpuscular Volume 86.3 fL (80-97); Mean Platelet Volume 8.3 fL (7.5-11.2); Platelet Count 124 10^3/uL (150-450); Red Blood Count 3.21 10^6/uL (3.63-4.92); Red Cell Distribution Width 17.6 % (12-17); White Blood Count 3.3 10^3/uL (3.8-11.8)
[2024-08-04 07:14] LABS: Calcium 7.4 mg/dL (8.6-10.3); Creatinine, Serum 0.92 mg/dL (0.51-0.95); Potassium 4.2 mmol/L (3.5-5.0); eGFR CKD-EPI 62.9 (>60)
[2024-08-04] MEDS: Nystatin TOP POWDER 15 GM BTL TOPICAL PRN (11:51)
[2024-08-04] MEDS: D5W 1000 ml BAG 1,000 ML IV SCH (17:40)
[2024-08-05 09:13] LABS: Hematocrit 26.7 % (35-45); Hemoglobin 8.6 g/dL (11.5-14.3); Mean Corpuscular Hemoglobin 27.4 pg (27-33); Mean Corpuscular Hgb Conc 32.3 g/dL (31-36); Mean Corpuscular Volume 84.8 fL (80-97); Mean Platelet Volume 7.5 fL (7.5-11.2); Platelet Count 128 10^3/uL (150-450); Red Blood Count 3.15 10^6/uL (3.63-4.92); Red Cell Distribution Width 16.9 % (12-17); White Blood Count 3.4 10^3/uL (3.8-11.8)
[2024-08-05 10:34] LABS: ABS Eosinophils 0.2 10^3/uL (0.0-0.5); ABS Monocytes 0.5 10^3/uL (0.0-0.9); ABS Neutrophils 1.8 10^3/uL (1.5-7.6); Eosinophil % 4.5 %; Lymphocyte % 28.7 %; Nucleated Red Blood Cells % 0.1 %/100WBC (0.0-0.8)
[2024-08-05 12:03] LABS: Calcium 7.4 mg/dL (8.6-10.3); Creatinine, Serum 0.87 mg/dL (0.51-0.95); Potassium 3.7 mmol/L (3.5-5.0); eGFR CKD-EPI 67.3 (>60)
[2024-08-05] MEDS: D5LR 1000 ml BAG 1,000 ML IV SCH (15:14)
[2024-08-05] MEDS: Labetalol IV 5 MG/ML 20 ml VIAL IV PUSH PRN (18:17)
[2024-08-05 19:03] LABS: Anaplasma phagocytophilum Negative (Negative); B. miyamotoi PCR, B Negative (Negative); Babesia divergens/MO-1 Negative (Negative); Babesia ducani Negative (Negative); Ehrlichia chaffeensis Negative (Negative); Ehrlichia ewingii/canis Negative (Negative); Ehrlichia muris eauclairensis Negative (Negative)
[2024-08-05 20:38] LABS: Ferritin 141.1 ng/mL (11-307)
[2024-08-06 06:22] LABS: INR 1.25 (0.85-1.14)
[2024-08-06 07:20] LABS: Calcium 7.5 mg/dL (8.6-10.3); Creatinine, Serum 0.77 mg/dL (0.51-0.95); Potassium 3.6 mmol/L (3.5-5.0); eGFR CKD-EPI 77.9 (>60)
[2024-08-06 07:42] LABS: Hematocrit 25.1 % (35-45); Hemoglobin 8.3 g/dL (11.5-14.3); Mean Corpuscular Hgb Conc 32.9 g/dL (31-36); Mean Corpuscular Volume 85.1 fL (80-97); Mean Platelet Volume 7.9 fL (7.5-11.2); Platelet Count 130 10^3/uL (150-450); Red Blood Count 2.95 10^6/uL (3.63-4.92); White Blood Count 3.4 10^3/uL (3.8-11.8)
[2024-08-06 07:45] LABS: ABS Eosinophils 0.1 10^3/uL (0.0-0.5); ABS Lymphocytes 1.1 10^3/uL (1.0-4.8); ABS Monocytes 0.5 10^3/uL (0.0-0.9); ABS Neutrophils 1.7 10^3/uL (1.5-7.6); ABS Nucleated RBC 0.01 10^3/ul; Eosinophil % 3.4 %; Lymphocyte % 31.2 %; Nucleated Red Blood Cells % 0.2 %/100WBC (0.0-0.8)
[2024-08-06] MEDS: D5W 1000 ml BAG 1,000 ML IV SCH (11:15)
[2024-08-07] MEDS: D5LR 1000 ml BAG 1,000 ML IV SCH (18:10)
[2024-08-08 06:51] LABS: Hematocrit 24.5 % (35-45); Hemoglobin 8.2 g/dL (11.5-14.3); Mean Corpuscular Hemoglobin 28.6 pg (27-33); Mean Corpuscular Hgb Conc 33.6 g/dL (31-36); Mean Corpuscular Volume 85.2 fL (80-97); Mean Platelet Volume 7.4 fL (7.5-11.2); Platelet Count 138 10^3/uL (150-450); Red Blood Count 2.88 10^6/uL (3.63-4.92); Red Cell Distribution Width 17.2 % (12-17); White Blood Count 3.3 10^3/uL (3.8-11.8)
[2024-08-08] MEDS: Glucagon 1 mg VIAL KIT ONE (07:07)
[2024-08-08] MEDS: fentaNYL 100 mcg/2 ml 50 MCG/ML VIAL ONE ×2 (07:07→07:08)
[2024-08-08] MEDS: Lidocaine 2% JELLY 6 ML Topical TOPICAL ONE (07:07)
[2024-08-08] MEDS: ceFAZolin 1 GM ADVAN 1 GM ADDV.VIAL IVPB ONE (07:08)
[2024-08-08 07:12] LABS: Calcium 7.7 mg/dL (8.6-10.3); Creatinine, Serum 0.81 mg/dL (0.51-0.95); Potassium 3.3 mmol/L (3.5-5.0); eGFR CKD-EPI 73.3 (>60)
[2024-08-08] MEDS: KCL 20 MEQ/100 ML IVPREMIX 20 MEQ/100 ML BAG IV SCH (08:23)
[2024-08-08 09:00] LABS: ABS Eosinophils 0.1 10^3/uL (0.0-0.5); ABS Monocytes 0.7 10^3/uL (0.0-0.9); ABS Neutrophils 1.4 10^3/uL (1.5-7.6); Eosinophil % 3.1 %; Lymphocyte % 30.7 %; Nucleated Red Blood Cells % 0.1 %/100WBC (0.0-0.8); RBC Morphology Normal (Normal)
[2024-08-08] MEDS: D5LR 1000 ml BAG 1,000 ML IV SCH (13:51)
[2024-08-08] MEDS: D5W 1000 ml BAG 1,000 ML IV SCH (16:31)
[2024-08-09 06:51] LABS: Hematocrit 25.6 % (35-45); Hemoglobin 8.6 g/dL (11.5-14.3); Mean Corpuscular Hemoglobin 28.7 pg (27-33); Mean Corpuscular Hgb Conc 33.6 g/dL (31-36); Mean Corpuscular Volume 85.3 fL (80-97); Mean Platelet Volume 7.3 fL (7.5-11.2); Platelet Count 150 10^3/uL (150-450); Red Cell Distribution Width 17.1 % (12-17); White Blood Count 4.1 10^3/uL (3.8-11.8)
[2024-08-09 07:15] LABS: Calcium 7.6 mg/dL (8.6-10.3); Creatinine, Serum 0.81 mg/dL (0.51-0.95); Potassium 3.7 mmol/L (3.5-5.0); eGFR CKD-EPI 73.3 (>60)
[2024-08-09] MEDS: Furosemide 20 mg/2 ml IV VIAL IV ONE (09:27)
[2024-08-09] MEDS ORDERED: Sulfur Hexaflouride MICROSPHR 25 MG VIAL IV PRN (10:31)
[2024-08-10 07:16] LABS: Hematocrit 27.4 % (35-45); Hemoglobin 9.2 g/dL (11.5-14.3); Mean Corpuscular Hemoglobin 28.7 pg (27-33); Mean Corpuscular Hgb Conc 33.5 g/dL (31-36); Mean Corpuscular Volume 85.8 fL (80-97); Mean Platelet Volume 7.7 fL (7.5-11.2); Platelet Count 145 10^3/uL (150-450); Red Blood Count 3.19 10^6/uL (3.63-4.92); Red Cell Distribution Width 17.1 % (12-17); White Blood Count 3.6 10^3/uL (3.8-11.8)
[2024-08-10 07:25] LABS: Creatinine, Serum 0.94 mg/dL (0.51-0.95); Magnesium 1.2 mg/dL (1.9-2.7); Potassium 3.8 mmol/L (3.5-5.0); eGFR CKD-EPI 61.3 (>60)
[2024-08-10 08:04] LABS: ABS Eosinophils 0.1 10^3/uL (0.0-0.5); ABS Lymphocytes 1.6 10^3/uL (1.0-4.8); ABS Monocytes 0.6 10^3/uL (0.0-0.9); ABS Neutrophils 1.3 10^3/uL (1.5-7.6); ABS Nucleated RBC 0.01 10^3/ul; Eosinophil % 2.7 %; Lymphocyte % 44.3 %; Nucleated Red Blood Cells % 0.1 %/100WBC (0.0-0.8)
[2024-08-10] MEDS: D5W 1000 ml BAG 1,000 ML IV SCH (08:56)
[2024-08-10] MEDS: Magnesium Sulf 4 GM/100 ML IV 4,000 MG/100 ML BAG IVPB ONE (11:42)
[2024-08-10] MEDS: Haloperidol 5 mg/ml SDV IV/IM 5 MG/ML AMP IV SLOW PU ONE (21:39)
[2024-08-11 08:18] LABS: Hematocrit 25.6 % (35-45); Hemoglobin 8.4 g/dL (11.5-14.3); Mean Corpuscular Hemoglobin 28.3 pg (27-33); Mean Corpuscular Hgb Conc 32.6 g/dL (31-36); Mean Corpuscular Volume 86.7 fL (80-97); Mean Platelet Volume 7.5 fL (7.5-11.2); Platelet Count 129 10^3/uL (150-450); Red Blood Count 2.95 10^6/uL (3.63-4.92); Red Cell Distribution Width 17.4 % (12-17); White Blood Count 2.6 10^3/uL (3.8-11.8)
[2024-08-11 08:39] LABS: Albumin 2.1 g/dL (3.2-5.2); Albumin/Globulin Ratio 0.9 (1-3); Calcium 7.6 mg/dL (8.6-10.3); Creatinine, Serum 0.84 mg/dL (0.51-0.95); Globulin 2.4 g/dL (2-4); Potassium 3.4 mmol/L (3.5-5.0); Total Bilirubin 0.3 mg/dL (0.2-1.0); Total Protein 4.5 g/dL (6.4-8.9); eGFR CKD-EPI 70.2 (>60)
[2024-08-11] MEDS: D5W 1000 ml BAG 1,000 ML IV SCH (12:36)
[2024-08-11] MEDS: Magnesium Sulf 4 GM/100 ML IV 4,000 MG/100 ML BAG IVPB ONE (17:51)
[2024-08-12 05:56] LABS: ABS Eosinophils 0.1 10^3/uL (0.0-0.5); ABS Lymphocytes 0.9 10^3/uL (1.0-4.8); ABS Monocytes 0.4 10^3/uL (0.0-0.9); ABS Neutrophils 1.1 10^3/uL (1.5-7.6); Eosinophil % 2.8 %; Hematocrit 26.8 % (35-45); Hemoglobin 8.6 g/dL (11.5-14.3); Lymphocyte % 36.2 %; Mean Corpuscular Hemoglobin 27.6 pg (27-33); Mean Corpuscular Volume 86.2 fL (80-97); Mean Platelet Volume 7.1 fL (7.5-11.2); Nucleated Red Blood Cells % 0.2 %/100WBC (0.0-0.8); Platelet Count 128 10^3/uL (150-450); Red Cell Distribution Width 17.8 % (12-17); White Blood Count 2.5 10^3/uL (3.8-11.8)
[2024-08-12 06:34] LABS: Calcium 7.7 mg/dL (8.6-10.3); Creatinine, Serum 0.9 mg/dL (0.51-0.95); Magnesium 2.6 mg/dL (1.9-2.7); Phosphorus 3.4 mg/dL (2.5-5.0); Potassium 3.7 mmol/L (3.5-5.0); eGFR CKD-EPI 64.6 (>60)
[2024-08-12] MEDS ORDERED: Dextrose 50% Syringe 50 ml 25 GM/50 ML SYRINGE IV PUSH PRN (06:43)
[2024-08-12] MEDS: D5W 250 ml BAG 250 ML IV ONE (07:24)
[2024-08-13 07:10] LABS: Hematocrit 24.5 % (35-45); Hemoglobin 8.1 g/dL (11.5-14.3); Mean Corpuscular Hemoglobin 28.6 pg (27-33); Mean Corpuscular Hgb Conc 33.3 g/dL (31-36); Mean Platelet Volume 7.3 fL (7.5-11.2); Platelet Count 105 10^3/uL (150-450); Red Blood Count 2.84 10^6/uL (3.63-4.92); Red Cell Distribution Width 17.8 % (12-17); White Blood Count 2.6 10^3/uL (3.8-11.8)
[2024-08-13 07:28] LABS: Albumin 2.2 g/dL (3.2-5.2); Calcium 7.4 mg/dL (8.6-10.3); Creatinine, Serum 0.84 mg/dL (0.51-0.95); Globulin 2.3 g/dL (2-4); Magnesium 1.8 mg/dL (1.9-2.7); Potassium 3.3 mmol/L (3.5-5.0); Total Bilirubin 0.3 mg/dL (0.2-1.0); Total Protein 4.5 g/dL (6.4-8.9); eGFR CKD-EPI 70.2 (>60)
[2024-08-13 08:01] LABS: ABS Eosinophils 0.1 10^3/uL (0.0-0.5); ABS Lymphocytes 0.9 10^3/uL (1.0-4.8); ABS Monocytes 0.4 10^3/uL (0.0-0.9); ABS Neutrophils 1.2 10^3/uL (1.5-7.6); ABS Nucleated RBC 0.01 10^3/ul; Eosinophil % 2.3 %; Lymphocyte % 33.8 %; Nucleated Red Blood Cells % 0.3 %/100WBC (0.0-0.8)
[2024-08-13] MEDS: Dextrose 50% Syringe 50 ml 25 GM/50 ML SYRINGE IV PUSH PRN (11:54)
[2024-08-13] MEDS: Furosemide 40 mg/4 ml IV VIAL IV SLOW PU ONE ×2 (12:10→16:58)
[2024-08-13] MEDS: Nitro 2% OINT (Nitroglycerin) 1 INCH/PAK TOPICAL ONE (12:10)
[2024-08-13 12:13] LABS: PCO2 Arterial 58 mmHg (35-45)
[2024-08-13 12:16] LABS: PO2 Arterial 59 mmHg (80-100)
[2024-08-13] MEDS: Dextrose 50% Syringe 50 ml 25 GM/50 ML SYRINGE ONE (12:24)
[2024-08-13] MEDS: Magnesium Sulfate 2 gm BAG 2 GM/50 ML BAG IVPB ONE (16:58)
[2024-08-13] MEDS: KCL 20 MEQ/100 ML IVPREMIX 20 MEQ/100 ML BAG IV SCH (16:59)
[2024-08-13 22:58] LABS: Calcium 7.6 mg/dL (8.6-10.3); Creatinine, Serum 0.91 mg/dL (0.51-0.95); Potassium 4.7 mmol/L (3.5-5.0); eGFR CKD-EPI 63.8 (>60)
[2024-08-14 07:21] LABS: Calcium 7.4 mg/dL (8.6-10.3); Creatinine, Serum 0.94 mg/dL (0.51-0.95); Hematocrit 26.6 % (35-45); Hemoglobin 8.9 g/dL (11.5-14.3); Mean Corpuscular Hemoglobin 28.8 pg (27-33); Mean Corpuscular Hgb Conc 33.4 g/dL (31-36); Mean Corpuscular Volume 86.1 fL (80-97); Red Blood Count 3.09 10^6/uL (3.63-4.92); Red Cell Distribution Width 18.4 % (12-17); White Blood Count 2.4 10^3/uL (3.8-11.8); eGFR CKD-EPI 61.3 (>60)
[2024-08-14 08:17] LABS: ABS Eosinophils 0.1 10^3/uL (0.0-0.5); ABS Lymphocytes 1.1 10^3/uL (1.0-4.8); ABS Monocytes 0.6 10^3/uL (0.0-0.9); ABS Neutrophils 0.7 10^3/uL (1.5-7.6); ABS Nucleated RBC 0.01 10^3/ul; Eosinophil % 3.7 %; Mean Platelet Volume 7.7 fL (7.5-11.2); Nucleated Red Blood Cells % 0.4 %/100WBC (0.0-0.8); Platelet Count 98 10^3/uL (150-450)
[2024-08-14 10:53] LABS: Magnesium 1.9 mg/dL (1.9-2.7)
[2024-08-14] MEDS ORDERED: Zosyn per Pharmacy NOTE FOLLOW UP SCH (12:00)
[2024-08-14] MEDS: ZOSYN 3.375 GM x ONE DOSE over 30 miuntes IV (14:34)
[2024-08-14] MEDS: PPN (PERIPHERAL) 24 HR with D10W 1000 ml BAG 1,000 ML, Amino Acid Infusion 10% 850 ML, ... IV SCH (17:45)
[2024-08-14] MEDS ORDERED: Dextrose 50% Syringe 50 ml 25 GM/50 ML SYRINGE IV PUSH PRN (18:15)
[2024-08-14] MEDS: ZOSYN 3.375 GM Q8H per EXTENDED INFUSION IV SCH (18:37)
[2024-08-14] MEDS ORDERED: Furosemide 20 mg/2 ml IV VIAL IV SLOW PU ONE ×2 (22:00)
[2024-08-14] MEDS: Furosemide 20 mg/2 ml IV VIAL IV SLOW PU ONE (22:56)
[2024-08-14 22:58] LABS: Calcium 7.4 mg/dL (8.6-10.3); Creatinine, Serum 1.01 mg/dL (0.51-0.95); eGFR CKD-EPI 56.3 (>60)
[2024-08-15 06:35] LABS: ABS Eosinophils 0.1 10^3/uL (0.0-0.5); ABS Lymphocytes 0.8 10^3/uL (1.0-4.8); ABS Monocytes 0.6 10^3/uL (0.0-0.9); ABS Neutrophils 1.1 10^3/uL (1.5-7.6); Hematocrit 26.8 % (35-45); Lymphocyte % 30.9 %; Mean Corpuscular Hemoglobin 29.2 pg (27-33); Mean Corpuscular Hgb Conc 33.6 g/dL (31-36); Mean Corpuscular Volume 86.8 fL (80-97); Mean Platelet Volume 7.7 fL (7.5-11.2); Nucleated Red Blood Cells % 0.1 %/100WBC (0.0-0.8); Platelet Count 100 10^3/uL (150-450); Red Blood Count 3.08 10^6/uL (3.63-4.92); Red Cell Distribution Width 18.5 % (12-17); White Blood Count 2.7 10^3/uL (3.8-11.8)
[2024-08-15 07:48] LABS: Albumin 2.3 g/dL (3.2-5.2); Albumin/Globulin Ratio 0.9 (1-3); Calcium 7.6 mg/dL (8.6-10.3); Creatinine, Serum 1.1 mg/dL (0.51-0.95); Globulin 2.6 g/dL (2-4); Magnesium 1.6 mg/dL (1.9-2.7); Phosphorus 2.5 mg/dL (2.5-5.0); Potassium 3.5 mmol/L (3.5-5.0); Total Bilirubin 0.4 mg/dL (0.2-1.0); Total Protein 4.9 g/dL (6.4-8.9); eGFR CKD-EPI 50.8 (>60)
[2024-08-15] MEDS: Magnesium Sulfate 2 gm BAG 2 GM/50 ML BAG IVPB ONE ×2 (11:05→12:18)
[2024-08-15] MEDS: KCL 20 MEQ/100 ML IVPREMIX 20 MEQ/100 ML BAG IV SCH (13:32)
[2024-08-15] MEDS: Furosemide 40 mg/4 ml IV VIAL IV SLOW PU SCH (17:17)
[2024-08-15] MEDS: PPN (PERIPHERAL) 24 HR with D10W 1000 ml BAG 1,000 ML, Amino Acid Infusion 10% 850 ML, ... IV SCH (18:38)
[2024-08-16 08:47] LABS: Albumin 2.4 g/dL (3.2-5.2); Albumin/Globulin Ratio 0.9 (1-3); Calcium 7.9 mg/dL (8.6-10.3); Globulin 2.7 g/dL (2-4); Magnesium 1.9 mg/dL (1.9-2.7); Phosphorus 3.2 mg/dL (2.5-5.0); Potassium 3.9 mmol/L (3.5-5.0); Total Bilirubin 0.3 mg/dL (0.2-1.0); Total Protein 5.1 g/dL (6.4-8.9)
[2024-08-16 09:32] LABS: ABS Eosinophils 0.1 10^3/uL (0.0-0.5); ABS Monocytes 0.7 10^3/uL (0.0-0.9); ABS Neutrophils 0.8 10^3/uL (1.5-7.6); ABS Nucleated RBC 0.01 10^3/ul; Eosinophil % 4.7 %; Hematocrit 29.1 % (35-45); Hemoglobin 9.6 g/dL (11.5-14.3); Lymphocyte % 39.2 %; Mean Corpuscular Hemoglobin 28.7 pg (27-33); Mean Corpuscular Hgb Conc 33.2 g/dL (31-36); Mean Corpuscular Volume 86.4 fL (80-97); Mean Platelet Volume 7.4 fL (7.5-11.2); Nucleated Red Blood Cells % 0.2 %/100WBC (0.0-0.8); Platelet Count 77 10^3/uL (150-450); Red Blood Count 3.36 10^6/uL (3.63-4.92); Red Cell Distribution Width 18.5 % (12-17); White Blood Count 2.7 10^3/uL (3.8-11.8)
[2024-08-16] MEDS: Lactated Ringers 1000 ml BAG 1,000 ML IV ONE (17:46)
[2024-08-16] MEDS: D5LR 1000 ml BAG 1,000 ML IV SCH (23:32)
[2024-08-17 07:01] LABS: Calcium 7.4 mg/dL (8.6-10.3); Creatinine, Serum 1.15 mg/dL (0.51-0.95); Potassium 3.8 mmol/L (3.5-5.0); eGFR CKD-EPI 48.2 (>60)
[2024-08-17] MEDS: Nystatin TOP POWDER 15 GM BTL TOPICAL SCH (14:24)
[2024-08-17] MEDS: PPN (PERIPHERAL) 24 HR with D10W 1000 ml BAG 1,000 ML, Amino Acid Infusion 10% 850 ML, ... IV SCH (16:49)
[2024-08-18 06:22] LABS: ABS Eosinophils 0.2 10^3/uL (0.0-0.5); ABS Lymphocytes 0.9 10^3/uL (1.0-4.8); ABS Monocytes 0.8 10^3/uL (0.0-0.9); ABS Neutrophils 0.6 10^3/uL (1.5-7.6); Eosinophil % 6.1 %; Hematocrit 26.1 % (35-45); Hemoglobin 8.6 g/dL (11.5-14.3); Lymphocyte % 36.5 %; Mean Corpuscular Hemoglobin 28.7 pg (27-33); Mean Corpuscular Hgb Conc 32.9 g/dL (31-36); Mean Platelet Volume 7.7 fL (7.5-11.2); Nucleated Red Blood Cells % 0.1 %/100WBC (0.0-0.8); Platelet Count 51 10^3/uL (150-450); Red Cell Distribution Width 18.8 % (12-17); White Blood Count 2.5 10^3/uL (3.8-11.8)
[2024-08-18 06:46] LABS: Albumin/Globulin Ratio 0.8 (1-3); Calcium 7.6 mg/dL (8.6-10.3); Creatinine, Serum 1.24 mg/dL (0.51-0.95); Globulin 2.4 g/dL (2-4); Magnesium 1.5 mg/dL (1.9-2.7); Potassium 3.4 mmol/L (3.5-5.0); Total Bilirubin 0.3 mg/dL (0.2-1.0); Total Protein 4.4 g/dL (6.4-8.9)
[2024-08-18] MEDS ORDERED: KCL 20 MEQ/100 ML IVPREMIX 20 MEQ/100 ML BAG IV ONE (08:35)
[2024-08-18] MEDS: Magnesium Sulf 4 GM/100 ML IV 4,000 MG/100 ML BAG IVPB ONE (09:18)
[2024-08-18] MEDS: KCL premix 10 MEQ/50 ML x 2 BAGS IV SCH ×2 (09:25→13:41)
[2024-08-18] MEDS: levETIRAcetam 1000MG IVPREMIX 1,000 MG/100 ML BAG IVPB ONE (15:27)
[2024-08-18] MEDS: levETIRAcetam 500 MG IVPREMIX 500 MG/100 ML BAG IV SCH (22:00)
[2024-08-19 06:25] LABS: Albumin 2.1 g/dL (3.2-5.2); Albumin/Globulin Ratio 0.8 (1-3); Calcium 8.1 mg/dL (8.6-10.3); Creatinine, Serum 1.2 mg/dL (0.51-0.95); Globulin 2.5 g/dL (2-4); Magnesium 2.2 mg/dL (1.9-2.7); Phosphorus 3.1 mg/dL (2.5-5.0); Potassium 3.8 mmol/L (3.5-5.0); Total Bilirubin 0.4 mg/dL (0.2-1.0); Total Protein 4.6 g/dL (6.4-8.9); eGFR CKD-EPI 45.8 (>60)
[2024-08-19 06:31] LABS: Hematocrit 25.6 % (35-45); Hemoglobin 8.6 g/dL (11.5-14.3); Mean Corpuscular Hemoglobin 29.2 pg (27-33); Mean Corpuscular Hgb Conc 33.7 g/dL (31-36); Mean Corpuscular Volume 86.8 fL (80-97); Red Blood Count 2.94 10^6/uL (3.63-4.92); Red Cell Distribution Width 18.6 % (12-17); White Blood Count 2.8 10^3/uL (3.8-11.8)
[2024-08-19 06:59] LABS: ABS Eosinophils 0.2 10^3/uL (0.0-0.5); ABS Lymphocytes 1.2 10^3/uL (1.0-4.8); ABS Monocytes 0.9 10^3/uL (0.0-0.9); ABS Neutrophils 0.5 10^3/uL (1.5-7.6); Eosinophil % 6.4 %; Lymphocyte % 43.2 %; Mean Platelet Volume 8.1 fL (7.5-11.2); Nucleated Red Blood Cells % 0.2 %/100WBC (0.0-0.8); Platelet Count 48 10^3/uL (150-450)
[2024-08-20 06:51] LABS: Albumin 2.5 g/dL (3.2-5.2); Albumin/Globulin Ratio 0.9 (1-3); Calcium 8.6 mg/dL (8.6-10.3); Creatinine, Serum 1.14 mg/dL (0.51-0.95); Globulin 2.8 g/dL (2-4); Magnesium 1.8 mg/dL (1.9-2.7); Phosphorus 2.8 mg/dL (2.5-5.0); Potassium 3.9 mmol/L (3.5-5.0); Total Bilirubin 0.4 mg/dL (0.2-1.0); Total Protein 5.3 g/dL (6.4-8.9); eGFR CKD-EPI 48.7 (>60)
[2024-08-20 07:15] LABS: ABS Eosinophils 0.2 10^3/uL (0.0-0.5); ABS Lymphocytes 0.9 10^3/uL (1.0-4.8); ABS Monocytes 0.8 10^3/uL (0.0-0.9); ABS Neutrophils 0.6 10^3/uL (1.5-7.6); Eosinophil % 6.4 %; Hematocrit 27.3 % (35-45); Hemoglobin 9.1 g/dL (11.5-14.3); Lymphocyte % 36.1 %; Mean Corpuscular Hgb Conc 33.5 g/dL (31-36); Mean Corpuscular Volume 86.8 fL (80-97); Mean Platelet Volume 8.6 fL (7.5-11.2); Nucleated Red Blood Cells % 0.1 %/100WBC (0.0-0.8); Platelet Count 62 10^3/uL (150-450); Red Blood Count 3.15 10^6/uL (3.63-4.92); Red Cell Distribution Width 18.4 % (12-17); White Blood Count 2.5 10^3/uL (3.8-11.8)
[2024-08-20] MEDS: Magnesium Sulfate 2 gm BAG 2 GM/50 ML BAG IVPB ONE (11:58)
[2024-08-20 18:27] VITALS: BP 115/44
[2024-08-20] MEDS ORDERED: Lorazepam PYXIS KEY PRN (18:50)
[2024-08-20] MEDS: Enoxaparin 30 MG/0.3 ML SYR SUBCUT SCH (21:49)
[2024-08-21 06:25] LABS: INR 1.09 (0.85-1.14)
[2024-08-21 06:47] LABS: Albumin 2.2 g/dL (3.2-5.2); Albumin/Globulin Ratio 0.8 (1-3); Calcium 8.4 mg/dL (8.6-10.3); Creatinine, Serum 1.18 mg/dL (0.51-0.95); Globulin 2.7 g/dL (2-4); Hematocrit 25.7 % (35-45); Hemoglobin 8.5 g/dL (11.5-14.3); Magnesium 1.9 mg/dL (1.9-2.7); Mean Corpuscular Hemoglobin 28.4 pg (27-33); Mean Corpuscular Hgb Conc 32.9 g/dL (31-36); Mean Corpuscular Volume 86.5 fL (80-97); Potassium 4.2 mmol/L (3.5-5.0); Red Blood Count 2.97 10^6/uL (3.63-4.92); Red Cell Distribution Width 18.7 % (12-17); Total Bilirubin 0.4 mg/dL (0.2-1.0); Total Protein 4.9 g/dL (6.4-8.9); White Blood Count 1.7 10^3/uL (3.8-11.8); eGFR CKD-EPI 46.7 (>60)
[2024-08-21 08:27] LABS: ABS Eosinophils 0.1 10^3/uL (0.0-0.5); ABS Lymphocytes 0.5 10^3/uL (1.0-4.8); ABS Monocytes 0.7 10^3/uL (0.0-0.9); ABS Neutrophils 0.3 10^3/uL (1.5-7.6); ABS Nucleated RBC 0.01 10^3/ul; Eosinophil % 6.3 %; Lymphocyte % 28.9 %; Mean Platelet Volume 8.3 fL (7.5-11.2); Nucleated Red Blood Cells % 0.4 %/100WBC (0.0-0.8); Platelet Count 58 10^3/uL (150-450)
[2024-08-21] MEDS ORDERED: Ondansetron ODT 4 mg TAB 4 MG TAB SL PRN (13:34)
[2024-08-21] MEDS: Morphine ORAL CONCENTRATE 5 MG/0.25 ML ORAL.SYRIN SL PRN (14:00)
[2024-08-21] MEDS: Morphine ORAL CONCENTRATE 5 MG/0.25 ML ORAL.SYRIN SL ONE (20:03)
[2024-08-22 07:14] LABS: Calcium 8.8 mg/dL (8.6-10.3); Creatinine, Serum 1.24 mg/dL (0.51-0.95); Magnesium 1.8 mg/dL (1.9-2.7); Phosphorus 3.9 mg/dL (2.5-5.0); Potassium 4.3 mmol/L (3.5-5.0)
[2024-08-23] MEDS: LORazepam 2 mg VIAL 1 ml IV PUSH PRN (02:16)
[2024-08-23 10:47] LABS: Calcium 8.7 mg/dL (8.6-10.3); Creatinine, Serum 1.02 mg/dL (0.51-0.95); Potassium 4.6 mmol/L (3.5-5.0); eGFR CKD-EPI 55.6 (>60)
[2024-08-23] MEDS: Nystatin TOP POWDER 15 GM BTL TOPICAL SCH (14:05)
[2024-08-24 08:12] LABS: Anion Gap 7 mmol/L (2-16); Blood Urea Nitrogen 62 mg/dL (6-24); CO2 Carbon Dioxide 25 mmol/L (22-32); Calcium 8.8 mg/dL (8.6-10.3); Chloride 105 mmol/L (101-111); Creatinine, Serum 0.89 mg/dL (0.51-0.95); Glucose 232 mg/dL (70-100); Sodium 137 mmol/L (135-145); eGFR CKD-EPI 65.5 (>60)
[2024-08-24] MEDS: Clotrimazole 1% CREAM 30 gm TOPICAL SCH (12:28)
[2024-08-24] MEDS ORDERED: Morphine ORAL CONCENTRATE 5 MG/0.25 ML ORAL.SYRIN SL PRN (23:21)
[2024-08-24] MEDS: Morphine ORAL CONCENTRATE 5 MG/0.25 ML ORAL.SYRIN SL PRN (23:36)
[2024-08-25] MEDS: Morphine ORAL CONCENTRATE 5 MG/0.25 ML ORAL.SYRIN SL SCH (09:35)
[2024-08-25 10:02] LABS: Calcium 8.5 mg/dL (8.6-10.3); Creatinine, Serum 1.35 mg/dL (0.51-0.95); Magnesium 1.4 mg/dL (1.9-2.7); Phosphorus 2.6 mg/dL (2.5-5.0); Potassium 4.5 mmol/L (3.5-5.0); eGFR CKD-EPI 39.7 (>60)
[2024-08-25] MEDS: Acetaminophen IV 1 GM/100ML 1,000 MG/100 ML BAG IV PRN (10:19)
[2024-08-25] MEDS: Atropine 1% (ORAL/SL) 15 ML BTL SL PRN (12:23)
[2024-08-25] MEDS: Magnesium Sulfate 2 gm BAG 2 GM/50 ML BAG IVPB ONE (15:17)
[2024-08-25] MEDS: Furosemide 40 mg/4 ml IV VIAL IV SLOW PU ONE (22:54)
[2024-08-26] MEDS ORDERED: Morphine ORAL CONCENTRATE 5 MG/0.25 ML ORAL.SYRIN SL PRN (15:00)
[2024-08-26] MEDS: PPN (PERIPHERAL) 24 HR with D10W 1000 ml BAG 1,000 ML, Amino Acid Infusion 10% 850 ML, ... IV SCH (17:28)
== END 2024-08-27 09:10 | disposition expired | DRG 871 ==
LOC: EDHOLD 15:26 → ED 15:26 → MED 07-28 08:18 → SUATTDRO 07-28 10:18
PROVIDERS: ADMIT Internal Medicine; ATTEND Internal Medicine